=== PATIENT | female | born 1935 | race Caucasian/White ===

== ENCOUNTER 2017-02-21 16:35 | Inpatient (IN) ==
[2017-02-21] MEDS ORDERED: IOPAMIDOL 100 ML BOTTLE IV ONE (16:36)
--- NOTE | 2017-02-21 17:05 | Emergency Department Note ---
General Adult HPI - General Chief complaint: Shortness of Breath/Dyspnea Stated complaint: Lower edema, sob Time Seen by Provider: 02/21/17 16:56 Source: patient Mode of arrival: ambulatory - History of Present Illness HPI Narrative: This patient has had some shortness of breath weight gain and swelling over the last few days. No chest pain she has had some abdominal bloating and has been having a workup for that. I did see her couple weeks ago with cellulitis the hand and she was treated with vancomycin IV and then clindamycin which she did not tolerate very well. She does have a history of COPD but not congestive heart failure. She seems to be a new onset atrial fibrillation today. Although at least one nurse was able to find no reference and old records to possible old atrial fibrillation - Related Data Home Medications Medication Instructions Recorded Confirmed calcium carbonate 600 mg (1,500 1 tab PO QDAY 07/19/15 02/12/17 mg)-vitamin D3 400 unit tablet vitamin B complex tablet 1 tab PO QDAY tab 07/19/15 02/12/17 multivitamin tablet 1 tab PO QDAY tab 05/14/16 02/12/17 omega-3 fatty acids 1,000 mg 1,000 mg PO QDAY 05/14/16 02/12/17 capsule Mesalamine [Apriso] 4 cap PO QAM 02/10/17 02/12/17 Previous Rx's Medication Instructions Recorded tiotropium bromide 18 mcg capsule 18 mcg INHALATION QDAY 90 Days 02/28/16 with inhalation device metoprolol succinate ER 25 mg 25 mg PO QAM 90 Days 05/14/16 tablet,extended release 24 hr Clindamycin HCl [Cleocin] 300 mg PO TID #30 capsule 02/10/17 Allergies Allergy/AdvReac Type Severity Reaction Status Date / Time No Known Drug Allergies Allergy Verified 02/21/17 16:41 Review of Systems Constitutional: Denies: fever Eyes: Denies: eye pain ENT ED: Denies: ear pain Cardiovascular: Reports: dyspnea on exertion. Denies: chest pain, palpitations Respiratory: Reports: dyspnea. Denies: cough Gastrointestinal: Denies: abdominal pain, nausea, vomiting Genitourinary: Denies: urgency Musculoskeletal: Denies: back pain Integumentary: Denies: rash Neurological: Denies: headache Past Medical History - Past Medical History [facility] Narrative: Medical History (Last Updated 02/12/17 @ 13:35 by Lillie Leyva PA-C) Dermatitis (Acute) Cellulitis of right hand (Acute) Encounter for wound re-check (Acute) Cellulitis (Acute) Cellulitis (Acute) UTI (urinary tract infection) (Acute) Sundowning (Acute) Hypotension (Chronic) Acute colitis (Acute) Ulcerative colitis (Acute) Diarrhea (Acute) Pneumonia (Acute) History of tobacco use (Chronic) Thyroid nodule (Chronic) Osteoporosis (Chronic) Mitral valve prolapse (Chronic) Mitral valve disease (Chronic) Hypertension (Chronic) Hyperparathyroidism (Chronic) Hormone replacement therapy (Chronic) Colon polyps (Chronic) Ulcerative colitis (Chronic) COPD (chronic obstructive pulmonary disease) (Chronic) Left lower lobe pneumonia (Acute) COPD exacerbation (Acute) Past Surgical History (Last Updated 01/21/17 @ 14:29 by [employer] [place]) History of surgical removal of skin lesion (Chronic) H/O: hysterectomy (Chronic) H/O colonoscopy (Chronic) H/O left breast biopsy (Chronic) Family History Mother Family history of malignant neoplasm of uterus Medical history: Reports: COPD, dementia, hypertension, osteoporosis, other (UC , MVP, hyperparathyroidism) Surgical history ED: Reports: hysterectomy Psychiatric history: Reports: no psych history [employer] [employer] history: Reports: non-contributory - Social History Alcohol use: Reports: Unknown Physical Exam - General Limitations: no limitations General appearance: alert, in no apparent distress - Head Head exam: atraumatic - Eye Eye exam: Present: normal appearance - ENT ENT exam: normal exam - Neck Neck exam: Present: normal inspection - Chest Chest inspection: Present: normal inspection - Respiratory Respiratory exam: Present: other (Rales in the bases) - Cardiovascular Cardiovascular exam: Present: irregular rhythm, normal heart sounds - Abdominal Exam Abdominal exam: Present: soft, distention. Absent: tenderness - Extremities Exam Extremities exam: Present: pedal edema - Neurological Exam Neurological exam: Present: alert, oriented X3 - Psychiatric Psychiatric exam: Present: normal affect, normal mood - Skin Skin exam: Present: warm, dry, intact Course Vital Signs Temperature 98.3 F 02/21/17 16:37 Pulse Rate 98 H 02/21/17 16:37 Respiratory Rate 16 02/21/17 16:37 Blood Pressure 133/93 02/21/17 16:37 Pulse Oximetry (%) 96 02/21/17 16:37 Temperature 98.3 F 02/21/17 16:37 Pulse Rate 55 L 02/21/17 21:01 Respiratory Rate 23 H 02/21/17 21:01 Blood Pressure 124/95 02/21/17 21:01 Pulse Oximetry (%) 94 02/21/17 21:01 Medical Decision Making - MDM Narrative Medical decision making narrative: Patient's lab work showed a BNP of 3000 negative troponin CTA of chest was negative for PE but did show pleural effusions and suggestions of cardiomegaly with decreased EF. Did give her 20 mg of IV Lasix and began to get some diuresis with about 800 cc out. However this patient has new onset atrial fib congestive heart failure and edema and will be admitted to telemetry per Dr. Ellis. - Lab Data Lab results reviewed: Yes I reviewed the patient's lab results. Result diagrams: 02/21/17 17:14 02/21/17 17:14 Lab Results 02/21/17 02/21/17 02/21/17 Range/Units 17:14 17:14 17:14 WBC 10.0 (4.5-11.0) K/mcL RBC 4.71 (4.00-5.20) M/mcL Hgb 14.2 (12.0-15.0) g/dL Hct 43.1 (36.0-48.0) % MCV 91.6 (80.0-100.0) fL MCH 30.2 (26.0-34.0) pg MCHC 33.0 (31.0-36.0) g/dL RDW 15.1 H (11.5-14.5) % Plt Count 195 (140-440) K/mcL MPV 10.7 H (7.4-10.4) fL Gran % 73.7 (38.0-78.0) % Lymph % (Auto) 22.9 (15.5-49.0) % [place] % (Auto) 2.0 (1.0-12.0) % Eos % (Auto) 1.0 (0.0-7.0) % Baso % (Auto) 0.4 (0.0-2.0) % Gran # 7.4 (1.8-8.0) K/mcL Lymph # 2.3 (1.5-4.8) K/mcL [place] # 0.2 (0.1-0.9) K/mcL Eos # 0.1 (0.0-0.7) K/mcL Baso # 0 (0.0-0.3) K/mcL D-Dimer 0.93 H (0.00-0.40) ug/ml Sodium 138 (133-145) mmol/L Potassium 3.9 (3.3-5.1) mmol/L Chloride 99 (96-108) mmol/L Carbon Dioxide 24 (22-30) mmol/L Anion Gap 15.0 (8-16) BUN 14 (8-23) mg/dl Creatinine 0.7 (0.6-1.1) mg/dl GFR Calculation 81 Glucose 103 (70-105) mg/dL Calcium 8.3 L (8.6-10.4) mg/dl Total Bilirubin 0.6 (0.0-1.0) mg/dL AST 48 H (0-37) U/l ALT 56 H (0-40) U/l Alkaline Phosphatase 74 (39-117) U/L Troponin T (0-0.03) ng/ml NT-Pro-B Natriuret Pep 3053.0 H (0-450) pg/ml Total Protein 5.3 L (5.9-8.4) gm/dL Albumin 3.3 (3.2-5.2) gm/dL Globulin 2.0 L (2.2-3.7) gm/dL Albumin/Globulin Ratio 1.7 (1.0-2.3) Urine Color Urine Appearance Urine pH (5.0-9.0) Ur Specific [place] (1.000-1.035) Urine Protein (NEG) mg/dL Urine Glucose (UA) (NEG) mg/dL Urine Ketones (NEG) mg/dL Urine Occult Blood (<0.03) mg/dL Urine Nitrate (NEG) Urine Bilirubin (NEG) mg/dL Urine Urobilinogen (NEG) mg/dL Ur Leukocyte Esterase (NEG) /uL Urine RBC (0-1) /hpf Urine WBC (0-4) /hpf Ur Squamous Epith Cells (0-4) /hpf Ur Transition Epith Cell (0-2) /hpf Urine Bacteria (0) /hpf Urine Mucus (0) /hpf Ur Culture Indicated? 02/21/17 02/21/17 Range/Units 17:14 17:44 WBC (4.5-11.0) K/mcL RBC (4.00-5.20) M/mcL Hgb (12.0-15.0) g/dL Hct (36.0-48.0) % MCV (80.0-100.0) fL MCH (26.0-34.0) pg MCHC (31.0-36.0) g/dL RDW (11.5-14.5) % Plt Count (140-440) K/mcL MPV (7.4-10.4) fL Gran % (38.0-78.0) % Lymph % (Auto) (15.5-49.0) % [place] % (Auto) (1.0-12.0) % Eos % (Auto) (0.0-7.0) % Baso % (Auto) (0.0-2.0) % Gran # (1.8-8.0) K/mcL Lymph # (1.5-4.8) K/mcL [place] # (0.1-0.9) K/mcL Eos # (0.0-0.7) K/mcL Baso # (0.0-0.3) K/mcL D-Dimer (0.00-0.40) ug/ml Sodium (133-145) mmol/L Potassium (3.3-5.1) mmol/L Chloride (96-108) mmol/L Carbon Dioxide (22-30) mmol/L Anion Gap (8-16) BUN (8-23) mg/dl Creatinine (0.6-1.1) mg/dl GFR Calculation Glucose (70-105) mg/dL Calcium (8.6-10.4) mg/dl Total Bilirubin (0.0-1.0) mg/dL AST (0-37) U/l ALT (0-40) U/l Alkaline Phosphatase (39-117) U/L Troponin T < 0.01 (0-0.03) ng/ml NT-Pro-B Natriuret Pep (0-450) pg/ml Total Protein (5.9-8.4) gm/dL Albumin (3.2-5.2) gm/dL Globulin (2.2-3.7) gm/dL Albumin/Globulin Ratio (1.0-2.3) Urine Color Yellow Urine Appearance Clear Urine pH 5.0 (5.0-9.0) Ur Specific [place] 1.010 (1.000-1.035) Urine Protein Neg (NEG) mg/dL Urine Glucose (UA) Negative (NEG) mg/dL Urine Ketones Neg (NEG) mg/dL Urine Occult Blood Neg (<0.03) mg/dL Urine Nitrate Neg (NEG) Urine Bilirubin Neg (NEG) mg/dL Urine Urobilinogen Neg (NEG) mg/dL Ur Leukocyte Esterase 75 A (NEG) /uL Urine RBC < 1 (0-1) /hpf Urine WBC 8 H (0-4) /hpf Ur Squamous Epith Cells 1 (0-4) /hpf Ur Transition Epith Cell < 1 (0-2) /hpf Urine Bacteria 0 (0) /hpf Urine Mucus Few (0) /hpf Ur Culture Indicated? Yes - Radiology Data Radiology results reviewed: Yes I reviewed the patient's radiology results. Disposition Clinical Impression: Congestive heart failure Disposition: Xfer As Inpt ([facility]) Condition: Undetermined Referrals: Sha Grullon MD [Primary Care Provider] - Time of Disposition: 21:07
[2017-02-21 17:52] LABS: Basophils # (Auto) 0 K/mcL (0.0-0.3); Basophils % (Auto) 0.4 % (0.0-2.0); Eosinophils # (Auto) 0.1 K/mcL (0.0-0.7); Granulocytes % (Auto) 73.7 % (38.0-78.0); Lymphocytes # (Auto) 2.3 K/mcL (1.5-4.8); Lymphocytes % (Auto) 22.9 % (15.5-49.0); Mean Cell Volume 91.6 fL (80.0-100.0); Mean Corpuscular Hemoglobin 30.2 pg (26.0-34.0); Monocytes # (Auto) 0.2 K/mcL (0.1-0.9); Platelet Count 195 K/mcL (140-440); RBC 4.71 M/mcL (4.00-5.20); Red Cell Distribution Width 15.1 % (11.5-14.5)
[2017-02-21 18:17] LABS: ALT/SGPT 56 U/l (0-40); Albumin 3.3 gm/dL (3.2-5.2); Albumin/Globulin Ratio 1.7 (1.0-2.3); Alkaline Phosphatase 74 U/L (39-117); Blood Urea Nitrogen 14 mg/dl (8-23)
[2017-02-21 18:28] LABS: Appearance,Urine CLEAR; Bacteria,Urine 0 /hpf (0); Bilirubin,Urine NEG (NEG); Color,Urine YELLOW; Glucose,Urine (UA) NEGATIVE (NEG); Leukocyte Esterase,Urine 75 /uL (NEG); Mucus,Urine FEW /hpf (0); Nitrate,Urine NEG (NEG); Protein,Urine NEG (NEG); Urine Blood NEG mg/dL (<0.03); Urine RBC < 1 /hpf (0-1); Urine Squamous Epithelial Cell 1 /hpf (0-4); Urine Transitional Epi Cells < 1 /hpf (0-2); Urine WBC 8 /hpf (0-4); Urobilinogen,Urine NEG (NEG)
[2017-02-21] MEDS ORDERED: FUROSEMIDE 20 MG/2 ML VIAL IV ONE ×3 (19:05→23:19)
--- NOTE | 2017-02-21 20:20 | Cat Scan Report ---
CLINICAL INFORMATION: Reason for Exam:sob COMPARISON: None TECHNIQUE: Axial images obtained through the chest. intravenous contrast administration was administered, and scanning was performed during pulmonary arterial phase. Sagittally and coronally reformatted images were obtained. MIP reformatted images. FINDINGS: Mild to moderate emphysema is present, predominantly involving the upper lobes. Mild pleural parenchymal scarring is present both lung apices. There is a moderate size band of scar or discoid atelectasis in the right middle lobe. There is mild consolidation in the posterior basal segments of both lower lobes. Thin band of discoid atelectasis is present in the inferior segment of lingula. There is no evidence of a pulmonary mass. Moderate right and mild to moderate layering left side pleural effusions are present. There is no pericardial effusion. The heart is moderately enlarged with significant left ventricular dilatation. Right atrium is dilated. There is also reflux of contrast into the inferior vena cava and hepatic veins. This indicates elevated heart pressures. The pulmonary arteries appear normal without evidence of emboli. However, there is suboptimal opacification of the peripheral vessels in both lung bases due to a combination of atelectasis and pleural effusion and delayed transit of blood through the heart due to diminished cardiac function There is a moderate size cyst located laterally in the upper pole of the left kidney. This is unchanged from the prior abdominal CT.. IMPRESSION: No evidence of pulmonary emboli. However, the peripheral third order branches in the basilar segments are incompletely visualized. Bilateral layering pleural effusions, right greater than left. Emphysema Moderate cardiomegaly with indirect findings suggesting elevated right heart pressure Dr. Andrews was called with results Interpreted and Authenticated by: Leonard Alexander 02/21/17
--- NOTE | 2017-02-21 20:37 | XRay Report ---
HISTORY: Reason for Exam:sob FINDINGS: Patient has a small to moderate right-sided pleural effusion and small left-sided effusion. There is a thick band of discoid atelectasis in the right middle lobe. There is consolidation of lung parenchyma in the basilar segments bilaterally, right worse than left. This is probably atelectasis. Underlying pneumonia cannot be excluded. The heart is moderately enlarged. Pulmonary vessels are upper limits of normal in caliber. Spine has a moderate kyphotic curvature and there are several mild compression fractures in the midthoracic spine. IMPRESSION: Cardiomegaly with pleural effusions. This may be due to congestive heart failure. Bibasilar atelectasis or pneumonia . Interpreted and Authenticated by: Leonard Alexander 02/21/17
[2017-02-21] MEDS ORDERED: ACETAMINOPHEN 1,000 MG/100 ML BOTTLE IV PRN (22:31)
[2017-02-21] MEDS ORDERED: traZODone HCL 50 MG TABLET PO PRN (22:31)
[2017-02-21] MEDS ORDERED: ACETAMINOPHEN 325 MG TABLET PO PRN (22:31)
[2017-02-21] MEDS ORDERED: IPRATROPIUM/ALBUTEROL 3 ML AMPUL.NEB NEB PRN (22:31)
[2017-02-21] MEDS ORDERED: POTASSIUM CHLORIDE 20 MEQ PACKET PO PRN (22:31)
[2017-02-21] MEDS ORDERED: ONDANSETRON 4 MG/2 ML VIAL IV PRN (22:31)
[2017-02-21] MEDS ORDERED: MAGNESIUM SULFATE 2 GM/50 ML BAG IV PRN (22:31)
[2017-02-21] MEDS ORDERED: METOPROLOL TARTRATE 5 MG/5 ML VIAL IV ONE ×2 (22:52→23:44)
[2017-02-21] MEDS ORDERED: cefTRIAXone 1 GM VIAL ONE (22:54)
[2017-02-21] MEDS: METOPROLOL TARTRATE 5 MG/5 ML VIAL IV SCH ×2 (23:09→23:44)
[2017-02-21] MEDS: cefTRIAXone 2 GM in DEXTROSE 5% IN WATER 50 ML IV SCH (23:10)
[2017-02-21] MEDS: 0.9 % SODIUM CHLORIDE 10 ML SYRINGE IV SCH (23:11)
[2017-02-22] MEDS: METOPROLOL TARTRATE 5 MG/5 ML VIAL IV SCH (00:53)
--- NOTE | 2017-02-22 01:06 | History and Physical Report ---
DATE OF ADMISSION: 02/21/2017 PRIMARY CARE PHYSICIAN: Sha Grullon MD HAMPER MAKER MACHINE: [facility], Yoni Kaur MD REASON FOR ADMISSION: Worsening shortness of breath and lower extremity swelling. HISTORY OF CHIEF COMPLAINT: The patient is an 81-year-old who lives in the [place] her daughter. She carries a history of ulcerative colitis and COPD and has been in her baseline state of health until roughly 1 week prior to presentation. The patient while gardening developed a blister, left upper extremity. She subsequently had cellulitis which was treated initially on Rocephin and subsequently on clindamycin and vancomycin with clinical improvement but during the course of 5 days, the patient has gained over 14 pounds and has become increasingly edematous along with short of breath, limiting her ability to function. Over the last 48 hours, the patient has barely been able to get around in her own home due to increasing dyspnea which has progressed to rest. She subsequently came to [facility] Emergency Room. Initial workup was significant for pulmonary edema with congestive heart failure. The patient received first dose of Lasix in the ER with adequate response. Hospitalist Service was consulted. At the time of examination, the patient is accompanied with 3 daughters. She was able to provide answers to most of the questions. She appears nondistressed and able to talk in near full sentences. She denies recent NSAID intake. She also denies recent changes in medications or [id number] herbal supplements. She further denies missing her regular medications. She denies diarrhea, dysuria, endorses weight gain but no joint swelling, rash, glandular swelling, chest pain, productive sputum, fever, shaking chills, headache or photophobia. REVIEW OF SYSTEMS: Ten-point review of system was performed and negative except for what is discussed above. PAST MEDICAL HISTORY: 1. History of ulcerative colitis, managed by Dr. Whitaker. 2. COPD. 3. Hypertension. 4. Mitral valve prolapse. CURRENT MEDICATIONS: Mesalamine, dose unclear. Multivitamin daily. Vitamin complex daily. Tiotropium inhaled daily. Metoprolol 25 daily. Clindamycin 300 three times a day. ALLERGIES: None significant. SOCIAL HISTORY: The patient lives [place] the [place] with her daughter. She carries over a [id number] history of smoking. He denies any alcohol. Likes gardening. CODE STATUS: DNR. FAMILY HISTORY: Significant for ulcerative colitis (son), CVA (father), breast cancer (mother). PHYSICAL EXAMINATION: GENERAL EXAM: The patient is alert and oriented. She denies any active distress. BMI 26.6. Height 5 feet. VITAL SIGNS: Blood pressure 124/95, respiration rate 23, pulse 103, sats 94% room air, and temperature 97.5. HEENT: Pupils symmetric. Oral cavity is dry. No ear or nose discharge. Head is normocephalic and atraumatic. NECK: No lymphadenopathy. CHEST: S1, S2, irregular rhythm. ESM grade I, with minimal radiation to carotid. Diminished breath sounds at bases. Late inspiratory crackles, posterior basilar chest. ABDOMEN: Distended, tympanic, minimal hepatomegaly. LOWER EXTREMITY EXAMINATION: Significant for 2+ pitting edema from mid foot all the way up to the mid thigh. SKIN: Otherwise, no suspicious lesions. PSYCHIATRIC: Alert and cooperative. No anxiety. NEURO: Nonfocal. LABS AND IMAGING: White count 10, hemoglobin 14, platelets 105. D-dimer 0.93. Sodium 130, potassium 3.9, creatinine 0.7, BUN 14. LFTs elevated with ALT 56, AST 28. BNP 3053. UA [address] angiogram chest: Layering pleural effusion. X-ray chest: Congestive heart failure, pleural effusion. Recent abdominal ultrasound reveals 1 x 1.3 cm mass adjacent to the pancreas and recommend abdominal CT along with findings of cholelithiasis with thickened gallbladder indicative of chronic cholecystitis. ASSESSMENT AND PLAN: An 81-year-old admitted with acute decompensated heart failure. 1. Acute decompensated heart failure. Start aggressive diuresis. Echocardiogram. Continue beta abril. Consider RAVI inhibitor. 2. New onset atrial fibrillation. Continue beta abril. Telemonitoring. 3. Uncomplicated urinary tract infection. Continue antibiotic coverage. Await cultures. 4. History of ulcerative colitis. Continue prior home medications. 5. History of chronic obstructive pulmonary disease. Continue bronchodilators. 6. Hypertension. Continue metoprolol. PLAN FOR TODAY: 1. Admit as inpatient, anticipate a minimum 2 midnight stay. 2. Telemonitoring. 3. Aggressive diuresis. 4. Echocardiogram. 5. Preexisting medical condition management as above. AA:trell Job ID: [id number] Doc ID: [id number] Matt Grullon MD [facility]
[2017-02-22 04:44] LABS: Mean Cell Volume 92.7 fL (80.0-100.0); Mean Corpuscular HGB Conc 32.7 g/dL (31.0-36.0); Mean Corpuscular Hemoglobin 30.3 pg (26.0-34.0); Platelet Count 199 K/mcL (140-440); RBC 4.84 M/mcL (4.00-5.20); Red Cell Distribution Width 15.2 % (11.5-14.5)
[2017-02-22 05:17] LABS: ALT/SGPT 52 U/l (0-40); Albumin 3.3 gm/dL (3.2-5.2); Albumin/Globulin Ratio 1.7 (1.0-2.3); Alkaline Phosphatase 64 U/L (39-117); Bilirubin,Direct < 0.2 mg/dL (0.0-0.3); Blood Urea Nitrogen 13 mg/dl (8-23); Gamma Glutamyl Transpeptidase 31 U/L (5-36); Magnesium 1.7 mg/dL (1.6-2.5)
[2017-02-22 05:27] LABS: Band Neutrophils % 2 % (0-10); Basophils % (Manual) 1 % (0-2); Eosinophils % (Manual) 3 % (0-7); Lymphocytes % 15 % (15-49); Monocytes % (Manual) 5 % (1-12); Platelet Estimate NORMAL (NORMAL); RBC Morphology NORMAL (NORMAL); Segmented Neutrophils % 64 % (38-78)
[2017-02-22] MEDS: 0.9 % SODIUM CHLORIDE 10 ML SYRINGE IV SCH ×3 (05:39→21:49)
[2017-02-22] MEDS: DOCUSATE SODIUM 100 MG CAPSULE PO SCH ×2 (08:10→20:43)
[2017-02-22] MEDS: FUROSEMIDE 40 MG/4 ML VIAL IV SCH ×2 (08:10→16:29)
[2017-02-22] MEDS: HEPARIN 5,000 UNIT/ML VIAL SQ SCH ×2 (08:11→20:42)
[2017-02-22] MEDS ORDERED: ALBUTEROL SULFATE 1 PUFF INHALER IH PRN (08:59)
[2017-02-22] MEDS ORDERED: MULTIVIT,THER IRON,CA,FA & MIN 1 TABLET PO SCH (09:00)
--- NOTE | 2017-02-22 09:03 | Internal Med Progress Note ---
Medical - PN: Subj Patient information: Note initiated : 02/22/17 at 9:01 am Service Date, if different from initiated Date: [] Patient: Anne Jackson 81 y/o F admitted on 02/21/17 for Lower edema, sob. Chief Complaint: [] Interval history: 02/21- patient admitted with acute decompensated heart failure/shortness of breath. Mild and complicated UTI. On aggressive diuresis/antibiotics. Admitted to telemetry. New onset A. fib rate controlled. Ultrasound abdomen revealed cholelithiasis with cholecystitis and possible pancreatic mass. CT abdomen in a.m. 02/22- atient doing well. No overnight events. No concerns per staff. Diuresis over [address] abdomen and pelvis pending. Echocardiogram pending. Patient feels better with improved generalized swelling including lower extremity lymphedema. Continue physical therapy/cardiac diet. Possible discharge in 24 hours if clinically improved with outpatient follow-up with PCP.optimize CHF management based on echo findings. - Constitutional Vitals: Vital Signs Temp Pulse Resp BP Pulse Ox 98.4 F 101 H 16 125/86 94 02/22/17 07:57 02/22/17 07:57 02/22/17 07:57 02/22/17 07:57 02/22/17 07:57 Period Temp Pulse Resp BP Sys/Arellano Pulse Ox Last 24 Hr 98.4 F 98-101 16-16 117-128/76-86 94-95 Intake and Output 02/21/17 02/22/17 02/22/17 21:59 05:59 13:59 Output Total 1850 / 1850 Balance -1850 / -1850 Intake & Output: Intake & Output 02/21/17 02/22/17 02/22/17 21:59 05:59 13:59 Output Total 1850 / 1850 Balance -1850 / -1850 Output: Void Amount 1850 / 1850 General appearance: cooperative, no acute distress Exam: alert oriented nonlabored breathing Nondistended abdomen Improving lymphedema Medical - PN: Obj Da - Labs CBC & Chem 7: 02/22/17 03:40 02/22/17 03:45 Labs: Abnormal Lab Results 02/22/17 02/22/17 03:45 03:40 RDW 15.2 H MPV 10.6 H Reactive Lymphocytes 10 H Calcium 8.2 L AST 45 H ALT 52 H Total Protein 5.3 L Globulin 2.0 L Meds: Medications Acetaminophen (Tylenol) 650 mg PO Q4-6HP PRN PRN Reason: PAIN/FEVER > 101 Albuterol Sulfate (Ventolin) puff IH Q4HP PRN PRN Reason: Shortness Of Breath Albuterol/Ipratropium (Duoneb) 3 ml NEB Q4HP PRN PRN Reason: Shortness Of Breath Docusate Sodium (Colace) 100 mg PO BID [facility] Last Admin: 02/22/17 08:10 Dose: Not Given Furosemide (Lasix) 20 mg IV BIDD [facility] Last Admin: 02/22/17 08:10 Dose: 20 mg Heparin Sodium (Porcine) (Heparin) 5,000 unit SQ Q12 [facility] Last Admin: 02/22/17 08:11 Dose: 5,000 unit Ceftriaxone Sodium 2 gm/ (Dextrose) 50 mls @ 100 mls/hr IV Q24H [facility] Last Admin: 02/21/17 23:10 Dose: Not Given Magnesium Sulfate (Magnesium Sulfate) 2 gm in 50 mls @ 50 mls/hr IV UD PRN PRN Reason: MG = or < 1.7 Acetaminophen (Ofirmev) 1,000 mg in 100 mls @ 200 mls/hr IV Q6HP PRN PRN Reason: PAIN/FEVER > 101 Iron Carb/Multivit/[place]/Folic Acid (Multivitamin W/Minerals) 1 tab PO DAILY [facility] Last Admin: 02/22/17 08:10 Dose: 1 tab Metoprolol Succinate (Toprol Xl) 25 mg PO QAM [facility] Non-Formulary Medication (Calcium Carbonate/Vitamin D3 [Calcium 600-Vit D3 400 Tablet]) 1 tab PO QDAY [facility] Non-Formulary Medication (Mesalamine [Apriso]) 4 cap PO QAM [facility] Non-Formulary Medication (Multivitamin [Multi-Day Vitamins]) 1 tab PO QDAY [facility] Non-Formulary Medication ([place]-3 Fatty Acids [Fish Oil Concentrate]) 1,000 mg PO QDAY [facility] Non-Formulary Medication (Vitamin B Complex [B-100 Complex]) 1 tab PO QDAY [facility] Ondansetron HCl (Zofran) 4 mg IV Q4-6HP PRN PRN Reason: Nausea And Vomiting Potassium Chloride (Klor-Con) 40 meq PO DAILYP PRN PRN Reason: K+ < 3.5 Last Admin: 02/22/17 08:12 Dose: 40 meq Senna/Docusate Sodium (Senna Plus Tablet) 1 tab PO HS [place] Sodium Chloride (Saline Flush) 10 ml IV Q8 [place] Last Admin: 02/22/17 05:39 Dose: 10 ml Tiotropium [place] (Spiriva) 18 mcg INH QDAY [place] Trazodone HCl (Desyrel) 50 mg PO HSP PRN PRN Reason: Insomnia Medical - PN: A/P - Time Spent With Patient Total time spent is greater than 50% in coordination of care (as documented) at patient's floor/unit and/or counseling patient: 25 - 35 minutes (1) Heart failure with acute decompensation, type unknown Status: Acute Assessment and plan: * acute decompensated heart failure-echo pending. Continue diuresis.optimize management based on echo finding * Mild UTI-continue Rocephin * New onset A. fib-rate controlled. Continue beta abril * pancreatic lesion on ultrasound-CT abdomen to exclude Pancreatic mass * cholelithiasis or cholecystitis-outpatient surgery consult * History of ulcerative colitis * Hypertension * COPD * dNR Plan * Optimize CHF management based on echo finding, continue diuresis * Continue antibiotics * CT abdomen and pelvis * Surgery consult on discharge * Pre-existing medical condition management as above Current Visit: Yes Medical - PN: Qual - VTE Deep Vein Thrombosis/Pulmonary Embolism Present on Admission: No
[2017-02-22] MEDS: cefTRIAXone 2 GM in DEXTROSE 5% IN WATER 50 ML IV SCH (09:07)
[2017-02-22] MEDS: MULTIVIT,THER IRON,CA,FA & MIN 1 TABLET PO SCH (10:24)
[2017-02-22] MEDS: TIOTROPIUM BROMIDE 18 MCG INHALANT INH SCH (10:30)
[2017-02-22] MEDS: MESALAMINE 0.375 GM PO SCH (10:30)
[2017-02-22] MEDS: CALCIUM W/VIT D3 500 MG TABLET PO SCH (11:12)
[2017-02-22] MEDS: VITAMIN B COMPLEX 1 CAPSULE PO SCH (11:13)
[2017-02-22] MEDS: METOPROLOL SUCCINATE 25 MG TAB.XL.24H PO SCH (11:13)
[2017-02-22] MEDS: FISH OIL 1,000 MG CAPSULE PO SCH (11:13)
[2017-02-22] MEDS ORDERED: BENZOCAINE/MENTHOL 1 LOZENGE PO PRN (13:11)
[2017-02-22] MEDS ORDERED: SENNOSIDES/DOCUSATE SODIUM 1 TAB TABLET PO SCH (21:00)
[2017-02-23] MEDS: 0.9 % SODIUM CHLORIDE 10 ML SYRINGE IV SCH (05:09)
[2017-02-23 05:27] LABS: Mean Cell Volume 90.2 fL (80.0-100.0); Mean Corpuscular HGB Conc 33.2 g/dL (31.0-36.0); Platelet Count 178 K/mcL (140-440); RBC 4.81 M/mcL (4.00-5.20); Red Cell Distribution Width 15.1 % (11.5-14.5)
[2017-02-23 06:23] LABS: ALT/SGPT 46 U/l (0-40); Albumin 3.2 gm/dL (3.2-5.2); Albumin/Globulin Ratio 1.7 (1.0-2.3); Alkaline Phosphatase 60 U/L (39-117); Bilirubin,Direct 0.3 mg/dL (0.0-0.3); Blood Urea Nitrogen 16 mg/dl (8-23); Gamma Glutamyl Transpeptidase 29 U/L (5-36); Uric Acid 5.5 mg/dL (2.5-8.0)
--- NOTE | 2017-02-23 06:35 | Echocardiogram Report ---
ECHOCARDIOGRAM: 2-D and M-mode echocardiography with cardiac Doppler and color flow imaging were performed with a [employer]. Indication is mitral prolapse and acute decompensated heart failure. Both atria appeared moderately enlarged. RV and LV cavity size appeared normal. LV wall thickness appeared borderline increased. Systolic performance appeared normal. Estimated ejection fraction is 60%. Aortic root diameter appeared normal. The aortic valve appeared trileaflet and normal. There was no evidence for aortic stenosis by Doppler interrogation. Aortic regurgitation, probably mild (1+), was demonstrated. The mitral leaflets appeared moderately thickened, probably representing myxomatous proliferation. Mild anterior leaflet systolic prolapse and prominent posterior leaflet prolapse were appreciated. Doppler interrogation of LV inflow disclosed a monophasic spectral dispersion pattern related to absent AV synchrony. Mitral regurgitation, probably moderately severe to severe (3-4+), was noted. Color flow imaging disclosed the regurgitant jet to cling to the atrial aspect of the anterior leaflet. Pulmonary venous interrogation disclosed ''d'' wave dominance suggesting elevated pulmonary wedge pressure. The pulmonic valve showed absent ''a'' wave in the absence of AV synchrony. Pulmonary artery acceleration time appeared shortened. There was no evidence for pulmonic stenosis or pulmonic regurgitation. Tricuspid valve appeared normal. Tricuspid regurgitation, probably mild (1+), was noted. No intracardiac shunting was appreciated. There was no evidence for pericardial effusion. The IVC was dilated and did not vary with the respiratory cycle indicating raised CVP. Calculated estimate of PA systolic pressure is mildly elevated at 40 mmHg. Hepatic venous interrogation disclosed ''d'' wave dominance corroborating elevated RA pressure. Atrial fibrillation with a moderate response was present. CONCLUSION:Aortic regurgitation, probably mild (1+) Borderline concentric LVH with normal systolic performance. 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 Note: This patient may have indication for mitral valve surgery. (See accompanying M-mode and Doppler reports for quantitation.) ECHOCARDIOGRAPHY M-MODE CALCULATIONS: HT: 5'0 WT: 133 BSA: 1.57 m2 NORMALS AORTA: AORTIC ROOT 3.0 2.0-3.7 cm LEFT ATRIUM 4.3 1.9-4.0 cm MITRAL VALVE: EXCURSION 2.2 1.9-2.7 cm EPSS 0.3 <0.5 cm LT VENTRICLE: LVID (ED) 5.0 3.5-5.7 cm LVID (ES) 4.0 SEPTAL THICKNESS 1.2 0.6-1.1 cm SEPTAL EXCURSION 0.2 0.3-0.8 cm LVPW THICKNESS 1.2 0.6-1.1 cm LVPW EXCURSION 1.0 0.9-1.4 cm MINOR AXIS FS 2.0 25%-40% RT VENTRICLE: RVID (ED) 2.8 0.9-2.6 cm(up to 3cm if LLD) QUALITATIVE DOPPLER FLOW STUDIES MITRAL VALVE MR, probably moderately severe to severe (3-4+) AORTIC VALVE AR, probably mild (1+) TRICUSPID VALVE TR, probably mild (1+) PULMONIC VALVE -- QUANTITATIVE DOPPLER FLOW STUDIES SAMPLE SITES VELOCITIES PEAK PRESSURE VALVE AREA and/or VALVE WINDOW (PEAK,M/SEC) DROP (GRADIENT) PRESSURE HALF-TIME MV (Diastole) 1.4 -- -- MV (Systole) 5.0 -- -- AO (Diastole) 4.5 -- -- AO (Systole) 1.3 -- -- TV (Systole) 2.2 -- -- PV (Systole) 0.8 -- -- PV (Diastole) -- DOMINGO:emerald Job ID: [id number] Doc ID: [id number] Estiven Vázquez MD
[2017-02-23 06:48] LABS: Anisocytosis 1+ (NONE SEEN); Band Neutrophils % 1 % (0-10); Basophils % (Manual) 1 % (0-2); Eosinophils % (Manual) 1 % (0-7); Lymphocytes % 28 % (15-49); Monocytes % (Manual) 6 % (1-12); Platelet Estimate NORMAL (NORMAL); RBC Morphology ABNORM (NORMAL); Segmented Neutrophils % 63 % (38-78)
--- NOTE | 2017-02-23 07:13 | XRay Report ---
CLINICAL INFORMATION: CHF COMPARISON: 02/21/2017 FINDINGS: Moderate cardiomegaly is unchanged. Mediastinum is unremarkable. Pulmonary vessels are mildly to moderately distended but slightly improved from previous study. Interstitial edema shows slight improvement. Moderate right and small left pleural effusion is noted with subsegmental atelectasis both lower lobes IMPRESSION: Mild CHF - improved from exam two days ago Interpreted and Authenticated by: Ramsey Dao 02/23/17
--- NOTE | 2017-02-23 07:50 | Discharge Summary ---
Medical - DS: Prov Patient information: Note initiated : 02/23/17 at 7:48 am Service Date, if different from initiated Date: [] Patient: Anne Jackson 81 y/o F admitted on 02/21/17 for Lower Edema, SOB/ Decompensated Heart Failure. Chief Complaint: [] Date of admission: 02/21/17 22:15 Discharge date: 02/23/17 Primary care physician: Sha Grullon Medical - DS: Meds - Discharge Medications Prescriptions: Ciprofloxacin HCl [Cipro] 500 mg PO BID #8 tablet Furosemide [Lasix] 20 mg PO Q48 #30 tablet Warfarin [Coumadin] 2.5 mg PO DAILY@1400 #30 tablet Active and Home Medications: Home Medications calcium carbonate 600 mg (1,500 mg)-vitamin D3 400 unit tablet 1 tab PO QDAY [History Confirmed 02/22/17 Last Taken 02/21/17] vitamin B complex tablet 1 tab PO QDAY tab 07/19/15 [History Confirmed Last Taken 02/21/17] tiotropium bromide 18 mcg capsule with inhalation device 18 mcg INHALATION QDAY 90 Days 02/28/16 [Rx Confirmed 02/22/17 Last Taken 02/21/17] metoprolol succinate ER 25 mg tablet,extended release 24 hr 25 mg PO QAM 90 Days 05/14/16 [Rx Confirmed 02/22/17 Last Taken 02/21/17] multivitamin tablet 1 tab PO QDAY tab 05/14/16 [History Confirmed 02/22/17 Last Taken 02/21/17] omega-3 fatty acids 1,000 mg capsule 1,000 mg PO QDAY 05/14/16 [History Confirmed 02/22/17 Last Taken 02/21/17] Mesalamine [Apriso] 4 cap PO QAM 02/10/17 [History Confirmed 02/22/17 Last Taken 02/21/17] Albuterol Sulfate [Proair Hfa] 8.5 gm IH Q4HP PRN 02/21/17 [History Confirmed Last Taken Unknown] Furosemide [Lasix] 20 mg PO Q48 #30 tablet 02/23/17 [Rx Last Taken Unknown] Warfarin [Coumadin] 2.5 mg PO DAILY@1400 #30 tablet 02/23/17 [Rx Last Taken Unknown] Medical - DS: Hosp Hospital course: DISCHARGE DIAGNOSIS * Acute decompensated heart failure- secondary to severe MR. Respond well to diuretics. follow-up with cardiology in 5-7 days. Continue diuretics as outpatient * Mild UTI-continue ciprofloxacin patient 3 days * New onset A. fib-rate controlled. Continue beta abril. Chads score 2 mandating anticoagulation. Started on Coumadin.INR checks as outpatient * Pancreatic lesion on ultrasound-CT abdomen in 1 week to exclude Pancreatic mass. * cholelithiasis with gallbladder wall thickening- scheduled outpatient surgery consult * History of ulcerative colitis-continue mesalamine * Hypertension-on metoprolol * COPD-on bronchodilators Brief hospital course 02/21- patient admitted with acute decompensated heart failure/shortness of breath. Mild and complicated UTI. On aggressive diuresis/antibiotics. Admitted to telemetry. New onset A. fib rate controlled. Ultrasound abdomen revealed cholelithiasis with cholecystitis and possible pancreatic mass. CT abdomen in a.m. 02/22- atient doing well. No overnight events. No concerns per staff. Diuresis over [address] abdomen and pelvis pending. Echocardiogram pending. Patient feels better with improved generalized swelling including lower extremity lymphedema. Continue physical therapy/cardiac diet. Possible discharge in 24 hours if clinically improved with outpatient follow-up with PCP.optimize CHF management based on echo findings. 02/23- patient responded to diuretics with adequate diuresis and resolution of lymphedema/pedal edema. echocardiogram severe MR with concentric LVH/AR. interval resolution of pulmonary edema on chest x-ray. ischarging home with advice to follow up with primary care physician/surgery in 5-7 days for evaluation of cholelithiasis. also patient will require outpatient cardiology follow-up in 7-10 days along with cardiothoracic surgery follow-up for evaluation of severe MR and valve repair. Continue Coumadin based on chads score over 2 to prevent embolic CVA. Patient feels back in baseline and requesting discharge. Detailed discharge instructions provided as below Discharge diagnosis: . - Time Spent with Patient Total time spent providing and/or coordinating discharge services: Greater than 30 minutes Medical - DS: Exam - Constitutional Vitals: Vital Signs Temp Pulse Resp BP BP Pulse Ox 02/23/17 07:08 98 F 106 H 18 119/79 95 02/23/17 03:54 97.2 F 111 H 16 125/88 95 02/23/17 00:00 97.2 F 109 H 16 112/70 95 02/22/17 20:00 98.5 F 105 H 18 123/78 95 02/22/17 16:00 97.9 F 107 H 16 121/82 95 02/22/17 12:00 97.6 F 101 H 16 102/70 95 02/22/17 07:57 98.4 F 101 H 16 125/86 94 Intake and Output 02/22/17 02/23/17 02/23/17 21:59 05:59 13:59 Intake Total 480 / 480 600 / 600 Output Total 900 / 900 950 / 950 Balance -420 / -420 -350 / -350 Intake: Oral 480 / 480 600 / 600 Output: Void Amount 900 / 900 950 / 950 Other: Meal Dinner Percent of Meal Consumed 100% Feeding Ability Independent Weight 134 lb 6.4 oz Medical - DS: Data Labs on day of discharge: Labs from last 24 hours 02/23/17 02/23/17 03:38 03:38 WBC 8.7 RBC 4.81 Hgb 14.4 Hct 43.4 MCV 90.2 MCH 30.0 MCHC 33.2 RDW 15.1 H Plt Count 178 MPV 11.5 H Total Counted 200 Seg Neutrophils % 63 Band Neutrophils % 1 Lymphocytes % 28 Monocytes % (Manual) 6 Eosinophils % (Manual) 1 Basophils % (Manual) 1 Platelet Estimate Normal RBC Morphology Abnorm A Anisocytosis 1+ A Sodium 142 Potassium 3.4 Chloride 101 Carbon Dioxide 27 Anion Gap 14.0 BUN 16 Creatinine 0.7 GFR Calculation 81 Glucose 96 Uric Acid 5.5 Calcium 8.0 L Phosphorus 3.0 Magnesium 2.0 Total Bilirubin 0.8 Direct Bilirubin 0.3 GGT 29 AST 41 H ALT 46 H Alkaline Phosphatase 60 Lactate Dehydrogenase 179 Total Protein 5.1 L Albumin 3.2 Globulin 1.9 L Albumin/Globulin Ratio 1.7 Triglycerides 67 Medical - DS: A/P - Patient/Caregiver Discharge Instructions Activity: as per physical therapy Diet: Cardiac Additional Instructions: Follow-up PCP in 5 days follow-up with cardiology in 5-7 days-Patient will need evaluation for mitral valve repair in light of severe MR and decompensated heart failure with pulmonary edema follow-up abdominal CT scan in 1 week as outpatient to rule out pancreatic mass follow-up with surgery For evaluation of cholelithiasis/cholecystitis one week I recommend primary care physician to check INR, CBC BMP UA as a posthospital follow-up and check abdominal CT with contrast 1 week. Continue aggressive bowel regimen to prevent constipation Continue fall precautions daily weights measurements and take additional 40 mg Lasix for 3 days if weight gain over 4 pounds over baseline or worsening shortness of breath and call primary care physician if inadequate response to Lasix All meals on chair sitting upright at 90 degrees to prevent aspiration Return to ER if worsening fever chills shortness of breath, diarrhea, bleeding Review risk and side effect profile of medications including Coumadin. Side effect may include mild to severe reaction including medication interaction, life threatening bleeding including intracranial hemorrhage and even which can be prevented by close follow-up with PCP and monitoring for side effects Refrain from smoking and alcohol Continue diet and activity as advised Discussed importance of medication adherence Please review medication list with patient prior to discharge Please schedule follow-up with PCP/Providers prior to discharge and provide printouts Portions of this chart may have been created with [employer] voice recognition software. Occasional wrong-word or ?sound-like? substitutions may have occurred due to the inherent limitations of voice recognition software. Please read the chart carefully and recognize, using context, where the substitutions have occurred. CC- PCP Prescriptions: Ciprofloxacin HCl [Cipro] 500 mg PO BID #8 tablet Furosemide [Lasix] 20 mg PO Q48 #30 tablet Warfarin [Coumadin] 2.5 mg PO DAILY@1400 #30 tablet - Follow up Plan Follow up with: Sha Grullon MD [Primary Care Provider] - Eber Edwards MD [Physician] - Perico Welch [Physician] - Disposition: Home, Self-Care Prognosis: Fair Rehab Potential: Fair I certify that the patient requires SNF services: No Overall status at discharge: patient is back to baseline Medical - DS: Qual - VTE Deep Vein Thrombosis/Pulmonary Embolism Present on Admission: No
[2017-02-23] MEDS: FUROSEMIDE 40 MG/4 ML VIAL IV SCH (07:55)
[2017-02-23] MEDS: MESALAMINE 0.375 GM PO SCH (08:58)
[2017-02-23] MEDS: VITAMIN B COMPLEX 1 CAPSULE PO SCH (08:58)
[2017-02-23] MEDS: FISH OIL 1,000 MG CAPSULE PO SCH (08:58)
[2017-02-23] MEDS: CALCIUM W/VIT D3 500 MG TABLET PO SCH (08:58)
[2017-02-23] MEDS: MULTIVIT,THER IRON,CA,FA & MIN 1 TABLET PO SCH (08:58)
[2017-02-23] MEDS: METOPROLOL SUCCINATE 25 MG TAB.XL.24H PO SCH (08:58)
[2017-02-23] MEDS: DOCUSATE SODIUM 100 MG CAPSULE PO SCH (08:59)
[2017-02-23] MEDS: TIOTROPIUM BROMIDE 18 MCG INHALANT INH SCH (08:59)
[2017-02-23] MEDS: HEPARIN 5,000 UNIT/ML VIAL SQ SCH (08:59)
[2017-02-23] MEDS: cefTRIAXone 2 GM in DEXTROSE 5% IN WATER 50 ML IV SCH (08:59)
[2017-02-23] MEDS ORDERED: WARFARIN 2.5 MG TABLET PO SCH (14:00)
== END 2017-02-23 10:40 | disposition home or self-care (01) | DRG 292 ==
LOC: ED 16:35 → ICU 22:15
PROVIDERS: ADMIT Internal Medicine; ATTEND Internal Medicine

== ENCOUNTER 2017-08-04 11:24 | Observation (INO) ==
--- NOTE | 2017-08-04 12:10 | Emergency Department Note ---
SOB HPI - General Chief Complaint: Shortness of Breath/Dyspnea Stated Complaint: Shortness of breath Time Seen by Provider: 08/04/17 11:43 Source: patient Mode of arrival: ambulatory Limitations: no limitations - History of Present Illness Patient brought over with daughters at the bedside, initially seen for urgent care. Increasing shortness of breath over the last few days, culminating into unable to lie flat for sleep. Notable pitting edema of the lower extremities. Patient seems to be slightly confused according to family, using albuterol inhaler 5 or 6 times over the last few hours. winded after 5 steps, has been present but slightly progressive over last few months. No acute change No fevers or chills, no cough. Using her home nebulizer. Meds are up-to-date. Currently without a physician since Dr. Grullon's assisted. Abdominal distention at baseline, unchanged - Related Data Home Medications Medication Instructions Recorded Confirmed calcium carbonate 600 mg (1,500 1 tab PO QDAY 07/19/15 08/04/17 mg)-vitamin D3 400 unit tablet vitamin B complex tablet 1 tab PO QDAY tab 07/19/15 08/04/17 multivitamin tablet 1 tab PO QDAY tab 05/14/16 08/04/17 omega-3 fatty acids 1,000 mg 1,000 mg PO QDAY 05/14/16 08/04/17 capsule Mesalamine [Apriso] 4 cap PO QAM 02/10/17 08/04/17 Albuterol Sulfate [Proair Hfa] 8.5 gm IH Q4HP PRN 02/21/17 08/04/17 lactobacillus combination no.4 3 3,000 mmu cells PO BID cap 02/26/17 08/04/17 billion cell capsule Previous Rx's Medication Instructions Recorded metoprolol succinate ER 25 mg 75 mg PO QAM 90 Days #270 tab 03/05/17 tablet,extended release 24 hr tiotropium bromide 18 mcg capsule 18 mcg INHALATION QDAY 90 Days #90 04/29/17 with inhalation device puff trazodone 50 mg tablet 50 mg PO QHS #90 tab 05/26/17 warfarin 2.5 mg tablet See Label Instructions .ROUTE 05/26/17 .COMPLEX #90 tab furosemide 20 mg tablet 40 mg PO QDAY #180 tab 07/15/17 potassium chloride ER 10 mEq 10 meq PO QDAY #90 cap 07/15/17 capsule,extended release albuterol sulfate 2.5 mg/3 mL 2.5 mg INHALATION Q4H #180 ml 07/26/17 (0.083 %) solution for nebulization Allergies Allergy/AdvReac Type Severity Reaction Status Date / Time clindamycin AdvReac Mild Heartburn Verified 08/04/17 11:28 Review of Systems All systems ED: reviewed and negative except as stated. Constitutional: Denies: fever, chills Eyes: Denies: eye pain ENT ED: Denies: ear pain Past Medical History - Past Medical History Attestation: Yes: The following information was validated with the patient. Medical history: Reports: atrial fibrillation, CHF, COPD, dementia, hypertension , osteoporosis, valvular heart disease, other (UC, MVP, hyperparathyroidism) Psychiatric history: Reports: no psych history PLANNING RN history: Reports: non-contributory Surgical history ED: Reports: hysterectomy Family history: Reports: non-contributory - Social History smoking status: Former smoker Alcohol use: Reports: None, Unknown Drug use: Reports: none Physical Exam Limitations: no limitations General appearance: alert, other (disoriented to timing and history) Head: atraumatic Eye: Present: normal appearance ENT: normal exam, mucous membranes moist Neck: Present: normal inspection. Absent: tenderness Chest: Present: normal inspection, other (kyphotic) Respiratory: Present: normal lung sounds bilaterally. Absent: respiratory distress, wheezes, accessory muscle use Cardiovascular: Present: regular rate, irregular rhythm Abdominal: Present: distention, other (tympanitic, non tender) Extremities: Present: other (2+ pitting edema; warm, good capillary refill, no cyanosis) Back: Present: normal inspection Neurological: Present: alert, oriented X3 Psychiatric: Absent: anxious Skin: Present: warm, dry Course - Reevaluation(s) Reevaluation #1: chest xray with moderated B pleural effusions: therapeutic thoracentesis requested; discussed with patient and daughters, risks benefits and indications; voiced understanding on consent Time: 12:59 Reevaluation #2: unable to complete thoracentesis due to therapeutic inr Vitk sq given admit to hospitalist, obs for thoracentesis tomorrow Time: 16:40 Vital Signs Temperature 97.0 F 08/04/17 11:25 Pulse Rate 109 H 08/04/17 11:25 Respiratory Rate 22 11/29/17 11:25 Blood Pressure 101/76 08/04/17 11:25 Pulse Oximetry (%) 95 08/04/17 11:25 Temperature 97 F 08/04/17 12:37 Pulse Rate 108 H 08/04/17 16:31 Respiratory Rate 21 08/04/17 16:31 Blood Pressure 105/82 08/04/17 16:31 Pulse Oximetry (%) 93 08/04/17 16:31 Shortness of Breath/Dyspnea - Lab Data Lab results reviewed: Yes I reviewed the patient's lab results. Result diagrams: 08/04/17 12:02 08/04/17 12:02 Lab Results 08/04/17 08/04/17 08/04/17 Range/Units 12:02 12:02 12:02 WBC 9.0 (4.5-11.0) K/mcL RBC 5.02 (4.00-5.20) M/mcL Hgb 15.1 H (12.0-15.0) g/dL Hct 46.6 (36.0-48.0) % MCV 92.8 (80.0-100.0) fL MCH 30.1 (26.0-34.0) pg MCHC 32.4 (31.0-36.0) g/dL RDW 15.3 H (11.5-14.5) % Plt Count 236 (140-440) K/mcL MPV 9.9 (7.4-10.4) fL Gran % 79.8 H (38.0-78.0) % Lymph % (Auto) 15.3 L (15.5-49.0) % Borden % (Auto) 1.4 (1.0-12.0) % Eos % (Auto) 3.0 (0.0-7.0) % Baso % (Auto) 0.5 (0.0-2.0) % Gran # 7.2 (1.8-8.0) K/mcL Lymph # (Auto) 1.4 L (1.5-4.8) K/mcL Borden # (Auto) 0.1 (0.1-0.9) K/mcL Eos # (Auto) 0.3 (0.0-0.7) K/mcL Baso # (Auto) 0 (0.0-0.3) K/mcL PT 32.2 H (11.9-14.5) sec INR 3.0 H (0.9-1.1) Sodium 138 (133-145) mmol/L Potassium 4.3 (3.3-5.1) mmol/L Chloride 96 (96-108) mmol/L Carbon Dioxide 25 (22-30) mmol/L Anion Gap 17.0 H (8-16) BUN 15 (8-23) mg/dl Creatinine 0.7 (0.6-1.1) mg/dl GFR Calculation 81 Glucose 95 (70-105) mg/dL Calcium 8.8 (8.6-10.4) mg/dl Total Bilirubin 1.0 (0.0-1.0) mg/dL AST 26 (0-37) U/l ALT 15 (0-40) U/l Alkaline Phosphatase 84 (39-117) U/L NT-Pro-B Natriuret Pep 4427.0 H (0-450) pg/ml Total Protein 6.5 (5.9-8.4) gm/dL Albumin 3.3 (3.2-5.2) gm/dL Globulin 3.2 (2.2-3.7) gm/dL Albumin/Globulin Ratio 1.0 (1.0-2.3) - Radiology Data Radiology results reviewed: Yes I reviewed the patient's radiology results. moderate B pleural effusions, much increased in size - EKG Data EKG attestation: Yes I reviewed and interpreted this EKG. EKG results narrative: afib Disposition Pt seen by GYM SUPERVISOR/PA only: No Clinical Impression: VALADEZ (dyspnea on exertion), Pleural effusion due to CHF (congestive heart failure), Hypoxia CHF (congestive heart failure), NYHA class IV Qualifiers: Congestive heart failure type: unspecified congestive heart failure type Qualified Code(s): I50.9 - Heart failure, unspecified Disposition: Xfer As Outpt/Obs ([facility]) Condition: Fair Referrals: Sha Grullon MD [Primary Care Provider] -
--- NOTE | 2017-08-04 12:36 | XRay Report ---
CLINICAL INFORMATION: Dyspnea COMPARISON: 06/07/2017 FINDINGS: Moderate cardiomegaly is unchanged. Mediastinum is unremarkable. Moderate bilateral pleural effusions result in moderate compressive atelectasis in the inferior lower lobes, right middle lobe and lingula. Pulmonary vessels show mild redistribution related to bibasilar airspace disease. Mild underlying CHF cannot be excluded IMPRESSION: Moderate bilateral pleural effusions with compressive atelectasis in the overlying inferior lower, right middle lobes and lingula. This has worsened considerably since the comparison examination approximately one month ago Mild underlying CHF cannot be excluded Interpreted and Authenticated by: Ramsey Dao 08/04/17
[2017-08-04 12:44] LABS: Basophils # (Auto) 0 K/mcL (0.0-0.3); Basophils % (Auto) 0.5 % (0.0-2.0); Eosinophils # (Auto) 0.3 K/mcL (0.0-0.7); Granulocytes % (Auto) 79.8 % (38.0-78.0); Lymphocytes # (Auto) 1.4 K/mcL (1.5-4.8); Lymphocytes % (Auto) 15.3 % (15.5-49.0); Mean Cell Volume 92.8 fL (80.0-100.0); Mean Corpuscular HGB Conc 32.4 g/dL (31.0-36.0); Mean Corpuscular Hemoglobin 30.1 pg (26.0-34.0); Monocytes # (Auto) 0.1 K/mcL (0.1-0.9); Monocytes % (Auto) 1.4 % (1.0-12.0); Platelet Count 236 K/mcL (140-440); RBC 5.02 M/mcL (4.00-5.20); Red Cell Distribution Width 15.3 % (11.5-14.5)
[2017-08-04 13:12] LABS: ALT/SGPT 15 U/l (0-40); Albumin 3.3 gm/dL (3.2-5.2); Alkaline Phosphatase 84 U/L (39-117); Blood Urea Nitrogen 15 mg/dl (8-23)
[2017-08-04] MEDS ORDERED: PHYTONADIONE 5 MG TABLET PO ONE (15:54)
[2017-08-04] MEDS ORDERED: PHYTONADIONE 10 MG/ML AMPUL SQ ONE (16:29)
[2017-08-04] MEDS ORDERED: FUROSEMIDE 20 MG/2 ML VIAL IV ONE (16:31)
--- NOTE | 2017-08-04 17:11 | Internal Med History&Physical ---
Medical - H&P: HPI Patient information: Note initiated : 08/04/17 at 5:06 pm Service Date, if different from initiated Date: [] Patient: Anne Jackson 81 y/o F admitted on for Shortness of breath. Chief Complaint: [] History of present illness: Ms. Jackson is a 81 year old female with a history of COPD, CHF, severe mitral valve prolapse, ulcerative colitis, who has been having increased shortness of breath for several days. Her daughters report they took her into clinic about a week ago when she was diagnosed with a urinary tract infection, treated with Macrobid. Over the last several days she has had worsening shortness of breath , but did not want to come into the doctors until today. Her daughter does note that she coughs quite frequently, although the patient denies this and says it is rarely. In the ER today she could only sit bolt upright as any other physician because severe shortness of breath. She maintains O2 saturations at rest, but they dropped dramatically with movement. BNP was elevated at 4000. Chest x-ray showed large bilateral pleural effusions with compressive atelectasis. Thoracentesis could not be performed because her INR is greater than 3.0 due to the Coumadin she takes for her atrial fibrillation. Blood pressures were a little borderline, so she was only given 20 mg of IV Lasix. She is now admitted for further attempts at diuresis, and to reverse her Coumadin, to allow for thoracentesis. She otherwise denies recent fever or chills, headaches or dizziness, new eye or ear symptoms, sore throat. She denies swollen glands, chest pain or palpitations, abdominal pain, nausea or vomiting, diarrhea or constipation, dysuria. At home she uses albuterol nebs 3 times daily plus a Spiriva inhaler daily. She also takes Lasix and metoprolol daily. And Coumadin. Medical History Acute exacerbation of chronic obstructive airways disease (Acute) Right foot sprain (Acute) Gallstones (Chronic) ultrasound 02/19/2017 Abnormal abdominal ultrasound (Acute) 02/19/2017 A-fib (Acute) 1st noted 02/21/2017 skilled nursing current use of anticoagulant therapy (Chronic) Dermatitis (Acute) Cellulitis of right hand (Acute) Encounter for wound re-check (Acute) Cellulitis (Acute) Cellulitis (Acute) UTI (urinary tract infection) (Acute) Cellulitis (Acute) Encounter for wound re-check (Acute) Congestive heart failure (Acute) w/ pleural effusion and edema Heart failure with acute decompensation, type unknown (Acute) Cellulitis (Acute) Routine Well Exam (Chronic) UTI (urinary tract infection) (Acute) Sundowning (Acute) Multifocal atrial tachycardia (Chronic) Confusion (Acute) Edema (Chronic) w/ stasis dermatitis Urinary tract infection (Acute) Hypotension (Chronic) Acute colitis (Acute) Ulcerative colitis (Acute) History of tobacco use (Chronic) Smoked heavily and quit 1998. Component of obstructive lung disease. Chest x- ray stable 11/2011 and on [id number] sequencing. Thyroid nodule (Chronic) past hx; negative workup. None noted on exam 12/14/2012. Osteoporosis (Chronic) By bone denisty noted in 2010 with hip T-score having gone from -2.1 to -3.0 and spine T-score having gone from -2.8 to -2.9. Vitamin D level 12/22/11 was 25.3. Currently on Premarin. 12/15/12 Density Bone density repeated with Spine T- score -3.8; Hip T-score -2.9 Mitral valve prolapse (Chronic) (02/06/2015-[facility]) Hypertension (Chronic) Negative cardiac hx; stable resting ECG 2011 Hyperparathyroidism (Chronic) Parathyroidectomy 03/2013 Hormone replacement therapy (Chronic) S/P complete hysterctomy; breast exam stable. Estrogen replacement therapy. Colon polyps (Chronic) 08/23/14-HP 2002 showed ulcerative colitis, a few small polyps, and minor diverticulosis left colon. 08/05/2007 - Unusual patchy colitis. 07/17/2009- Small polyp in proximal ascending colon removed; chronic mucosal changes consistent w/burnt out ulcerative colitis in remission. Rescreen in 5 years. Ulcerative colitis (Chronic) GI followup through Dr. Barber due 04/2013; next colonoscopy due 2013. COPD (chronic obstructive pulmonary disease) (Chronic) Component of obstructive lung disease. Chest x-ray stable 11/2011 on every-other -year sequence. Screening chest CT previously reviewed. Surgical History History of surgical removal of skin lesion (Chronic) Hx of several skin lesion removals in the past by Dr. Turcios H/O: hysterectomy (Chronic) Complete H/O colonoscopy (Chronic) 08/23/14-HP 2002 showed ulcerative colitis, a few small polyps, and minor diverticulosis left colon. 08/05/2007 - Unusual patchy colitis. 07/17/2009- Small polyp in proximal ascending colon removed; chronic mucosal changes consistent w/burnt out ulcerative colitis in remission. Rescreen in 5 years. H/O left breast biopsy (Chronic) 09/24/2004- Left stereotactic breast biopsy Medication List albuterol sulfate 2.5 mg (3 mL) Inhalation Q4H albuterol sulfate HFA 90 mcg/actuation 8.5 GM IH Q4HP PRN calcium carbonate-vitamin D3 600 mg(1,500mg) -400 unit 1 tab PO QDAY furosemide 40 mg (2 x 20 mg) PO QDAY lactobacillus combination no.4 (Probiotic) 3,000 mmu cells PO BID mesalamine ER 4 caps PO QAM metoprolol succinate ER 75 mg (3 x 25 mg) PO QAM 90 days multivitamin tablet 1 tab PO QDAY omega-3 fatty acids (Fish Oil Concentrate) 1,000 mg PO QDAY potassium chloride ER 10 mEq PO QDAY tiotropium bromide (Spiriva with HandiHaler) 18 mcg Inhalation QDAY 90 days trazodone 50 mg PO QHS vitamin B complex tablet 1 tab PO QDAY warfarin 2.5mg x 6 days , skip on Mondays Allergies/Adverse Reactions clindamycin Adverse Reaction (Mild, Verified 08/04/17 11:28) Heartburn Family History Mother Family history of malignant neoplasm of uterus Her daughters report that the patient's father of a stroke around the age of 80. A sister at age 42 with multiple sclerosis. Social History The patient lives alone in the upper level of her house, but her daughter and family live in the lower level, and check on her daily. She smokes cigarettes from age of 21 until about age 59, when she quit. She does not use alcohol or drugs. marital status: Medical - H&P: Meds Home Medications Medication Instructions Recorded Confirmed Type calcium carbonate 600 mg (1,500 1 tab PO QDAY 07/19/15 08/04/17 History mg)-vitamin D3 400 unit tablet vitamin B complex tablet 1 tab PO QDAY tab 07/19/15 08/04/17 History multivitamin tablet 1 tab PO QDAY tab 05/14/16 08/04/17 History omega-3 fatty acids 1,000 mg 1,000 mg PO QDAY 05/14/16 08/04/17 History capsule Mesalamine [Apriso] 4 cap PO QAM 02/10/17 08/04/17 History Albuterol Sulfate [Proair Hfa] 8.5 gm IH Q4HP PRN 02/21/17 08/04/17 History lactobacillus combination no.4 3 3,000 mmu cells PO BID cap 02/26/17 08/04/17 History billion cell capsule metoprolol succinate ER 25 mg 75 mg PO QAM 90 Days #270 tab 03/05/17 08/04/17 Rx tablet,extended release 24 hr tiotropium bromide 18 mcg capsule 18 mcg INHALATION QDAY 90 Days #90 04/29/17 Rx with inhalation device puff trazodone 50 mg tablet 50 mg PO QHS #90 tab 05/26/17 08/04/17 Rx warfarin 2.5 mg tablet See Label Instructions .ROUTE 05/26/17 08/04/17 Rx .COMPLEX #90 tab albuterol sulfate 2.5 mg/3 mL 2.5 mg INHALATION Q4H #180 ml 07/26/17 08/04/17 Rx (0.083 %) solution for nebulization Furosemide [Lasix] 40 mg PO BID 08/04/17 08/04/17 History Latanoprost Ophth Drops [Xalatan 1 gtt OU HS 08/04/17 08/04/17 History Ophth Drops] Potassium Chloride 10 meq PO BID 08/04/17 08/04/17 History Ranitidine HCl [Acid Nanoscience Technician] 150 mg PO DAILY 08/04/17 08/04/17 History Allergies Allergy/AdvReac Type Severity Reaction Status Date / Time clindamycin AdvReac Mild Heartburn Verified 08/04/17 11:28 Medical - H&P: Exam - Constitutional Vitals: Temp Pulse Resp BP Pulse Ox 97 F 116 H 31 H 105/82 95 08/04/17 12:37 08/04/17 17:05 08/04/17 17:05 08/04/17 16:31 08/04/17 17:05 On exam, she is a somewhat forgetful, slender elderly female in no acute distress. She does have a wet, congested sounding cough. Head: Normocephalic, atraumatic. Eyes: PERRLA, EOMI, anicteric. Ears: There is a mild amount of cerumen, TMs are clear. Pharynx: She is edentulous, with full upper and lower plates. There is no obvious posterior pharynx exudate and mucosa appears normal. Neck: Patient is sitting fairly upright, with a JVP of about 7 cm, positive for hepatojugular reflux. She has no definite carotid bruits, lymphadenopathy, thyromegaly. Cardiac exam shows irregularly irregular, rapid rhythm. She does have a 2/6 systolic ejection murmur noted as well towards the left lower sternal border. Lungs are fairly clear above, and the lower half of both lung zuñiga is fairly muffled. No crackles, rhonchi, wheezes are noted. Abdomen: Is soft and nontender without obvious masses. Bowel sounds are active. Extremities: Show moderate pitting edema. Neurologic exam: The patient is awake and alert, but quite forgetful. Her daughters keep correcting her. Cranial nerves are grossly intact. Motor exam is grossly nonfocal. Medical - H&P: Reslt - Labs CBC & Chem 7: 08/04/17 12:02 08/04/17 12:02 Labs: Short CBC 08/04/17 Range/Units 12:02 WBC 9.0 (4.5-11.0) K/mcL Hgb 15.1 H (12.0-15.0) g/dL Hct 46.6 (36.0-48.0) % Plt Count 236 (140-440) K/mcL BMP 08/04/17 12:02 Sodium 138 Potassium 4.3 Chloride 96 Carbon Dioxide 25 BUN 15 Creatinine 0.7 Glucose 95 Calcium 8.8 Liver Function 08/04/17 Range/Units 12:02 Total Bilirubin 1.0 (0.0-1.0) mg/dL AST 26 (0-37) U/l ALT 15 (0-40) U/l Alkaline Phosphatase 84 (39-117) U/L Albumin 3.3 (3.2-5.2) gm/dL August 04: ABG on room air: Shows pH of 7.48, CO2 41, PO2 69, bicarb 30, O2 saturation 95% CBC differential shows 79% granulocytes, with absolute granulocyte count normal at 7000. Lymphocyte count is low at 1400. Pro time is elevated at 32, with INR of 3.0 Anion gap is elevated 17 next BNP is elevated at 4427 next Urinalysis: Shows 30 mg of protein, 25 leukocyte esterase, 9 red cells, 23 white blood cells, 9 squamous epis, moderate oxalate crystals. Next Chest x-ray: IMPRESSION: Moderate bilateral pleural effusions with compressive atelectasis in the overlying inferior lower, right middle lobes and lingula. This has worsened considerably since the comparison examination approximately one month ago. Mild underlying CHF cannot be excluded Medical - H&P: A/P (1) Pleural effusion due to CHF (congestive heart failure) Current visit: Yes Status: Acute (2) Compression atelectasis Current visit: Yes Status: Acute (3) Atrial fibrillation Current visit: Yes Status: Acute (4) VALADEZ (dyspnea on exertion) Current visit: Yes Status: Acute (5) CHF (congestive heart failure), NYHA class IV Current visit: Yes Status: Acute - Narrative A/P Narrative: #1. Pulmonary. Patient presents with significant dyspnea. She has borderline heart and lung function, and it appears she has developed large pleural effusions, which are likely compromising her further. -She needs thoracentesis, but pro-time is too elevated. Patient was given vitamin K in the emergency room. Radiology will try to do thoracentesis once INR is less than 2.0. -History of COPD. Duo nebs and as needed albuterol. Oxygen as needed. #2. Cardiac. History of CHF. Her pleural effusions are likely due to this. Tap fluid tomorrow and send for analysis. -Check serial troponin and chest x-rays. -IV Lasix as tolerated to diurese. -Patient did declines Lin catheter, so we will use a bedside commode and measure voids. -History of atrial fibrillation. Normally anticoagulated. We will hold this pending thoracentesis. Monitor on telemetry. -History of hypertension. Blood pressure is actually on the low side today. -Patient has a history of severe mitral valve prolapse. She is not a surgical candidate because of her severe lung disease. 3. Neurologic. History of mild sundowning. 4. GI. History of ulcerative colitis. 5. History of tobacco abuse -quit 20 years ago. 6. CODE STATUS: Patient previously signed a DNR form. She confirms this again today. She would like her daughter, Brittany Holden, to act as her POA 7. DVT prophylaxis: INR is in therapeutic range. Add SCDs while we hold Coumadin. Today's visit took approximately 55 minutes, to review the patient's old records , review her case with the ER MD, interview and examine her, review plan of care with the patient and her family, and write orders.
[2017-08-04] MEDS ORDERED: MAGNESIUM HYDROXIDE 30 ML ORAL.SUSP PO PRN (17:50)
[2017-08-04] MEDS ORDERED: ACETAMINOPHEN 325 MG TABLET PO PRN (17:50)
[2017-08-04] MEDS ORDERED: ALBUTEROL SULFATE 2.5 MG/3 ML NEBULIZER NEB PRN (17:50)
[2017-08-04] MEDS ORDERED: NALOXONE HCL 0.4 MG/ML VIAL IV PRN (17:50)
[2017-08-04] MEDS ORDERED: ONDANSETRON 4 MG/2 ML VIAL IV PRN (17:50)
[2017-08-04] MEDS: IPRATROPIUM/ALBUTEROL 3 ML AMPUL.NEB NEB SCH (19:28)
[2017-08-04] MEDS: LATANOPROST OPHTH DROPS 2.5ML BOTTLE OU SCH (21:24)
[2017-08-04] MEDS: traZODone HCL 50 MG TABLET PO SCH (21:24)
[2017-08-04] MEDS: LACTOBACILLUS 1 CAPSULE PO SCH (21:24)
[2017-08-04] MEDS: POTASSIUM CHLORIDE 10 MEQ TABLET PO SCH (21:24)
[2017-08-05 00:17] LABS: Appearance,Urine CLEAR; Bacteria,Urine MOD /hpf (0); Bilirubin,Urine NEG (NEG); Color,Urine YELLOW; Glucose,Urine (UA) NEGATIVE (NEG); Leukocyte Esterase,Urine 25 /uL (NEG); Mucus,Urine MANY /hpf (0); Nitrate,Urine NEG (NEG); Protein,Urine NEG (NEG); Urine Blood 0.03 mg/dL (<0.03); Urine Hyaline Cast 1 /lpf (0-2); Urine RBC < 1 /hpf (0-1); Urine Squamous Epithelial Cell 3 /hpf (0-4); Urine WBC 6 /hpf (0-4); Urobilinogen,Urine NEG (NEG)
[2017-08-05] MEDS: IPRATROPIUM/ALBUTEROL 3 ML AMPUL.NEB NEB SCH ×4 (01:01→19:45)
[2017-08-05 05:09] LABS: Basophils # (Auto) 0.1 K/mcL (0.0-0.3); Eosinophils # (Auto) 0.2 K/mcL (0.0-0.7); Eosinophils % (Auto) 2.1 % (0.0-7.0); Granulocytes % (Auto) 72.9 % (38.0-78.0); Lymphocytes # (Auto) 1.6 K/mcL (1.5-4.8); Lymphocytes % (Auto) 16.9 % (15.5-49.0); Mean Cell Volume 92.5 fL (80.0-100.0); Mean Corpuscular HGB Conc 32.6 g/dL (31.0-36.0); Mean Corpuscular Hemoglobin 30.1 pg (26.0-34.0); Monocytes # (Auto) 0.7 K/mcL (0.1-0.9); Monocytes % (Auto) 7.1 % (1.0-12.0); Platelet Count 226 K/mcL (140-440); RBC 4.99 M/mcL (4.00-5.20); Red Cell Distribution Width 14.9 % (11.5-14.5)
[2017-08-05 05:26] LABS: ALT/SGPT 14 U/l (0-40); Albumin 3.2 gm/dL (3.2-5.2); Albumin/Globulin Ratio 1.2 (1.0-2.3); Alkaline Phosphatase 76 U/L (39-117); Bilirubin,Direct 0.5 mg/dL (0.0-0.3); Blood Urea Nitrogen 16 mg/dl (8-23); Gamma Glutamyl Transpeptidase 38 U/L (5-36); Magnesium 1.7 mg/dL (1.6-2.5); Uric Acid 6.1 mg/dL (2.5-8.0)
[2017-08-05] MEDS ORDERED: 0.9 % SODIUM CHLORIDE 250 ML IV SCH (07:45)
[2017-08-05] MEDS ORDERED: MESALAMINE PO SCH (09:00)
[2017-08-05] MEDS: VITAMIN B COMPLEX 1 CAPSULE PO SCH (10:08)
[2017-08-05] MEDS: METOPROLOL SUCCINATE 25 MG TAB.XL.24H PO SCH (10:08)
[2017-08-05] MEDS: MULTIVIT,THER IRON,CA,FA & MIN 1 TABLET PO SCH (10:08)
[2017-08-05] MEDS: POTASSIUM CHLORIDE 10 MEQ TABLET PO SCH ×2 (10:09→17:54)
[2017-08-05] MEDS: FAMOTIDINE 20 MG TABLET PO SCH (10:09)
[2017-08-05] MEDS: LACTOBACILLUS 1 CAPSULE PO SCH ×2 (10:09→21:14)
[2017-08-05] MEDS: CALCIUM W/VIT D3 500 MG TABLET PO SCH (10:09)
[2017-08-05] MEDS: FUROSEMIDE 40 MG/4 ML VIAL IV SCH ×2 (12:08→19:43)
--- NOTE | 2017-08-05 21:12 | Internal Med Progress Note ---
Medical - PN: Subj Patient information: Note initiated : 08/05/17 at 9:10 pm Service Date, if different from initiated Date: [] Patient: Anne Jackson 81 y/o F admitted on 08/04/17 for SOB/Dyspnea, Pleural Effusion due to CHF. Chief Complaint: [] Interval history: August 04, 2017: History of present illness: Ms. Jackson is a 81 year old female with a history of COPD, CHF, severe mitral valve prolapse, ulcerative colitis, who has been having increased shortness of breath for several days. Her daughters report they took her into clinic about a week ago when she was diagnosed with a urinary tract infection, treated with Macrobid. Over the last several days she has had worsening shortness of breath , but did not want to come into the doctors until today. Her daughter does note that she coughs quite frequently, although the patient denies this and says it is rarely. In the ER today she could only sit bolt upright as any other physician because severe shortness of breath. She maintains O2 saturations at rest, but they dropped dramatically with movement. BNP was elevated at 4000. Chest x-ray showed large bilateral pleural effusions with compressive atelectasis. Thoracentesis could not be performed because her INR is greater than 3.0 due to the Coumadin she takes for her atrial fibrillation. Blood pressures were a little borderline, so she was only given 20 mg of IV Lasix. She is now admitted for further attempts at diuresis, and to reverse her Coumadin, to allow for thoracentesis. She otherwise denies recent fever or chills, headaches or dizziness, new eye or ear symptoms, sore throat. She denies swollen glands, chest pain or palpitations, abdominal pain, nausea or vomiting, diarrhea or constipation, dysuria. At home she uses albuterol nebs 3 times daily plus a Spiriva inhaler daily. She also takes Lasix and metoprolol daily. And Coumadin. August 05: The patient's INR was still too high this morning to allow for thoracentesis. Patient continues to have quite severe dyspnea with minimal activity. FFP was ordered, to reverse her Coumadin. Unfortunately, she could not really tolerate a high rate of infusion, without really aggravating her dyspnea. Her rate had to be slowed down significantly, such that we could not complete the infusion prior to 5:00. We will try again tomorrow to get her thoracentesis set up, once her INR is less than 2.0. Otherwise, the patient says as long as she is sitting still, she does not feel too poorly. She denies fever or chills, chest pain or palpitations, abdominal pain, nausea or vomiting, diarrhea or constipation or dysuria. - Constitutional Vitals: Vital Signs Temp Pulse Resp BP Pulse Ox 97.9 F 118 H 24 H 110/98 92 08/05/17 20:00 08/05/17 20:00 08/05/17 20:00 08/05/17 20:00 08/05/17 20:00 Period Temp Pulse Resp BP Sys/Arellano Pulse Ox Last 24 Hr 97.4 F-99 F 66-125 18-30 103-143/72-105 92-97 Intake and Output 08/05/17 08/05/17 08/05/17 05:59 13:59 21:59 Intake Total 240 / 240 719 / 719 343 / 343 Output Total 275 / 275 100 / 100 875 / 875 Balance -35 / -35 619 / 619 -532 / -532 Weight 128 lb 8 oz Patient Weight 08/06/17 05:59 Weight 128 lb 8 oz Intake & Output: Intake & Output 08/05/17 08/05/17 08/05/17 05:59 13:59 21:59 Intake Total 240 / 240 719 / 719 343 / 343 Output Total 275 / 275 100 / 100 875 / 875 Balance -35 / -35 619 / 619 -532 / -532 Weight 128 lb 8 oz Intake: Oral 240 / 240 100 / 100 Blood Product 319 / 319 343 / 343 GI Tube Flush 300 / 300 Output: Void Amount 275 / 275 100 / 100 875 / 875 Other: Meal Breakfast Dinner Percent of Meal Consumed 75% 50% Feeding Ability Independent Independent # Voids 1 1 # Bowel Movements 1 On exam, she is awake and alert. Several family members are visiting. Neck does not show obvious JVD. Cardiac exam shows an irregularly irregular rhythm and systolic murmur. Lungs: Breath sounds are essentially absent at the right base, and are somewhat coarse above. Abdomen is soft without obvious tenderness. Extremities: Continue to show moderate edema. Neurologic exam: Is grossly nonfocal Medical - PN: Obj Da - Labs CBC & Chem 7: 08/05/17 03:41 08/05/17 03:41 Labs: Abnormal Lab Results 08/05/17 08/05/17 08/05/17 03:41 03:41 03:41 Hgb RDW 14.9 H MPV 10.6 H Gran % Lymph % (Auto) Lymph # (Auto) PT 28.8 H INR 2.6 H Anion Gap Total Bilirubin 1.3 H Direct Bilirubin 0.5 H GGT 38 H NT-Pro-B Natriuret Pep Urine Occult Blood Ur Leukocyte Esterase Urine WBC Urine Bacteria Urine Mucus 08/04/17 08/04/17 08/04/17 23:05 12:02 12:02 Hgb RDW MPV Gran % Lymph % (Auto) Lymph # (Auto) PT 32.2 H INR 3.0 H Anion Gap 17.0 H Total Bilirubin Direct Bilirubin GGT NT-Pro-B Natriuret Pep 4427.0 H Urine Occult Blood 0.03 A Ur Leukocyte Esterase 25 A Urine WBC 6 H Urine Bacteria Mod A Urine Mucus Many A 08/04/17 12:02 Hgb 15.1 H RDW 15.3 H MPV Gran % 79.8 H Lymph % (Auto) 15.3 L Lymph # (Auto) 1.4 L PT INR Anion Gap Total Bilirubin Direct Bilirubin GGT NT-Pro-B Natriuret Pep Urine Occult Blood Ur Leukocyte Esterase Urine WBC Urine Bacteria Urine Mucus August 04: ABG on room air: Shows pH of 7.48, CO2 41, PO2 69, bicarb 30, O2 saturation 95% CBC differential shows 79% granulocytes, with absolute granulocyte count normal at 7000. Lymphocyte count is low at 1400. Pro time is elevated at 32, with INR of 3.0 Anion gap is elevated 17 next BNP is elevated at 4427 next Urinalysis: Shows 30 mg of protein, 25 leukocyte esterase, 9 red cells, 23 white blood cells, 9 squamous epis, moderate oxalate crystals. Chest x-ray: IMPRESSION: Moderate bilateral pleural effusions with compressive atelectasis in the overlying inferior lower, right middle lobes and lingula. This has worsened considerably since the comparison examination approximately one month ago. Mild underlying CHF cannot be excluded Meds: Medications Acetaminophen (Tylenol) 650 mg PO Q6HP PRN PRN Reason: PAIN/FEVER > 101 Albuterol Sulfate (Ventolin) 2.5 mg NEB Q4HRT PRN PRN Reason: Shortness Of Breath Or Wheezing Last Admin: 08/05/17 15:57 Dose: 2.5 mg Albuterol/Ipratropium (Duoneb) 3 ml NEB Q6HRT [facility] Last Admin: 08/05/17 19:45 Dose: 3 ml Calcium/Vitamin D (Calcium W/Vit D3) 500 mg PO DAILY [facility] Last Admin: 08/05/17 10:09 Dose: 500 mg Famotidine (Pepcid) 20 mg PO DAILY [facility] Last Admin: 08/05/17 10:09 Dose: 20 mg Furosemide (Lasix) 40 mg IV BIDD [facility] Last Admin: 08/05/17 19:43 Dose: 40 mg Iron Carb/Multivit/[place]/Folic Acid (Multivitamin W/Minerals) 1 tab PO DAILY [facility] Last Admin: 08/05/17 10:08 Dose: 1 tab Lactobacillus Rhamnosus (Culturelle) 1 cap PO BID [facility] Last Admin: 08/05/17 10:09 Dose: 1 cap Latanoprost (Xalatan Ophth Drops) 1 gtt OU HS [facility] Last Admin: 08/04/17 21:24 Dose: Not Given Magnesium Hydroxide (Milk Of Magnesia) 30 ml PO DAILYP PRN PRN Reason: Constipation Metoprolol Succinate (Toprol Xl) 75 mg PO QAM [facility] Last Admin: 08/05/17 10:08 Dose: 75 mg Morphine Sulfate (Morphine) 2 mg IV Q5MIN PRN PRN Reason: Chest Pain Naloxone HCl (Narcan) 0.1 mg IV Q2MIN PRN PRN Reason: Opiate Reversal Ondansetron HCl (Zofran) 4 mg IV Q4HP PRN PRN Reason: Nausea And Vomiting Mesalamine [Apriso] (0.375 Gm Capsule) 1 dose PO DAILY [facility] Potassium Chloride (Kdur) 10 meq PO BIDCC [facility] Last Admin: 08/05/17 17:54 Dose: 10 meq Trazodone HCl (Desyrel) 50 mg PO QHS [facility] Last Admin: 08/04/17 21:24 Dose: 50 mg Vitamin B Complex (Vitamin B Complex) 1 cap PO DAILY [facility] Last Admin: 08/05/17 10:08 Dose: 1 cap Medical - PN: A/P - Time Spent With Patient Total time spent is greater than 50% in coordination of care (as documented) at patient's floor/unit and/or counseling patient: 25 - 35 minutes (1) Pleural effusion due to CHF (congestive heart failure) Status: Acute Current Visit: Yes (2) Compression atelectasis Status: Acute Current Visit: Yes (3) Atrial fibrillation Status: Acute Current Visit: Yes (4) VALADEZ (dyspnea on exertion) Status: Acute Current Visit: Yes (5) CHF (congestive heart failure), NYHA class IV Status: Acute Current Visit: Yes - Narrative A/P Narrative: #1. Pulmonary. Patient presents with significant dyspnea. She has borderline heart and lung function, and it appears she has developed large pleural effusions, which are likely compromising her further. -She needs thoracentesis, but pro-time continues too elevated. Patient was given vitamin K in the emergency room. She is receiving FFP this evening. Radiology will try to do thoracentesis once INR is less than 2.0. -History of COPD. Duo nebs and as needed albuterol. Oxygen as needed. #2. Cardiac. History of CHF. Her pleural effusions are likely due to this. Tap fluid tomorrow and send for analysis. -Troponin was normal. -IV Lasix as tolerated to diurese. -Patient did declines Lin catheter, so we will use a bedside commode and measure voids. -History of atrial fibrillation. Normally anticoagulated. We will hold this pending thoracentesis. Monitor on telemetry. -History of hypertension. Blood pressure is actually borderline. -Patient has a history of severe mitral valve prolapse. She is not a surgical candidate because of her severe lung disease. 3. Neurologic. History of mild sundowning. 4. GI. History of ulcerative colitis. 5. History of tobacco abuse -quit 20 years ago. 6. CODE STATUS: Patient previously signed a DNR form. She confirms this again today. She would like her daughter, Brittany Holden, to act as her POA 7. DVT prophylaxis: INR is in therapeutic range. Add SCDs while we hold Coumadin. Approximately 30 minutes was spent today, visiting with the patient and her family, reviewing plan of care, and touching base with nursing staff several times, and writing orders.
[2017-08-05] MEDS: LATANOPROST OPHTH DROPS 2.5ML BOTTLE OU SCH (21:14)
[2017-08-05] MEDS: traZODone HCL 50 MG TABLET PO SCH (21:14)
[2017-08-06] MEDS: IPRATROPIUM/ALBUTEROL 3 ML AMPUL.NEB NEB SCH ×3 (00:21→13:02)
[2017-08-06 05:23] LABS: Basophils # (Auto) 0 K/mcL (0.0-0.3); Basophils % (Auto) 0.3 % (0.0-2.0); Eosinophils # (Auto) 0 K/mcL (0.0-0.7); Eosinophils % (Auto) 0.4 % (0.0-7.0); Granulocytes % (Auto) 78.3 % (38.0-78.0); Lymphocytes # (Auto) 1.5 K/mcL (1.5-4.8); Lymphocytes % (Auto) 14.2 % (15.5-49.0); Mean Cell Volume 92.9 fL (80.0-100.0); Mean Corpuscular HGB Conc 32.4 g/dL (31.0-36.0); Mean Corpuscular Hemoglobin 30.1 pg (26.0-34.0); Monocytes # (Auto) 0.7 K/mcL (0.1-0.9); Monocytes % (Auto) 6.8 % (1.0-12.0); Platelet Count 209 K/mcL (140-440); RBC 5.15 M/mcL (4.00-5.20); Red Cell Distribution Width 14.8 % (11.5-14.5)
[2017-08-06 05:44] LABS: ALT/SGPT 16 U/l (0-40); Albumin 3.4 gm/dL (3.2-5.2); Albumin/Globulin Ratio 1.2 (1.0-2.3); Alkaline Phosphatase 78 U/L (39-117); Bilirubin,Direct 0.6 mg/dL (0.0-0.3); Blood Urea Nitrogen 18 mg/dl (8-23); Gamma Glutamyl Transpeptidase 41 U/L (5-36); Magnesium 1.8 mg/dL (1.6-2.5)
[2017-08-06] MEDS ORDERED: MESALAMINE 0.375 GM PO SCH (09:00)
[2017-08-06] MEDS: MULTIVIT,THER IRON,CA,FA & MIN 1 TABLET PO SCH (10:04)
[2017-08-06] MEDS: VITAMIN B COMPLEX 1 CAPSULE PO SCH (10:04)
[2017-08-06] MEDS: POTASSIUM CHLORIDE 10 MEQ TABLET PO SCH (10:04)
[2017-08-06] MEDS: METOPROLOL SUCCINATE 25 MG TAB.XL.24H PO SCH (10:04)
[2017-08-06] MEDS: FAMOTIDINE 20 MG TABLET PO SCH (10:04)
[2017-08-06] MEDS: FUROSEMIDE 40 MG/4 ML VIAL IV SCH (10:04)
[2017-08-06] MEDS: LACTOBACILLUS 1 CAPSULE PO SCH (10:04)
[2017-08-06] MEDS: CALCIUM W/VIT D3 500 MG TABLET PO SCH (10:04)
--- NOTE | 2017-08-06 11:04 | XRay Report ---
CLINICAL INFORMATION: Post right thoracentesis COMPARISON: 08/04/2017 FINDINGS: Moderate cardiomegaly is unchanged. Tortuous thoracic aorta is again noted. Pulmonary vessels are normal. Following right thoracentesis, there is no residual right pleural effusion. No pneumothorax or other complication from the procedure. The right middle and lower lobes, previously atelectatic, have reexpanded. Moderate left pleural effusion with compressive atelectasis of the left base is unchanged IMPRESSION: Following right thoracentesis, no residual right pleural effusion. No pneumothorax or other complication. The right middle and lower lobes have completely reexpanded Moderate left pleural effusion with minor left basilar atelectasis stable Interpreted and Authenticated by: Ramsey Dao 08/06/17
--- NOTE | 2017-08-06 11:15 | Ultrasound Report ---
Ultrasound-guided thoracentesis CLINICAL INFORMATION: Moderate to large right pleural effusion TECHNIQUE: Procedure and risks including possibility of bleeding, infection, and pneumothorax were explained to the patient. They understood and wished to proceed. With the patient in upright position, the fluid was first sonographically localized over the posterior right 10th intercostal space at posterior axillary line. The skin overlying this region was marked, prepped and locally anesthetized with 1% lidocaine using a 25-gauge needle to the level the parietal pleura. An 18-gauge Yueh needle was then advanced under sonographic guidance into the pleural fluid and approximately 1200 cc of simple appearing transudative fluid was aspirated. Post procedure scanning shows only minimal residual fluid. Patient tolerated procedure well without apparent complication. Follow-up chest x-ray to be obtained IMPRESSION: Successful thoracentesis yielding 1200 cc of transudative appearing simple pleural fluid. No apparent complication Interpreted and Authenticated by: Ramsey Dao 08/06/17
[2017-08-06 14:02] LABS: Eosinophils,Pleural Fluid 3 %; Lymphocytes,Pleural Fluid 47 %; Neutrophils,Pleural Fluid 13 %
[2017-08-06 14:06] LABS: Appearance,Pleural Fluid CLEAR; Color,Pleural Fluid P. YELLOW; Nucleated Cells,Pleural Fld 120 /cumm; RBC,Pleural Fluid < 50000 /cumm
--- NOTE | 2017-08-06 15:58 | Discharge Summary ---
Medical - DS: Prov Patient information: Note initiated : 08/06/17 at 3:54 pm Service Date, if different from initiated Date: [] Patient: Anne Jackson 81 y/o F admitted on 08/04/17 for SOB/Dyspnea, Pleural Effusion due to CHF. Chief Complaint: [] Date of admission: 08/04/17 17:45 Discharge date: 08/06/17 Primary care physician: Sha Grullon, retired Patient is to establish care with Zhou Morley. Admitting clinician: Madison Davila Consults: 08/04/17 16:37 Consult to Physician [CONS] Stat Comment: Consulting Provider: Madison Davila Reason For Exam: Physician to Consult Attending physician on discharge: Madison Davila Medical - DS: Meds - Discharge Medications Prescriptions: Albuterol Sulfate [Proair Hfa] 8.5 gm IH Q4HP PRN #1 [email or web address] PRN Reason: Shortness Of Breath Active and Home Medications: Discharge medications: Oxygen, portable, 2 L with exertion. None at rest. Albuterol nebs every 4 hours as needed Albuterol inhaler every 4 hours as needed Calcium 600 mg plus D daily Lasix 40 mg p.o. twice daily Lactobacillus 3000 units twice daily Xalatan eyedrops 1 drop OU nightly Mesalamine 4 capsules daily Metoprolol ER 75 mg every morning Multivitamin 1 daily Fish oil 1000 mg daily Potassium chloride 10 mEq p.o. twice daily Ranitidine 150 mg daily Spiriva inhaler 1 puff daily Trazodone 50 mg nightly Vitamin B complex one daily Warfarin 2.5 mg, resume usual dosing. Have INR rechecked when you see your new doctor next week. Previous home Medications: calcium carbonate 600 mg (1,500 mg)-vitamin D3 400 unit tablet 1 tab PO QDAY [History Confirmed 08/04/17 Last Taken 08/03/17] vitamin B complex tablet 1 tab PO QDAY tab 07/19/15 [History Confirmed Last Taken 02/21/17] multivitamin tablet 1 tab PO QDAY tab 05/14/16 [History Confirmed 08/04/17 Last Taken 02/21/17] omega-3 fatty acids 1,000 mg capsule 1,000 mg PO QDAY 05/14/16 [History Confirmed 08/04/17 Last Taken 02/21/17] Mesalamine [Apriso] 4 cap PO QAM 02/10/17 [History Confirmed 08/04/17 Last Taken 08/04/17] Albuterol Sulfate [Proair Hfa] 8.5 gm IH Q4HP PRN 02/21/17 [History Confirmed Last Taken 08/03/17] lactobacillus combination no.4 3 billion cell capsule 3,000 mmu cells PO BID cap 02/26/17 [History Confirmed 08/04/17 Last Taken 08/03/17] metoprolol succinate ER 25 mg tablet,extended release 24 hr 75 mg PO QAM 90 Days #270 tab 03/05/17 [Rx Confirmed 08/04/17 Last Taken Unknown] tiotropium bromide 18 mcg capsule with inhalation device 18 mcg INHALATION QDAY 90 Days #90 puff 04/29/17 [Rx Confirmed 08/04/17 Last Taken Unknown] trazodone 50 mg tablet 50 mg PO QHS #90 tab 05/26/17 [Rx Confirmed 08/04/17 Last Taken Unknown] warfarin 2.5 mg tablet See Label Instructions .ROUTE .COMPLEX #90 tab 05/26/17 [ Rx Confirmed 08/04/17 Last Taken Unknown] albuterol sulfate 2.5 mg/3 mL (0.083 %) solution for nebulization 2.5 mg INHALATION Q4H #180 ml 07/26/17 [Rx Confirmed 08/04/17 Last Taken 08/03/17] Furosemide [Lasix] 40 mg PO BID 08/04/17 [History Confirmed 08/04/17 Last Taken 08/03/17] Latanoprost Ophth Drops [Xalatan Ophth Drops] 1 gtt OU HS 08/04/17 [History Confirmed 08/04/17 Last Taken 08/03/17] Potassium Chloride 10 meq PO BID 08/04/17 [History Confirmed 08/04/17 Last Taken Unknown] Ranitidine HCl [Acid Trend Investigator] 150 mg PO DAILY 08/04/17 [History Confirmed Last Taken Unknown] Medical - DS: Hosp Hospital course: Mr. Jackson is a 81 year old F August 04, 2017: History of present illness: Ms. Jackson is a 81 year old female with a history of COPD, CHF, severe mitral valve prolapse, ulcerative colitis, who has been having increased shortness of breath for several days. Her daughters report they took her into clinic about a week ago when she was diagnosed with a urinary tract infection, treated with Macrobid. Over the last several days she has had worsening shortness of breath , but did not want to come into the doctors until today. Her daughter does note that she coughs quite frequently, although the patient denies this and says it is rarely. In the ER today she could only sit bolt upright as any other physician because severe shortness of breath. She maintains O2 saturations at rest, but they dropped dramatically with movement. BNP was elevated at 4000. Chest x-ray showed large bilateral pleural effusions with compressive atelectasis. Thoracentesis could not be performed because her INR is greater than 3.0 due to the Coumadin she takes for her atrial fibrillation. Blood pressures were a little borderline, so she was only given 20 mg of IV Lasix. She is now admitted for further attempts at diuresis, and to reverse her Coumadin, to allow for thoracentesis. She otherwise denies recent fever or chills, headaches or dizziness, new eye or ear symptoms, sore throat. She denies swollen glands, chest pain or palpitations, abdominal pain, nausea or vomiting, diarrhea or constipation, dysuria. At home she uses albuterol nebs 3 times daily plus a Spiriva inhaler daily. She also takes Lasix and metoprolol daily. And Coumadin. August 05: The patient's INR was still too high this morning to allow for thoracentesis. Patient continues to have quite severe dyspnea with minimal activity. FFP was ordered, to reverse her Coumadin. Unfortunately, she could not really tolerate a high rate of infusion, without really aggravating her dyspnea. Her rate had to be slowed down significantly, such that we could not complete the infusion prior to 5:00. We will try again tomorrow to get her thoracentesis set up, once her INR is less than 2.0. Otherwise, the patient says as long as she is sitting still, she does not feel too poorly. She denies fever or chills, chest pain or palpitations, abdominal pain, nausea or vomiting, diarrhea or constipation or dysuria. August 06: Hospital course: Patient presented with worsening dyspnea. She has very fragile respiratory status due to underlying COPD, CHF, severe mitral valve prolapse. She was diagnosed with large bilateral pleural effusions, worse on the right than the left. She was admitted to reverse her anticoagulation, and then underwent a 1200 mL thoracentesis on the right side. She tolerated this fairly well. She remains a bit tachycardic, but this is likely related to her underlying A. fib and frequent use of bronchodilators. She continues to have hypoxia with exertion, so respiratory therapy recommended portable home O2 to use with exertion. She has had numerous family members visiting while she is been here. They would like to start a conversation with hospice, as they expect that the patient will start refusing to come to the hospital for more therapy. She does have some memory loss issues, but lives in the upper level of her home and daughter and family live in a lower level, so they are able to keep an eye on her. Her primary care physician retired, so she needs to establish care with a new MD. She was given the name of a new provider by [facility]. Otherwise, today, she denies fever or chills, chest pain or palpitations. She reports only mild dyspnea, and is able to walk to and from the bathroom. She denies abdominal pain, nausea or vomiting, diarrhea or dysuria. On exam, she is awake and alert. Several family members are visiting. Neck does not show obvious JVD. Cardiac exam shows an irregularly irregular rhythm and systolic murmur. Lungs: Breath sounds are much improved at the right base now, with good air movement in both lungs. Abdomen is soft without obvious tenderness. Extremities: Continue to show moderate edema. Neurologic exam: Is grossly nonfocal Assessment and plan: #1. Pulmonary. Patient presents with significant dyspnea. She has borderline heart and lung function, and it appears she has developed large pleural effusions, which are likely compromising her further. -She is status post large-volume thoracentesis, to give her more room to breathe. This seems to have helped her symptoms somewhat. We did discuss that this may eventually recur. She will continue with oral diuretics at home. Because of ongoing hypoxia with exertion, she is prescribed home oxygen to use with activity. She will otherwise continue with duo nebs, albuterol, at home as needed. -Pleural fluid was sent for studies today, including cytology. Her new doctor will need to track down results of these. #2. Cardiac. History of CHF. Her pleural effusions are likely due to this. Tap fluid tomorrow and send for analysis. -Troponin was normal. -Continue oral diuretics. -History of atrial fibrillation. Normally anticoagulated. This was reversed for thoracentesis. She should resume her Coumadin at her usual dose tonight. Recheck INR next week with her new doctor. -History of hypertension. Blood pressure is actually borderline. -Patient has a history of severe mitral valve prolapse. She is not a surgical candidate because of her severe lung disease. 3. Neurologic. History of mild sundowning. She is quite forgetful, but her daughters know her history pretty well. 4. GI. History of ulcerative colitis. 5. History of tobacco abuse -quit 20 years ago. 6. CODE STATUS: Patient previously signed a DNR form. She confirms this again . She would like her daughter, Brittany Holden, to act as her POA 7. DVT prophylaxis: Added SCDs while we held Coumadin. Discharge diagnosis: Dyspnea aggravated by pleural effusion. COPD. CHF. - Time Spent with Patient Total time spent providing and/or coordinating discharge services: Greater than 30 minutes Medical - DS: Exam - Constitutional Vitals: Vital Signs Temp Pulse Pulse Resp BP Pulse Ox 08/06/17 13:02 100 H 18 08/06/17 12:00 97.7 F 113 H 18 107/81 95 08/06/17 07:30 97.9 F 108 H 26 H 124/83 97 08/06/17 07:17 100 H 20 96 08/06/17 04:00 97.5 F 108 H 20 97 08/06/17 00:00 112 H 22 104/87 97 08/05/17 20:00 97.9 F 118 H 24 H 110/98 95 08/05/17 19:45 118 H 21 08/05/17 18:15 98.4 F 102 H 24 H 103/82 92 08/05/17 16:40 98.8 F 110 H 20 123/99 95 08/05/17 16:00 98.8 F 114 H 24 H 118/98 94 08/05/17 15:58 125 H 19 Intake and Output 08/06/17 08/06/17 08/06/17 05:59 13:59 21:59 Intake Total 300 / 300 Output Total 400 / 400 300 / 300 Balance -400 / -400 0 / 0 Intake: Oral 300 / 300 Output: Void Amount 400 / 400 300 / 300 Other: Meal Breakfast Percent of Meal Consumed 75% Feeding Ability Assist with Tray Set Up Weight 128 lb 8 oz Patient Weight 08/07/17 05:59 Weight 128 lb 8 oz Medical - DS: Data Labs on day of discharge: Labs from last 24 hours 08/06/17 08/06/17 08/06/17 11:00 11:00 03:36 WBC RBC Hgb Hct MCV MCH MCHC RDW Plt Count MPV Gran % Lymph % (Auto) George % (Auto) Eos % (Auto) Baso % (Auto) Gran # Lymph # (Auto) George # (Auto) Eos # (Auto) Baso # (Auto) PT 18.3 H INR 1.5 H Sodium Potassium Chloride Carbon Dioxide Anion Gap BUN Creatinine GFR Calculation Glucose Uric Acid Calcium Phosphorus Magnesium Total Bilirubin Direct Bilirubin GGT AST ALT Alkaline Phosphatase Lactate Dehydrogenase Total Protein Albumin Globulin Albumin/Globulin Ratio Triglycerides Fluid Source Cancelled Fluid Color Cancelled Fluid Appearance Cancelled Fluid RBC Cancelled Fluid Diff Comment Cancelled Fluid Tot Cell Count Cancelled Fluid Nucleated Cells Cancelled Fluid Neutrophils Cancelled Fluid Lymphocytes Cancelled Fluid Monocytes Cancelled Fluid Eosinophils Cancelled Fluid Basophils Cancelled Fluid Plasma Cells Cancelled Fluid Macrophages Cancelled Fld Mesothelial Cells Cancelled Pleural Fluid Source Pleural Pleural Color P. yellow Pleural Appearance Clear Pleural RBC < [address] 100 Pleural Nuc Cells 120 Pleural Neutrophils 13 Pleural Lymphocytes 47 Pleural Eosinophils 3 Pleural Plasma Cells Not Reportable Pleural Macrophages 32 Pleural Mesothelial 5 Pleural Diff Comment Not Reportable 08/06/17 08/06/17 03:36 03:36 WBC 10.8 RBC 5.15 Hgb 15.5 H Hct 47.9 MCV 92.9 MCH 30.1 MCHC 32.4 RDW 14.8 H Plt Count 209 MPV 10.7 H Gran % 78.3 H Lymph % (Auto) 14.2 L George % (Auto) 6.8 Eos % (Auto) 0.4 Baso % (Auto) 0.3 Gran # 8.4 H Lymph # (Auto) 1.5 George # (Auto) 0.7 Eos # (Auto) 0 Baso # (Auto) 0 PT INR Sodium 138 Potassium 4.5 Chloride 96 Carbon Dioxide 24 Anion Gap 18.0 H BUN 18 Creatinine 0.8 GFR Calculation 69 Glucose 112 H Uric Acid 7.0 Calcium 9.1 Phosphorus 3.8 Magnesium 1.8 Total Bilirubin 1.5 H Direct Bilirubin 0.6 H GGT 41 H AST 27 ALT 16 Alkaline Phosphatase 78 Lactate Dehydrogenase 207 Total Protein 6.3 Albumin 3.4 Globulin 2.9 Albumin/Globulin Ratio 1.2 Triglycerides 77 Fluid Source Fluid Color Fluid Appearance Fluid RBC Fluid Diff Comment Fluid Tot Cell Count Fluid Nucleated Cells Fluid Neutrophils Fluid Lymphocytes Fluid Monocytes Fluid Eosinophils Fluid Basophils Fluid Plasma Cells Fluid Macrophages Fld Mesothelial Cells Pleural Fluid Source Pleural Color Pleural Appearance Pleural RBC Pleural Tot Cell Ct Pleural Nuc Cells Pleural Neutrophils Pleural Lymphocytes Pleural Eosinophils Pleural Plasma Cells Pleural Macrophages Pleural Mesothelial Pleural Diff Comment Preliminary micro results at discharge 08/05/17 23:05 Urine Culture - Preliminary Urine - Clean Void Mid-Stream August 06: Pleural fluid Gram stain: Shows a few polys and few mononuclear cells. No organisms seen. Chest x-ray after thoracentesis: Shows no pneumothorax. Right middle and lower lobes have reexpanded. There is still moderate left pleural effusion with minor left basilar atelectasis. August 04: ABG on room air: Shows pH of 7.48, CO2 41, PO2 69, bicarb 30, O2 saturation 95% CBC differential shows 79% granulocytes, with absolute granulocyte count normal at 7000. Lymphocyte count is low at 1400. Pro time is elevated at 32, with INR of 3.0 Anion gap is elevated 17 next BNP is elevated at 4427 next Urinalysis: Shows 30 mg of protein, 25 leukocyte esterase, 9 red cells, 23 white blood cells, 9 squamous epis, moderate oxalate crystals. Chest x-ray: IMPRESSION: Moderate bilateral pleural effusions with compressive atelectasis in the overlying inferior lower, right middle lobes and lingula. This has worsened considerably since the comparison examination approximately one month ago. Mild underlying CHF cannot be excluded Medical - DS: A/P - Patient/Caregiver Discharge Instructions Activity: increase activity as tolerated, other (Wear oxygen with any exertion, 2 L.) Diet: Low Sodium (2gm) Additional Instructions: 1. Pulmonary. The fluid was removed from around your right lung today. This should help improve your work of breathing. You continue to have low oxygen levels with exertion, so you were prescribed oxygen for home use. Please use 2 L whenever you are up walking around. You do not need oxygen while at rest. Use your oximeter to check your oxygen levels periodically at home. Your goal levels are between 88 and 92%. 2. Atrial fibrillation. Coumadin was held for your procedure. Please resume your normal Coumadin dose this evening. Please have your level rechecked when you meet your new primary care physician next week. Prescriptions: Albuterol Sulfate [Proair Hfa] 8.5 gm IH Q4HP PRN #1 [email or web address] PRN Reason: Shortness Of Breath - Problem Maintenance (1) Pleural effusion due to CHF (congestive heart failure) Status: Acute (2) Compression atelectasis Status: Acute (3) Atrial fibrillation Status: Acute (4) VALADEZ (dyspnea on exertion) Status: Acute (5) CHF (congestive heart failure), NYHA class IV Status: Acute Qualifiers: Congestive heart failure type: unspecified congestive heart failure type Qualified Code(s): I50.9 - Heart failure, unspecified - Follow up Plan Follow up with: Sha Grullon MD [Primary Care Provider] - Zhou Morley PA-C [Physician Tabulating Supervisor-Certified] - 08/13/17 2:30 pm (You will be seen in Dr. Grullon's old office. Please check in at 2:15 pm.) Disposition: Home, Self-Care Prognosis: Fair Rehab Potential: Fair Overall status at discharge: patient is progressing back to baseline
--- NOTE | 2017-08-10 17:37 | Non-GYN Cytology Report ---
NON PRODUCTION PLANNING MANAGER SPECIMEN MICROSCOPIC DIAGNOSIS PLEURAL FLUID, THORACENTESIS: -- ACUTE AND CHRONIC INFLAMMATION WITH REACTIVE AND DEGENERATED MESOTHELIAL CELLS. -- NO MALIGNANT CELLS IDENTIFIED. (ACP:ena) MICROSCOPIC DESCRIPTION Examination of the pleural fluid material reveals reactive mesothelial cells with lymphocytes, histiocytes, neutrophils and acellular debris present in the background. The cell block has numerous degenerated mesothelial components with acellular debris, fibrin and mixed inflammation. No malignant cells are seen. (ACP:ena) EXTERNAL COMMENT Electronically Signed by: Moe Alexander M.D.
== END 2017-08-06 16:58 | disposition home or self-care (01) ==
LOC: ICU 11:24 → ED 11:24 → ICU 17:53
PROVIDERS: ADMIT Internal Medicine; ATTEND Internal Medicine

== ENCOUNTER 2017-09-22 12:52 | Inpatient (IN) ==
[2017-09-22] MEDS ORDERED: LEVOFLOXACIN 750 MG/150 ML BAG IV ONE ×2 (13:09→14:29)
[2017-09-22] MEDS: 0.9 % SODIUM CHLORIDE 1,000 ML IV SCH ×2 (13:30→19:54)
[2017-09-22] MEDS ORDERED: methylPREDNISolone SOD SUCC 125 MG/2 ML VIAL IV ONE (13:44)
[2017-09-22] MEDS ORDERED: IPRATROPIUM/ALBUTEROL 3 ML AMPUL.NEB NEB ONE (13:44)
--- NOTE | 2017-09-22 13:44 | XRay Report ---
INDICATION: Weakness. Cough. TECHNIQUE: AP chest x-ray,upright portable COMPARISON: Chest x-rays dated 08/13/2017 and 08/04/2017 Findings: Pleural effusions have decreased. There is mild blunting of costophrenic angles bilaterally consistent with small residual effusions. There is cardiomegaly, unchanged. No evidence for congestive heart failure or significant pulmonary congestion. No focal pulmonary parenchymal infiltrate or mass. No new focal abnormality. No significant interval change IMPRESSION: 1. Interval improvement. Small residual effusions 2. Cardiomegaly, unchanged 3. No acute or focal infiltrate. No evidence for congestive heart failure. Interpreted and Authenticated by: Ramsey Covarrubias 09/22/17
[2017-09-22 14:27] LABS: ALT/SGPT 20 U/l (0-40); Albumin 3.9 gm/dL (3.2-5.2); Albumin/Globulin Ratio 0.9 (1.0-2.3); Alkaline Phosphatase 102 U/L (39-117); Blood Urea Nitrogen 45 mg/dl (8-23); Magnesium 1.9 mg/dL (1.6-2.5)
[2017-09-22 14:51] LABS: Basophils # (Auto) 0.1 K/mcL (0.0-0.3); Basophils % (Auto) 0.5 % (0.0-2.0); Eosinophils # (Auto) 0 K/mcL (0.0-0.7); Eosinophils % (Auto) 0.1 % (0.0-7.0); Granulocytes % (Auto) 80.6 % (38.0-78.0); Lymphocytes # (Auto) 1.4 K/mcL (1.5-4.8); Lymphocytes % (Auto) 8.5 % (15.5-49.0); Mean Cell Volume 91.6 fL (80.0-100.0); Mean Corpuscular Hemoglobin 30.2 pg (26.0-34.0); Monocytes # (Auto) 1.7 K/mcL (0.1-0.9); Monocytes % (Auto) 10.3 % (1.0-12.0); Platelet Count 190 K/mcL (140-440); RBC 5.55 M/mcL (4.00-5.20); Red Cell Distribution Width 15.3 % (11.5-14.5)
--- NOTE | 2017-09-22 15:16 | Emergency Department Note ---
Fever HPI - General Chief Complaint: Fever Stated Complaint: Fever, weakness, pain in feet Time Seen by Provider: 09/22/17 13:01 Source: patient, EMS Mode of arrival: EMS Limitations: no limitations - History of Present Illness HPI Narrative: Patient presents, 2 days of increasing malaise, shortness of breath with dry cough and weakness with anorexia. Low-grade fever to nearly 100 at home, diminished mentation, primarily bedbound. Family finally decided that she should be transported for further evaluation. No sick contacts, generally weak with advancing health issues. DNR with limited interventions. Currently following with local retail associate Dr. Vázquez. No shaking chills. Very weak but no pleurisy. Reports generally tender to the touch, particular shoulders and ankles. - Related Data Home Medications Medication Instructions Recorded Confirmed calcium carbonate 600 mg (1,500 1 tab PO QDAY 07/19/15 09/08/17 mg)-vitamin D3 400 unit tablet multivitamin tablet 1 tab PO QDAY tab 05/14/16 09/08/17 Mesalamine [Apriso] 4 cap PO QAM 02/10/17 09/08/17 lactobacillus combination no.4 3 3,000 mmu cells PO BID cap 02/26/17 09/08/17 billion cell capsule Latanoprost Ophth Drops [Xalatan 1 gtt OU HS 08/04/17 09/08/17 Ophth Drops] Ranitidine HCl [Acid Structural Steel Trades Worker] 150 mg PO DAILY 08/04/17 09/08/17 Previous Rx's Medication Instructions Recorded metoprolol succinate ER 25 mg 75 mg PO QAM 90 Days #270 tab 03/05/17 tablet,extended release 24 hr tiotropium bromide 18 mcg capsule 18 mcg INHALATION QDAY 90 Days #90 04/29/17 with inhalation device puff trazodone 50 mg tablet 50 mg PO QHS #90 tab 05/26/17 warfarin 2.5 mg tablet See Label Instructions .ROUTE 05/26/17 .COMPLEX #90 tab albuterol sulfate 2.5 mg/3 mL 2.5 mg INHALATION Q4H #180 ml 07/26/17 (0.083 %) solution for nebulization Acetaminophen [Tylenol] 650 mg PO Q6HP PRN tab 08/06/17 Albuterol Sulfate [Proair Hfa] 8.5 gm IH Q4HP PRN #1 [email or web address] 08/06/17 furosemide 20 mg tablet 40 mg PO BID #60 tab 08/13/17 potassium chloride ER 20 mEq 20 meq PO QDAY #30 tab 08/13/17 tablet,extended release silver sulfadiazine 1 % topical 1 applic TOPICAL BID #25 g 08/13/17 cream Allergies Allergy/AdvReac Type Severity Reaction Status Date / Time clindamycin AdvReac Mild Heartburn Verified 09/22/17 13:02 Review of Systems All systems ED: reviewed and negative except as stated. (Obtained from family) Constitutional: Reports: fever, weakness. Denies: chills, weight change, sweats Cardiovascular: Denies: chest pain, palpitations Respiratory: Reports: shortness of breath, cough. Denies: phlegm Genitourinary: Reports: other (Diminished urine output) Fever PMH - Past Medical History Attestation: Yes: The following information was validated with the patient. Medical history: Reports: atrial fibrillation, CHF, COPD, dementia, hypertension , osteoporosis, valvular heart disease, other (UC, MVP, hyperparathyroidism) Surgical history ED: Reports: non-contributory Psychiatric history: Reports: no psych history PHOTOVOLTAIC TECHNICIAN history: Reports: non-contributory Family history: Reports: no significant family history - Social History smoking status: Former smoker Alcohol use: Reports: None, Unknown Drug use: Reports: none Physical Exam Limitations: no limitations General appearance: anxious, lethargic, other (Central and peripheral cyanosis) Head: normocephalic Eye: Present: normal appearance ENT: mucous membranes dry Chest: Present: normal inspection Respiratory: Present: other (Diminished bilateral bases). Absent: respiratory distress, wheezes, accessory muscle use Cardiovascular: Present: tachycardia, irregular rhythm Abdominal: Present: soft. Absent: tenderness Extremities: Present: other (1+ pitting edema feet and ankles with mild erythema , tender to the touch; slow cap refill) Neurological: Present: other (Disoriented, initially lethargic) Skin: Present: cyanosis. Absent: diaphoresis, erythema Course Vital Signs Temperature 97.8 F 09/22/17 12:53 Pulse Rate 117 H 09/22/17 12:53 Respiratory Rate 36 H 09/22/17 12:53 Blood Pressure 108/76 09/22/17 12:53 Temperature 97.8 F 09/22/17 12:53 Pulse Rate 122 H 09/22/17 13:12 Respiratory Rate 36 H 09/22/17 12:53 Blood Pressure 97/72 09/22/17 14:36 Fever - Lab Data Lab results reviewed: Yes I reviewed the patient's lab results. Result diagrams: 09/22/17 14:17 09/22/17 13:35 Lab Results 09/22/17 09/22/17 09/22/17 Range/Units 13:35 13:35 14:17 WBC 16.6 H (4.5-11.0) K/mcL RBC 5.55 H (4.00-5.20) M/mcL Hgb 16.8 H (12.0-15.0) g/dL Hct 50.9 H (36.0-48.0) % MCV 91.6 (80.0-100.0) fL MCH 30.2 (26.0-34.0) pg MCHC 33.0 (31.0-36.0) g/dL RDW 15.3 H (11.5-14.5) % Plt Count 190 (140-440) K/mcL MPV 10.6 H (7.4-10.4) fL Gran % 80.6 H (38.0-78.0) % Lymph % (Auto) 8.5 L (15.5-49.0) % [place] % (Auto) 10.3 (1.0-12.0) % Eos % (Auto) 0.1 (0.0-7.0) % Baso % (Auto) 0.5 (0.0-2.0) % Gran # 13.4 H (1.8-8.0) K/mcL Lymph # (Auto) 1.4 L (1.5-4.8) K/mcL [place] # (Auto) 1.7 H (0.1-0.9) K/mcL Eos # (Auto) 0 (0.0-0.7) K/mcL Baso # (Auto) 0.1 (0.0-0.3) K/mcL VBG Lactic Acid 3.0 H (0.5-2.2) mmol/L Sodium 131 L (133-145) mmol/L Potassium 3.1 L (3.3-5.1) mmol/L Chloride 81 L (96-108) mmol/L Carbon Dioxide 33 H (22-30) mmol/L Anion Gap 17.0 H (8-16) BUN 45 H (8-23) mg/dl Creatinine 1.0 (0.6-1.1) mg/dl GFR Calculation 52 Glucose 137 H (70-105) mg/dL Calcium 10.0 (8.6-10.4) mg/dl Magnesium 1.9 (1.6-2.5) mg/dL Total Bilirubin 2.7 H (0.0-1.0) mg/dL AST 36 (0-37) U/l ALT 20 (0-40) U/l Alkaline Phosphatase 102 (39-117) U/L Total Protein 8.2 (5.9-8.4) gm/dL Albumin 3.9 (3.2-5.2) gm/dL Globulin 4.3 H (2.2-3.7) gm/dL Albumin/Globulin Ratio 0.9 L (1.0-2.3) - Radiology Data Radiology results reviewed: Yes I reviewed the patient's radiology results. No acute infiltrate Critical Care Time Critical Care Time: Yes Total Critical Care Time: 30 Attestation: Hypotensive and hypoxic with altered mental status, early shock Disposition Pt seen by COLOR PASTE MIXING SUPERVISOR/PA only: No Clinical Impression: UTI (urinary tract infection), Lactic acidosis, Sepsis, COPD (chronic obstructive pulmonary disease) Disposition: Xfer As Inpt ([facility]) Condition: Serious Referrals: Sha Grullon MD [Primary Care Provider] -
[2017-09-22] MEDS ORDERED: ONDANSETRON 4 MG/2 ML VIAL IV PRN (16:32)
[2017-09-22] MEDS ORDERED: POTASSIUM CHLORIDE 20 MEQ PACKET PO PRN (16:32)
[2017-09-22] MEDS ORDERED: traZODone HCL 50 MG TABLET PO PRN (16:32)
[2017-09-22] MEDS ORDERED: LEVOFLOXACIN 750 MG/150 ML BAG IV SCH (16:32)
[2017-09-22] MEDS ORDERED: guaiFENesin/CODEINE 10 ML UDC PO PRN (16:32)
[2017-09-22] MEDS ORDERED: ACETAMINOPHEN 325 MG TABLET PO PRN (16:32)
[2017-09-22] MEDS ORDERED: ACETAMINOPHEN 1,000 MG/100 ML BOTTLE IV PRN (16:32)
[2017-09-22] MEDS ORDERED: 0.9 % SODIUM CHLORIDE 1,000 ML IV SCH (16:32)
[2017-09-22] MEDS ORDERED: MAGNESIUM SULFATE 2 GM/50 ML BAG IV PRN (16:32)
[2017-09-22] MEDS ORDERED: cefTRIAXone 2 GM in DEXTROSE 5% IN WATER 50 ML IV SCH (16:32)
[2017-09-22] MEDS: LACTATED RINGERS 1,000 ML IV SCH (16:39)
[2017-09-22] MEDS: cefTRIAXone 2 GM VIAL IV SCH (17:28)
--- NOTE | 2017-09-22 17:31 | History and Physical Report ---
DATE OF ADMISSION: 09/22/2017 PRIMARY CARE PHYSICIAN: Sha Grullon MD DATE OF ADMISSION: 09/22/2017 REASON FOR ADMISSION: Fever, weakness, chills. HISTORY OF CHIEF COMPLAINT: The patient is an 81-year-old with known history of COPD, congestive heart failure, severe MVP, ulcerative colitis who lives with her daughter and was in her baseline state of health until last three days. The patient has had a gradual decline in functional status, wherein she has lost her appetite. She has had intermittent fever along with weakness. She has not been able to keep anything by mouth. Per family she has lost a few pounds. She has been on diuretics due to recurrent pleural effusion for which she received a thoracentesis back in August. She follows up for severe mitral valve prolapse with Dr. Vázquez, cardiology. This morning the patient was increasingly confused, lethargic, and with a fever of 102. She was brought into [facility] Emergency Room. Initial workup was significant for a white count of 15,600 along with blood pressures in low 80s. The patient was promptly started on antibiotics after urine revealed significant pyuria and elevated lactic acid at 3, post crystalloids and antibiotics. Hospitalist Service was consulted for admission in light of septic shock likely from urogenital source. At the time of evaluation, the patient is accompanied with her daughters and a son-in-law. She was able to answer some of the questions. She is more alert and responsive after initial crystalloid boluses and antibiotics. She denies recent sick contacts. She does not endorse true shortness of breath, or cough, or productive sputum. She does endorse mild dysuria along with bilateral lateral ankle swelling and pain and unable to bear weight. She further endorses to significant weakness along with fatigue and dehydration secondary to diuretic use. Other than that, she also endorses to loss of appetite, but denies skin rash, joint pain, headache, photophobia, diarrhea, or bloody stools. REVIEW OF SYSTEMS: Ten-point review of system was performed and is negative except for the ones discussed above. PAST MEDICAL HISTORY: 1. COPD. 2. History of congestive heart failure. 3. Severe mitral valve prolapse. 4. Atrial fibrillation. 5. Anticoagulation for CVA prophylaxis. CURRENT MEDICATIONS: 1. Albuterol inhaled every 4 hours. 2. Furosemide 40 mg twice daily 3. Latanoprost both eyes at bedtime. 4. Metoprolol 75 every morning. 5. Mesalamine 4 every morning. 6. Ranitidine 150 mg daily. 7. Potassium 20 daily. 8. Tiotropium inhaled daily. 9. Trazodone 50 at bedtime. 10. Warfarin 2.5 mg. FAMILY HISTORY: Significant for father with CVA, sister with multiple sclerosis at age 42. SOCIAL HISTORY: The patient lives along with the daughter at the upper level. She is a long time smoker but quit at age 59. No history of alcoholism. PHYSICAL EXAMINATION: GENERAL: The patient is lethargic, fatigued. BMI 20.8. Height 5 feet 1 inch. VITAL SIGNS: Blood pressure mid-80s, improving to 97/72, respiration rate 36, temperature down from 100.8 to 98.5, pulse between 170 to 132 irregular, sats 98 percent on room air. HEENT: Pupils symmetric. Oral cavity is dry. No ear or nose discharge. Head is normocephalic and atraumatic. NECK: No lymphadenopathy. CHEST: S1, S2 irregular. ESM grade I, pansystolic murmur grade II at the left anterior axillary line with radiation to axilla. Diminished breath sounds at bases. ABDOMEN: Soft and nontender. No rebound. LOWER EXTREMITIES: No cyanosis or clubbing. Stasis changes bilateral lateral malleoli redness along with minimal ankle swelling and erythema but no lymphedema or clubbing. Normal range of motion of the joints with no joint swelling or erythema. SKIN: No suspicious lesions. PSYCHIATRIC: Fatigued, lethargic but able to respond to questions. NEURO: Moving all four extremities. Higher function could not be checked. LABS AND IMAGING: White count 16.6, hemoglobin 16.8, platelets 190, neutrophils 81 percent. Lactic acid 3. Sodium 131, potassium 3.1, creatinine 1, BUN 45. Procalcitonin 0.16. LFTs unremarkable. UA significant for leukocyte esterase and pyuria. X-ray chest: Small residual effusions. Arterial blood gas 7.61/41/62. EKG: Atrial fibrillation. ASSESSMENT AND PLAN: An 81-year-old admitted with septic shock secondary to complicated urinary tract infection. 1. Septic shock: Start management per protocol. Continue crystalloids and vasopressors to keep MAP at goal. Monitor for organ dysfunction. 2. Complicated urinary tract infection: Continue antibiotic coverage including Rocephin and levofloxacin and deescalate based on culture sensitivities. Await urine culture. Renal ultrasound to rule out obstructive uropathy/nephrolithiasis. 3. Contraction alkalosis secondary to over diuresis: Continue crystalloids with 1 liter bolus followed by 100 mL an hour for additional 3 liters. 4. Other prior medical issues, including history of ulcerative colitis: Continue mesalamine. 5. Hypertension: Hold metoprolol until septic shock resolves. 6. History of glaucoma: Continue latanoprost. 7. Chronic obstructive pulmonary disease: Continue bronchodilators including Tiotropium. 8. Anticoagulation for cerebrovascular accident prophylaxis: Continue warfarin. PLAN FOR TODAY: 1. Admit as inpatient telemetry. 2. Vasopressors and crystalloids. 3. Preexisting medical condition management as above. Overall, a very high complexity admit with HOONAH score of 17 in light of septic shock requiring pressors and close hemodynamic monitoring. The patient will be admitted to ICU. We anticipate a minimum of 2 midnights stay for management of septic shock and complicated UTI. TIME SPENT: On history and physical in excess of 60 minutes, in addition 35 minutes critical time spent on evaluation of labs, imaging, blood gases, management of septic shock and transferring patient to ICU. AA:yahaira Job ID: [id number] Doc ID: [id number] Matt Linares MD
[2017-09-22] MEDS ORDERED: NOREPINEPHRINE BITARTRATE 16 MG in 0.9 % SODIUM CHLORIDE 234 ML IV SCH (18:00)
--- NOTE | 2017-09-22 18:14 | Ultrasound Report ---
CLINICAL INFORMATION: Renal failure TECHNIQUE: Grayscale and color flow Doppler spectral imaging COMPARISON: Previous CT scan dated 03/04/2017 FINDINGS: Right kidney measures 9.9 x 5.3 x 7.0 cm. There is an inferior pole nonobstructing calculus measuring 15 x 16 mm. No solid or cystic mass. No hydronephrosis. Left kidney measures 9.6 x 6.4 x 5.8 cm. There is a mid pole cyst which measures 4.9 x 3.9 x 5.0 cm. No solid mass. No hydronephrosis. There is a Lin catheter in place. Urinary bladder is not evaluated IMPRESSION: 1. No hydronephrosis 2. Right lower pole nonobstructing renal calculus. Benign left renal cyst. Interpreted and Authenticated by: Ramsey Covarrubias 09/22/17
[2017-09-22] MEDS ORDERED: SENNOSIDES/DOCUSATE SODIUM 1 TAB TABLET PO SCH (21:00)
[2017-09-22] MEDS: HEPARIN 5,000 UNIT/ML VIAL SQ SCH (21:19)
[2017-09-22] MEDS: DOCUSATE SODIUM 100 MG CAPSULE PO SCH (21:19)
[2017-09-22] MEDS: 0.9 % SODIUM CHLORIDE 10 ML SYRINGE IV SCH (23:26)
[2017-09-23 00:54] LABS: Appearance,Urine CLEAR; Bacteria,Urine 0 /hpf (0); Bilirubin,Urine NEG (NEG); Color,Urine YELLOW; Glucose,Urine (UA) NEGATIVE (NEG); Leukocyte Esterase,Urine NEG /uL (NEG); Mucus,Urine FEW /hpf (0); Nitrate,Urine NEG (NEG); Protein,Urine NEG (NEG); Specific Gravity,Urine 1.015 (1.000-1.035); Urine Blood 0.03 mg/dL (<0.03); Urine Hyaline Cast 4 /lpf (0-2); Urine RBC 6 /hpf (0-1); Urine Squamous Epithelial Cell < 1 /hpf (0-4); Urine Transitional Epi Cells < 1 /hpf (0-2); Urine WBC 3 /hpf (0-4); Urobilinogen,Urine NEG (NEG)
[2017-09-23] MEDS: LACTATED RINGERS 1,000 ML IV SCH ×3 (04:50→20:37)
[2017-09-23 06:32] LABS: Mean Cell Volume 90.8 fL (80.0-100.0); Mean Corpuscular Hemoglobin 29.9 pg (26.0-34.0); Platelet Count 158 K/mcL (140-440); RBC 5.35 M/mcL (4.00-5.20); Red Cell Distribution Width 15.6 % (11.5-14.5)
[2017-09-23] MEDS: 0.9 % SODIUM CHLORIDE 10 ML SYRINGE IV SCH ×3 (06:44→21:56)
[2017-09-23 07:00] LABS: ALT/SGPT 14 U/l (0-40); Albumin 3.5 gm/dL (3.2-5.2); Albumin/Globulin Ratio 1.1 (1.0-2.3); Alkaline Phosphatase 77 U/L (39-117); Bilirubin,Direct 0.7 mg/dL (0.0-0.3); Blood Urea Nitrogen 38 mg/dl (8-23); Gamma Glutamyl Transpeptidase 41 U/L (5-36); Magnesium 1.8 mg/dL (1.6-2.5); Uric Acid 8.7 mg/dL (2.5-8.0)
[2017-09-23 07:46] LABS: Band Neutrophils % 4 % (0-10); Lymphocytes % 8 % (15-49); Metamyelocytes % 1 % (0-0); Monocytes % (Manual) 4 % (1-12); Myelocytes % 1 % (0-0); Platelet Estimate NORMAL (NORMAL); RBC Morphology NORMAL (NORMAL); Segmented Neutrophils % 82 % (38-78)
[2017-09-23] MEDS: DOCUSATE SODIUM 100 MG CAPSULE PO SCH ×2 (08:32→20:36)
[2017-09-23] MEDS: cefTRIAXone 2 GM VIAL IV SCH (08:32)
[2017-09-23] MEDS: HEPARIN 5,000 UNIT/ML VIAL SQ SCH ×2 (08:32→20:36)
[2017-09-23] MEDS ORDERED: LEVOFLOXACIN 750 MG/150 ML BAG IV SCH ×2 (09:00)
[2017-09-23] MEDS ORDERED: MULTIVIT,THER IRON,CA,FA & MIN 1 TABLET PO SCH (09:00)
[2017-09-23] MEDS ORDERED: NOREPINEPHRINE BITARTRATE 16 MG in 0.9 % SODIUM CHLORIDE 234 ML IV PRN (09:00)
[2017-09-23] MEDS ORDERED: ACETAMINOPHEN 1,000 MG/100 ML BOTTLE IV PRN (10:00)
[2017-09-23] MEDS ORDERED: MAGNESIUM SULFATE 2 GM/50 ML BAG IV PRN (10:00)
[2017-09-23] MEDS ORDERED: POTASSIUM CHLORIDE 20 MEQ PACKET PO PRN (10:00)
[2017-09-23] MEDS ORDERED: ACETAMINOPHEN 325 MG TABLET PO PRN (10:00)
[2017-09-23] MEDS ORDERED: ONDANSETRON 4 MG/2 ML VIAL IV PRN (10:00)
[2017-09-23] MEDS ORDERED: traZODone HCL 50 MG TABLET PO PRN (10:00)
[2017-09-23] MEDS ORDERED: guaiFENesin/CODEINE 10 ML UDC PO PRN (10:00)
--- NOTE | 2017-09-23 10:11 | Internal Med Progress Note ---
Medical - PN: Subj Patient information: Note initiated : 09/23/17 at 10:07 am Service Date, if different from initiated Date: [] Patient: Anne Jackson 81 y/o F admitted on 09/22/17 for Fever, weakness, pain in feet. Chief Complaint: [] Interval history: 09/22- patient admitted with septic shock from complicated UTI requiring pressors crystalloids and management in ICU. Critically ill on admit. On broad antibiotic coverage 09/23-patient doing remarkably better. Off pressors. Improving urine output. Downtrending white count from 16.6 to 10.9. Improving renal function and end organ dysfunction. patient more lucid and alert and responsive. Multiple family members at bedside. hemodynamics stabilized with systolics around 100. Transfer to medical floor today. Continue antibiotic coverage. - Constitutional Vitals: Vital Signs Temp Pulse Resp BP Pulse Ox 97.5 F 77 26 H 95/74 94 09/23/17 06:00 09/23/17 07:24 09/23/17 07:24 09/23/17 07:02 09/23/17 07:24 Period Temp Pulse Resp BP Sys/Arellano Pulse Ox Last 24 Hr 97.4 F-99.9 F 48-122 18-36 83-108/62-94 93-97 Intake and Output 09/22/17 09/23/17 09/23/17 21:59 05:59 13:59 Intake Total 2150 / 2150 1000 / 1000 Output Total 550 / 550 450 / 450 100 / 100 Balance 1600 / 1600 550 / 550 -100 / -100 Weight 107 lb 6.4 oz Intake & Output: Intake & Output 09/22/17 09/23/17 09/23/17 21:59 05:59 13:59 Intake Total 2150 / 2150 1000 / 1000 Output Total 550 / 550 450 / 450 100 / 100 Balance 1600 / 1600 550 / 550 -100 / -100 Weight 107 lb 6.4 oz Intake: IV 2150 / 2150 1000 / 1000 Sodium Chloride 0.9% 1,000 ml @ 1600 / 1600 Wide Open IV BOLUS [place] Rx#: [id number] Lactated Ringers 1,000 ml @ 100 1000 / 1000 mls/hr IV .Q10H [place] Rx#: [id number] Output: Urine Catheter Amount 550 / 550 450 / 450 100 / 100 General appearance: cooperative, no acute distress Exam: alert oriented nonlabored breathing Nondistended abdomen No anxiety Medical - PN: Obj Da - Labs CBC & Chem 7: 09/23/17 03:54 09/23/17 03:54 Labs: Abnormal Lab Results 09/23/17 09/23/17 09/22/17 03:54 03:54 22:39 WBC RBC 5.35 H Hgb 16.0 H Hct 48.6 H RDW 15.6 H MPV 11.3 H Gran % Lymph % (Auto) Gran # Lymph # (Auto) [place] # (Auto) Seg Neutrophils % 82 H Lymphocytes % 8 L Metamyelocytes % 1 H Myelocytes % 1 H VBG Lactic Acid Sodium Potassium 3.1 L Chloride 90 L Carbon Dioxide 32 H Anion Gap 18.0 H BUN 38 H Glucose 167 H Uric Acid 8.7 H Total Bilirubin 1.7 H Direct Bilirubin 0.7 H GGT 41 H Globulin Albumin/Globulin Ratio Urine Occult Blood 0.03 A Urine RBC 6 H Hyaline Casts 4 H 09/22/17 09/22/17 09/22/17 14:17 13:35 13:35 WBC 16.6 H RBC 5.55 H Hgb 16.8 H Hct 50.9 H RDW 15.3 H MPV 10.6 H Gran % 80.6 H Lymph % (Auto) 8.5 L Gran # 13.4 H Lymph # (Auto) 1.4 L [place] # (Auto) 1.7 H Seg Neutrophils % Lymphocytes % Metamyelocytes % Myelocytes % VBG Lactic Acid 3.0 H Sodium 131 L Potassium 3.1 L Chloride 81 L Carbon Dioxide 33 H Anion Gap 17.0 H BUN 45 H Glucose 137 H Uric Acid Total Bilirubin 2.7 H Direct Bilirubin GGT Globulin 4.3 H Albumin/Globulin Ratio 0.9 L Urine Occult Blood Urine RBC Hyaline Casts Meds: Medications Acetaminophen (Tylenol) 650 mg PO Q4-6HP PRN PRN Reason: PAIN/FEVER > 101 Albuterol Sulfate (Ventolin) 1 puff IH Q4HP PRN PRN Reason: Shortness Of Breath Ceftriaxone Sodium (Rocephin) 2 gm IV Q24H [place] Docusate Sodium (Colace) 100 mg PO BID [place] Famotidine (Pepcid) 20 mg PO DAILY [place] Guaifenesin/Codeine Phosphate (Robitussin Ac) 10 ml PO Q4HP PRN PRN Reason: Cough Heparin Sodium (Porcine) (Heparin) 5,000 unit SQ Q12 [place] Lactated Ringer's (Lactated Ringers) 1,000 mls @ 100 mls/hr IV .Q10H [facility] Stop: 09/23/17 22:31 Levofloxacin (Levaquin) 750 mg in 150 mls @ 100 mls/hr IV Q24H [facility] Magnesium Sulfate (Magnesium Sulfate) 2 gm in 50 mls @ 50 mls/hr IV UD PRN PRN Reason: MG = or < 1.7 Acetaminophen (Ofirmev) 1,000 mg in 100 mls @ 200 mls/hr IV Q6HP PRN PRN Reason: PAIN/FEVER > 101 Iron Carb/Multivit/Asic Engineer/Folic Acid (Multivitamin W/Minerals) 1 tab PO DAILY [place] Lactobacillus Rhamnosus (Culturelle) 1 cap PO BID [place] Latanoprost (Xalatan Ophth Drops) 1 gtt OU HS [facility] Non-Formulary Medication (Mesalamine [Apriso]) 4 cap PO QAM [facility] Non-Formulary Medication (Multivitamin [Multi-Day Vitamins]) 1 tab PO QDAY [facility] Ondansetron HCl (Zofran) 4 mg IV Q4-6HP PRN PRN Reason: Nausea And Vomiting Potassium Chloride (Klor-Con) 40 meq PO DAILYP PRN PRN Reason: K+ < 3.5 Potassium Chloride (Kdur) 20 meq PO QAMCC [facility] Senna/Docusate Sodium (Senna Plus Tablet) 1 tab PO HS [facility] Sodium Chloride (Saline Flush) 10 ml IV Q8 [facility] Tiotropium [place] (Spiriva) 18 mcg INH DAILY [facility] Trazodone HCl (Desyrel) 50 mg PO HSP PRN PRN Reason: Insomnia Trazodone HCl (Desyrel) 50 mg PO QHS [facility] Warfarin Sodium (Coumadin Per Pharmacy) 1 order PO DAILY@1400 [facility] Medical - PN: A/P - Time Spent With Patient Total time spent is greater than 50% in coordination of care (as documented) at patient's floor/unit and/or counseling patient: 25 - 35 minutes (1) Septic shock Status: Acute Assessment and plan: * Septic shock-clinically resolved with crystalloids vasopressors and antibiotics. Improving white count.improved end organ dysfunction * Complicated UTI-on antibiotic coverage * contraction alkalosis clinically improving with crystalloids. * OTILIO clinically improved * Hypertension-antihypertensives and hold * History of glaucoma on latanoprost * History of COPD on bronchodilators * anticoagulation on Coumadin * A. fib rate controlled * DNR Plan * Transfer to medical floor * continue antibiotics and de-escalate as indicated * Pre-existing medical condition management as above * Aggressive physical therapy * Discharge in 24-48 hours Current Visit: Yes Medical - PN: Qual - Stroke Symptom Onset Unknown: No - VTE Deep Vein Thrombosis/Pulmonary Embolism Present on Admission: No
[2017-09-23] MEDS: MESALAMINE 0.375 GM PO SCH (10:32)
[2017-09-23] MEDS ORDERED: WARFARIN 1 MG TABLET PO ONE (14:00)
[2017-09-23] MEDS: traZODone HCL 50 MG TABLET PO SCH (20:36)
[2017-09-23] MEDS: SENNOSIDES/DOCUSATE SODIUM 1 TAB TABLET PO SCH (20:36)
[2017-09-23] MEDS: LATANOPROST OPHTH DROPS 2.5ML BOTTLE OU SCH (20:36)
[2017-09-23] MEDS: LACTOBACILLUS 1 CAPSULE PO SCH (20:37)
[2017-09-24] MEDS: 0.9 % SODIUM CHLORIDE 10 ML SYRINGE IV SCH ×3 (04:00→21:41)
[2017-09-24 06:12] LABS: Mean Cell Volume 92.8 fL (80.0-100.0); Mean Corpuscular HGB Conc 32.4 g/dL (31.0-36.0); Mean Corpuscular Hemoglobin 30.1 pg (26.0-34.0); Platelet Count 163 K/mcL (140-440); RBC 4.98 M/mcL (4.00-5.20); Red Cell Distribution Width 15.6 % (11.5-14.5)
[2017-09-24 06:33] LABS: ALT/SGPT 39 U/l (0-40); Albumin 3.1 gm/dL (3.2-5.2); Albumin/Globulin Ratio 0.9 (1.0-2.3); Alkaline Phosphatase 86 U/L (39-117); Bilirubin,Direct 0.4 mg/dL (0.0-0.3); Blood Urea Nitrogen 39 mg/dl (8-23); Gamma Glutamyl Transpeptidase 49 U/L (5-36); Magnesium 1.8 mg/dL (1.6-2.5); Uric Acid 7.4 mg/dL (2.5-8.0)
[2017-09-24 07:27] LABS: Lymphocytes % 11 % (15-49); Monocytes % (Manual) 8 % (1-12); Platelet Estimate NORMAL (NORMAL); RBC Morphology NORMAL (NORMAL); Segmented Neutrophils % 81 % (38-78)
--- NOTE | 2017-09-24 07:38 | Internal Med Progress Note ---
Medical - PN: Subj Patient information: Note initiated : 09/24/17 at 7:32 am Service Date, if different from initiated Date: [] Patient: Anne Jackson 81 y/o F admitted on 09/22/17 for Fever, Weakness, Pain in Feet/Septic Shock, UTI. Chief Complaint: [] Interval history: 09/22- patient admitted with septic shock from complicated UTI requiring pressors crystalloids and management in ICU. Critically ill on admit. On broad antibiotic coverage 09/23-patient doing remarkably better. Off pressors. Improving urine output. Downtrending white count from 16.6 to 10.9. Improving renal function and end organ dysfunction. patient more lucid and alert and responsive. Multiple family members at bedside. hemodynamics stabilized with systolics around 100. Transfer to medical floor today. Continue antibiotic coverage. 09/24 white count jumped to 17.7 from 10.9 however patient clinically feels better. Afebrile overnight. Improved shortness of breath cough. Ambulating. Improved appetite. No family at bedside. bilirubin down from 2.7-1.2 however transaminases uptrending. Right upper quadrant ultrasound to rule out cholelithiasis. Benign abdominal exam. Discussed treatment plan and possible discharge in 24 hours to home if clinical improvement noted and downtrending white count. No concerns expressed by nursing staff. INR therapeutic at 3. bilirubin down from 2.7-1.2. - Constitutional Vitals: Vital Signs Temp Pulse Resp BP Pulse Ox 97.6 F 92 H 12 116/84 93 09/24/17 07:06 09/24/17 04:00 09/24/17 07:06 09/24/17 07:06 09/24/17 07:06 Period Temp Pulse Resp BP Sys/Arellano Pulse Ox Last 24 Hr 97.6 F-99.0 F 70-138 12-32 91-130/71-84 92-97 Intake and Output 09/23/17 09/24/17 09/24/17 21:59 05:59 13:59 Intake Total 1515 / 1515 600 / 600 Balance 1515 / 1515 600 / 600 Weight 114 lb Intake & Output: Intake & Output 09/23/17 09/24/17 09/24/17 21:59 05:59 13:59 Intake Total 1515 / 1515 600 / 600 Balance 1515 / 1515 600 / 600 Weight 114 lb Intake: IV 1000 / 1000 Oral 515 / 515 600 / 600 Other: # Voids 1 1 # Bowel Movements 1 1 General appearance: cooperative, no acute distress Exam: alert oriented Nonlabored breathing Nondistended abdomen, negative Hickey's No anxiety Medical - PN: Obj Da - Labs CBC & Chem 7: 09/24/17 04:32 09/24/17 04:32 Labs: Abnormal Lab Results 09/24/17 09/24/17 09/24/17 04:32 04:32 04:32 WBC 17.7 H RBC Hgb Hct RDW 15.6 H MPV 11.7 H Gran % Lymph % (Auto) Gran # Lymph # (Auto) [place] # (Auto) Seg Neutrophils % 81 H Lymphocytes % 11 L Metamyelocytes % Myelocytes % PT 32.3 H INR 3.0 H VBG Lactic Acid Sodium Potassium Chloride 90 L Carbon Dioxide 31 H Anion Gap BUN 39 H Glucose 131 H Uric Acid Phosphorus 2.1 L Total Bilirubin 1.2 H Direct Bilirubin 0.4 H GGT 49 H AST 62 H Albumin 3.1 L Globulin Albumin/Globulin Ratio 0.9 L Urine Occult Blood Urine RBC Hyaline Casts 09/23/17 09/23/17 09/23/17 10:37 03:54 03:54 WBC RBC 5.35 H Hgb 16.0 H Hct 48.6 H RDW 15.6 H MPV 11.3 H Gran % Lymph % (Auto) Gran # Lymph # (Auto) [place] # (Auto) Seg Neutrophils % 82 H Lymphocytes % 8 L Metamyelocytes % 1 H Myelocytes % 1 H PT 30.8 H INR 2.8 H VBG Lactic Acid Sodium Potassium 3.1 L Chloride 90 L Carbon Dioxide 32 H Anion Gap 18.0 H BUN 38 H Glucose 167 H Uric Acid 8.7 H Phosphorus Total Bilirubin 1.7 H Direct Bilirubin 0.7 H GGT 41 H AST Albumin Globulin Albumin/Globulin Ratio Urine Occult Blood Urine RBC Hyaline Casts 09/22/17 09/22/17 09/22/17 22:39 14:17 13:35 WBC 16.6 H RBC 5.55 H Hgb 16.8 H Hct 50.9 H RDW 15.3 H MPV 10.6 H Gran % 80.6 H Lymph % (Auto) 8.5 L Gran # 13.4 H Lymph # (Auto) 1.4 L [place] # (Auto) 1.7 H Seg Neutrophils % Lymphocytes % Metamyelocytes % Myelocytes % PT INR VBG Lactic Acid 3.0 H Sodium Potassium Chloride Carbon Dioxide Anion Gap BUN Glucose Uric Acid Phosphorus Total Bilirubin Direct Bilirubin GGT AST Albumin Globulin Albumin/Globulin Ratio Urine Occult Blood 0.03 A Urine RBC 6 H Hyaline Casts 4 H 09/22/17 13:35 WBC RBC Hgb Hct RDW MPV Gran % Lymph % (Auto) Gran # Lymph # (Auto) [place] # (Auto) Seg Neutrophils % Lymphocytes % Metamyelocytes % Myelocytes % PT INR VBG Lactic Acid Sodium 131 L Potassium 3.1 L Chloride 81 L Carbon Dioxide 33 H Anion Gap 17.0 H BUN 45 H Glucose 137 H Uric Acid Phosphorus Total Bilirubin 2.7 H Direct Bilirubin GGT AST Albumin Globulin 4.3 H Albumin/Globulin Ratio 0.9 L Urine Occult Blood Urine RBC Hyaline Casts Meds: Medications Acetaminophen (Tylenol) 650 mg PO Q4-6HP PRN PRN Reason: PAIN/FEVER > 101 Albuterol Sulfate (Ventolin) 1 puff IH Q4HP PRN PRN Reason: Shortness Of Breath Ceftriaxone Sodium (Rocephin) 2 gm IV Q24H [facility] Docusate Sodium (Colace) 100 mg PO BID [facility] Last Admin: 09/23/17 20:36 Dose: 100 mg Famotidine (Pepcid) 20 mg PO DAILY [facility] Guaifenesin/Codeine Phosphate (Robitussin Ac) 10 ml PO Q4HP PRN PRN Reason: Cough Heparin Sodium (Porcine) (Heparin) 5,000 unit SQ Q12 [facility] Last Admin: 09/23/17 20:36 Dose: 5,000 unit Levofloxacin (Levaquin) 750 mg in 150 mls @ 100 mls/hr IV Q24H [facility] Magnesium Sulfate (Magnesium Sulfate) 2 gm in 50 mls @ 50 mls/hr IV UD PRN PRN Reason: MG = or < 1.7 Acetaminophen (Ofirmev) 1,000 mg in 100 mls @ 200 mls/hr IV Q6HP PRN PRN Reason: PAIN/FEVER > 101 Iron Carb/Multivit/Forest Ecologist/Folic Acid (Multivitamin W/Minerals) 1 tab PO DAILY [facility] Lactobacillus Rhamnosus (Culturelle) 1 cap PO BID [facility] Last Admin: 09/23/17 20:37 Dose: 1 cap Latanoprost (Xalatan Ophth Drops) 1 gtt OU HS [facility] Last Admin: 09/23/17 20:36 Dose: 1 gtt Ondansetron HCl (Zofran) 4 mg IV Q4-6HP PRN PRN Reason: Nausea And Vomiting Mesalamine [Apriso] (0.375 Gm Cap) 4 dose PO QAM [facility] Last Admin: 09/23/17 10:32 Dose: 4 dose Potassium Chloride (Klor-Con) 40 meq PO DAILYP PRN PRN Reason: K+ < 3.5 Potassium Chlor[facility] ([facility]dur) [facility] Senna/Docusate Sodium (Senna Plus Tablet) 1 tab PO HS [facility] Last Admin: 09/23/17 20:36 Dose: 1 tab Sodium Chloride (Saline Flush) 10 ml IV Q8 [facility] Last Admin: 09/24/17 04:00 Dose: 10 ml Tiotropium [place] (Spiriva) 18 mcg INH DAILY [facility] Trazodone HCl (Desyrel) 50 mg PO QHS [facility] Last Admin: 09/23/17 20:36 Dose: 50 mg Warfarin Sodium (Coumadin Per Pharmacy) 1 order PO UD [facility] Medical - PN: A/P - Time Spent With Patient Total time spent is greater than 50% in coordination of care (as documented) at patient's floor/unit and/or counseling patient: 25 - 35 minutes (1) Septic shock Status: Acute Assessment and plan: * Septic shock-clinically resolved with crystalloids vasopressors and antibiotics. white count is 17.5. improved end organ dysfunction with downtrending bilirubin and creatinine * elevated bilirubin-right upper quadrant ultrasound to rule out choledocholithiasis. However benign abdomen without any signs of cholangitis acute cholecystitis * complicated UTI-extensive leukoesterase and pyuria in the ED on spot urine however repeat urine does not show evidence of pyuria. * contraction alkalosis clinically resolved with crystalloids. * OTILIO clinically improved * history of Hypertension-antihypertensives on hold * History of glaucoma on latanoprost * History of COPD on bronchodilators * anticoagulation on Coumadin * A. fib rate controlled * DNR Plan * right upper quadrant ultrasound * De-escalate antibiotics * Pre-existing medical condition management as above * possible in 24 hours Current Visit: Yes Medical - PN: Qual - Stroke Symptom Onset Unknown: No - VTE Deep Vein Thrombosis/Pulmonary Embolism Present on Admission: No
[2017-09-24] MEDS: ALBUTEROL SULFATE 1 PUFF INHALER IH PRN (08:12)
[2017-09-24] MEDS: TIOTROPIUM BROMIDE 18 MCG INHALANT INH SCH (08:14)
[2017-09-24] MEDS: ALBUTEROL SULFATE 2.5 MG/3 ML NEBULIZER NEB PRN ×2 (08:24→13:33)
[2017-09-24] MEDS: LEVOFLOXACIN 750 MG/150 ML BAG IV SCH (08:25)
[2017-09-24] MEDS ORDERED: ALBUTEROL SULFATE 2.5 MG/3 ML NEBULIZER ONE (08:30)
[2017-09-24] MEDS ORDERED: MULTIVITAMIN PO SCH (09:00)
[2017-09-24] MEDS ORDERED: NEUTRA PHOS 1 PACKET PO SCH (09:00)
[2017-09-24] MEDS ORDERED: cefTRIAXone 2 GM VIAL IV SCH (09:00)
[2017-09-24] MEDS: DOCUSATE SODIUM 100 MG CAPSULE PO SCH ×2 (09:41→20:12)
[2017-09-24] MEDS: LACTOBACILLUS 1 CAPSULE PO SCH ×2 (09:41→20:12)
[2017-09-24] MEDS: POTASSIUM CHLORIDE 20 MEQ TABLET PO SCH (09:41)
[2017-09-24] MEDS: FAMOTIDINE 20 MG TABLET PO SCH (09:41)
[2017-09-24] MEDS: MULTIVIT,THER IRON,CA,FA & MIN 1 TABLET PO SCH (09:41)
[2017-09-24] MEDS: NEUTRA PHOS 1 PACKET PO SCH ×2 (09:41→20:11)
[2017-09-24] MEDS: HEPARIN 5,000 UNIT/ML VIAL SQ SCH ×2 (09:41→20:11)
[2017-09-24] MEDS: MESALAMINE 0.375 GM PO SCH (09:42)
--- NOTE | 2017-09-24 10:02 | Ultrasound Report ---
CLINICAL INFORMATION: Elevated liver function tests. TECHNIQUE: Grayscale and color flow Doppler spectral imaging COMPARISON: Renal ultrasound dated 09/22/2017. Previous abdominal ultrasound dated 02/19/2017 FINDINGS: Multiple gallstones are present. These are mobile. Gallbladder wall is thickened. Gallbladder wall measures approximately 4.5 mm. No pericholecystic fluid. No positive Hickey sign. No dilated bile ducts. Common bile duct measures 3 mm. There is a complex cyst in the right lobe of the liver. This measures 15 x 12 x 14 mm. There is a thick septation. This was present on previous abdominal ultrasound dated 02/19/2017 and is unchanged. IMPRESSION: 1. Cholelithiasis and gallbladder wall thickening. No pericholecystic fluid. 2. Complex cyst in the right lobe of the liver. This is unchanged. Interpreted and Authenticated by: Ramsey Covarrubias 09/24/17
[2017-09-24] MEDS ORDERED: NALOXONE HCL 0.4 MG/ML VIAL IV ONE (12:44)
[2017-09-24] MEDS: metroNIDAZOLE 500 MG/100 ML BAG IV SCH ×2 (13:21→21:41)
[2017-09-24] MEDS: PANTOPRAZOLE 40 MG VIAL IV SCH ×2 (13:21→20:11)
--- NOTE | 2017-09-24 13:41 | General Surgery Consult Note ---
History of Present Illness Patient information: Note initiated : 09/24/17 at 1:39 pm Service Date, if different from initiated Date: [] Patient: Anne Jackson 81 y/o F admitted on 09/22/17 for Fever, Weakness, Pain in Feet/Septic Shock, UTI. Chief Complaint: [] Reason for consult: other (Leukocytosis and gallstone disease) History of present illness: 81-year-old female who was admitted with urinary tract infection and gram- negative sepsis. She was successfully treated for this and her white count returned to normal. She had elevated white count of 17,700 today however she does not have any elevated temperature and she does not have any abdominal discomfort. She denies CVA tenderness and she denies dysuria frequency or urgency. She has not had any change in bowel habits. She has a known history of gallstones and prior to this admission she had an ultrasound which showed multiple gallstones with thickened gallbladder wall. She had another ultrasound this morning which showed similar findings. She does not have any symptoms of biliary colic and she does not have any abdominal clinical findings that would suggest inflammation of the gallbladder. The wall edema noted on ultrasound is probably related to passive congestion associated with her congestive heart failure rather than acute inflammation. Review of Systems - Constitutional fatigue, malaise, weakness, weight loss - EENT Nose, mouth and throat: no epistaxis, no headache(s), no sinus pressure, no throat swelling - Cardiovascular dyspnea on exertion, leg edema, palpatations, paroxysmal nocturnal dyspnea, pedal edema - Respiratory cough, dyspnea on exertion, other (Shortness of breath) - Gastrointestinal bloating, heartburn, nausea, no vomiting - Genitourinary Genitourinary: no urinary incontinence - Musculoskeletal arthralgias - Integumentary sores, no changing lesions, no pruritus, no rash - Neurological abnormal hearing, confusion, dizziness, memory loss, weakness, no syncope - Psychiatric anxiety, confusion - Endocrine fatigue, no heat intolerance, no palpitations, no polydipsia, no polyphagia - Hematologic/Lymphatic no easy bleeding, no easy bruising, no lymphadenopathy - Allergic/Immunologic no tongue swelling, no throat swelling, no uticaria, no wheezing, no lip swelling Past History Past medical history: Chronic obstructive lung disease Congestive heart failure Hypertension History of ulcerative colitis History of colon polyps Chronic atrial fibrillation Chronic anticoagulant therapy Dementia Past surgical history: left breast biopsy Hysterectomy Parathyroidectomy Past family history: Uterine cancer Multiple sclerosis Past social history: Former smoker Occasional alcohol use Denies drug use Medications and Allergies Home Medications Medication Instructions Recorded Confirmed Type calcium carbonate 600 mg (1,500 1 tab PO QDAY 07/19/15 09/23/17 History mg)-vitamin D3 400 unit tablet multivitamin tablet 1 tab PO QDAY tab 05/14/16 09/23/17 History Mesalamine [Apriso] 4 cap PO QAM 02/10/17 09/23/17 History lactobacillus combination no.4 3 3,000 mmu cells PO BID cap 02/26/17 09/23/17 History billion cell capsule metoprolol succinate ER 25 mg 75 mg PO QAM 90 Days #270 tab 03/05/17 09/23/17 Rx tablet,extended release 24 hr trazodone 50 mg tablet 50 mg PO QHS #90 tab 05/26/17 09/23/17 Rx warfarin 2.5 mg tablet See Label Instructions .ROUTE 05/26/17 09/23/17 Rx .COMPLEX #90 tab Latanoprost Ophth Drops [Xalatan 1 gtt OU HS 08/04/17 09/23/17 History Ophth Drops] Ranitidine HCl [Acid Microfilmer] 150 mg PO DAILY 08/04/17 09/23/17 History Albuterol Sulfate [Proair Hfa] 8.5 gm IH Q4HP PRN #1 hfa.aer.ad 08/06/17 Rx furosemide 20 mg tablet 40 mg PO BID #60 tab 08/13/17 09/23/17 Rx potassium chloride ER 20 mEq 20 meq PO QDAY #30 tab 08/13/17 09/23/17 Rx tablet,extended release Albuterol Sulfate [Ventolin] 2.5 mg INHALATION Q4HP PRN 09/23/17 09/23/17 History Tiotropium [place] [Spiriva] 18 mcg INH DAILY 09/23/17 09/23/17 History Allergies Allergy/AdvReac Type Severity Reaction Status Date / Time clindamycin AdvReac Mild Heartburn Verified 09/22/17 13:02 Exam Temp Pulse Resp BP Pulse Ox 97.8 F 92 H 16 120/86 97 09/24/17 12:00 09/24/17 04:00 09/24/17 12:00 09/24/17 12:00 09/24/17 12:00 - General physical appearance well developed, well nourished, no distress, no pain, cachectic, chronically ill - Eyes PERRL, normal ocular movement. negative: icteric - ENT normal pinna, normal nares, normal mucosa, no hearing loss, no congestion, decreased hearing - Head Head exam IM: Present: atraumatic, normal inspection, normocephalic - Neck no masses, no bruits, trachea midline, no lymphadectomy, no venous distension - Cardiovascular Cardiovascular exam IM: Present: irregular rhythm, tachycardia - Respiratory normal expansion, normal respiratory effort, clear to percussion, clear to auscultation - Abdomen Abdomen: Present: soft, non tender, bowel sounds, distended (Mildly distended lower abdomen with active bowel sounds; no associated tenderness or guarding) Hernia: Present: none - Genitourinary Present: normal external genitalia - Integumentary Present: no rash, no growths, other (Chronic stasis changes of both lower extremities) - Neurologic Present: normal coordination, normal sensation - Musculoskeletal Present: normal posture, other (Gait not tested) - Psychiatric Present: oriented to time, oriented to person, oriented to place, speech is normal Results - Labs 09/24/17 04:32 09/24/17 04:32 Abnormal lab results 09/24/17 09/24/17 09/24/17 Range/Units 04:32 04:32 04:32 WBC 17.7 H (4.5-11.0) K/mcL RDW 15.6 H (11.5-14.5) % MPV 11.7 H (7.4-10.4) fL Seg Neutrophils % 81 H (38-78) % Lymphocytes % 11 L (15-49) % PT 32.3 H (11.9-14.5) sec INR 3.0 H (0.9-1.1) Chloride 90 L (96-108) mmol/L Carbon Dioxide 31 H (22-30) mmol/L BUN 39 H (8-23) mg/dl Glucose 131 H (70-105) mg/dL Phosphorus 2.1 L (2.7-4.5) mg/dL Total Bilirubin 1.2 H (0.0-1.0) mg/dL Direct Bilirubin 0.4 H (0.0-0.3) mg/dL GGT 49 H (5-36) U/L AST 62 H (0-37) U/l Albumin 3.1 L (3.2-5.2) gm/dL Albumin/Globulin Ratio 0.9 L (1.0-2.3) Diabetes panel 09/24/17 Range/Units 04:32 Sodium 134 (133-145) mmol/L Potassium 3.3 (3.3-5.1) mmol/L Chloride 90 L (96-108) mmol/L Carbon Dioxide 31 H (22-30) mmol/L BUN 39 H (8-23) mg/dl Creatinine 0.7 (0.6-1.1) mg/dl Glucose 131 H (70-105) mg/dL Calcium 9.7 (8.6-10.4) mg/dl AST 62 H (0-37) U/l ALT 39 (0-40) U/l Alkaline Phosphatase 86 (39-117) U/L Total Protein 6.7 (5.9-8.4) gm/dL Albumin 3.1 L (3.2-5.2) gm/dL Triglycerides 63 (<150) mg/dl Calcium panel 09/24/17 Range/Units 04:32 Calcium 9.7 (8.6-10.4) mg/dl Phosphorus 2.1 L (2.7-4.5) mg/dL Albumin 3.1 L (3.2-5.2) gm/dL Pituitary panel 09/24/17 Range/Units 04:32 Sodium 134 (133-145) mmol/L Potassium 3.3 (3.3-5.1) mmol/L Chloride 90 L (96-108) mmol/L Carbon Dioxide 31 H (22-30) mmol/L BUN 39 H (8-23) mg/dl Creatinine 0.7 (0.6-1.1) mg/dl Glucose 131 H (70-105) mg/dL Calcium 9.7 (8.6-10.4) mg/dl Adrenal panel 09/24/17 Range/Units 04:32 Sodium 134 (133-145) mmol/L Potassium 3.3 (3.3-5.1) mmol/L Chloride 90 L (96-108) mmol/L Carbon Dioxide 31 H (22-30) mmol/L BUN 39 H (8-23) mg/dl Creatinine 0.7 (0.6-1.1) mg/dl Glucose 131 H (70-105) mg/dL Calcium 9.7 (8.6-10.4) mg/dl Total Bilirubin 1.2 H (0.0-1.0) mg/dL AST 62 H (0-37) U/l ALT 39 (0-40) U/l Alkaline Phosphatase 86 (39-117) U/L Total Protein 6.7 (5.9-8.4) gm/dL Albumin 3.1 L (3.2-5.2) gm/dL All other labs normal. Assessment and Plan (1) Cholelithiasis with chronic cholecystitis without biliary obstruction The patient has had known cholelithiasis for greater than 2 years. Her ultrasound results from today are unchanged from the one in February of last year. Her symptom complex does not suggest biliary colic and her abdominal exam is totally benign without any associated tenderness or mass in the upper abdomen. I do not think that the leukocytosis that was noted this morning is related to her gallbladder. Status: Acute (2) Sepsis Status: Resolved (3) UTI (urinary tract infection) Status: Resolved (4) COPD (chronic obstructive pulmonary disease) Status: Chronic Comment: Component of obstructive lung disease. Chest x-ray stable 11/2011 on [id number] sequence. Screening chest CT previously reviewed. (5) A-fib Status: Acute Comment: 1st noted 02/21/2017 Qualifiers: Atrial fibrillation type: persistent Qualified Code(s): I48.1 - Persistent atrial fibrillation (6) CHF (congestive heart failure), NYHA class IV Status: Acute Qualifiers: Congestive heart failure type: unspecified congestive heart failure type Qualified Code(s): I50.9 - Heart failure, unspecified
[2017-09-24] MEDS: SENNOSIDES/DOCUSATE SODIUM 1 TAB TABLET PO SCH (20:12)
[2017-09-24] MEDS: traZODone HCL 50 MG TABLET PO SCH (20:12)
[2017-09-24] MEDS: LATANOPROST OPHTH DROPS 2.5ML BOTTLE OU SCH (21:10)
[2017-09-25 05:59] LABS: ALT/SGPT 30 U/l (0-40); Alkaline Phosphatase 74 U/L (39-117); Bilirubin,Direct 0.4 mg/dL (0.0-0.3); Blood Urea Nitrogen 25 mg/dl (8-23); Gamma Glutamyl Transpeptidase 43 U/L (5-36); Magnesium 1.8 mg/dL (1.6-2.5); Uric Acid 6.5 mg/dL (2.5-8.0)
[2017-09-25] MEDS: metroNIDAZOLE 500 MG/100 ML BAG IV SCH (06:03)
[2017-09-25] MEDS: 0.9 % SODIUM CHLORIDE 10 ML SYRINGE IV SCH (06:09)
[2017-09-25 06:43] LABS: Anisocytosis 1+ (NONE SEEN); Band Neutrophils % 2 % (0-10); Basophils % (Manual) 1 % (0-2); Lymphocytes % 21 % (15-49); Monocytes % (Manual) 8 % (1-12); Platelet Estimate NORMAL (NORMAL); RBC Morphology ABNORM (NORMAL); Segmented Neutrophils % 68 % (38-78)
[2017-09-25 06:55] LABS: Mean Cell Volume 91.4 fL (80.0-100.0); Mean Corpuscular HGB Conc 32.9 g/dL (31.0-36.0); Mean Corpuscular Hemoglobin 30.1 pg (26.0-34.0); Platelet Count 148 K/mcL (140-440); RBC 4.65 M/mcL (4.00-5.20); Red Cell Distribution Width 15.4 % (11.5-14.5)
[2017-09-25] MEDS: PANTOPRAZOLE 40 MG VIAL IV SCH (08:18)
[2017-09-25] MEDS: MULTIVIT,THER IRON,CA,FA & MIN 1 TABLET PO SCH (09:34)
[2017-09-25] MEDS: POTASSIUM CHLORIDE 20 MEQ TABLET PO SCH (09:34)
[2017-09-25] MEDS: FAMOTIDINE 20 MG TABLET PO SCH (09:34)
[2017-09-25] MEDS: DOCUSATE SODIUM 100 MG CAPSULE PO SCH (09:34)
[2017-09-25] MEDS: LACTOBACILLUS 1 CAPSULE PO SCH (09:34)
[2017-09-25] MEDS: HEPARIN 5,000 UNIT/ML VIAL SQ SCH (09:35)
[2017-09-25] MEDS: ALBUTEROL SULFATE 1 PUFF INHALER IH PRN (09:35)
[2017-09-25] MEDS: TIOTROPIUM BROMIDE 18 MCG INHALANT INH SCH (09:35)
[2017-09-25] MEDS: MESALAMINE 0.375 GM PO SCH (09:35)
[2017-09-25] MEDS: NEUTRA PHOS 1 PACKET PO SCH (09:36)
[2017-09-25] MEDS: LEVOFLOXACIN 750 MG/150 ML BAG IV SCH (09:36)
[2017-09-25] MEDS ORDERED: CALCIUM CARBONATE 500 MG TAB.CHEW CHEWED PRN (11:00)
--- NOTE | 2017-09-25 12:17 | Discharge Summary ---
Medical - DS: Prov Patient information: Note initiated : 09/25/17 at 12:13 pm Service Date, if different from initiated Date: [] Patient: Anne Jackson 81 y/o F admitted on 09/22/17 for Fever, Weakness, Pain in Feet/Septic Shock, UTI. Chief Complaint: [] Date of admission: 09/22/17 16:15 Discharge date: 09/25/17 Primary care physician: Sha Grullon Admitting clinician: Matt Linares Consults: 09/22/17 15:30 Consult to Physician [CONS] Stat Comment: Consulting Provider: Matt Linares Reason For Exam: Physician to Consult 09/24/17 13:05 Consult to Physician [CONS] Routine Comment: Consulting Provider: Eber Edwards Reason For Exam: Physician to Consult 09/24/17 13:12 Consult to Physician [CONS] Routine Comment: Consulting Provider: Eber Edwards Reason For Exam: Physician to Consult Discharging clinician: Adelso Byrd Medical - DS: Meds - Discharge Medications Prescriptions: Levofloxacin 500 mg PO DAILY #5 tab Active and Home Medications: Home Medications calcium carbonate 600 mg (1,500 mg)-vitamin D3 400 unit tablet 1 tab PO QDAY [History Confirmed 09/23/17 Last Taken 08/03/17] multivitamin tablet 1 tab PO QDAY tab 05/14/16 [History Confirmed 09/23/17 Last Taken 02/21/17] Mesalamine [Apriso] 4 cap PO QAM 02/10/17 [History Confirmed 09/23/17 Last Taken 08/04/17] lactobacillus combination no.4 3 billion cell capsule 3,000 mmu cells PO BID cap 02/26/17 [History Confirmed 09/23/17 Last Taken 08/03/17] metoprolol succinate ER 25 mg tablet,extended release 24 hr 75 mg PO QAM 90 Days #270 tab 03/05/17 [Rx Confirmed 09/23/17 Last Taken Unknown] trazodone 50 mg tablet 50 mg PO QHS #90 tab 05/26/17 [Rx Confirmed 09/23/17 Last Taken Unknown] warfarin 2.5 mg tablet See Label Instructions .ROUTE .COMPLEX #90 tab 05/26/17 [ Rx Confirmed 09/23/17 Last Taken Unknown] Latanoprost Ophth Drops [Xalatan Ophth Drops] 1 gtt OU HS 08/04/17 [History Confirmed 09/23/17 Last Taken 08/03/17] Ranitidine HCl [Acid Viscosity Tester] 150 mg PO DAILY 08/04/17 [History Confirmed Last Taken Unknown] Albuterol Sulfate [Proair Hfa] 8.5 gm IH Q4HP PRN #1 hfa.aer.ad 08/06/17 [Rx Confirmed 09/23/17 Last Taken Unknown] furosemide 20 mg tablet 40 mg PO BID #60 tab 08/13/17 [Rx Confirmed 09/23/17 Last Taken Unknown] potassium chloride ER 20 mEq tablet,extended release 20 meq PO QDAY #30 tab 04/22 [Rx Confirmed 09/23/17 Last Taken Unknown] Albuterol Sulfate [Ventolin] 2.5 mg INHALATION Q4HP PRN 09/23/17 [History Confirmed 09/23/17 Last Taken Unknown] Tiotropium [place] [Spiriva] 18 mcg INH DAILY 09/23/17 [History Confirmed Last Taken Unknown] Medical - DS: Hosp Hospital course: Mr. Manuel marshall a is an 81-year-old with known,history of COPD, congestive heart failure, severe MVP, ulcerative, colitis who lives with her daughter and was in her baseline state of health until last three days. The patient has had a gradual decline in functional status, wherein she has lost her appetite. She has had intermittent fever along with weakness. She has not been able to keep anything by mouth. Per family she has lost a few pounds. On the day of admission the patient was increasingly confused, lethargic, and with a fever of 102. She was brought into [facility] Emergency Room. Initial workup was significant for a white count of 15,600 along with blood pressures in low 80s. The patient was promptly started on antibiotics after urine revealed significant pyuria and elevated lactic acid at 3, post crystalloids and antibiotics. The patietn was admitted to the hospital for management of UTI and septic shock. UTI /sepsis: The patient was treated initially with broad spectrum antibiotics with good response, IV fluids and pressor support was needed initially. Renal sonogram neg for hydronephrosis, patient urine cx was negative, the patient responded to treatment and antibiotics were descalated to levofloxacin. Gallstones/ gall bladder wall thickening: The patient had persistent leucocytosis after clincal improvement and GB ultrasound was done which showed thickened wall and gall stones. Surgery was consulted and it was noted that these are [facility] findings. Patient wbc count improved the next day. Patient is able to tolerate po diet well at the time of discharge. Afib/ Chr Anticoagulation Patient is on coumadin with therapeutic INR, patients INR is 2.6 at the time of discharge and patient will have INR checked on wednesday. Follows with Dr Vázquez for same The rest of the stay in the hospital was unremarkable, patient tolerated po diet well , she was ambulatory with support, and noted that she has adequate support at home The patient does not have a PCP, and as her pcp Dr Grullon retired, she needs to establish her self with a new PCP this has been explained to her. Discharge diagnosis: UTI,. Sepsis - Time Spent with Patient Total time spent providing and/or coordinating discharge services: Greater than 30 minutes Medical - DS: Exam - Constitutional Vitals: Vital Signs Temp Pulse Resp BP BP Pulse Ox 09/25/17 11:30 98 F 18 102/66 90 09/25/17 08:00 94 09/25/17 06:26 97.5 F 18 98/75 90 09/25/17 04:00 98.4 F 83 20 112/79 92 09/25/17 00:00 98.3 F 73 18 115/66 90 09/24/17 20:00 98.0 F 88 20 112/73 92 09/24/17 15:13 98.1 F 16 115/81 99 Intake and Output 09/24/17 09/25/17 09/25/17 21:59 05:59 13:59 Intake Total 640 / 640 750 / 750 340 / 340 Output Total 550 / 550 550 / 550 375 / 375 Balance 90 / 90 200 / 200 -35 / -35 Intake: IV 100 / 100 100 / 100 100 / 100 Oral 540 / 540 650 / 650 240 / 240 Output: Void Amount 550 / 550 550 / 550 375 / 375 Other: Meal Lunch Percent of Meal Consumed 50% Feeding Ability Assist with Tray Set Up # Voids 1 # Bowel Movements 1 Weight 114 lb Additional comments: Constitutional; Afebrile, cooperative, alert, not in distress. Eyes- No icterus, , No periorbital swelling Ears- Ext ear normal, hearing normal to conversation. Neck- Midline trachea, supple Respiratory system: Air Entry equal on both sides, No crackles or wheezing, no rhonchi. CVS- Rate rhythm regular, S1,S2 heard, no gallop, no rub. Abdomen- Soft nontender abdomen, no organomegaly, no tenderness, no guarding or rigidity, DISEASE CONTROL INSPECTOR- AOOx3, moving all extremities, no gross focal deficit noted. Medical - DS: Data Labs on day of discharge: Labs from last 24 hours 09/25/17 09/25/17 09/25/17 04:36 04:36 04:36 WBC 9.5 RBC 4.65 Hgb 14.0 Hct 42.5 MCV 91.4 MCH 30.1 MCHC 32.9 RDW 15.4 H Plt Count 148 MPV 11.1 H Total Counted 200 Seg Neutrophils % 68 Band Neutrophils % 2 Lymphocytes % 21 Monocytes % (Manual) 8 Basophils % (Manual) 1 Platelet Estimate Normal RBC Morphology Abnorm A Anisocytosis 1+ A PT 28.8 H INR 2.6 H Sodium 136 Potassium 3.7 Chloride 94 L Carbon Dioxide 30 Anion Gap 12.0 BUN 25 H Creatinine 0.7 GFR Calculation 81 Glucose 112 H Uric Acid 6.5 Calcium 8.8 Phosphorus 2.8 Magnesium 1.8 Total Bilirubin 1.2 H Direct Bilirubin 0.4 H GGT 43 H AST 44 H ALT 30 Alkaline Phosphatase 74 Lactate Dehydrogenase 207 Total Protein 6.0 Albumin 3.0 L Globulin 3.0 Albumin/Globulin Ratio 1.0 Triglycerides 73 Preliminary micro results at discharge 09/22/17 13:58 Blood Culture - Preliminary Blood Medical - DS: A/P - Patient/Caregiver Discharge Instructions Activity: increase activity as tolerated Diet: Cardiac Additional Instructions: You were admitted to the hospital with UTI, and improved with antibiotic treatment. You need to take Levofloxacin (antibiotic) once daily for 5 more days Take your home medications as prescribed, no changes has been made to any of these medications. Check your INR on Wednesday09/27/17, You need to touch base with the new patient coordinator here at [facility], or other facilities of your choosing to establish care with a new doctor. Please go to the ER for fever, shortness of breath or any other concerning symptom. - Follow up Plan Follow up with: Sha Grullon MD [Primary Care Provider] - Disposition: Home Health Service Prognosis: Fair Rehab Potential: Fair I certify that the patient requires SNF services: No Overall status at discharge: patient is progressing back to baseline Medical - DS: Qual - VTE Deep Vein Thrombosis/Pulmonary Embolism Present on Admission: No
[2017-09-25] MEDS ORDERED: WARFARIN 2.5 MG TABLET PO ONE (14:00)
== END 2017-09-25 13:20 | disposition home health service (06) | DRG 871 ==
LOC: ED 12:52 → ICU 16:15 → ED 16:17 → ICU 19:10 → MEDSUR 09-23 17:30
PROVIDERS: ADMIT Internal Medicine; ATTEND Internal Medicine

== ENCOUNTER 2018-09-01 11:43 | Inpatient (IN) ==
[2018-09-01] MEDS ORDERED: 0.9 % SODIUM CHLORIDE 1,000 ML IV ONE (12:02)
[2018-09-01] MEDS ORDERED: IPRATROPIUM/ALBUTEROL 3 ML AMPUL.NEB NEB ONE (12:06)
[2018-09-01] MEDS ORDERED: FUROSEMIDE 20 MG/2 ML VIAL IV ONE (12:48)
[2018-09-01] MEDS ORDERED: ALBUTEROL SULFATE 2.5 MG/3 ML NEBULIZER NEB ONE (12:48)
[2018-09-01 12:53] LABS: Mean Cell Volume 91.8 fL (80.0-100.0); Platelet Count 180 K/mcL (140-440); RBC 4.93 M/mcL (4.00-5.20); Red Cell Distribution Width 14.1 % (11.5-14.5)
[2018-09-01] MEDS ORDERED: ACETAMINOPHEN 325 MG TABLET PO ONE (13:03)
--- NOTE | 2018-09-01 13:05 | XRay Report ---
CLINICAL INFORMATION: sob COMPARISON: 08/08/2018 FINDINGS: Moderate cardiomegaly is unchanged. Mediastinum is unremarkable.Pulmonary vessels are mildly distended and there is mild interstitial edema. Moderate left and smaller right basilar infiltrates have progressed. Small bilateral pleural effusions noted IMPRESSION: Mild CHF - new Moderate left and small right basilar infiltrate and small effusions worsening. Consider aspiration Interpreted and Authenticated by: Ramsey Dao 09/01/18
[2018-09-01] MEDS ORDERED: LEVOFLOXACIN 500 MG/100 ML BAG IV ONE (13:08)
[2018-09-01 13:16] LABS: Eosinophils % (Manual) 1 % (0-7); Lymphocytes % 12 % (15-49); Monocytes % (Manual) 11 % (1-12); Platelet Estimate NORMAL (NORMAL); RBC Morphology NORMAL (NORMAL); Segmented Neutrophils % 76 % (38-78)
[2018-09-01 13:22] LABS: ALT/SGPT 13 U/l (0-40); Albumin/Globulin Ratio 1.1 (1.0-2.3); Alkaline Phosphatase 82 U/L (39-117); Blood Urea Nitrogen 19 mg/dl (8-23)
--- NOTE | 2018-09-01 13:30 | Emergency Department Note ---
SOB HPI - General Chief Complaint: Shortness of Breath/Dyspnea Stated Complaint: sob Time Seen by Provider: 09/01/18 12:02 Source: patient Mode of arrival: wheelchair Limitations: no limitations - History of Present Illness 3 day hx of sob, worsening cough (although she does have a chronic cough). Family states when they arrived there this morning she also seemed confused and did not know what to do with her nebulizer treatment at home which is unlike her. She does have a history of CHF, COPD and chronic shortness of breath but this is much worse than normal. She has felt hot like she has had a fever for the last couple of days and positive chills. No nausea, vomiting, or diarrhea. Does feel like she is working pretty hard to breathe. Associated symptoms: Reports: fever, cough, wheezing, orthopnea. Denies: chest pain, pain with inspiration, sputum production, parasthesias, nausea/vomiting, syncope, abdominal pain, rash Treatment prior to arrival: none - Related Data Home Medications Medication Instructions Recorded Confirmed calcium carbonate 600 mg (1,500 1 tab PO QDAY 07/19/15 08/08/18 mg)-vitamin D3 400 unit tablet multivitamin tablet 1 tab PO QDAY tab 05/14/16 08/08/18 Mesalamine [Apriso] 4 cap PO QAM 02/10/17 08/08/18 lactobacillus combination no.4 3 3,000 mmu cells PO BID cap 02/26/17 08/08/18 billion cell capsule Latanoprost Ophth Drops [Xalatan 1 gtt OU HS 08/04/17 08/08/18 Ophth Drops] Ranitidine HCl [Acid Property Management Accountant] 150 mg PO DAILY 08/04/17 08/08/18 Previous Rx's Medication Instructions Recorded metoprolol succinate ER 25 mg 75 mg PO QAM 90 Days #270 tab 03/05/17 tablet,extended release 24 hr warfarin 2.5 mg tablet See Label Instructions .ROUTE 11/17/17 .COMPLEX #90 tab potassium chloride ER 20 mEq 20 meq PO QDAY #90 tab 02/02/18 tablet,extended release furosemide 40 mg tablet 40 mg PO BID #180 tab 03/28/18 ciprofloxacin 250 mg tablet 250 mg PO BID #6 tab 04/13/18 tiotropium bromide 18 mcg capsule 18 mcg INHALATION DAILY #90 puff 05/03/18 with inhalation device trazodone 50 mg tablet 50 mg PO QHS #90 tab 06/10/18 alendronate 70 mg tablet 70 mg PO QWEEK #4 tab 07/05/18 benzonatate 100 mg capsule 100 mg PO TID PRN #30 cap 07/14/18 albuterol sulfate HFA 90 1 inh INHALATION Q4HP PRN #1 g 08/23/18 mcg/actuation aerosol inhaler albuterol sulfate 2.5 mg/3 mL 2.5 mg INHALATION Q4HP PRN #1080 ml 08/24/18 (0.083 %) solution for nebulization Allergies Allergy/AdvReac Type Severity Reaction Status Date / Time clindamycin AdvReac Mild Heartburn Verified 08/08/18 10:51 Review of Systems All systems ED: reviewed and negative except as stated. 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 Mildly labored breathing on arrival. Oxygen saturations in the high 80s on arrival) Head: atraumatic, normocephalic, normal inspection Eye: Present: normal appearance. Absent: conjunctival injection ENT: normal exam, normal oropharynx, mucous membranes moist, TM's normal bilaterally, normal external ear exam Neck: Present: normal inspection, trachea midline. Absent: tenderness, lymphadenopathy Chest: Present: symmetric chest wall rise Respiratory: Present: respiratory distress (Mild respiratory distress with labored respirations and tachypnea.), wheezes (Expiratory wheezes and crackles to the bases bilaterally), accessory muscle use Cardiovascular: Present: regular rate, tachycardia, normal heart sounds Abdominal: Present: soft, normal bowel sounds. Absent: distention, tenderness, guarding, mass Extremities: Present: normal inspection, normal capillary refill. Absent: pedal edema Neurological: Present: alert, oriented X3 (She is alert to person, place, time, and situation but seems to be forgetful at times) Psychiatric: Present: normal affect, normal mood Skin: Present: warm, dry, intact, normal color. Absent: rash Course Vital Signs Temperature 97.4 F 09/01/18 11:44 Pulse Rate 114 H 09/01/18 11:44 Respiratory Rate 32 H 09/01/18 11:44 Blood Pressure 116/92 09/01/18 11:44 Pulse Oximetry (%) 92 09/01/18 11:44 Temperature 102.7 F H 09/01/18 13:06 Pulse Rate 111 H 09/01/18 13:01 Respiratory Rate 31 H 09/01/18 13:01 Blood Pressure 103/85 09/01/18 13:01 Pulse Oximetry (%) 100 09/01/18 13:01 Shortness of Breath/Dyspnea - Lab Data Lab results reviewed: Yes I reviewed the patient's lab results. Result diagrams: 09/01/18 12:15 09/01/18 12:15 Lab Results 09/01/18 09/01/18 09/01/18 Range/Units 12:15 12:15 12:15 WBC 12.7 H (4.5-11.0) K/mcL RBC 4.93 (4.00-5.20) M/mcL Hgb 14.9 (12.0-15.0) g/dL Hct 45.3 (36.0-48.0) % MCV 91.8 (80.0-100.0) fL MCH 30.3 (26.0-34.0) pg MCHC 33.0 (31.0-36.0) g/dL RDW 14.1 (11.5-14.5) % Plt Count 180 (140-440) K/mcL MPV 11.8 H (7.4-10.4) fL Total Counted 100 Seg Neutrophils % 76 (38-78) % Band Neutrophils % Not Reportable Lymphocytes % 12 L (15-49) % Monocytes % (Manual) 11 (1-12) % Eosinophils % (Manual) 1 (0-7) % Platelet Estimate Normal (NORMAL) RBC Morphology Normal (NORMAL) D-Dimer (0.00-0.40) ug/ml VBG Lactic Acid 2.9 H (0.5-2.0) mmol/L Sodium 137 (133-145) mmol/L Potassium 4.3 (3.3-5.1) mmol/L Chloride 93 L (96-108) mmol/L Carbon Dioxide 28 (22-30) mmol/L Anion Gap 16.0 (8-16) BUN 19 (8-23) mg/dl Creatinine 0.9 (0.6-1.1) mg/dl GFR Calculation 59 BUN/Creatinine Ratio 21.0 H (12-20) Glucose 153 H (70-105) mg/dL Calcium 9.1 (8.6-10.4) mg/dl Total Bilirubin 2.4 H (0.0-1.0) mg/dL AST 26 (0-37) U/l ALT 13 (0-40) U/l Alkaline Phosphatase 82 (39-117) U/L NT-Pro-B Natriuret Pep 3663.0 H (0-450) pg/ml Total Protein 7.5 (5.9-8.4) gm/dL Albumin 4.0 (3.2-5.2) gm/dL Globulin 3.5 (2.2-3.7) gm/dL Albumin/Globulin Ratio 1.1 (1.0-2.3) 09/01/18 Range/Units 12:15 WBC (4.5-11.0) K/mcL RBC (4.00-5.20) M/mcL Hgb (12.0-15.0) g/dL Hct (36.0-48.0) % MCV (80.0-100.0) fL MCH (26.0-34.0) pg MCHC (31.0-36.0) g/dL RDW (11.5-14.5) % Plt Count (140-440) K/mcL MPV (7.4-10.4) fL Total Counted Seg Neutrophils % (38-78) % Band Neutrophils % Lymphocytes % (15-49) % Monocytes % (Manual) (1-12) % Eosinophils % (Manual) (0-7) % Platelet Estimate (NORMAL) RBC Morphology (NORMAL) D-Dimer 0.41 H (0.00-0.40) ug/ml VBG Lactic Acid (0.5-2.0) mmol/L Sodium (133-145) mmol/L Potassium (3.3-5.1) mmol/L Chloride (96-108) mmol/L Carbon Dioxide (22-30) mmol/L Anion Gap (8-16) BUN (8-23) mg/dl Creatinine (0.6-1.1) mg/dl GFR Calculation BUN/Creatinine Ratio (12-20) Glucose (70-105) mg/dL Calcium (8.6-10.4) mg/dl Total Bilirubin (0.0-1.0) mg/dL AST (0-37) U/l ALT (0-40) U/l Alkaline Phosphatase (39-117) U/L NT-Pro-B Natriuret Pep (0-450) pg/ml Total Protein (5.9-8.4) gm/dL Albumin (3.2-5.2) gm/dL Globulin (2.2-3.7) gm/dL Albumin/Globulin Ratio (1.0-2.3) - Radiology Data Radiology results reviewed: Yes I reviewed the patient's radiology results. Disposition Pt seen by [employer]/PA only: No Clinical Impression: Pneumonia, Pleural effusion, SOB (shortness of breath), Hypoxia Disposition: Xfer As Inpt ([facility]) Condition: Fair Referrals: Yonatan Bolden MD [Primary Care Provider] - Time of Disposition: 13:30
--- NOTE | 2018-09-01 15:13 | Internal Med History&Physical ---
Medical - H&P: HPI Patient information: Note initiated : 09/01/18 at 3:09 pm Service Date, if different from initiated Date: [] Patient: Anne Jackson a 82 y/o F admitted on for sob. Chief Complaint: [] History of present illness: Ms. Jackson is a 82 year old F with h/o chf copd, afib, presents to the ER with h/o not feeling well for 3-4 days. The patient is accompained by her 3 daughters, the patient notes she was brought by the girls. As per the daughter who lives with the patient the patient has been having shortness of breath that has been going on for the last 3-5 days, she has a history of COPD and she is chronically short of breath however this time the shortness of breath has been much worse than before. The shortness of breath progressed over the last 3-4 days. This is associated with cough with sputum production however the patient is unable to characterize sputum to me. Shortness of breath got so worse that it was difficult for her to ambulate inside the house. At baseline the patient is fairly independent lives with her daughter able to carry out activities of daily living by herself. The patient does have short-term memory issues and therefore is unable to provide a complete history. The patient denies any headache changes in vision, she admits to having coughing spells when she eats, she denies any chest pain but does admit to having some back pain shortness of breath is chronic but now worse than before. She denies any nausea vomiting diarrhea any problems passing urine she denies any new joint pain skin rashes or any bleeding issues. In the emergency room the patient was febrile with a temperature of 102.7 heart rate 116 blood pressure 103 x 85 respirations 31 oxygen saturation more than around 90 on room air. Labs show leukocytosis with a WBC count of 12.7 hemoglobin 14.9 platelets 180 sodium 137 potassium 4.3 bicarbonate 28 creatinine 0.9 [place] 3663 lactic acid elevated at 2.9 d-dimer 0.41 total bilirubin elevated at 2.4 rest of LFTs are normal. Chest x-ray shows mild CHF bilateral pneumonia moderate on the left and small on the right and small effusions. ABG done shows pH of 7.48 PCO2 40 PO2 56. Echo done this year in September shows a low normal left ventricular function, and severe mitral regurgitation Patient is being admitted to the hospital for further management All systems: reviewed and no additional remarkable complaints except as stated ( As per HPI is negative) Medical - H&P: [facility] Medical history: Medical History (Last Reviewed 08/08/18 @ 10:57 by Nita Biggs PA-C ) Mild cognitive impairment with memory loss (Acute) Dermatitis (Acute) Cellulitis of right hand (Acute) Encounter for wound re-check (Acute) Cellulitis (Acute) Cellulitis (Acute) UTI (urinary tract infection) (Acute) Sundowning (Acute) Hypotension (Chronic) Acute colitis (Acute) Ulcerative colitis (Acute) Diarrhea (Acute) Pneumonia (Acute) History of tobacco use (Chronic) Thyroid nodule (Chronic) Osteoporosis (Chronic) Mitral valve prolapse (Chronic) Mitral valve disease (Chronic) Hypertension (Chronic) Hyperparathyroidism (Chronic) Hormone replacement therapy (Chronic) Colon polyps (Chronic) Ulcerative colitis (Chronic) COPD (chronic obstructive pulmonary disease) (Chronic) Left lower lobe pneumonia (Acute) COPD exacerbation (Acute) Surgical history: Past Surgical History (Last Reviewed 08/08/18 @ 10:57 by Nita Biggs PA-C) History of surgical removal of skin lesion (Chronic) H/O: hysterectomy (Chronic) H/O colonoscopy (Chronic) H/O left breast biopsy (Chronic) Pertinent family history: Family History (Last Reviewed 08/08/18 @ 10:57 by Nita Biggs PA-C) Mother Family history of malignant neoplasm of uterus Medical - H&P: Meds Home Medications Medication Instructions Recorded Confirmed Type calcium carbonate 600 mg (1,500 1 tab PO QDAY 07/19/15 08/08/18 History mg)-vitamin D3 400 unit tablet multivitamin tablet 1 tab PO QDAY tab 05/14/16 08/08/18 History Mesalamine [Apriso] 4 cap PO QAM 02/10/17 08/08/18 History lactobacillus combination no.4 3 3,000 mmu cells PO BID cap 02/26/17 08/08/18 History billion cell capsule metoprolol succinate ER 25 mg 75 mg PO QAM 90 Days #270 tab 03/05/17 08/08/18 Rx tablet,extended release 24 hr Latanoprost Ophth Drops [Xalatan 1 gtt OU HS 08/04/17 08/08/18 History Ophth Drops] Ranitidine HCl [Acid Design Intern] 150 mg PO DAILY 08/04/17 08/08/18 History warfarin 2.5 mg tablet See Label Instructions .ROUTE 11/17/17 08/08/18 Rx .COMPLEX #90 tab potassium chloride ER 20 mEq 20 meq PO QDAY #90 tab 02/02/18 08/08/18 Rx tablet,extended release furosemide 40 mg tablet 40 mg PO BID #180 tab 03/28/18 08/08/18 Rx ciprofloxacin 250 mg tablet 250 mg PO BID #6 tab 04/13/18 08/08/18 Rx tiotropium bromide 18 mcg capsule 18 mcg INHALATION DAILY #90 puff 05/03/1811/21 Rx with inhalation device trazodone 50 mg tablet 50 mg PO QHS #90 tab 06/10/18 08/08/18 Rx alendronate 70 mg tablet 70 mg PO QWEEK #4 tab 07/05/18 08/08/18 Rx benzonatate 100 mg capsule 100 mg PO TID PRN #30 cap 07/14/18 08/08/18 Rx albuterol sulfate HFA 90 1 inh INHALATION Q4HP PRN #1 g 08/23/18 Rx mcg/actuation aerosol inhaler albuterol sulfate 2.5 mg/3 mL 2.5 mg INHALATION Q4HP PRN #1080 ml 08/24/18 Rx (0.083 %) solution for nebulization Allergies Allergy/AdvReac Type Severity Reaction Status Date / Time clindamycin AdvReac Mild Heartburn Verified 08/08/18 10:51 Medical - H&P: Exam - Constitutional Vitals: Temp Pulse Resp BP Pulse Ox 100.1 F H 53 L 35 H 99/74 90 09/01/18 14:58 09/01/18 14:58 09/01/18 14:58 09/01/18 14:58 09/01/18 14:58 Exam: GENERAL: The patient is a well-developed, well-nourished in no apparent distress. Is alert and oriented x3. VITAL SIGNS: Reviewed and as noted elsewhere. HEENT: Head is normocephalic and atraumatic. Extraocular muscles are intact. Pupils are equal, round, and reactive to light. Nares appeared normal. Mouth appears any without lesions. Mucous membranes are moist. NECK: Normal to inspection, Supple, No lymphadenopathy or thyromegaly. LUNGS: Air entry equal on both sides, no wheezing, crackles or rhonchi noted. No accessory muscles of respiration HEART: Tachycardic rate irregular rhythm , S1 and S2 heard, no Gallop, S3 or Rub Noted, systolic murmur mitral region ABDOMEN: Soft, nontender, and nondistended. Positive bowel sounds. No hepatosplenomegaly was noted. Ventral hernia noted, no flank tenderness noted EXTREMITIES: No cyanosis, clubbing, rash, lesion, patient has +1 pitting edema NEUROLOGIC: Cranial nerves II through XII are grossly intact. Motor and Sensory System Grossly Intact PSYCHIATRIC: Normal affect, Normal Mood. Appropriate Behavior. SKIN: No ulceration or wounds noted, No jaundice [unable to appreciate jaundice] , No rash noted. Medical - H&P: Reslt - Labs CBC & Chem 7: 09/01/18 12:15 09/01/18 12:15 Labs: Short CBC 09/01/18 Range/Units 12:15 WBC 12.7 H (4.5-11.0) K/mcL Hgb 14.9 (12.0-15.0) g/dL Hct 45.3 (36.0-48.0) % Plt Count 180 (140-440) K/mcL BMP 09/01/18 12:15 Sodium 137 Potassium 4.3 Chloride 93 L Carbon Dioxide 28 BUN 19 Creatinine 0.9 Glucose 153 H Calcium 9.1 Liver Function 09/01/18 Range/Units 12:15 Total Bilirubin 2.4 H (0.0-1.0) mg/dL AST 26 (0-37) U/l ALT 13 (0-40) U/l Alkaline Phosphatase 82 (39-117) U/L Albumin 4.0 (3.2-5.2) gm/dL Medical - H&P: A/P - Narrative A/P Narrative: A/P Pneumonia, Aspiration vs Community Acquired Congestive Heart failure, Acute Systolic Severe Mitral Regurgitation Shortness of breath Sepsis lactic Acidosis Abnormal Liver functino COPD Atrial fibrillation Memory Loss Ulcerative colitis. Plan Admit to PCU status IV fluids for now for sepsis. Monitor fluid status closely, consider BIPAP if chf worsens, pt is ok with intubation IV zosyn and azithromycin for pneumonia, follow cultures. Get delgado in place Trend lactic acid. trend liver functions Ambreen and elfegoonide for COPD for now, no significant wheezing noted to warrant steroids yet, if condition changes will add steroids. Check INR, coumadin management per pharmacy Resume home meds as appropriate hold bp meds DVT pt on coumadin, INR to be checked DNR code status, pt ok with intubation, bipap Cardiac diet. Will get ST eval /OT/PT eval Social History - Social History household members: alone housing: house lives independently: Yes marital status: occupational status: retired - Tobacco smoking status: Former smoker - Alcohol alcohol intake frequency: does not drink - Substance use substance use type: does not use
[2018-09-01] MEDS ORDERED: LACTATED RINGERS 1,000 ML IV SCH (15:51)
[2018-09-01] MEDS ORDERED: NALOXONE HCL 0.4 MG/ML VIAL IV PRN (15:51)
[2018-09-01] MEDS ORDERED: ACETAMINOPHEN 325 MG TABLET PO PRN (15:51)
[2018-09-01] MEDS ORDERED: ERTAPENEM 1 GM in 0.9 % SODIUM CHLORIDE 50 ML IV SCH (15:51)
[2018-09-01] MEDS ORDERED: ONDANSETRON 4 MG/2 ML VIAL IV PRN (15:51)
[2018-09-01] MEDS ORDERED: HYDROmorphone 2 MG/ML VIAL IV PRN (15:51)
[2018-09-01] MEDS: PIPERACILLIN SODIUM/TAZOBACTAM 3.375 GM in DEXTROSE 5% IN WATER 50 ML IV SCH ×2 (16:43→20:31)
[2018-09-01] MEDS ORDERED: WARFARIN 2.5 MG TABLET PO ONE (17:30)
[2018-09-01] MEDS: AZITHROMYCIN 500 MG in DEXTROSE 5% IN WATER 250 ML IV SCH (17:39)
[2018-09-01] MEDS ORDERED: VANCOMYCIN PER PHARMACY IV SCH (18:12)
[2018-09-01] MEDS ORDERED: VANCOMYCIN 1,000 MG in 0.9 % SODIUM CHLORIDE 250 ML IV ONE (18:12)
[2018-09-01] MEDS: BUDESONIDE 0.5 MG/2 ML AMPUL.NEB NEB SCH (18:40)
[2018-09-01] MEDS: IPRATROPIUM/ALBUTEROL 3 ML AMPUL.NEB NEB SCH ×2 (18:40→23:10)
[2018-09-01] MEDS ORDERED: DIGOXIN 500 MCG/2 ML AMPUL IV ONE ×2 (18:42→19:07)
[2018-09-01] MEDS ORDERED: DIGOXIN 125 MCG TABLET ONE (19:05)
--- NOTE | 2018-09-01 19:36 | Emergency Department Note ---
ED Note Addendum Note Addendum: I saw this patient with Mikaela BRIDGES. I agree with her evaluation management documentation. Patient is working relatively hard to breathe. Arterial blood gases note that. I saw her chest x-ray as well which shows pleural effusions. Agree with admission plan
[2018-09-01 21:07] LABS: Appearance,Urine HAZY; Bacteria,Urine 0 /hpf (0); Bilirubin,Urine NEG (NEG); Color,Urine YELLOW; Glucose,Urine (UA) NEGATIVE (NEG); Leukocyte Esterase,Urine 500 /uL (NEG); Mucus,Urine FEW /hpf (0); Protein,Urine NEG (NEG); Specific Gravity,Urine 1.018 (1.000-1.035); Urine Blood 0.2 mg/dL (<0.03); Urine Hyaline Cast 2 /lpf (0-2); Urine RBC 7 /hpf (0-1); Urine Squamous Epithelial Cell 7 /hpf (0-4); Urine Transitional Epi Cells 1 /hpf (0-2); Urine WBC 70 /hpf (0-4); Urobilinogen,Urine NEG (NEG)
[2018-09-01] MEDS: 0.9 % SODIUM CHLORIDE 10 ML SYRINGE IV SCH (22:00)
[2018-09-02] MEDS: PIPERACILLIN SODIUM/TAZOBACTAM 3.375 GM in DEXTROSE 5% IN WATER 50 ML IV SCH ×4 (00:01→17:34)
[2018-09-02] MEDS: IPRATROPIUM/ALBUTEROL 3 ML AMPUL.NEB NEB SCH ×6 (03:44→23:05)
[2018-09-02] MEDS: 0.9 % SODIUM CHLORIDE 10 ML SYRINGE IV SCH ×8 (05:27→21:00)
[2018-09-02 05:44] LABS: Basophils # (Auto) 0 K/mcL (0.0-0.3); Basophils % (Auto) 0.2 % (0.0-2.0); Eosinophils # (Auto) 0 K/mcL (0.0-0.7); Eosinophils % (Auto) 0.2 % (0.0-7.0); Granulocytes % (Auto) 75.9 % (38.0-78.0); Lymphocytes # (Auto) 1.5 K/mcL (1.5-4.8); Lymphocytes % (Auto) 14.2 % (15.5-49.0); Mean Cell Volume 92.2 fL (80.0-100.0); Mean Corpuscular HGB Conc 32.9 g/dL (31.0-36.0); Monocytes % (Auto) 9.5 % (1.0-12.0); Platelet Count 138 K/mcL (140-440); RBC 3.82 M/mcL (4.00-5.20); Red Cell Distribution Width 13.7 % (11.5-14.5)
[2018-09-02 06:07] LABS: ALT/SGPT 13 U/l (0-40); Albumin/Globulin Ratio 1.1 (1.0-2.3); Alkaline Phosphatase 67 U/L (39-117); Bilirubin,Direct 0.6 mg/dL (0.0-0.3); Blood Urea Nitrogen 16 mg/dl (8-23); Gamma Glutamyl Transpeptidase 35 U/L (5-36); Uric Acid 4.2 mg/dL (2.5-8.0)
[2018-09-02] MEDS ORDERED: PANTOPRAZOLE 40 MG TABLET PO SCH (07:30)
[2018-09-02] MEDS ORDERED: FUROSEMIDE 20 MG/2 ML VIAL IV ONE (07:39)
[2018-09-02] MEDS ORDERED: MAGNESIUM SULFATE 2 GM/50 ML BAG IV ONE (07:39)
[2018-09-02] MEDS ORDERED: POTASSIUM CHLORIDE 20 MEQ PACKET PO ONE (07:39)
[2018-09-02] MEDS: BUDESONIDE 0.5 MG/2 ML AMPUL.NEB NEB SCH ×2 (07:40→19:20)
[2018-09-02] MEDS ORDERED: METOPROLOL SUCCINATE 50 MG TAB.XL.24H PO SCH (09:00)
[2018-09-02] MEDS ORDERED: VANCOMYCIN 1,000 MG in 0.9 % SODIUM CHLORIDE 250 ML IV SCH (10:00)
[2018-09-02] MEDS: AZITHROMYCIN 500 MG in DEXTROSE 5% IN WATER 250 ML IV SCH (10:56)
--- NOTE | 2018-09-02 12:57 | Internal Med Progress Note ---
Medical - PN: Subj Patient information: Note initiated : 09/02/18 at 12:54 pm Service Date, if different from initiated Date: [] Patient: Anne Jackson a 82 y/o F admitted on 09/01/18 for sob. Chief Complaint: [] Interval history: Ms. Jackson is a 82 year old F with h/o chf copd, afib, presents to the ER with h/o not feeling well for 3-4 days. The patient is accompained by her 3 daughters, the patient notes she was brought by the girls. As per the daughter who lives with the patient the patient has been having shortness of breath that has been going on for the last 3-5 days, she has a history of COPD and she is chronically short of breath however this time the shortness of breath has been much worse than before. The shortness of breath progressed over the last 3-4 days. This is associated with cough with sputum production however the patient is unable to characterize sputum to me. Shortness of breath got so worse that it was difficult for her to ambulate inside the house. At baseline the patient is fairly independent lives with her daughter able to carry out activities of daily living by herself. The patient does have short-term memory issues and therefore is unable to provide a complete history. The patient denies any headache changes in vision, she admits to having coughing spells when she eats, she denies any chest pain but does admit to having some back pain shortness of breath is chronic but now worse than before. She denies any nausea vomiting diarrhea any problems passing urine she denies any new joint pain skin rashes or any bleeding issues. In the emergency room the patient was febrile with a temperature of 102.7 heart rate 116 blood pressure 103 x 85 respirations 31 oxygen saturation more than around 90 on room air. Labs show leukocytosis with a WBC count of 12.7 hemoglobin 14.9 platelets 180 sodium 137 potassium 4.3 bicarbonate 28 creatinine 0.9 [place] 3663 lactic acid elevated at 2.9 d-dimer 0.41 total bilirubin elevated at 2.4 rest of LFTs are normal. Chest x-ray shows mild CHF bilateral pneumonia moderate on the left and small on the right and small effusions. ABG done shows pH of 7.48 PCO2 40 PO2 56. Echo done this year in September shows a low normal left ventricular function, and severe mitral regurgitation 09/02 Patient seen and examined, needed BiPAP overnight she has been off BiPAP since 5 :00 this morning. Today during rounds she was sitting comfortably in bed has no complaints. Shortness of breath is there but not any worse feels better since admission. Still has a fever, hemodynamically stable. Does not need any oxygen. Blood pressure is stable we will resume her home dose of oral metoprolol as well as resume diuresis. Transferred to telemetry status Pertinent ROS: Denies headache, dizziness Denies chest pain, palpitations improving sob and cough Denies abdominal pain, nausea or vomiting. - Constitutional Vitals: Vital Signs Temp Pulse Resp BP Pulse Ox 100.6 F H 99 H 20 107/72 92 09/02/18 11:19 09/02/18 10:01 09/02/18 11:01 09/02/18 11:01 09/02/18 11:01 Period Temp Pulse Resp BP Sys/Arellano Pulse Ox Last 24 Hr 98.2 F-102.7 F 37-126 19-39 60-117/30-85 90-100 Intake and Output 09/01/18 09/02/18 09/02/18 21:59 05:59 13:59 Intake Total 970 / 970 710 / 710 450 / 450 Output Total 520 / 520 900 / 900 1425 / 1425 Balance 450 / 450 -190 / -190 -975 / -975 Weight 124 lb 1.6 oz 124 lb 1.6 oz Patient Weight 09/03/18 05:59 Weight 124 lb 1.6 oz Intake & Output: Intake & Output 09/01/18 09/02/18 09/02/18 21:59 05:59 13:59 Intake Total 970 / 970 710 / 710 450 / 450 Output Total 520 / 520 900 / 900 1425 / 1425 Balance 450 / 450 -190 / -190 -975 / -975 Weight 124 lb 1.6 oz 124 lb 1.6 oz Intake: IV 700 / 700 100 / 100 50 / 50 Zithromax 500 mg In Dextrose 5% 250 / 250 in Water 250 ml @ 250 mls/hr IV Q24H [facility] Rx#:[id number] Zosyn 3.375 gm In Dextrose 5% 100 / 100 100 / 100 in Water 50 ml @ 100 mls/hr IV Q6H [facility] Rx#:[id number] Oral 270 / 270 610 / 610 400 / 400 Output: Void Amount 520 / 520 900 / 900 1425 / 1425 Other: Meal Dinner Breakfast Percent of Meal Consumed 25% 75% Feeding Ability Assist with Tray Set Up Assist with Tray Set Up Urine Appearance Cloudy Cloudy Urine Color Dark Yellow Light Juliann Dark Yellow Urine Odor Strong Strong Strong # Voids 1 Exam: Constitutional; Afebrile, cooperative, alert, not in distress. Respiratory system: Air Entry equal on both sides, No crackles or wheezing, no rhonchi. CVS- Rate rhythm regular, S1,S2 heard, no gallop, no rub. Abdomen- Soft nontender abdomen, no organomegaly, no tenderness, no guarding or rigidity, [employer]- AOOx3, moving all extremities, no gross focal deficit noted. Medical - PN: Obj Da - Labs CBC & Chem 7: 09/02/18 03:55 09/02/18 03:55 Labs: Abnormal Lab Results 09/02/18 09/02/18 09/02/18 03:55 03:55 03:55 WBC RBC 3.82 L Hgb 11.6 L Hct 35.2 L Plt Count 138 L MPV 11.1 H Lymph % (Auto) 14.2 L [place] # (Auto) 1.0 H Lymphocytes % PT 26.0 H INR 2.4 H D-Dimer VBG Lactic Acid Chloride BUN/Creatinine Ratio Glucose Calcium 7.9 L Phosphorus 2.3 L Total Bilirubin 1.8 H Direct Bilirubin 0.6 H NT-Pro-B Natriuret Pep Total Protein 5.8 L Albumin 3.0 L Urine Occult Blood Ur Leukocyte Esterase Urine RBC Urine WBC Ur Squamous Epith Cells 09/01/18 09/01/18 09/01/18 19:59 15:09 12:15 WBC RBC Hgb Hct Plt Count MPV Lymph % (Auto) [place] # (Auto) Lymphocytes % PT 20.6 H INR 1.8 H D-Dimer 0.41 H VBG Lactic Acid Chloride BUN/Creatinine Ratio Glucose Calcium Phosphorus Total Bilirubin Direct Bilirubin NT-Pro-B Natriuret Pep Total Protein Albumin Urine Occult Blood 0.2 A Ur Leukocyte Esterase 500 A Urine RBC 7 H Urine WBC 70 H Ur Squamous Epith Cells 7 H 09/01/18 09/01/18 09/01/18 12:15 12:15 12:15 WBC 12.7 H RBC Hgb Hct Plt Count MPV 11.8 H Lymph % (Auto) [place] # (Auto) Lymphocytes % 12 L PT INR D-Dimer VBG Lactic Acid 2.9 H Chloride 93 L BUN/Creatinine Ratio 21.0 H Glucose 153 H Calcium Phosphorus Total Bilirubin 2.4 H Direct Bilirubin NT-Pro-B Natriuret Pep 3663.0 H Total Protein Albumin Urine Occult Blood Ur Leukocyte Esterase Urine RBC Urine WBC Ur Squamous Epith Cells Meds: Medications Acetaminophen (Tylenol) 650 mg PO Q4-6HP PRN PRN Reason: PAIN/FEVER > 101 Last Admin: 09/02/18 11:19 Dose: 650 mg Albuterol/Ipratropium (Duoneb) 3 ml NEB Q4HRT [facility] Last Admin: 09/02/18 12:50 Dose: Not Given Budesonide (Pulmicort) 0.5 mg NEB Q12 [facility] Last Admin: 09/02/18 07:40 Dose: 0.5 mg Furosemide (Lasix) 40 mg IV BIDD [facility] Hydromorphone HCl (Dilaudid) 0.5 mg IV Q2HP PRN PRN Reason: PAIN LEVEL > 6 Azithromycin 500 mg/ Dextrose 250 mls @ 250 mls/hr IV Q24H [facility] Stop: 09/03/18 17:59 Last Admin: 09/02/18 10:56 Dose: 250 mls/hr Piperacillin Sod/Tazobactam (Sod 3.375 gm/ Dextrose) 50 mls @ 100 mls/hr IV Q6H [facility] Last Admin: 09/02/18 12:43 Dose: 100 mls/hr Vancomycin HCl 1,000 mg/ (Sodium Chloride) 250 mls @ 250 mls/hr IV Q24H [facility] Last Admin: 09/02/18 11:04 Dose: 250 mls/hr Metoprolol Succinate (Toprol Xl) 75 mg PO DAILY [facility] Last Admin: 09/02/18 11:04 Dose: 75 mg Naloxone HCl (Narcan) 0.1 mg IV Q2MIN PRN PRN Reason: Opiate Reversal Ondansetron HCl (Zofran) 4 mg IV Q4-6HP PRN PRN Reason: Nausea And Vomiting Pantoprazole Sodium (Protonix) 40 mg PO QAMAC [facility] Last Admin: 09/02/18 07:14 Dose: 40 mg Sodium Chloride (Saline Flush) 10 ml IV Q8 [facility] Last Admin: 09/02/18 12:43 Dose: 10 ml Vancomycin HCl (Vancomycin Per Pharmacy) 1 order IV UD [facility] Warfarin Sodium (Coumadin Per Pharmacy) 1 order PO UD [facility] Medical - PN: A/P - Time Spent With Patient Total time spent is greater than 50% in coordination of care (as documented) at patient's floor/unit and/or counseling patient: - Narrative A/P Narrative: A/P Pneumonia, Aspiration vs Community Acquired Congestive Heart failure, Acute Systolic Severe Mitral Regurgitation Shortness of breath Sepsis lactic Acidosis (resolved) Abnormal Liver functino COPD Atrial fibrillation Memory Loss Ulcerative colitis. Plan xfer to tele status sepsis syndrome improving, lactic acidosis resolved. prin bipap for now IV lasix to help remove excess fluid IV zosyn and azithromycin and vanco for pna, MRSA swab positive . Get delgado in place trend liver functions, lft trending down DUonebs and budesonide for COPD for now, no significant wheezing noted to warrant steroids yet, if condition changes will add steroids. Check INR, coumadin management per pharmacy Resume home meds as appropriate hold bp meds, but resume metoprolol for afib rate control. DVT pt on coumadin, INR therapeutic DNR code status, pt ok with intubation, bipap Cardiac diet. Medical - PN: Qual - VTE Deep Vein Thrombosis/Pulmonary Embolism Present on Admission: No
[2018-09-02] MEDS ORDERED: ONDANSETRON 4 MG/2 ML VIAL IV PRN (13:32)
[2018-09-02] MEDS ORDERED: HYDROmorphone 2 MG/ML VIAL IV PRN (13:32)
[2018-09-02] MEDS ORDERED: VANCOMYCIN PER PHARMACY IV SCH (13:32)
[2018-09-02] MEDS ORDERED: ACETAMINOPHEN 325 MG TABLET PO PRN (13:32)
[2018-09-02] MEDS ORDERED: NALOXONE HCL 0.4 MG/ML VIAL IV PRN (13:32)
[2018-09-02] MEDS ORDERED: WARFARIN 1 MG TABLET PO ONE (14:00)
[2018-09-02] MEDS: FUROSEMIDE 20 MG/2 ML VIAL IV SCH (15:51)
[2018-09-02] MEDS ORDERED: FUROSEMIDE 20 MG/2 ML VIAL IV SCH ×2 (16:00)
[2018-09-02] MEDS ORDERED: BENZONATATE 100 MG CAPSULE PO PRN (19:14)
[2018-09-02] MEDS: LACTOBACILLUS 1 CAPSULE PO SCH (20:42)
[2018-09-02] MEDS ORDERED: LATANOPROST OPHTH DROPS 2.5ML BOTTLE OU SCH (21:00)
[2018-09-02] MEDS ORDERED: traZODone HCL 50 MG TABLET PO SCH (21:00)
[2018-09-03] MEDS: PIPERACILLIN SODIUM/TAZOBACTAM 3.375 GM in DEXTROSE 5% IN WATER 50 ML IV SCH ×5 (00:22→23:20)
[2018-09-03] MEDS: IPRATROPIUM/ALBUTEROL 3 ML AMPUL.NEB NEB SCH ×6 (03:57→22:35)
[2018-09-03 05:15] LABS: Basophils # (Auto) 0 K/mcL (0.0-0.3); Basophils % (Auto) 0.4 % (0.0-2.0); Eosinophils # (Auto) 0.1 K/mcL (0.0-0.7); Eosinophils % (Auto) 1.2 % (0.0-7.0); Granulocytes % (Auto) 68.8 % (38.0-78.0); Lymphocytes # (Auto) 1.4 K/mcL (1.5-4.8); Lymphocytes % (Auto) 18.9 % (15.5-49.0); Mean Cell Volume 91.5 fL (80.0-100.0); Mean Corpuscular HGB Conc 33.8 g/dL (31.0-36.0); Monocytes # (Auto) 0.8 K/mcL (0.1-0.9); Monocytes % (Auto) 10.7 % (1.0-12.0); Platelet Count 149 K/mcL (140-440); Red Cell Distribution Width 13.7 % (11.5-14.5)
[2018-09-03 05:32] LABS: ALT/SGPT 15 U/l (0-40); Albumin 3.1 gm/dL (3.2-5.2); Albumin/Globulin Ratio 1.1 (1.0-2.3); Alkaline Phosphatase 71 U/L (39-117); Bilirubin,Direct 0.4 mg/dL (0.0-0.3); Blood Urea Nitrogen 13 mg/dl (8-23); Gamma Glutamyl Transpeptidase 37 U/L (5-36); Uric Acid 3.6 mg/dL (2.5-8.0)
[2018-09-03] MEDS: 0.9 % SODIUM CHLORIDE 10 ML SYRINGE IV SCH ×5 (05:42→22:29)
[2018-09-03] MEDS ORDERED: PANTOPRAZOLE 40 MG TABLET PO SCH (07:30)
[2018-09-03] MEDS ORDERED: POTASSIUM CHLORIDE 20 MEQ TABLET PO SCH (08:00)
[2018-09-03] MEDS: BUDESONIDE 0.5 MG/2 ML AMPUL.NEB NEB SCH ×3 (08:41→22:56)
[2018-09-03] MEDS: LACTOBACILLUS 1 CAPSULE PO SCH ×2 (08:42→20:12)
--- NOTE | 2018-09-03 08:54 | XRay Report ---
CLINICAL INFORMATION: chf follow up COMPARISON: 09/01/2018 FINDINGS: Moderate cardiomegaly is unchanged given differences in technique. Mediastinum is unremarkable. Pulmonary vessels decreased in caliber and now only mildly distended. Interstitial edema has almost cleared. Moderate right and smaller patchy left basilar infiltrates have worsened. Small bilateral pleural effusions show slight progression IMPRESSION: There complete resolution CHF Moderate right and smaller patchy basilar infiltrates and effusions - worsening. Consider aspiration Interpreted and Authenticated by: Ramsey Dao 09/03/18
[2018-09-03] MEDS ORDERED: MESALAMINE 0.375 GM PO SCH (09:00)
[2018-09-03] MEDS ORDERED: TIOTROPIUM BROMIDE 18 MCG INHALANT INH SCH (09:00)
[2018-09-03] MEDS ORDERED: METOPROLOL SUCCINATE 50 MG TAB.XL.24H PO SCH (09:00)
[2018-09-03] MEDS ORDERED: MULTIVIT,THER IRON,CA,FA & MIN 1 TABLET PO SCH (09:00)
[2018-09-03] MEDS ORDERED: CALCIUM W/VIT D3 500 MG TABLET PO SCH (09:00)
[2018-09-03] MEDS ORDERED: FAMOTIDINE 20 MG TABLET PO SCH (09:00)
[2018-09-03] MEDS ORDERED: AZITHROMYCIN 500 MG in DEXTROSE 5% IN WATER 250 ML IV SCH (09:00)
[2018-09-03] MEDS ORDERED: POTASSIUM CHLORIDE 40 MEQ in DEXTROSE 5% IN WATER 500 ML IV ONE (09:00)
[2018-09-03] MEDS: FUROSEMIDE 20 MG/2 ML VIAL IV SCH ×2 (09:53→16:46)
[2018-09-03] MEDS ORDERED: VANCOMYCIN 1,000 MG in 0.9 % SODIUM CHLORIDE 250 ML IV SCH (10:00)
[2018-09-03] MEDS ORDERED: ONDANSETRON 4 MG/2 ML VIAL IV PRN (10:19)
[2018-09-03] MEDS ORDERED: BENZONATATE 100 MG CAPSULE PO PRN (10:19)
[2018-09-03] MEDS ORDERED: VANCOMYCIN PER PHARMACY IV SCH (10:19)
[2018-09-03] MEDS ORDERED: NALOXONE HCL 0.4 MG/ML VIAL IV PRN (10:19)
[2018-09-03] MEDS ORDERED: HYDROmorphone 2 MG/ML VIAL IV PRN (10:19)
[2018-09-03] MEDS ORDERED: ACETAMINOPHEN 325 MG TABLET PO PRN (10:19)
--- NOTE | 2018-09-03 10:56 | Internal Med Progress Note ---
Medical - PN: Subj Patient information: Note initiated : 09/03/18 at 10:54 am Service Date, if different from initiated Date: [] Patient: Anne Jackson a 82 y/o F admitted on 09/01/18 for sob. Chief Complaint: [] Interval history: Ms. Jackson is a 82 year old F with h/o chf copd, afib, presents to the ER with h/o not feeling well for 3-4 days. The patient is accompained by her 3 daughters, the patient notes she was brought by the girls. As per the daughter who lives with the patient the patient has been having shortness of breath that has been going on for the last 3-5 days, she has a history of COPD and she is chronically short of breath however this time the shortness of breath has been much worse than before. The shortness of breath progressed over the last 3-4 days. This is associated with cough with sputum production however the patient is unable to characterize sputum to me. Shortness of breath got so worse that it was difficult for her to ambulate inside the house. At baseline the patient is fairly independent lives with her daughter able to carry out activities of daily living by herself. The patient does have short-term memory issues and therefore is unable to provide a complete history. The patient denies any headache changes in vision, she admits to having coughing spells when she eats, she denies any chest pain but does admit to having some back pain shortness of breath is chronic but now worse than before. She denies any nausea vomiting diarrhea any problems passing urine she denies any new joint pain skin rashes or any bleeding issues. In the emergency room the patient was febrile with a temperature of 102.7 heart rate 116 blood pressure 103 x 85 respirations 31 oxygen saturation more than around 90 on room air. Labs show leukocytosis with a WBC count of 12.7 hemoglobin 14.9 platelets 180 sodium 137 potassium 4.3 bicarbonate 28 creatinine 0.9 [place] 3663 lactic acid elevated at 2.9 d-dimer 0.41 total bilirubin elevated at 2.4 rest of LFTs are normal. Chest x-ray shows mild CHF bilateral pneumonia moderate on the left and small on the right and small effusions. ABG done shows pH of 7.48 PCO2 40 PO2 56. Echo done this year in September shows a low normal left ventricular function, and severe mitral regurgitation 09/02 Patient seen and examined, needed BiPAP overnight she has been off BiPAP since 5 :00 this morning. Today during rounds she was sitting comfortably in bed has no complaints. Shortness of breath is there but not any worse feels better since admission. Still has a fever, hemodynamically stable. Does not need any oxygen. Blood pressure is stable we will resume her home dose of oral metoprolol as well as resume diuresis. Transferred to telemetry status 09/03 Patient seen and examined no acute overnight events, patient did not need BiPAP last night. Repeat chest x-ray done today shows resolution of CHF but slight worsening of pneumonia. Hemodynamically patient is stable she does not need any oxygen support at this time. Continue diuresis Transferred to medical status Anticipate discharge tomorrow if clinically continues to improve Pertinent ROS: Denies headache, dizziness Denies chest pain, palpitations Denies cough or shortness of breath (the patient has chronic shortness of breath which is unchanged] Denies abdominal pain, nausea or vomiting. - Constitutional Vitals: Vital Signs Temp Pulse Resp BP Pulse Ox 98.4 F 103 H 18 112/87 94 09/03/18 06:55 09/03/18 08:42 09/03/18 08:42 09/03/18 06:55 09/03/18 08:43 Period Temp Pulse Resp BP Sys/Arellano Pulse Ox Last 24 Hr 97.6 F-100.6 F 94-107 18-26 85-121/63-88 91-100 Intake and Output 09/02/18 09/03/18 09/03/18 21:59 05:59 13:59 Intake Total 1010 / 1010 50 / 50 780 / 780 Output Total 1875 / 1875 575 / 575 Balance -865 / -865 -525 / -525 780 / 780 Weight 127 lb 3.2 oz Intake & Output: Intake & Output 09/02/18 09/03/18 09/03/18 21:59 05:59 13:59 Intake Total 1010 / 1010 50 / 50 780 / 780 Output Total 1875 / 1875 575 / 575 Balance -865 / -865 -525 / -525 780 / 780 Weight 127 lb 3.2 oz Intake: IV 50 / 50 50 / 50 300 / 300 Zithromax 500 mg In Dextrose 5% 250 / 250 in Water 250 ml @ 250 mls/hr IV Q24H [facility] Rx#:[id number] Zosyn 3.375 gm In Dextrose 5% 50 / 50 50 / 50 50 / 50 in Water 50 ml @ 100 mls/hr IV Q6H [facility] Rx#:[id number] Oral 960 / 960 480 / 480 Output: Void Amount 1875 / 1875 575 / 575 Other: Meal Lunch Breakfast Percent of Meal Consumed 50% 75% Feeding Ability Assist with Tray Set Up Assist with Tray Set Up Urine Appearance Cloudy Urine Color Light Juliann Light Juliann Urine Odor Strong Strong # Voids 1 Exam: Constitutional; Afebrile, cooperative, alert, not in distress. Respiratory system: Air Entry equal on both sides, No crackles or wheezing, no rhonchi. CVS- Rate rhythm irregular, S1,S2 heard, no gallop, no rub. Abdomen- Soft nontender abdomen, no organomegaly, no tenderness, no guarding or rigidity, [employer]- AOOx3, moving all extremities, no gross focal deficit noted. (Does have short-term memory loss) Medical - PN: Obj Da - Labs CBC & Chem 7: 09/03/18 03:50 09/03/18 03:50 Labs: Abnormal Lab Results 09/03/18 09/03/18 09/03/18 03:50 03:50 03:50 WBC RBC 3.80 L Hgb 11.8 L Hct 34.8 L Plt Count MPV 11.0 H Lymph % (Auto) Lymph # (Auto) 1.4 L [place] # (Auto) Lymphocytes % PT 25.4 H INR 2.3 H D-Dimer VBG Lactic Acid Potassium 3.2 L Chloride BUN/Creatinine Ratio Glucose Calcium 7.7 L Phosphorus 1.9 L Total Bilirubin Direct Bilirubin 0.4 H GGT 37 H NT-Pro-B Natriuret Pep Total Protein Albumin 3.1 L Urine Occult Blood Ur Leukocyte Esterase Urine RBC Urine WBC Ur Squamous Epith Cells 09/02/18 09/02/18 09/02/18 03:55 03:55 03:55 WBC RBC 3.82 L Hgb 11.6 L Hct 35.2 L Plt Count 138 L MPV 11.1 H Lymph % (Auto) 14.2 L Lymph # (Auto) [place] # (Auto) 1.0 H Lymphocytes % PT 26.0 H INR 2.4 H D-Dimer VBG Lactic Acid Potassium Chloride BUN/Creatinine Ratio Glucose Calcium 7.9 L Phosphorus 2.3 L Total Bilirubin 1.8 H Direct Bilirubin 0.6 H GGT NT-Pro-B Natriuret Pep Total Protein 5.8 L Albumin 3.0 L Urine Occult Blood Ur Leukocyte Esterase Urine RBC Urine WBC Ur Squamous Epith Cells 09/01/18 09/01/18 09/01/18 19:59 15:09 12:15 WBC RBC Hgb Hct Plt Count MPV Lymph % (Auto) Lymph # (Auto) [place] # (Auto) Lymphocytes % PT 20.6 H INR 1.8 H D-Dimer 0.41 H VBG Lactic Acid Potassium Chloride BUN/Creatinine Ratio Glucose Calcium Phosphorus Total Bilirubin Direct Bilirubin GGT NT-Pro-B Natriuret Pep Total Protein Albumin Urine Occult Blood 0.2 A Ur Leukocyte Esterase 500 A Urine RBC 7 H Urine WBC 70 H Ur Squamous Epith Cells 7 H 09/01/18 09/01/18 09/01/18 12:15 12:15 12:15 WBC 12.7 H RBC Hgb Hct Plt Count MPV 11.8 H Lymph % (Auto) Lymph # (Auto) [place] # (Auto) Lymphocytes % 12 L PT INR D-Dimer VBG Lactic Acid 2.9 H Potassium Chloride 93 L BUN/Creatinine Ratio 21.0 H Glucose 153 H Calcium Phosphorus Total Bilirubin 2.4 H Direct Bilirubin GGT NT-Pro-B Natriuret Pep 3663.0 H Total Protein Albumin Urine Occult Blood Ur Leukocyte Esterase Urine RBC Urine WBC Ur Squamous Epith Cells Meds: Medications Acetaminophen (Tylenol) 650 mg PO Q4-6HP PRN PRN Reason: PAIN/FEVER > 101 Albuterol/Ipratropium (Duoneb) 3 ml NEB Q4HRT [facility] Benzonatate (Tessalon) 100 mg PO TIDP PRN PRN Reason: cough Budesonide (Pulmicort) 0.5 mg NEB Q12 [facility] Calcium/Vitamin D (Calcium W/Vit D3) 500 mg PO DAILY [facility] Famotidine (Pepcid) 20 mg PO DAILY [facility] Furosemide (Lasix) 40 mg IV BIDD [facility] Hydromorphone HCl (Dilaudid) 0.5 mg IV Q2HP PRN PRN Reason: PAIN LEVEL > 6 Potassium Chloride 40 meq/ (Dextrose) 520 mls @ 130 mls/hr IV ONCE ONE Stop: 12/29/18 12:59 Last Admin: 09/03/18 09:55 Dose: 130 mls/hr Piperacillin Sod/Tazobactam (Sod 3.375 gm/ Dextrose) 50 mls @ 100 mls/hr IV Q6H [facility] Vancomycin HCl 1,000 mg/ (Sodium Chloride) 250 mls @ 250 mls/hr IV Q24H [facility] Iron Carb/Multivit/[place]/Folic Acid (Multivitamin W/Minerals) 1 tab PO DAILY [facility] Lactobacillus Rhamnosus (Culturelle) 1 cap PO BID [facility] Latanoprost (Xalatan Ophth Drops) 1 gtt OU HS [facility] Metoprolol Succinate (Toprol Xl) 75 mg PO DAILY [facility] Naloxone HCl (Narcan) 0.1 mg IV Q2MIN PRN PRN Reason: Opiate Reversal Ondansetron HCl (Zofran) 4 mg IV Q4-6HP PRN PRN Reason: Nausea And Vomiting Mesalamine 0.375 Gm (Capsule Er) 1 dose PO DAILY [facility] Potassium Chloride (Kdur) 20 meq PO QAMCC [facility] Sodium Chloride (Saline Flush) 10 ml IV Q8 [facility] Tiotropium Tilly (Spiriva) 18 mcg INH DAILY [facility] Trazodone HCl (Desyrel) 50 mg PO QHS [facility] Vancomycin HCl (Vancomycin Per Pharmacy) 1 order IV UD [facility] Warfarin Sodium (Coumadin Per Pharmacy) 1 order PO UD [facility] Medical - PN: A/P - Time Spent With Patient Total time spent is greater than 50% in coordination of care (as documented) at patient's floor/unit and/or counseling patient: - Narrative A/P Narrative: A/P Pneumonia, Aspiration vs Community Acquired Congestive Heart failure, Acute Systolic Severe Mitral Regurgitation Shortness of breath Sepsis lactic Acidosis (resolved) Abnormal Liver functino COPD Atrial fibrillation Memory Loss Ulcerative colitis. hypokalemia Plan xfer to med surg sepsis syndrome improving, lactic acidosis resolved. IV lasix to help remove excess fluid, can switch to oral regime tomorrow. IV zosyn and azithromycin and vanco for pna, MRSA swab positive. FOllow up cultures. trend liver functions, lft trending down, asher normal now Replace potassium DUonebs and budesonide for COPD for now, no significant wheezing noted to warrant steroids yet, if condition changes will add steroids. Check INR, coumadin management per pharmacy Resume home meds as appropriate hold bp meds, but resume metoprolol for afib rate control. DVT pt on coumadin, INR therapeutic DNR code status, pt ok with intubation, bipap Cardiac diet. Medical - PN: Qual - VTE Deep Vein Thrombosis/Pulmonary Embolism Present on Admission: No
--- NOTE | 2018-09-03 13:21 | Internal Med Progress Note ---
Medical - PN: Subj Patient information: Note initiated : 09/03/18 at 1:16 pm Service Date, if different from initiated Date: [] Patient: Anne Jackson a 82 y/o F admitted on 09/01/18 for sob. Chief Complaint: [] Interval history: Ms. Jackson is a 82 year old F with h/o chf copd, afib, presents to the ER with h/o not feeling well for 3-4 days. The patient is accompained by her 3 daughters, the patient notes she was brought by the girls. As per the daughter who lives with the patient the patient has been having shortness of breath that has been going on for the last 3-5 days, she has a history of COPD and she is chronically short of breath however this time the shortness of breath has been much worse than before. The shortness of breath progressed over the last 3-4 days. This is associated with cough with sputum production however the patient is unable to characterize sputum to me. Shortness of breath got so worse that it was difficult for her to ambulate inside the house. At baseline the patient is fairly independent lives with her daughter able to carry out activities of daily living by herself. The patient does have short-term memory issues and therefore is unable to provide a complete history. The patient denies any headache changes in vision, she admits to having coughing spells when she eats, she denies any chest pain but does admit to having some back pain shortness of breath is chronic but now worse than before. She denies any nausea vomiting diarrhea any problems passing urine she denies any new joint pain skin rashes or any bleeding issues. In the emergency room the patient was febrile with a temperature of 102.7 heart rate 116 blood pressure 103 x 85 respirations 31 oxygen saturation more than around 90 on room air. Labs show leukocytosis with a WBC count of 12.7 hemoglobin 14.9 platelets 180 sodium 137 potassium 4.3 bicarbonate 28 creatinine 0.9 [place] 3663 lactic acid elevated at 2.9 d-dimer 0.41 total bilirubin elevated at 2.4 rest of LFTs are normal. Chest x-ray shows mild CHF bilateral pneumonia moderate on the left and small on the right and small effusions. ABG done shows pH of 7.48 PCO2 40 PO2 56. Echo done this year in September shows a low normal left ventricular function, and severe mitral regurgitation 09/02 Patient seen and examined, needed BiPAP overnight she has been off BiPAP since 5 :00 this morning. Today during rounds she was sitting comfortably in bed has no complaints. Shortness of breath is there but not any worse feels better since admission. Still has a fever, hemodynamically stable. Does not need any oxygen. Blood pressure is stable we will resume her home dose of oral metoprolol as well as resume diuresis. Transferred to telemetry status 09/03 Patient seen and examined no acute overnight events, patient did not need BiPAP last night. Repeat chest x-ray done today shows resolution of CHF but slight worsening of pneumonia. Hemodynamically patient is stable she does not need any oxygen support at this time. Continue diuresis Transferred to medical status Anticipate discharge tomorrow if clinically continues to improve 09/04 - Constitutional Vitals: Vital Signs Temp Pulse Resp BP Pulse Ox 99.3 F H 103 H 20 96/64 94 09/03/18 12:15 09/03/18 08:42 09/03/18 12:15 09/03/18 12:15 09/03/18 12:15 Period Temp Pulse Resp BP Sys/Arellano Pulse Ox Last 24 Hr 97.6 F-100.6 F 94-107 18- 94-121/63-88 91-100 Intake and Output 09/02/18 09/03/18 09/03/18 21:59 05:59 13:59 Intake Total 1010 / 1010 50 / 50 1030 / 1030 Output Total 1875 / 1875 575 / 575 1050 / 1050 Balance -865 / -865 -525 / -525 -20 / -20 Weight 57.697 kg Intake & Output: Intake & Output 09/02/18 09/03/18 09/03/18 21:59 05:59 13:59 Intake Total 1010 / 1010 50 / 50 1030 / 1030 Output Total 1875 / 1875 575 / 575 1050 / 1050 Balance -865 / -865 -525 / -525 -20 / -20 Weight 57.697 kg Intake: IV 50 / 50 50 / 50 550 / 550 Zithromax 500 mg In Dextrose 5% 250 / 250 in Water 250 ml @ 250 mls/hr IV Q24H [facility] Rx#:[id number] Zosyn 3.375 gm In Dextrose 5% 50 / 50 50 / 50 50 / 50 in Water 50 ml @ 100 mls/hr IV Q6H [facility] Rx#:[id number] Oral 960 / 960 480 / 480 Output: Void Amount 1875 / 1875 575 / 575 1050 / 1050 Other: Meal Lunch Breakfast Percent of Meal Consumed 50% 75% Feeding Ability Assist with Tray Set Up Assist with Tray Set Up Urine Appearance Cloudy Urine Color Light Juliann Light Juliann Urine Odor Strong Strong # Voids 1 1 Exam: General: Alert, Awake, No acute Distress Eyes/N/T: EOMI, Head/Neck: neck supple, CV: irreg irreg, No murmurs, normal s1/s2 Pulm: Clear b/l, no wheezing/rhonchi/rales Abd: soft, nontender, +BS x4 Ext: no clubbing/cyanosis/edema Neuro: Alert, no focal deficits, moves all extremities, short-term memory loss Skin: warm/dry Medical - PN: Obj Da - Labs CBC & Chem 7: 09/03/18 03:50 09/03/18 03:50 Labs: Abnormal Lab Results 09/03/18 09/03/18 09/03/18 03:50 03:50 03:50 WBC RBC 3.80 L Hgb 11.8 L Hct 34.8 L Plt Count MPV 11.0 H Lymph % (Auto) Lymph # (Auto) 1.4 L [place] # (Auto) Lymphocytes % PT 25.4 H INR 2.3 H D-Dimer VBG Lactic Acid Potassium 3.2 L Chloride BUN/Creatinine Ratio Glucose Calcium 7.7 L Phosphorus 1.9 L Total Bilirubin Direct Bilirubin 0.4 H GGT 37 H NT-Pro-B Natriuret Pep Total Protein Albumin 3.1 L Urine Occult Blood Ur Leukocyte Esterase Urine RBC Urine WBC Ur Squamous Epith Cells 09/02/18 09/02/18 09/02/18 03:55 03:55 03:55 WBC RBC 3.82 L Hgb 11.6 L Hct 35.2 L Plt Count 138 L MPV 11.1 H Lymph % (Auto) 14.2 L Lymph # (Auto) [place] # (Auto) 1.0 H Lymphocytes % PT 26.0 H INR 2.4 H D-Dimer VBG Lactic Acid Potassium Chloride BUN/Creatinine Ratio Glucose Calcium 7.9 L Phosphorus 2.3 L Total Bilirubin 1.8 H Direct Bilirubin 0.6 H GGT NT-Pro-B Natriuret Pep Total Protein 5.8 L Albumin 3.0 L Urine Occult Blood Ur Leukocyte Esterase Urine RBC Urine WBC Ur Squamous Epith Cells 09/01/18 09/01/18 09/01/18 19:59 15:09 12:15 WBC RBC Hgb Hct Plt Count MPV Lymph % (Auto) Lymph # (Auto) [place] # (Auto) Lymphocytes % PT 20.6 H INR 1.8 H D-Dimer 0.41 H VBG Lactic Acid Potassium Chloride BUN/Creatinine Ratio Glucose Calcium Phosphorus Total Bilirubin Direct Bilirubin GGT NT-Pro-B Natriuret Pep Total Protein Albumin Urine Occult Blood 0.2 A Ur Leukocyte Esterase 500 A Urine RBC 7 H Urine WBC 70 H Ur Squamous Epith Cells 7 H 09/01/18 09/01/18 09/01/18 12:15 12:15 12:15 WBC 12.7 H RBC Hgb Hct Plt Count MPV 11.8 H Lymph % (Auto) Lymph # (Auto) [place] # (Auto) Lymphocytes % 12 L PT INR D-Dimer VBG Lactic Acid 2.9 H Potassium Chloride 93 L BUN/Creatinine Ratio 21.0 H Glucose 153 H Calcium Phosphorus Total Bilirubin 2.4 H Direct Bilirubin GGT NT-Pro-B Natriuret Pep 3663.0 H Total Protein Albumin Urine Occult Blood Ur Leukocyte Esterase Urine RBC Urine WBC Ur Squamous Epith Cells Meds: Medications Acetaminophen (Tylenol) 650 mg PO Q4-6HP PRN PRN Reason: PAIN/FEVER > 101 Albuterol/Ipratropium (Duoneb) 3 ml NEB Q4HRT [facility] Last Admin: 09/03/18 11:45 Dose: Not Given Benzonatate (Tessalon) 100 mg PO TIDP PRN PRN Reason: cough Budesonide (Pulmicort) 0.5 mg NEB Q12 [facility] Calcium/Vitamin D (Calcium W/Vit D3) 500 mg PO DAILY [facility] Famotidine (Pepcid) 20 mg PO DAILY [facility] Furosemide (Lasix) 40 mg IV BIDD [facility] Hydromorphone HCl (Dilaudid) 0.5 mg IV Q2HP PRN PRN Reason: PAIN LEVEL > 6 Piperacillin Sod/Tazobactam (Sod 3.375 gm/ Dextrose) 50 mls @ 100 mls/hr IV Q6H [facility] Last Admin: 09/03/18 12:15 Dose: 100 mls/hr Vancomycin HCl 1,000 mg/ (Sodium Chloride) 250 mls @ 250 mls/hr IV Q24H [facility] Iron Carb/Multivit/[place]/Folic Acid (Multivitamin W/Minerals) 1 tab PO DAILY [facility] Lactobacillus Rhamnosus (Culturelle) 1 cap PO BID [facility] Latanoprost (Xalatan Ophth Drops) 1 gtt OU HS [facility] Metoprolol Succinate (Toprol Xl) 75 mg PO DAILY [facility] Naloxone HCl (Narcan) 0.1 mg IV Q2MIN PRN PRN Reason: Opiate Reversal Ondansetron HCl (Zofran) 4 mg IV Q4-6HP PRN PRN Reason: Nausea And Vomiting Mesalamine 0.375 Gm (Capsule Er) 1 dose PO DAILY [facility] Potassium Chloride (Kdur) 20 meq PO QAMCC [facility] Sodium Chloride (Saline Flush) 10 ml IV Q8 [facility] Tiotropium [place] (Spiriva) 18 mcg INH DAILY [facility] Trazodone HCl (Desyrel) 50 mg PO QHS [facility] Vancomycin HCl (Vancomycin Per Pharmacy) 1 order IV UD [facility] Warfarin Sodium (Coumadin Per Pharmacy) 1 order PO UD [facility] Warfarin Sodium (Coumadin) 1 mg PO ONCE@1400 ONE Stop: 09/03/18 14:01 Medical - PN: A/P - Time Spent With Patient Total time spent is greater than 50% in coordination of care (as documented) at patient's floor/unit and/or counseling patient: - Narrative A/P Narrative: A: *Pneumonia (Aspiration vs Community Acquired): *Congestive Heart failure, Acute Systolic: improved -now no room air *Severe Mitral Regurgitation: *Sepsis: 2/2 above, improved *lactic Acidosis (resolved): *COPD : *Atrial fibrillation *Memory Loss *Ulcerative colitis: *hypokalemia: *Oropharyngeal dysphagia Plan: -IV lasix to help remove excess fluid, can switch to oral regime tomorrow. -IV zosyn and azithromycin and vanco for pna, MRSA swab positive. FOllow up cultures. -trend liver functions, lft trending down, asher normal now -Replace potassium -DUonebs and budesonide for COPD for now, no significant wheezing noted to warrant steroids yet, if condition changes will add steroids. -Resume home meds as appropriate -hold bp meds, but resume metoprolol for afib rate control. -ST eval, diet per -ppx: coumadin per pharm DNR code status, pt ok with intubation, bipap Medical - PN: Qual - VTE Deep Vein Thrombosis/Pulmonary Embolism Present on Admission: No
[2018-09-03] MEDS ORDERED: WARFARIN 1 MG TABLET PO ONE (14:00)
[2018-09-03] MEDS: LATANOPROST OPHTH DROPS 2.5ML BOTTLE OU SCH (20:12)
[2018-09-03] MEDS: traZODone HCL 50 MG TABLET PO SCH (20:12)
[2018-09-04] MEDS: IPRATROPIUM/ALBUTEROL 3 ML AMPUL.NEB NEB SCH ×6 (02:08→23:46)
[2018-09-04] MEDS: PIPERACILLIN SODIUM/TAZOBACTAM 3.375 GM in DEXTROSE 5% IN WATER 50 ML IV SCH ×4 (04:58→23:15)
[2018-09-04 05:14] LABS: Basophils # (Auto) 0 K/mcL (0.0-0.3); Basophils % (Auto) 0.6 % (0.0-2.0); Eosinophils # (Auto) 0.2 K/mcL (0.0-0.7); Eosinophils % (Auto) 2.1 % (0.0-7.0); Granulocytes % (Auto) 66.4 % (38.0-78.0); Lymphocytes # (Auto) 1.7 K/mcL (1.5-4.8); Lymphocytes % (Auto) 23.2 % (15.5-49.0); Mean Cell Volume 91.3 fL (80.0-100.0); Mean Corpuscular HGB Conc 33.1 g/dL (31.0-36.0); Monocytes # (Auto) 0.6 K/mcL (0.1-0.9); Monocytes % (Auto) 7.7 % (1.0-12.0); Platelet Count 174 K/mcL (140-440); Red Cell Distribution Width 14.4 % (11.5-14.5)
[2018-09-04 05:31] LABS: ALT/SGPT 18 U/l (0-40); Albumin 3.2 gm/dL (3.2-5.2); Albumin/Globulin Ratio 1.1 (1.0-2.3); Alkaline Phosphatase 70 U/L (39-117); Bilirubin,Direct 0.3 mg/dL (0.0-0.3); Blood Urea Nitrogen 13 mg/dl (8-23); Gamma Glutamyl Transpeptidase 38 U/L (5-36); Uric Acid 3.7 mg/dL (2.5-8.0)
[2018-09-04] MEDS: 0.9 % SODIUM CHLORIDE 10 ML SYRINGE IV SCH ×3 (06:39→18:30)
--- NOTE | 2018-09-04 07:04 | Internal Med Progress Note ---
Medical - PN: Subj Patient information: Note initiated : 09/04/18 at 7:00 am Service Date, if different from initiated Date: [] Patient: Anne Jackson a 82 y/o F admitted on 09/01/18 for sob. Chief Complaint: [] Interval history: Ms. Jackson is a 82 year old F with h/o chf copd, afib, presents to the ER with h/o not feeling well for 3-4 days. The patient is accompained by her 3 daughters, the patient notes she was brought by the girls. As per the daughter who lives with the patient the patient has been having shortness of breath that has been going on for the last 3-5 days, she has a history of COPD and she is chronically short of breath however this time the shortness of breath has been much worse than before. The shortness of breath progressed over the last 3-4 days. This is associated with cough with sputum production however the patient is unable to characterize sputum to me. Shortness of breath got so worse that it was difficult for her to ambulate inside the house. At baseline the patient is fairly independent lives with her daughter able to carry out activities of daily living by herself. The patient does have short-term memory issues and therefore is unable to provide a complete history. The patient denies any headache changes in vision, she admits to having coughing spells when she eats, she denies any chest pain but does admit to having some back pain shortness of breath is chronic but now worse than before. She denies any nausea vomiting diarrhea any problems passing urine she denies any new joint pain skin rashes or any bleeding issues. In the emergency room the patient was febrile with a temperature of 102.7 heart rate 116 blood pressure 103 x 85 respirations 31 oxygen saturation more than around 90 on room air. Labs show leukocytosis with a WBC count of 12.7 hemoglobin 14.9 platelets 180 sodium 137 potassium 4.3 bicarbonate 28 creatinine 0.9 [place] 3663 lactic acid elevated at 2.9 d-dimer 0.41 total bilirubin elevated at 2.4 rest of LFTs are normal. Chest x-ray shows mild CHF bilateral pneumonia moderate on the left and small on the right and small effusions. ABG done shows pH of 7.48 PCO2 40 PO2 56. Echo done this year in September shows a low normal left ventricular function, and severe mitral regurgitation 09/02 Patient seen and examined, needed BiPAP overnight she has been off BiPAP since 5 :00 this morning. Today during rounds she was sitting comfortably in bed has no complaints. Shortness of breath is there but not any worse feels better since admission. Still has a fever, hemodynamically stable. Does not need any oxygen. Blood pressure is stable we will resume her home dose of oral metoprolol as well as resume diuresis. Transferred to telemetry status 09/03 Patient seen and examined no acute overnight events, patient did not need BiPAP last night. Repeat chest x-ray done today shows resolution of CHF but slight worsening of pneumonia. Hemodynamically patient is stable she does not need any oxygen support at this time. Continue diuresis Transferred to medical status Anticipate discharge tomorrow if clinically continues to improve 09/04 Slept well. Has a mild productive cough but she states that her normal cough. She has some shortness of breath and feels that is near baseline. Overall feeling better. Review of Systems: denies headache/fever/chills/nausea/vomiting/chest or abdominal pain/diarrhea. Otherwise see above. - Constitutional Vitals: Vital Signs Temp Pulse Resp BP Pulse Ox 97.3 F 101 H 18 111/78 92 09/04/18 06:44 09/04/18 06:44 09/04/18 06:44 09/04/18 06:44 09/04/18 06:44 Period Temp Pulse Resp BP Sys/Arellano Pulse Ox Last 24 Hr 97.0 F-99.3 F 86-103 16-24 96-112/64-78 92-94 Intake and Output 09/03/18 09/04/18 09/04/18 21:59 05:59 13:59 Intake Total 570 / 570 290 / 290 0 / 0 Output Total 500 / 500 350 / 350 Balance 70 / 70 -60 / -60 0 / 0 Weight 57.833 kg Intake & Output: Intake & Output 09/03/18 09/04/18 09/04/18 21:59 05:59 13:59 Intake Total 570 / 570 290 / 290 0 / 0 Output Total 500 / 500 350 / 350 Balance 70 / 70 -60 / -60 0 / 0 Weight 57.833 kg Intake: IV 570 / 570 50 / 50 Zosyn 3.375 gm In Dextrose 5% 50 / 50 50 / 50 in Water 50 ml @ 100 mls/hr IV Q6H [facility] Rx#:[id number] Potassium Chloride 40 Meq In 520 / 520 Dextrose 5% in Water 500 ml @ 130 mls/hr IV ONCE ONE Rx#: [id number] Oral 240 / 240 0 / 0 Output: Void Amount 500 / 500 350 / 350 # of times incontinent of urine 0 / 0 Other: Meal Dinner Percent of Meal Consumed 50% Urine Appearance Clear Urine Color Bright Yellow Bright Yellow # Voids 1 1 Exam: General: Alert, Awake, No acute Distress Eyes/N/T: EOMI, Head/Neck: neck supple, CV: irreg irreg, No murmurs, normal s1/s2 Pulm: Mild rales bilaterally L>R, no wheezing Abd: soft, nontender, +BS x4 Ext: no clubbing/cyanosis/edema Neuro: Alert, no focal deficits, moves all extremities, short-term memory loss Skin: warm/dry Medical - PN: Obj Da - Labs CBC & Chem 7: 09/04/18 04:00 09/04/18 04:00 Labs: Abnormal Lab Results 09/04/18 09/04/18 09/03/18 04:00 04:00 03:50 WBC RBC Hgb Hct Plt Count MPV Lymph % (Auto) Lymph # (Auto) [place] # (Auto) Lymphocytes % PT 24.7 H INR 2.3 H D-Dimer VBG Lactic Acid Potassium 3.2 L Chloride BUN/Creatinine Ratio Glucose 110 H Calcium 7.9 L 7.7 L Phosphorus 2.0 L 1.9 L Total Bilirubin Direct Bilirubin 0.4 H GGT 38 H 37 H NT-Pro-B Natriuret Pep Total Protein Albumin 3.1 L Urine Occult Blood Ur Leukocyte Esterase Urine RBC Urine WBC Ur Squamous Epith Cells 09/03/18 09/03/18 09/02/18 03:50 03:50 03:55 WBC RBC 3.80 L Hgb 11.8 L Hct 34.8 L Plt Count MPV 11.0 H Lymph % (Auto) Lymph # (Auto) 1.4 L [place] # (Auto) Lymphocytes % PT 25.4 H INR 2.3 H D-Dimer VBG Lactic Acid Potassium Chloride BUN/Creatinine Ratio Glucose Calcium 7.9 L Phosphorus 2.3 L Total Bilirubin 1.8 H Direct Bilirubin 0.6 H GGT NT-Pro-B Natriuret Pep Total Protein 5.8 L Albumin 3.0 L Urine Occult Blood Ur Leukocyte Esterase Urine RBC Urine WBC Ur Squamous Epith Cells 09/02/18 09/02/18 09/01/18 03:55 03:55 19:59 WBC RBC 3.82 L Hgb 11.6 L Hct 35.2 L Plt Count 138 L MPV 11.1 H Lymph % (Auto) 14.2 L Lymph # (Auto) [place] # (Auto) 1.0 H Lymphocytes % PT 26.0 H INR 2.4 H D-Dimer VBG Lactic Acid Potassium Chloride BUN/Creatinine Ratio Glucose Calcium Phosphorus Total Bilirubin Direct Bilirubin GGT NT-Pro-B Natriuret Pep Total Protein Albumin Urine Occult Blood 0.2 A Ur Leukocyte Esterase 500 A Urine RBC 7 H Urine WBC 70 H Ur Squamous Epith Cells 7 H 09/01/18 09/01/18 09/01/18 15:09 12:15 12:15 WBC RBC Hgb Hct Plt Count MPV Lymph % (Auto) Lymph # (Auto) [place] # (Auto) Lymphocytes % PT 20.6 H INR 1.8 H D-Dimer 0.41 H VBG Lactic Acid 2.9 H Potassium Chloride BUN/Creatinine Ratio Glucose Calcium Phosphorus Total Bilirubin Direct Bilirubin GGT NT-Pro-B Natriuret Pep Total Protein Albumin Urine Occult Blood Ur Leukocyte Esterase Urine RBC Urine WBC Ur Squamous Epith Cells 09/01/18 09/01/18 12:15 12:15 WBC 12.7 H RBC Hgb Hct Plt Count MPV 11.8 H Lymph % (Auto) Lymph # (Auto) [place] # (Auto) Lymphocytes % 12 L PT INR D-Dimer VBG Lactic Acid Potassium Chloride 93 L BUN/Creatinine Ratio 21.0 H Glucose 153 H Calcium Phosphorus Total Bilirubin 2.4 H Direct Bilirubin GGT NT-Pro-B Natriuret Pep 3663.0 H Total Protein Albumin Urine Occult Blood Ur Leukocyte Esterase Urine RBC Urine WBC Ur Squamous Epith Cells Meds: Medications Acetaminophen (Tylenol) 650 mg PO Q4-6HP PRN PRN Reason: PAIN/FEVER > 101 Albuterol/Ipratropium (Duoneb) 3 ml NEB Q4HRT [facility] Last Admin: 09/04/18 02:08 Dose: 3 ml Benzonatate (Tessalon) 100 mg PO TIDP PRN PRN Reason: cough Last Admin: 09/03/18 20:19 Dose: 100 mg Budesonide (Pulmicort) 0.5 mg NEB Q12 [facility] Last Admin: 09/03/18 22:56 Dose: Not Given Calcium/Vitamin D (Calcium W/Vit D3) 500 mg PO DAILY [facility] Famotidine (Pepcid) 20 mg PO DAILY [facility] Furosemide (Lasix) 40 mg IV BIDD [facility] Last Admin: 09/03/18 16:46 Dose: 40 mg Hydromorphone HCl (Dilaudid) 0.5 mg IV Q2HP PRN PRN Reason: PAIN LEVEL > 6 Piperacillin Sod/Tazobactam (Sod 3.375 gm/ Dextrose) 50 mls @ 100 mls/hr IV Q6H [facility] Last Admin: 09/04/18 04:58 Dose: 100 mls/hr Vancomycin HCl 1,000 mg/ (Sodium Chloride) 250 mls @ 250 mls/hr IV Q24H [facility] Iron Carb/Multivit/[place]/Folic Acid (Multivitamin W/Minerals) 1 tab PO DAILY [facility] Lactobacillus Rhamnosus (Culturelle) 1 cap PO BID [facility] Last Admin: 09/03/18 20:12 Dose: 1 cap Latanoprost (Xalatan Ophth Drops) 1 gtt OU HS [facility] Last Admin: 09/03/18 20:12 Dose: 2 drop Metoprolol Succinate (Toprol Xl) 75 mg PO DAILY [facility] Naloxone HCl (Narcan) 0.1 mg IV Q2MIN PRN PRN Reason: Opiate Reversal Ondansetron HCl (Zofran) 4 mg IV Q4-6HP PRN PRN Reason: Nausea And Vomiting Mesalamine 0.375 Gm (Capsule Er) 1 dose PO DAILY [facility] Potassium [facility] ([facility] Sodium Chloride (Saline Flush) 10 ml IV Q8 [facility] Last Admin: 09/04/18 06:39 Dose: 10 ml Tiotropium [place] (Spiriva) 18 mcg INH DAILY [facility] Trazodone HCl (Desyrel) 50 mg PO QHS [facility] Last Admin: 09/03/18 20:12 Dose: 50 mg Vancomycin HCl (Vancomycin Per Pharmacy) 1 order IV UD [facility] Warfarin Sodium (Coumadin Per Pharmacy) 1 order PO UD [facility] Medical - PN: A/P - Time Spent With Patient Total time spent is greater than 50% in coordination of care (as documented) at patient's floor/unit and/or counseling patient: - Narrative A/P Narrative: A: *Pneumonia (Aspiration vs Community Acquired): improving *CHF, Acute Systolic (50%) on likely chronic: improved -now no room air *Severe Mitral Regurgitation: *Sepsis: 2/2 above, improved *lactic Acidosis (resolved): *COPD : *Atrial fibrillation *Memory Loss: *Ulcerative colitis: *hypokalemia: resolved *Oropharyngeal dysphagia Plan: -IV lasix 40 bid to help remove excess fluid, switch to oral regimen -IV zosyn and azithromycin and vanco for pna, MRSA swab positive. FOllow up cultures. -prn electrolyte replacement -DUonebs and budesonide for COPD for now, no significant wheezing noted to warrant steroids yet, if condition changes will add steroids. -Resume home meds as appropriate -hold bp meds, but resume metoprolol for afib rate control. -ST eval, diet per -pt/ot -ppx: coumadin per pharm DNR code status, pt ok with intubation, bipap Medical - PN: Qual - VTE Deep Vein Thrombosis/Pulmonary Embolism Present on Admission: No
[2018-09-04] MEDS: BUDESONIDE 0.5 MG/2 ML AMPUL.NEB NEB SCH ×3 (07:54→21:40)
[2018-09-04] MEDS: MESALAMINE 0.375 GM PO SCH (08:12)
[2018-09-04] MEDS: CALCIUM W/VIT D3 500 MG TABLET PO SCH (08:12)
[2018-09-04] MEDS: NEUTRA PHOS 1 PACKET PO SCH ×2 (08:12→20:56)
[2018-09-04] MEDS: FUROSEMIDE 20 MG/2 ML VIAL IV SCH (08:12)
[2018-09-04] MEDS: METOPROLOL SUCCINATE 50 MG TAB.XL.24H PO SCH (08:13)
[2018-09-04] MEDS: MULTIVIT,THER IRON,CA,FA & MIN 1 TABLET PO SCH (08:13)
[2018-09-04] MEDS: FAMOTIDINE 20 MG TABLET PO SCH (08:14)
[2018-09-04] MEDS: LACTOBACILLUS 1 CAPSULE PO SCH ×2 (08:14→20:56)
[2018-09-04] MEDS: POTASSIUM CHLORIDE 20 MEQ TABLET PO SCH (08:15)
[2018-09-04] MEDS: TIOTROPIUM BROMIDE 18 MCG INHALANT INH SCH (08:16)
[2018-09-04] MEDS ORDERED: POTASSIUM PHOSPHATE,MONOBASIC 500 MG TABLET PO SCH (09:00)
--- NOTE | 2018-09-04 11:08 | Discharge Summary ---
Medical - DS: Prov Patient information: Note initiated : 09/04/18 at 11:04 am Service Date, if different from initiated Date: [] Patient: Anne Jackson 82 y/o F admitted on 09/01/18 for sob. Chief Complaint: [] Date of admission: 09/01/18 15:44 Discharge date: 09/05/18 Primary care physician: Yonatan Bolden MD Consults: 09/01/18 Consult to Physician [CONS] Stat Comment: Consulting Provider: Adelso Byrd Reason For Exam: Physician to Consult Medical - DS: Meds - Discharge Medications Prescriptions: Amoxicillin/Potassium Clav [Augmentin] 875 mg PO Q12H #6 tab Lactobacillus [Culturelle] 1 cap PO BID #30 cap Active and Home Medications: Home Medications calcium carbonate 600 mg (1,500 mg)-vitamin D3 400 unit tablet 1 tab PO QDAY [History Confirmed 09/02/18 Last Taken 08/03/17] multivitamin tablet 1 tab PO QDAY tab 05/14/16 [History Confirmed 09/02/18 Last Taken 02/21/17] Mesalamine [Apriso] 4 cap PO QAM 02/10/17 [History Confirmed 09/02/18 Last Taken 08/04/17] lactobacillus combination no.4 3 billion cell capsule 1 cap PO BID cap [History Confirmed 09/02/18 Last Taken 08/03/17] metoprolol succinate ER 25 mg tablet,extended release 24 hr 75 mg PO QAM 90 Days #270 tab 03/05/17 [Rx Confirmed 09/02/18 Last Taken Unknown] Latanoprost Ophth Drops [Xalatan Ophth Drops] 1 gtt OU HS 08/04/17 [History Confirmed 09/02/18 Last Taken 08/03/17] Ranitidine HCl [Acid Allergist/Pediatric Pulmonologist] 150 mg PO DAILY 08/04/17 [History Confirmed Last Taken Unknown] furosemide 40 mg tablet 40 mg PO BID #180 tab 03/28/18 [Rx Confirmed 09/02/18 Last Taken Unknown] tiotropium bromide 18 mcg capsule with inhalation device 18 mcg INHALATION DAILY #90 puff 05/03/18 [Rx Confirmed 09/02/18 Last Taken Unknown] trazodone 50 mg tablet 50 mg PO QHS #90 tab 06/10/18 [Rx Confirmed 09/02/18 Last Taken Unknown] albuterol sulfate HFA 90 mcg/actuation aerosol inhaler 1 inh INHALATION Q4HP PRN #1 g 08/23/18 [Rx Confirmed 09/02/18 Last Taken Unknown] albuterol sulfate 2.5 mg/3 mL (0.083 %) solution for nebulization 2.5 mg INHALATION Q4HP PRN #1080 ml 08/24/18 [Rx Confirmed 09/02/18 Last Taken Unknown] Alendronate Sodium [Fosamax] 70 mg PO WEEKLY 09/02/18 [History Confirmed Last Taken Unknown] Benzonatate 100 mg PO TIDP PRN 09/02/18 [History Confirmed 09/02/18 Last Taken Unknown] Potassium Chloride [K-Tab ER] 20 meq PO QAMCC 09/02/18 [History Confirmed Last Taken Unknown] Warfarin [Coumadin] See Label Instructions PO .COMPLEX 09/02/18 [History Confirmed 09/02/18 Last Taken Unknown] Medical - DS: Hosp Hospital course: Ms. Jackson is a 82 year old F with h/o chf copd, afib, presents to the ER with h/o not feeling well for 3-4 days. The patient is accompained by her 3 daughters, the patient notes she was brought by the girls. As per the daughter who lives with the patient the patient has been having shortness of breath that has been going on for the last 3-5 days, she has a history of COPD and she is chronically short of breath however this time the shortness of breath has been much worse than before. The shortness of breath progressed over the last 3-4 days. This is associated with cough with sputum production however the patient is unable to characterize sputum to me. Shortness of breath got so worse that it was difficult for her to ambulate inside the house. At baseline the patient is fairly independent lives with her daughter able to carry out activities of daily living by herself. The patient does have short-term memory issues and therefore is unable to provide a complete history. The patient denies any headache changes in vision, she admits to having coughing spells when she eats, she denies any chest pain but does admit to having some back pain shortness of breath is chronic but now worse than before. She denies any nausea vomiting diarrhea any problems passing urine she denies any new joint pain skin rashes or any bleeding issues. In the emergency room the patient was febrile with a temperature of 102.7 heart rate 116 blood pressure 103 x 85 respirations 31 oxygen saturation more than around 90 on room air. Labs show leukocytosis with a WBC count of 12.7 hemoglobin 14.9 platelets 180 sodium 137 potassium 4.3 bicarbonate 28 creatinine 0.9 [place] 3663 lactic acid elevated at 2.9 d-dimer 0.41 total bilirubin elevated at 2.4 rest of LFTs are normal. Chest x-ray shows mild CHF bilateral pneumonia moderate on the left and small on the right and small effusions. ABG done shows pH of 7.48 PCO2 40 PO2 56. Echo done this year in September shows a low normal left ventricular function, and severe mitral regurgitation 09/02 Patient seen and examined, needed BiPAP overnight she has been off BiPAP since 5 :00 this morning. Today during rounds she was sitting comfortably in bed has no complaints. Shortness of breath is there but not any worse feels better since admission. Still has a fever, hemodynamically stable. Does not need any oxygen. Blood pressure is stable we will resume her home dose of oral metoprolol as well as resume diuresis. Transferred to telemetry status 09/03 Patient seen and examined no acute overnight events, patient did not need BiPAP last night. Repeat chest x-ray done today shows resolution of CHF but slight worsening of pneumonia. Hemodynamically patient is stable she does not need any oxygen support at this time. Continue diuresis Transferred to medical status Anticipate discharge tomorrow if clinically continues to improve 09/04 Slept well. Has a mild productive cough but she states that her normal cough. She has some shortness of breath and feels that is near baseline. Overall feeling better. 09/05 Continues to feel improved and wanting to go home. Stable for discharge Discharge diagnosis: Pneumonia, aspiration versus community-acquired, CHF acute systolic, sepsis Secondary discharge diagnosis: A. fib COPD memory loss ulcerative colitis dysphasia - Time Spent with Patient Total time spent providing and/or coordinating discharge services: Greater than 30 minutes Medical - DS: Exam - Constitutional Vitals: Vital Signs Temp Pulse Pulse Resp BP Pulse Ox 09/04/18 07:56 100 H 22 09/04/18 06:44 97.3 F 101 H 18 111/78 92 09/04/18 04:13 97.0 F 86 24 H 100/75 92 09/03/18 23:25 97.9 F 101 H 16 110/70 93 09/03/18 22:35 101 H 24 H 09/03/18 19:57 98.8 F 100 H 24 H 112/74 93 09/03/18 18:35 97 H 24 H 09/03/18 16:00 99 F 20 102/66 94 09/03/18 13:33 93 H 20 09/03/18 12:15 99.3 F H 20 96/64 94 Intake and Output 09/03/18 09/04/18 09/04/18 21:59 05:59 13:59 Intake Total 570 / 570 290 / 290 0 / 0 Output Total 500 / 500 350 / 350 1650 / 1650 Balance 70 / 70 -60 / -60 -1650 / -1650 Intake: IV 570 / 570 50 / 50 Zosyn 3.375 gm In Dextrose 5% 50 / 50 50 / 50 in Water 50 ml @ 100 mls/hr IV Q6H COUNTS INCLUDE 234 BEDS AT THE [facility] Rx#:[id number] Potassium Chloride 40 Meq In 520 / 520 Dextrose 5% in Water 500 ml @ 130 mls/hr IV ONCE ONE Rx#: [id number] Oral 240 / 240 0 / 0 Output: Void Amount 500 / 500 350 / 350 1650 / 1650 # of times incontinent of urine 0 / 0 Other: Meal Dinner Percent of Meal Consumed 50% Urine Appearance Clear Urine Color Bright Yellow Bright Yellow # Voids 1 1 1 Weight 57.833 kg Medical - DS: Data Labs on day of discharge: Labs from last 24 hours 09/04/18 09/04/18 09/04/18 09:03 04:00 04:00 WBC RBC Hgb Hct MCV MCH MCHC RDW Plt Count MPV Gran % Lymph % (Auto) [place] % (Auto) Eos % (Auto) Baso % (Auto) Gran # Lymph # (Auto) [place] # (Auto) Eos # (Auto) Baso # (Auto) PT 24.7 H INR 2.3 H Sodium 137 Potassium 3.7 Chloride 98 Carbon Dioxide 25 Anion Gap 14.0 BUN 13 Creatinine 0.9 GFR Calculation 59 Glucose 110 H Uric Acid 3.7 Calcium 7.9 L Phosphorus 2.0 L Magnesium 2.0 Total Bilirubin 0.8 Direct Bilirubin 0.3 GGT 38 H AST 30 ALT 18 Alkaline Phosphatase 70 Lactate Dehydrogenase 185 Total Protein 6.1 Albumin 3.2 Globulin 2.9 Albumin/Globulin Ratio 1.1 Triglycerides 66 Vancomycin Trough 10.5 09/04/18 04:00 WBC 7.4 RBC 4.00 Hgb 12.1 Hct 36.5 MCV 91.3 MCH 30.2 MCHC 33.1 RDW 14.4 Plt Count 174 MPV 10.4 Gran % 66.4 Lymph % (Auto) 23.2 [place] % (Auto) 7.7 Eos % (Auto) 2.1 Baso % (Auto) 0.6 Gran # 4.9 Lymph # (Auto) 1.7 [place] # (Auto) 0.6 Eos # (Auto) 0.2 Baso # (Auto) 0 PT INR Sodium Potassium Chloride Carbon Dioxide Anion Gap BUN Creatinine GFR Calculation Glucose Uric Acid Calcium Phosphorus Magnesium Total Bilirubin Direct Bilirubin GGT AST ALT Alkaline Phosphatase Lactate Dehydrogenase Total Protein Albumin Globulin Albumin/Globulin Ratio Triglycerides Vancomycin Trough Preliminary micro results at discharge 09/02/18 16:00 Sputum Culture - Preliminary Sputum - Induced Medical - DS: A/P - Patient/Caregiver Discharge Instructions Activity: as per physical therapy Diet: Dysphagia Advanced Prescriptions: Amoxicillin/Potassium Clav [Augmentin] 875 mg PO Q12H #6 tab Lactobacillus [Culturelle] 1 cap PO BID #30 cap - Follow up Plan Follow up with: Yonatan Bolden MD [Primary Care Provider] - Disposition: Home Health Service Prognosis: Fair Rehab Potential: Fair Medical - DS: Qual - VTE Deep Vein Thrombosis/Pulmonary Embolism Present on Admission: No
[2018-09-04] MEDS: VANCOMYCIN 1,000 MG in 0.9 % SODIUM CHLORIDE 250 ML IV SCH (12:50)
[2018-09-04] MEDS ORDERED: WARFARIN 1 MG TABLET PO ONE (14:00)
[2018-09-04] MEDS: FUROSEMIDE 40 MG TABLET PO SCH (17:52)
[2018-09-04] MEDS: traZODone HCL 50 MG TABLET PO SCH (20:55)
[2018-09-04] MEDS: LATANOPROST OPHTH DROPS 2.5ML BOTTLE OU SCH (20:56)
[2018-09-05] MEDS: IPRATROPIUM/ALBUTEROL 3 ML AMPUL.NEB NEB SCH ×3 (03:44→13:32)
[2018-09-05] MEDS: PIPERACILLIN SODIUM/TAZOBACTAM 3.375 GM in DEXTROSE 5% IN WATER 50 ML IV SCH ×2 (06:16→11:48)
[2018-09-05] MEDS: 0.9 % SODIUM CHLORIDE 10 ML SYRINGE IV SCH ×2 (06:17→06:58)
[2018-09-05 06:30] LABS: ALT/SGPT 18 U/l (0-40); Albumin 3.2 gm/dL (3.2-5.2); Albumin/Globulin Ratio 1.1 (1.0-2.3); Alkaline Phosphatase 68 U/L (39-117); Bilirubin,Direct 0.3 mg/dL (0.0-0.3); Blood Urea Nitrogen 15 mg/dl (8-23); Gamma Glutamyl Transpeptidase 40 U/L (5-36); Uric Acid 4.3 mg/dL (2.5-8.0)
[2018-09-05] MEDS: BUDESONIDE 0.5 MG/2 ML AMPUL.NEB NEB SCH (07:15)
[2018-09-05] MEDS: MESALAMINE 0.375 GM PO SCH (08:47)
[2018-09-05] MEDS: TIOTROPIUM BROMIDE 18 MCG INHALANT INH SCH (08:47)
[2018-09-05] MEDS: LACTOBACILLUS 1 CAPSULE PO SCH (08:48)
[2018-09-05] MEDS: FAMOTIDINE 20 MG TABLET PO SCH (08:48)
[2018-09-05] MEDS: FUROSEMIDE 40 MG TABLET PO SCH (08:48)
[2018-09-05] MEDS: POTASSIUM CHLORIDE 20 MEQ TABLET PO SCH (08:48)
[2018-09-05] MEDS: CALCIUM W/VIT D3 500 MG TABLET PO SCH (08:48)
[2018-09-05] MEDS: METOPROLOL SUCCINATE 50 MG TAB.XL.24H PO SCH (08:49)
[2018-09-05] MEDS: MULTIVIT,THER IRON,CA,FA & MIN 1 TABLET PO SCH (08:49)
[2018-09-05] MEDS: VANCOMYCIN 1,000 MG in 0.9 % SODIUM CHLORIDE 250 ML IV SCH (08:54)
[2018-09-05] MEDS ORDERED: WARFARIN 2.5 MG TABLET PO ONE (14:00)
== END 2018-09-05 13:45 | disposition home health service (06) | DRG 871 ==
LOC: ED 11:43 → ICU 15:40 → MEDSUR 09-03 11:54
PROVIDERS: ADMIT Internal Medicine; ATTEND Internal Medicine

== ENCOUNTER 2018-11-30 11:08 | Inpatient (IN) ==
--- NOTE | 2018-11-30 11:50 | XRay Report ---
INDICATION: Edema in both lower extremities TECHNIQUE: AP chest x-ray,portable semiupright COMPARISON: Previous examinations dated 09/03/2018 and 09/01/2018 FINDINGS:Marked cardiomegaly, unchanged. Pulmonary vascularity is unremarkable pulmonary congestion. There is no pulmonary edema. No focal pulmonary parenchymal infiltrate. Chest x-ray is improved since previous examination with resolution of probable pulmonary edema. IMPRESSION: 1. Marked cardiomegaly, unchanged 2. No focal infiltrate. No evidence for pulmonary edema Interpreted and Authenticated by: Ramsey Covarrubias 11/30/18
[2018-11-30 12:10] LABS: Basophils # (Auto) 0 K/mcL (0.0-0.3); Basophils % (Auto) 0.2 % (0.0-2.0); Eosinophils # (Auto) 0 K/mcL (0.0-0.7); Eosinophils % (Auto) 0.2 % (0.0-7.0); Granulocytes % (Auto) 84.5 % (38.0-78.0); Lymphocytes # (Auto) 1.1 K/mcL (1.5-4.8); Lymphocytes % (Auto) 8.3 % (15.5-49.0); Mean Cell Volume 89.3 fL (80.0-100.0); Mean Corpuscular HGB Conc 31.7 g/dL (31.0-36.0); Monocytes # (Auto) 0.9 K/mcL (0.1-0.9); Monocytes % (Auto) 6.8 % (1.0-12.0); Platelet Count 192 K/mcL (140-440); RBC 4.88 M/mcL (4.00-5.20); Red Cell Distribution Width 17.3 % (11.5-14.5)
[2018-11-30 12:13] LABS: Appearance,Urine CLEAR; Bacteria,Urine 0 /hpf (0); Bilirubin,Urine NEG (NEG); Color,Urine YELLOW; Glucose,Urine (UA) NEGATIVE (NEG); Leukocyte Esterase,Urine 25 /uL (NEG); Mucus,Urine FEW /hpf (0); Protein,Urine NEG (NEG); Specific Gravity,Urine 1.009 (1.000-1.035); Urine Blood NEG mg/dL (<0.03); Urine RBC 4 /hpf (0-1); Urine Squamous Epithelial Cell < 1 /hpf (0-4); Urine WBC 4 /hpf (0-4); Urobilinogen,Urine NEG (NEG)
[2018-11-30 12:31] LABS: ALT/SGPT 37 U/l (0-40); Albumin/Globulin Ratio 1.4 (1.0-2.3); Alkaline Phosphatase 99 U/L (39-117); Blood Urea Nitrogen 29 mg/dl (8-23)
[2018-11-30] MEDS ORDERED: DILTIAZEM 25 MG/5 ML VIAL IV ONE (12:34)
[2018-11-30] MEDS ORDERED: FUROSEMIDE 40 MG/4 ML VIAL IV ONE (12:34)
--- NOTE | 2018-11-30 12:34 | Emergency Department Note ---
SOB HPI - General Chief Complaint: Shortness of Breath/Dyspnea Stated Complaint: swollen bilateral lower legs, SOB Time Seen by Provider: 11/30/18 11:14 Source: patient, family Mode of arrival: wheelchair Limitations: no limitations - History of Present Illness 83-year-old female in ED with daughters present. Patient lives at home with her daughter. Patient states 3-4 days ago she began having increased fluid retention. Daughter states patient has bilateral lower extremity edema with increased tenderness to the left side. She has a throbbing sensation when sta nding on it. Patient also has increased facial swelling and abdominal distention. Patient states, "I am going to have some twins with as large as my stomach is." Daughter states patient has shortness of breath at rest this is not her normal. Patient is able to ambulate without assistance throughout the house without shortness of breath. Patient did have her metoprolol decreased from 3 pills down to 2 pills on November 22 by her primary. Patient does use a nebulizer at home every 4 hours and an inhaler as needed. She has not needed to increase the usage of these. Patient did have sepsis in August 2018 related to pneumonia. Patient states she was a smoker and quit 22 years ago, she was also drinker and quit 20 years ago. Patient does not use marijuana. Patient does have a history of congestive heart failure, atrial fibrillation, mitral valve prolapse, ulcerative colitis, she is not diabetic. Patient denies any pain no chest pain, no abdominal pain. She does have tenderness to the left foot when standing. Patient is not on oxygen at home, daughters state she is supposed to be the patient refuses, she normally holds a 95% SPO2 on room air. Complaint: shortness of breath Onset (ago): day(s) (4) Severity: moderate Consistency/Duration: constant Improves with: nothing Worsens with: exertion Known history of: congestive heart failure Associated symptoms: Reports: lower extremity pain. Denies: chest pain, pain with inspiration, fever, cough, wheezing, orthopnea, polyuria, polydipsia, nausea/vomiting, abdominal pain Treatment prior to arrival: none - Related Data Home oxygen amount: none Home Medications Medication Instructions Recorded Confirmed calcium carbonate 600 mg (1,500 1 tab PO QDAY 07/19/15 11/30/18 mg)-vitamin D3 400 unit tablet multivitamin tablet 1 tab PO QDAY tab 05/14/16 11/30/18 Mesalamine [Apriso] 4 cap PO QAM 02/10/17 11/30/18 Latanoprost Ophth Drops [Xalatan 1 gtt OU HS 08/04/17 11/30/18 Ophth Drops] Ranitidine HCl [Acid World Language Teacher] 150 mg PO DAILY 08/04/17 11/30/18 Alendronate Sodium [Fosamax] 70 mg PO WEEKLY 09/02/18 11/30/18 Potassium Chloride [K-Tab ER] 20 meq PO QAMCC 09/02/18 11/30/18 Warfarin [Coumadin] See Rx Instructions PO .COMPLEX 09/02/18 11/30/18 Lactobacillus acidophilus 460 mg 460 mg PO QDAY 09/12/18 11/30/18 (20 billion cell) capsule Warfarin [Coumadin] 1.25 mg PO DAILY 11/30/18 11/30/18 Previous Rx's Medication Instructions Recorded albuterol sulfate HFA 90 1 inh INHALATION Q4HP PRN #1 g 08/23/18 mcg/actuation aerosol inhaler albuterol sulfate 2.5 mg/3 mL 2.5 mg INHALATION Q4HP PRN #1080 ml 08/24/18 (0.083 %) solution for nebulization crisaborole 2 % topical ointment 1 applic TOPICAL BID #15 g 09/30/18 furosemide 40 mg tablet 40 mg PO BID #180 tab 09/30/18 tiotropium bromide 18 mcg capsule 18 mcg INHALATION DAILY #90 puff 11/04/18 with inhalation device metoprolol succinate ER 25 mg 50 mg PO QAM 90 Days #180 tab 11/22/18 tablet,extended release 24 hr Allergies Allergy/AdvReac Type Severity Reaction Status Date / Time clindamycin AdvReac Mild Heartburn Verified 11/30/18 11:11 Review of Systems All systems ED: reviewed and negative except as stated. Past Medical History - Past Medical History PMFSH Narrative: All Active Problems (Last Reviewed 11/22/18 @ 11:04 by Yonatan Bolden MD) Pleural effusion (Acute) SOB (shortness of breath) (Acute) Cough (Chronic) Mild cognitive impairment with memory loss (Acute) Stage II decubitus ulcer (Acute) Acute exacerbation of chronic obstructive airways disease (Acute) Right foot sprain (Acute) VALADEZ (dyspnea on exertion) (Acute) CHF (congestive heart failure), NYHA class IV (Acute) Pleural effusion due to CHF (congestive heart failure) (Acute) Hypoxia (Acute) Pleural effusion due to CHF (congestive heart failure) (Acute) Compression atelectasis (Acute) Atrial fibrillation (Acute) Lactic acidosis (Acute) Septic shock (Acute) Cholelithiasis with chronic cholecystitis without biliary obstruction (Acute) Gallstones (Chronic) Abnormal abdominal ultrasound (Acute) 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) Dermatitis (Acute) Cellulitis of right hand (Acute) Encounter for wound re-check (Acute) Cellulitis (Acute) Cellulitis (Acute) Cellulitis (Acute) Encounter for wound re-check (Acute) Congestive heart failure (Acute) Heart failure with acute decompensation, type unknown (Acute) Cellulitis (Acute) Routine Well Exam (Chronic) UTI (urinary tract infection) (Acute) Sundowning (Acute) Multifocal atrial tachycardia (Chronic) Confusion (Acute) Edema (Chronic) Urinary tract infection (Acute) Hypotension (Chronic) Acute colitis (Acute) Ulcerative colitis (Acute) Diarrhea (Acute) Pneumonia (Acute) History of surgical removal of skin lesion (Chronic) H/O: hysterectomy (Chronic) H/O colonoscopy (Chronic) H/O left breast biopsy (Chronic) History of tobacco use (Chronic) Thyroid nodule (Chronic) Osteoporosis (Chronic) Mitral valve prolapse (Chronic) Mitral valve disease (Chronic) Hypertension (Chronic) Hyperparathyroidism (Chronic) Hormone replacement therapy (Chronic) Colon polyps (Chronic) Ulcerative colitis (Chronic) COPD (chronic obstructive pulmonary disease) (Chronic) Left lower lobe pneumonia (Acute) COPD exacerbation (Acute) Past Surgical History (Last Reviewed 11/22/18 @ 10:36 by Yonatan Bolden MD) History of surgical removal of skin lesion (Chronic) H/O colonoscopy (Chronic) H/O left breast biopsy (Chronic) Family History (Last Reviewed 11/22/18 @ 10:36 by Yonatan Bolden MD) Mother Family history of malignant neoplasm of uterus Medical history: Reports: atrial fibrillation, CHF, COPD, dementia, hypertension, osteoporosis, valvular heart disease, other (UC, MVP, hyp erparathyroidism) Psychiatric history: Reports: no psych history KIER BOILER history: Reports: non-contributory Surgical history ED: Reports: non-contributory - Social History smoking status: Former smoker Alcohol use: Reports: None Drug use: Reports: none Physical Exam Limitations: no limitations General appearance: alert, in no apparent distress Head: atraumatic, normocephalic, normal inspection Eye: Present: normal appearance, PERRL, EOMI. Absent: conjunctival injection, periorbital swelling, periorbital tenderness ENT: mucous membranes moist, TM's normal bilaterally, normal external ear exam External ear: Present: normal external inspection Throat: Present: other (oropharynx and mouth bright red). Absent: tonsillomegaly, tonsillar exudate Neck: Present: normal inspection, trachea midline. Absent: tenderness, meningismus, lymphadenopathy Chest: Present: normal inspection, symmetric chest wall rise. Absent: tenderness Respiratory: Present: normal lung sounds bilaterally. Absent: respiratory distress, rales/crackles, wheezes, stridor Cardiovascular: Present: tachycardia, irregular rhythm Abdominal: Present: distention, hypoactive bowel sounds, ascites. Absent: tenderness, guarding, rebound, rigidity Extremities: Present: pedal edema (1+ bilateral), other (Left foot hot compared to right- no tenderness with palpation). Absent: tenderness, calf tenderness Back: Present: normal inspection. Absent: tenderness, CVA tenderness (R), CVA tenderness (L) Neurological: Present: alert, oriented X3, normal gait Psychiatric: Present: normal affect, normal mood. Absent: depressed, agitated, anxious, flat affect Skin: Present: warm, dry, intact, normal color. Absent: cool, diaphoretic Course Vital Signs Temperature 97.2 F 11/30/18 11:08 Pulse Rate 119 H 11/30/18 11:08 Respiratory Rate 22 11/30/18 11:08 Blood Pressure 123/85 11/30/18 11:08 Pulse Oximetry (%) 97 11/30/18 11:08 Temperature 98.8 F 11/30/18 18:46 Pulse Rate 99 H 11/30/18 18:00 Respiratory Rate 18 11/30/18 18:46 Blood Pressure 128/81 11/30/18 18:46 Pulse Oximetry (%) 95 11/30/18 19:47 Shortness of Breath/Dyspnea - MDM Narrative Medical decision making narrative: Patient's heart rate upon arrival was 119 A. fib while sitting in bed her heart rate would spike into the 136 range. Patient's blood pressure has been stable around 114/86 patient was provided 15 mg diltiazem which did bring her heart rate down to 91, and ranges between 90-110. She was also provided 40 mg Lasix IV. When patient's WBC and lactic returned she was provided 750 mg Levaquin IV. Blood cultures were drawn prior to antibiotic. Normal saline is being administered at 100ml/hour. WBC 12.9 this is elevated from 11/22/18 when it was 9.9, lactic acid 2.8, PTT 24.5, INR 2.2 patient is on Coumadin, BUN 29 this is decreased from 37, proBNP 3401.0 this is decreased from 09/01/2018 when it was [address] Laboy who accepted patient. - Lab Data Lab results reviewed: Yes I reviewed the patient's lab results. Result diagrams: 11/30/18 11:43 11/30/18 11:43 Lab Results 11/30/18 11/30/18 11/30/18 Range/Units 11:34 11:43 11:43 WBC 12.9 H (4.5-11.0) K/mcL RBC 4.88 (4.00-5.20) M/mcL Hgb 13.8 (12.0-15.0) g/dL Hct 43.6 (36.0-48.0) % MCV 89.3 (80.0-100.0) fL MCH 28.3 (26.0-34.0) pg MCHC 31.7 (31.0-36.0) g/dL RDW 17.3 H (11.5-14.5) % Plt Count 192 (140-440) K/mcL MPV 10.7 H (7.4-10.4) fL Gran % 84.5 H (38.0-78.0) % Lymph % (Auto) 8.3 L (15.5-49.0) % Pratt % (Auto) 6.8 (1.0-12.0) % Eos % (Auto) 0.2 (0.0-7.0) % Baso % (Auto) 0.2 (0.0-2.0) % Gran # 10.9 H (1.8-8.0) K/mcL Lymph # (Auto) 1.1 L (1.5-4.8) K/mcL Pratt # (Auto) 0.9 (0.1-0.9) K/mcL Eos # (Auto) 0 (0.0-0.7) K/mcL Baso # (Auto) 0 (0.0-0.3) K/mcL Total Counted Seg Neutrophils % (38-78) % Band Neutrophils % (0-10) % Lymphocytes % (15-49) % Monocytes % (Manual) (1-12) % Platelet Estimate (NORMAL) RBC Morphology (NORMAL) Anisocytosis (NONE SEEN) PT (11.9-14.5) sec INR (0.9-1.1) APTT (20-37) sec VBG Lactic Acid (0.5-2.0) mmol/L Sodium 138 (133-145) mmol/L Potassium 4.3 (3.3-5.1) mmol/L Chloride 99 (96-108) mmol/L Carbon Dioxide 27 (22-30) mmol/L Anion Gap 12.0 (8-16) BUN 29 H (8-23) mg/dl Creatinine 0.7 (0.6-1.1) mg/dl GFR Calculation 80 Glucose 146 H (70-105) mg/dL Calcium 8.2 L (8.6-10.4) mg/dl Total Bilirubin 0.8 (0.0-1.0) mg/dL AST 39 H (0-37) U/l ALT 37 (0-40) U/l Alkaline Phosphatase 99 (39-117) U/L C-Reactive Protein (0.0-0.8) mg/dl C-React Prot High Sens (1.0-3.0) mg/L NT-Pro-B Natriuret Pep 3401.0 H (0-450) pg/ml Total Protein 6.8 (5.9-8.4) gm/dL Albumin 4.0 (3.2-5.2) gm/dL Globulin 2.8 (2.2-3.7) gm/dL Albumin/Globulin Ratio 1.4 (1.0-2.3) Procalcitonin (<0.10) ng/mL Urine Color Yellow Urine Appearance Clear Urine pH 7.0 (5.0-9.0) Ur Specific Rector 1.009 (1.000-1.035) Urine Protein Neg (NEG) mg/dL Urine Glucose (UA) Negative (NEG) mg/dL Urine Ketones Neg (NEG) mg/dL Urine Occult Blood Neg (<0.03) mg/dL Urine Nitrate Neg (NEG) Urine Bilirubin Neg (NEG) mg/dL Urine Urobilinogen Neg (NEG) mg/dL Ur Leukocyte Esterase 25 A (NEG) /uL Urine RBC 4 H (0-1) /hpf Urine WBC 4 (0-4) /hpf Ur Squamous Epith Cells < 1 (0-4) /hpf Urine Bacteria 0 (0) /hpf Urine Mucus Few (0) /hpf Ur Culture Indicated? No 11/30/18 11/30/18 11/30/18 Range/Units 11:43 11:43 11:43 WBC (4.5-11.0) K/mcL RBC (4.00-5.20) M/mcL Hgb (12.0-15.0) g/dL Hct (36.0-48.0) % MCV (80.0-100.0) fL MCH (26.0-34.0) pg MCHC (31.0-36.0) g/dL RDW (11.5-14.5) % Plt Count (140-440) K/mcL MPV (7.4-10.4) fL Gran % (38.0-78.0) % Lymph % (Auto) (15.5-49.0) % Pratt % (Auto) (1.0-12.0) % Eos % (Auto) (0.0-7.0) % Baso % (Auto) (0.0-2.0) % Gran # (1.8-8.0) K/mcL Lymph # (Auto) (1.5-4.8) K/mcL Pratt # (Auto) (0.1-0.9) K/mcL Eos # (Auto) (0.0-0.7) K/mcL Baso # (Auto) (0.0-0.3) K/mcL Total Counted 100 Seg Neutrophils % 71 (38-78) % Band Neutrophils % 2 (0-10) % Lymphocytes % 17 (15-49) % Monocytes % (Manual) 10 (1-12) % Platelet Estimate Normal (NORMAL) RBC Morphology Abnormal (NORMAL) Anisocytosis 1+ A (NONE SEEN) PT (11.9-14.5) sec INR (0.9-1.1) APTT (20-37) sec VBG Lactic Acid (0.5-2.0) mmol/L Sodium (133-145) mmol/L Potassium (3.3-5.1) mmol/L Chloride (96-108) mmol/L Carbon Dioxide (22-30) mmol/L Anion Gap (8-16) BUN (8-23) mg/dl Creatinine (0.6-1.1) mg/dl GFR Calculation Glucose (70-105) mg/dL Calcium (8.6-10.4) mg/dl Total Bilirubin (0.0-1.0) mg/dL AST (0-37) U/l ALT (0-40) U/l Alkaline Phosphatase (39-117) U/L C-Reactive Protein 0.3 (0.0-0.8) mg/dl C-React Prot High Sens 3.7 H (1.0-3.0) mg/L NT-Pro-B Natriuret Pep (0-450) pg/ml Total Protein (5.9-8.4) gm/dL Albumin (3.2-5.2) gm/dL Globulin (2.2-3.7) gm/dL Albumin/Globulin Ratio (1.0-2.3) Procalcitonin (<0.10) ng/mL Urine Color Urine Appearance Urine pH (5.0-9.0) Ur Specific Rector (1.000-1.035) Urine Protein (NEG) mg/dL Urine Glucose (UA) (NEG) mg/dL Urine Ketones (NEG) mg/dL Urine Occult Blood (<0.03) mg/dL Urine Nitrate (NEG) Urine Bilirubin (NEG) mg/dL Urine Urobilinogen (NEG) mg/dL Ur Leukocyte Esterase (NEG) /uL Urine RBC (0-1) /hpf Urine WBC (0-4) /hpf Ur Squamous Epith Cells (0-4) /hpf Urine Bacteria (0) /hpf Urine Mucus (0) /hpf Ur Culture Indicated? 11/30/18 11/30/18 11/30/18 Range/Units 11:44 12:31 15:55 WBC (4.5-11.0) K/mcL RBC (4.00-5.20) M/mcL Hgb (12.0-15.0) g/dL Hct (36.0-48.0) % MCV (80.0-100.0) fL MCH (26.0-34.0) pg MCHC (31.0-36.0) g/dL RDW (11.5-14.5) % Plt Count (140-440) K/mcL MPV (7.4-10.4) fL Gran % (38.0-78.0) % Lymph % (Auto) (15.5-49.0) % Pratt % (Auto) (1.0-12.0) % Eos % (Auto) (0.0-7.0) % Baso % (Auto) (0.0-2.0) % Gran # (1.8-8.0) K/mcL Lymph # (Auto) (1.5-4.8) K/mcL Pratt # (Auto) (0.1-0.9) K/mcL Eos # (Auto) (0.0-0.7) K/mcL Baso # (Auto) (0.0-0.3) K/mcL Total Counted Seg Neutrophils % (38-78) % Band Neutrophils % (0-10) % Lymphocytes % (15-49) % Monocytes % (Manual) (1-12) % Platelet Estimate (NORMAL) RBC Morphology (NORMAL) Anisocytosis (NONE SEEN) PT 24.5 H (11.9-14.5) sec INR 2.2 H (0.9-1.1) APTT 34 (20-37) sec VBG Lactic Acid 2.8 H (0.5-2.0) mmol/L Sodium (133-145) mmol/L Potassium (3.3-5.1) mmol/L Chloride (96-108) mmol/L Carbon Dioxide (22-30) mmol/L Anion Gap (8-16) BUN (8-23) mg/dl Creatinine (0.6-1.1) mg/dl GFR Calculation Glucose (70-105) mg/dL Calcium (8.6-10.4) mg/dl Total Bilirubin (0.0-1.0) mg/dL AST (0-37) U/l ALT (0-40) U/l Alkaline Phosphatase (39-117) U/L C-Reactive Protein (0.0-0.8) mg/dl C-React Prot High Sens (1.0-3.0) mg/L NT-Pro-B Natriuret Pep (0-450) pg/ml Total Protein (5.9-8.4) gm/dL Albumin (3.2-5.2) gm/dL Globulin (2.2-3.7) gm/dL Albumin/Globulin Ratio (1.0-2.3) Procalcitonin < 0.05 (<0.10) ng/mL Urine Color Urine Appearance Urine pH (5.0-9.0) Ur Specific Rector (1.000-1.035) Urine Protein (NEG) mg/dL Urine Glucose (UA) (NEG) mg/dL Urine Ketones (NEG) mg/dL Urine Occult Blood (<0.03) mg/dL Urine Nitrate (NEG) Urine Bilirubin (NEG) mg/dL Urine Urobilinogen (NEG) mg/dL Ur Leukocyte Esterase (NEG) /uL Urine RBC (0-1) /hpf Urine WBC (0-4) /hpf Ur Squamous Epith Cells (0-4) /hpf Urine Bacteria (0) /hpf Urine Mucus (0) /hpf Ur Culture Indicated? - Radiology Data Radiology results reviewed: Yes I reviewed the patient's radiology results. Chest X-ray: IMPRESSION: 1. Marked cardiomegaly, unchanged 2. No focal infiltrate. No evidence for pulmonary edema Abdominal US: IMPRESSION: 1. Cholelithiasis 2. Findings suggestive of pancreatic head or peripancreatic mass. This is unchanged since 02/19/2017. No corresponding abnormality identified on CT scan dated 03/04/2017 3. Patient has a history of probable hemangioma in the right lobe of the liver. This is not identified on present examination. 4. No ascites Disposition Pt seen by SIDE PULLER/PA only: No ([facility]) Clinical Impression: Sepsis Disposition: Xfer As Inpt ([facility]) Condition: Good Time of Disposition: 21:21
[2018-11-30] MEDS ORDERED: LEVOFLOXACIN 750 MG/150 ML BAG IV ONE (12:50)
--- NOTE | 2018-11-30 14:10 | Ultrasound Report ---
CLINICAL INFORMATION: Dyspnea. Bilateral lower extremity edema. Distended abdomen and possible ascites TECHNIQUE: Grayscale and color flow Doppler spectral imaging COMPARISON: Previous ultrasound dated 02/19/2017. Previous CT scan dated 03/04/2017 FINDINGS: Gallbladder is abnormal. There are multiple gallstones. These are all less than 1 cm in size. These are mobile. No gallbladder wall thickening. No pericholecystic fluid. Common bile duct measures 5 mm. No intrahepatic bile duct dilatation. Liver appears somewhat enlarged and measures greater than 18 cm maximally. No focal abnormality. Previous CT scan demonstrated a benign hemangioma in the right lobe. This is not identified presently. Liver contour is smooth. There is no cirrhosis. There is no ascites. There is a possible pancreatic head or peripancreatic mass. This is hypoechoic but not sonolucent. This measures 10 x 10 x 15 mm. This was identified on previous ultrasound dated 02/19/2017. No focal masses identified on CT scan. Pancreatic duct measures 3.8 mm. Overall appearance is essentially unchanged since 2017. Spleen is not evaluated. Normal hepatopedal portal venous flow. IMPRESSION: 1. Cholelithiasis 2. Findings suggestive of pancreatic head or peripancreatic mass. This is unchanged since 02/19/2017. No corresponding abnormality identified on CT scan dated 03/04/2017 3. Patient has a history of probable hemangioma in the right lobe of the liver. This is not identified on present examination. 4. No ascites Interpreted and Authenticated by: Ramsey Covarrubias 11/30/18
--- NOTE | 2018-11-30 16:11 | XRay Report ---
CLINICAL INFORMATION: Left foot pain and swelling TECHNIQUE: AP, oblique, lateral left foot COMPARISON: None. FINDINGS: Findings consistent with osteopenia. There is mild metatarsus primus varus and hallux valgus deformity. Metatarsal phalangeal angle measures 23 degrees. There is a [id number] bunion. There is degenerative disease at the left first metatarsal phalangeal joint. Second through fifth metatarsophalangeal joints are unremarkable. There is mild degenerative disease at the tarsal metatarsal joints. No acute abnormality. No left foot fracture. There is no cortical destruction or periosteal new bone formation. No evidence for osteomyelitis. No soft tissue gas or radiopaque foreign body. IMPRESSION: 1. Mild hallux valgus and bunion deformity 2. Mild degenerative joint disease 3. No acute fracture. No evidence for osteomyelitis. No acute abnormality. Interpreted and Authenticated by: Ramsey Covarrubias 11/30/18
--- NOTE | 2018-11-30 17:00 | Internal Med History&Physical ---
Medical - H&P: HPI Patient information: Note initiated : 11/30/18 at 4:51 pm Service Date, if different from initiated Date: [] Patient: Anne Jackson a 83 y/o F admitted on for swollen bilateral lower legs, SOB. Chief Complaint: [] History of present illness: Ms. Jackson is a 83 year old F [place] with her daughters because her daughters feel she is more short of breath and swollen lately. Is reported that she over the past couple days she has had increased swelling in her legs feet as well as abdomen and puffy in her cheeks. Her daughters report that she has been short of breath at rest and with exertion. When I discussed this with the patient she denies shortness of breath at rest. Daughters feel she is also more tired. And at some point the patient complained of left foot pain at the daughter's which the patient denies to me at this current time. Because of the fatigue and the pain in the foot and it felt warm to the family they were concerned about developing sepsis as occurred in the past with her and thus brought her in the ED. Patient denies any pain to the foot and I had her walk on it in the room and she denied any pains while walking and did not seem to be adjusting her gait to any foot discomfort. Patient does have history of CHF and H fibrillation. Her Toprol was decreased from 75 mg to 50 mg daily recently because her blood pressures were on the lower end. In the ED she came with blood pressures in the 1 teens and a heart rate 119 that would spike to the 130s. She was given a dose of diltiazem which brought back down to around 100. She abdominal ultrasound in the ER which showed no ascites or any other acute pathology other than chronic changes. Urinalysis unremarkable chest x-ray was unremarkable for any acute process. Her lactate was mildly elevated 2.8 as well as a leukocytosis of 12.9 with no obvious source of an infection. She has not been on any oral steroids lately. She denies any cough other than her chronic cough. Denies any fevers or chills or dysuria. She failed a barium swallow study in September, she is not on any particular dysphagia diet and her daughters do notice that she coughs when she eats especially recently after eating potato chips. Review of Systems: Pertinent positives as above. Denies headache/fever/chills/nausea/vom iting/chest or abdominal pain/diarrhea. Remaining 10 point review of systems reviewed negative Medical - H&P: H Medical history: Medical History (Last Reviewed 11/22/18 @ 11:04 by Yonatan Bolden MD) Mild cognitive impairment with memory loss (Acute) Dermatitis (Acute) Cellulitis of right hand (Acute) Encounter for wound re-check (Acute) Cellulitis (Acute) Cellulitis (Acute) UTI (urinary tract infection) (Acute) Sundowning (Acute) Hypotension (Chronic) Acute colitis (Acute) Ulcerative colitis (Acute) Diarrhea (Acute) Pneumonia (Acute) H/O: hysterectomy (Chronic) History of tobacco use (Chronic) Thyroid nodule (Chronic) Osteoporosis (Chronic) Mitral valve prolapse (Chronic) Mitral valve disease (Chronic) Hypertension (Chronic) Hyperparathyroidism (Chronic) Hormone replacement therapy (Chronic) Colon polyps (Chronic) Ulcerative colitis (Chronic) COPD (chronic obstructive pulmonary disease) (Chronic) Left lower lobe pneumonia (Acute) COPD exacerbation (Acute) Past Surgical History (Last Reviewed 11/22/18 @ 10:36 by Yonatan Bolden MD) History of surgical removal of skin lesion (Chronic) H/O colonoscopy (Chronic) H/O left breast biopsy (Chronic) Family History (Last Reviewed 11/22/18 @ 10:36 by Yonatan Bolden MD) Mother Family history of malignant neoplasm of uterus Father had polio and a stroke Social History (Last Updated 11/22/18 @ 11:26 by Yonatan Bolden MD) Quit smoking 20 years ago Drinks alcohol rarely Does not use a cane or walker to ambulate Lives at home with her daughter Medical - H&P: Meds Home Medications Medication Instructions Recorded Confirmed Type calcium carbonate 600 mg (1,500 1 tab PO QDAY 07/19/15 11/30/18 History mg)-vitamin D3 400 unit tablet multivitamin tablet 1 tab PO QDAY tab 05/14/16 11/30/18 History Mesalamine [Apriso] 4 cap PO QAM 02/10/17 11/30/18 History Latanoprost Ophth Drops [Xalatan 1 gtt OU HS 08/04/17 11/30/18 History Ophth Drops] Ranitidine HCl [Acid Rn Transport] 150 mg PO DAILY 08/04/17 11/30/18 History albuterol sulfate HFA 90 1 inh INHALATION Q4HP PRN #1 g 08/23/18 11/30/18 Rx mcg/actuation aerosol inhaler albuterol sulfate 2.5 mg/3 mL 2.5 mg INHALATION Q4HP PRN #1080 ml 08/24/18 11/30/18 Rx (0.083 %) solution for nebulization Alendronate Sodium [Fosamax] 70 mg PO WEEKLY 09/02/18 11/30/18 History Potassium Chloride [K-Tab ER] 20 meq PO QAMCC 09/02/18 11/30/18 History Warfarin [Coumadin] See Rx Instructions PO .COMPLEX 09/02/18 11/30/18 History Lactobacillus acidophilus 460 mg 460 mg PO QDAY 09/12/18 11/30/18 History (20 billion cell) capsule crisaborole 2 % topical ointment 1 applic TOPICAL BID #15 g 09/30/18 11/30/18 Rx furosemide 40 mg tablet 40 mg PO BID #180 tab 09/30/18 11/30/18 Rx tiotropium bromide 18 mcg capsule 18 mcg INHALATION DAILY #90 puff 11/04/18 11/30/18 Rx with inhalation device metoprolol succinate ER 25 mg 50 mg PO QAM 90 Days #180 tab 11/22/18 11/30/18 Rx tablet,extended release 24 hr Allergies Allergy/AdvReac Type Severity Reaction Status Date / Time clindamycin AdvReac Mild Heartburn Verified 11/30/18 11:11 Medical - H&P: Exam - Constitutional Vitals: Temp Pulse Resp BP Pulse Ox 97.2 F 43 L 20 115/89 96 11/30/18 11:08 11/30/18 16:20 11/30/18 16:20 11/30/18 16:16 11/30/18 16:20 Exam: General: Alert, Awake, No acute Distress Eyes/N/T: EOMI, PEERL, DMM Head/Neck: neck supple, normocephalic atraumatic CV: irreg tachy, 2/6 SM Pulm: Clear b/l, no wheezing/rhonchi/rales Abd: soft, nontender, +BS x4, trace pitting edema abd wall Ext: no clubbing/cyanosis. b/l LE edema 1+ LLE and 1-2+ RLE. Cap refill less than 2 seconds, peripheral pulses 2+ Neuro: Alert, no focal deficits, moves all extremities, CN 2-12 grossly intact, symmetrical strength b/l upper/lower, sensations intact b/l upper/lower Skin: warm/dry Medical - H&P: Reslt - Labs CBC & Chem 7: 11/30/18 11:43 11/30/18 11:43 Labs: Short CBC 11/30/18 Range/Units 11:43 WBC 12.9 H (4.5-11.0) K/mcL Hgb 13.8 (12.0-15.0) g/dL Hct 43.6 (36.0-48.0) % Plt Count 192 (140-440) K/mcL BMP 11/30/18 11:43 Sodium 138 Potassium 4.3 Chloride 99 Carbon Dioxide 27 BUN 29 H Creatinine 0.7 Glucose 146 H Calcium 8.2 L Liver Function 11/30/18 Range/Units 11:43 Total Bilirubin 0.8 (0.0-1.0) mg/dL AST 39 H (0-37) U/l ALT 37 (0-40) U/l Alkaline Phosphatase 99 (39-117) U/L Albumin 4.0 (3.2-5.2) gm/dL Urine 11/30/18 Range/Units 11:34 Urine Color Yellow Urine Appearance Clear Urine pH 7.0 (5.0-9.0) Ur Specific [place] 1.009 (1.000-1.035) Urine Protein Neg (NEG) mg/dL Urine Glucose (UA) Negative (NEG) mg/dL - Impressions Abdominal ultrasound no ascites no other acute pathology, chronic changes as noted in report Chest x-ray no acute pathology, chronic per report She did have a barium swallow evaluation September which showed moderate aspiration Medical - H&P: A/P - Narrative A/P Narrative: A: *AFib w/RVR: -Is on warfarin and Toprol. Toprol recently decreased because of low blood pressures. Likely that her heart rate has recently been running higher than goal and in the setting of structural heart disease resulted in symptoms of dyspnea and edema. *Dyspnea: Secondary to above, maintaining adequate oxygenation *Edema: Secondary to uncontrolled A. fib and underlying cardiac dysfunction *Leukocytosis: ?Reactive versus infectious, no source of infection at this time, patient afebrile *Lactic acidosis: ?From hypoperfusion from primary assessment versus infectious *h/o systolic and likely diastolic CHF: Mild decompensation interplay with [place] we[place] RVR -Is her cardiac fxn declining *Severe MR: *Memory loss *History of ulcerative colitis *GERD: *COPD (not on home oxygen): *Oral pharyngeal dysphagia: Has not been hearing to any particular dysphagia diet * * P: -We will switch her Toprol to Lopressor in hopes of better rate control without dropping blood pressure too much -echo pending -infectious w/u -s/p IV lasix -ST evaluation -Dysphasia diet - -pt/ot -ppx: Warfarin per pharmacy
[2018-11-30 17:16] LABS: CRP,High Sensitivity 3.7 mg/L (1.0-3.0)
[2018-11-30 17:55] LABS: C-Reactive Protein 0.3 mg/dl (0.0-0.8)
[2018-11-30 18:18] LABS: Anisocytosis 1+ (NONE SEEN); Band Neutrophils % 2 % (0-10); Lymphocytes % 17 % (15-49); Monocytes % (Manual) 10 % (1-12); Platelet Estimate NORMAL (NORMAL); RBC Morphology ABNORMAL (NORMAL); Segmented Neutrophils % 71 % (38-78)
[2018-11-30] MEDS ORDERED: ACETAMINOPHEN 325 MG TABLET PO PRN (18:46)
[2018-11-30] MEDS ORDERED: WARFARIN 2.5 MG TABLET PO SCH (18:46)
[2018-11-30] MEDS ORDERED: POTASSIUM CHLORIDE 20 MEQ TABLET PO PRN ×2 (18:46)
[2018-11-30] MEDS ORDERED: LACTULOSE 20 GM/30 ML ORAL.SOL PO PRN (18:46)
[2018-11-30] MEDS ORDERED: ONDANSETRON 4 MG/2 ML VIAL IV PRN (18:46)
[2018-11-30] MEDS ORDERED: POLYETHYLENE GLYCOL 3350 17 GM PACKET PO PRN (18:46)
[2018-11-30] MEDS ORDERED: SENNOSIDES 1 TABLET PO PRN (18:46)
[2018-11-30] MEDS ORDERED: METOPROLOL TARTRATE 5 MG/5 ML VIAL IV PRN (18:46)
[2018-11-30] MEDS ORDERED: MAGNESIUM SULFATE 2 GM/50 ML BAG IV PRN (18:46)
[2018-11-30] MEDS ORDERED: POTASSIUM CHLORIDE 40 MEQ in DEXTROSE 5% IN WATER 500 ML IV PRN (18:46)
[2018-11-30] MEDS ORDERED: FUROSEMIDE 40 MG TABLET PO SCH (21:00)
[2018-11-30] MEDS: FAMOTIDINE 20 MG TABLET PO SCH (21:08)
[2018-11-30] MEDS: METOPROLOL TARTRATE 50 MG TABLET PO SCH (21:08)
[2018-11-30] MEDS: LATANOPROST OPHTH DROPS 2.5ML BOTTLE OU SCH (21:09)
[2018-11-30] MEDS: DOCUSATE SODIUM 100 MG CAPSULE PO SCH (21:09)
[2018-11-30] MEDS: 0.9 % SODIUM CHLORIDE 10 ML SYRINGE IV SCH (21:09)
[2018-12-01] MEDS: IPRATROPIUM/ALBUTEROL 3 ML AMPUL.NEB NEB PRN ×3 (01:28→19:30)
[2018-12-01] MEDS: 0.9 % SODIUM CHLORIDE 10 ML SYRINGE IV SCH ×4 (05:31→21:50)
[2018-12-01 06:54] LABS: Basophils # (Auto) 0 K/mcL (0.0-0.3); Basophils % (Auto) 0.2 % (0.0-2.0); Eosinophils # (Auto) 0 K/mcL (0.0-0.7); Eosinophils % (Auto) 0.3 % (0.0-7.0); Granulocytes % (Auto) 84.7 % (38.0-78.0); Mean Cell Volume 89.3 fL (80.0-100.0); Mean Corpuscular HGB Conc 31.9 g/dL (31.0-36.0); Monocytes # (Auto) 0.9 K/mcL (0.1-0.9); Monocytes % (Auto) 6.8 % (1.0-12.0); Platelet Count 170 K/mcL (140-440); RBC 4.68 M/mcL (4.00-5.20); Red Cell Distribution Width 17.3 % (11.5-14.5)
--- NOTE | 2018-12-01 07:11 | Emergency Department Note ---
ED Note Addendum Note Addendum: I discussed the case with the mid-level provider and agree with the assessment and plan.
[2018-12-01] MEDS ORDERED: AMIODARONE 150 MG in DEXTROSE 5% IN WATER 50 ML IV ONE (07:30)
--- NOTE | 2018-12-01 07:30 | Internal Med Progress Note ---
Medical - PN: Subj Patient information: Note initiated : 12/01/18 at 7:25 am Service Date, if different from initiated Date: [] Patient: Anne Jackson a 83 y/o F admitted on 11/30/18 for swollen bilateral lower legs, SOB. Chief Complaint: [] Interval history: Ms. Jackson is a 83 year old F [place] with her daughters because her daughters feel she is more short of breath and swollen lately. Is reported that she over the past couple days she has had increased swelling in her legs feet as well as abdomen and puffy in her cheeks. Her daughters report that she has been short of breath at rest and with exertion. When I discussed this with the patient she denies shortness of breath at rest. Daughters feel she is also more tired. And at some point the patient complained of left foot pain at the daughter's which the patient denies to me at this current time. Because of the fatigue and the pain in the foot and it felt warm to the family they were concerned about developing sepsis as occurred in the past with her and thus brought her in the ED. Patient denies any pain to the foot and I had her walk on it in the room and she denied any pains while walking and did not seem to be adjusting her gait to any foot discomfort. Patient does have history of CHF and H fibrillation. Her Toprol was decreased from 75 mg to 50 mg daily recently because her blood pressures were on the lower end. In the ED she came with blood pressures in the 1 teens and a heart rate 119 that would spike to the 130s. She was given a dose of diltiazem which brought back down to around 100. She abdominal ultrasound in the ER which showed no ascites or any other acute pathology other than chronic changes. Urinalysis unremarkable chest x-ray was unremarkable for any acute process. Her lactate was mildly elevated 2.8 as well as a leukocytosis of 12.9 with no obvious source of an infection. She has not been on any oral steroids lately. She denies any cough other than her chronic cough. Denies any fevers or chills or dysuria. She failed a barium swallow study in September, she is not on any particular dysphagia diet and her daughters do notice that she coughs when she eats especially recently after eating potato chips. 12/01 Poor sleep but overall feeling fine. She states she her cough and shortness of breath or chronic nothing new. No chest pains nausea vomiting abdominal pain. Daughter at bedside, Who she lives with. Review of Systems: denies headache/fever/chills/nausea/vomiting/chest or abdominal pain/diarrhea. Otherwise see above. - Constitutional Vitals: Vital Signs Temp Pulse Resp BP Pulse Ox 98.8 F 117 H 20 107/82 90 12/01/18 03:48 11/30/18 22:08 12/01/18 03:48 12/01/18 03:48 12/01/18 03:48 Period Temp Pulse Resp BP Sys/Arellano Pulse Ox Last 24 Hr 97.2 F-98.8 F 43-124 15-30 102-146/69-116 90-97 Intake and Output 11/30/18 12/01/18 12/01/18 21:59 05:59 13:59 Intake Total 450 700 Output Total 1950 200 25 Balance -1500 500 -25 Weight 63.82 kg Intake & Output: Intake & Output 11/30/18 12/01/18 12/01/18 21:59 05:59 13:59 Intake Total 450 700 Output Total 1950 200 25 Balance -1500 500 -25 Weight 63.82 kg Intake: Nourishment/Supplement quantity 300 (ml) IV 150 Oral 700 Output: Urine Catheter Amount 100 Void Amount 1950 100 25 Other: Meal Nourishment/Supplement Percent of Meal Consumed 100% Feeding Ability Assist with Tray Set Up Nourishment/Supplement name 1/2 tuna sandwich, mint milkshake Urine Appearance Clear Clear Clear Urine Color Bright Yellow Dark Yellow Dark Yellow Urine Odor Normal Normal Normal Stool Size Small Stool Color Brown Stool Consistency Soft Formed # Voids 1 # Bowel Movements 1 Exam: General: Alert, Awake, No acute Distress Eyes/N/T: EOMI, Head/Neck: neck supple, CV: irreg tachy, 2/6 SM Pulm: Clear b/l, no wheezing/rhonchi/rales Abd: soft, nontender, +BS x4, trace pitting edema abd wall Ext: no clubbing/cyanosis. b/l LE edema trace left and 1+ RLE and 1-2+ RLE. Neuro: Alert, no focal deficits, moves all extremities, Skin: warm/dry Medical - PN: Obj Da - Labs CBC & Chem 7: 12/01/18 03:33 12/01/18 03:33 Labs: Abnormal Lab Results 12/01/18 11/30/18 11/30/18 03:33 12:31 11:44 WBC 12.7 H RDW 17.3 H MPV 10.9 H Gran % 84.7 H Lymph % (Auto) 8.0 L Gran # 10.7 H Lymph # (Auto) 1.0 L Anisocytosis PT 24.5 H INR 2.2 H VBG Lactic Acid 2.8 H BUN Glucose Calcium AST C-React Prot High Sens NT-Pro-B Natriuret Pep Ur Leukocyte Esterase Urine RBC 11/30/18 11/30/18 11/30/18 11:43 11:43 11:43 WBC RDW MPV Gran % Lymph % (Auto) Gran # Lymph # (Auto) Anisocytosis 1+ A PT INR VBG Lactic Acid BUN 29 H Glucose 146 H Calcium 8.2 L AST 39 H C-React Prot High Sens 3.7 H NT-Pro-B Natriuret Pep 3401.0 H Ur Leukocyte Esterase Urine RBC 11/30/18 11/30/18 11:43 11:34 WBC 12.9 H RDW 17.3 H MPV 10.7 H Gran % 84.5 H Lymph % (Auto) 8.3 L Gran # 10.9 H Lymph # (Auto) 1.1 L Anisocytosis PT INR VBG Lactic Acid BUN Glucose Calcium AST C-React Prot High Sens NT-Pro-B Natriuret Pep Ur Leukocyte Esterase 25 A Urine RBC 4 H Meds: Medications Acetaminophen (Tylenol) 650 mg PO Q6HP PRN PRN Reason: PAIN/FEVER > 101 Albuterol/Ipratropium (Duoneb) 3 ml NEB Q4HP PRN PRN Reason: Shortness Of Breath Last Admin: 12/01/18 01:28 Dose: 3 ml Documented by: Bacitracin (Bacitracin Topical Oint) 1 dose TOPICAL BID [facility] Docusate Sodium (Colace) 100 mg PO BID [facility] Last Admin: 11/30/18 21:09 Dose: Not Given Documented by: Famotidine (Pepcid) 20 mg PO BID [facility] Last Admin: 11/30/18 21:08 Dose: 20 mg Documented by: Furosemide (Lasix) 40 mg PO BIDD [facility] Potassium Chloride 40 meq/ (Dextrose) 520 mls @ 130 mls/hr IV ONCE PRN PRN Reason: Potassium < 3 Magnesium Sulfate (Magnesium Sulfate) 2 gm in 50 mls @ 50 mls/hr IV UD PRN PRN Reason: Magnesium </= 1.6 Lactobacillus Rhamnosus (Culturelle) 1 cap PO QDAY [facility] Lactulose (Cephulac) 10 gm PO DAILYP PRN PRN Reason: Constipation Latanoprost (Xalatan Ophth Drops) 1 gtt OU HS [facility] Last Admin: 11/30/18 21:09 Dose: Not Given Documented by: Metoprolol Tartrate (Lopressor) 50 mg PO BID [facility] Last Admin: 11/30/18 21:08 Dose: 50 mg Documented by: Metoprolol Tartrate (Lopressor) 5 mg IV Q2HP PRN PRN Reason: HR>110 Last Admin: 12/01/18 00:32 Dose: 5 mg Documented by: Non-Formulary Medication (Mesalamine [Apriso]) 4 cap PO QAM [facility] Ondansetron HCl (Zofran) 4 mg IV Q4HP PRN PRN Reason: Nausea And Vomiting Polyethylene Glycol (Miralax) 17 gm PO DAILYP PRN PRN Reason: Constipation Potassium Chloride (Kdur) 20 meq PO QAMCC [facility] Potassium Chloride (Kdur) 40 meq PO ONCE PRN PRN Reason: Potssium is 3-3.5 Potassium Chloride (Kdur) 40 meq PO ONCE PRN PRN Reason: Potassium < 3 Senna (Senokot) 2 tab PO HSP PRN PRN Reason: Constipation Sodium Chloride (Saline Flush) 10 ml IV Q8 [facility] Last Admin: 12/01/18 05:31 Dose: 10 ml Documented by: Tiotropium [place] (Spiriva) 18 mcg INH DAILY [facility] Warfarin Sodium (Coumadin) 0 mg PO .COMPLEX [facility] Warfarin Sodium (Coumadin Per Pharmacy) 1 order PO DAILY@1400 [facility] Medical - PN: A/P - Time Spent With Patient Total time spent is greater than 50% in coordination of care (as documented) at patient's floor/unit and/or counseling patient: - Narrative A/P Narrative: A: *AFib w/RVR: -Is on warfarin and Toprol. Toprol recently decreased because of low blood pressures. Likely that her heart rate has recently been running higher than goal and in the setting of structural heart disease resulted in symptoms of dyspnea and edema. *Dyspnea: Secondary to above, maintaining adequate oxygenation *Edema: Secondary to uncontrolled A. fib and underlying cardiac dysfunction *Leukocytosis, no bandemia: ?Reactive versus doubt infectious, no source of infection at this time, CXR/UA unremarkable, patient afebrile -PCT/CRP low, *Lactic acidosis: ?From hypoperfusion from primary assessment versus infectious -resolved *h/o systolic and likely diastolic CHF: Mild decompensation interplay with A. fib RVR -Is her cardiac fxn declining *Severe MR: *Memory loss *History of ulcerative colitis *GERD: *COPD (not on home oxygen): *Oral pharyngeal dysphagia: Has not been hearing to any particular dysphagia diet * P: -We will switch her Toprol to Lopressor in hopes of better rate control without dropping blood pressure too much -echo pending -infectious w/u unremarkable -s/p IV lasix in ED -ST evaluation -Dysphagia diet - -pt/ot -ppx: Warfarin per pharmacy ?[facility] - PN: Qual - VTE Deep Vein Thrombosis/Pulmonary Embolism Present on Admission: No
[2018-12-01 07:54] LABS: ALT/SGPT 34 U/l (0-40); Albumin 3.6 gm/dL (3.2-5.2); Albumin/Globulin Ratio 1.3 (1.0-2.3); Alkaline Phosphatase 73 U/L (39-117); Bilirubin,Direct 0.3 mg/dL (0.0-0.3); Blood Urea Nitrogen 33 mg/dl (8-23); Gamma Glutamyl Transpeptidase 48 U/L (5-36); Uric Acid 6.7 mg/dL (2.5-8.0)
[2018-12-01] MEDS: DOCUSATE SODIUM 100 MG CAPSULE PO SCH ×2 (08:19→21:48)
[2018-12-01] MEDS: FUROSEMIDE 40 MG TABLET PO SCH ×2 (08:19→15:25)
[2018-12-01] MEDS: FAMOTIDINE 20 MG TABLET PO SCH ×2 (08:19→21:49)
[2018-12-01] MEDS: LACTOBACILLUS 1 CAPSULE PO SCH (08:19)
[2018-12-01] MEDS: MESALAMINE 0.375 GM PO SCH (08:20)
[2018-12-01] MEDS: TIOTROPIUM BROMIDE 18 MCG INHALANT INH SCH (08:21)
[2018-12-01] MEDS: POTASSIUM CHLORIDE 20 MEQ TABLET PO SCH (09:29)
[2018-12-01] MEDS: BACITRACIN TOPICAL OINT 15 GM TUBE TOPICAL SCH ×2 (10:21→21:49)
[2018-12-01] MEDS: METOPROLOL TARTRATE 50 MG TABLET PO SCH ×2 (10:21→21:48)
[2018-12-01] MEDS ORDERED: WARFARIN 2.5 MG TABLET PO ONE (14:00)
--- NOTE | 2018-12-01 14:09 | Discharge Summary ---
Medical - DS: Prov Patient information: Note initiated : 12/01/18 at 2:07 pm Service Date, if different from initiated Date: [] Patient: Anne Jackson 83 y/o F admitted on 11/30/18 for swollen bilateral lower legs, SOB. Chief Complaint: [] Date of admission: 11/30/18 17:50 Discharge date: 12/02/18 Primary care physician: Yonatan Bolden MD Consults: 11/30/18 Consult to Physician [CONS] Stat Comment: Consulting Provider: Abdulaziz Laboy Reason For Exam: Physician to Consult Medical - DS: Meds - Discharge Medications Active and Home Medications: Home Medications calcium carbonate 600 mg (1,500 mg)-vitamin D3 400 unit tablet 1 tab PO QDAY 07/19/15 [History Confirmed 11/30/18 Last Taken 11/30/18 08:00] multivitamin tablet 1 tab PO QDAY tab 05/14/16 [History Confirmed 11/30/18 Last Taken 09/28/18 08:00] Mesalamine [Apriso] 4 cap PO QAM 02/10/17 [History Confirmed 11/30/18 Last Taken 11/30/18 08:00] Latanoprost Ophth Drops [Xalatan Ophth Drops] 1 gtt OU HS 08/04/17 [History Confirmed 11/30/18 Last Taken 11/29/18 21:00] Ranitidine HCl [Acid Valving Machine Operator] 150 mg PO DAILY 08/04/17 [History Confirmed 11/30/18 Last Taken 11/30/18 08:00] albuterol sulfate HFA 90 mcg/actuation aerosol inhaler 1 inh INHALATION Q4HP PRN #1 g 08/23/18 [Rx Confirmed 11/30/18 Last Taken 11/30/18 08:00] albuterol sulfate 2.5 mg/3 mL (0.083 %) solution for nebulization 2.5 mg INHALATION Q4HP PRN #1080 ml 08/24/18 [Rx Confirmed 11/30/18 Last Taken 11/30/18 08:00] Alendronate Sodium [Fosamax] 70 mg PO WEEKLY 09/02/18 [History Confirmed 11/30/18 Last Taken 11/25/18 08:00] Potassium Chloride [K-Tab ER] 20 meq PO QAMCC 09/02/18 [History Confirmed 11/30/18 Last Taken 11/30/18 08:00] Warfarin [Coumadin] 2.5 mg PO MOWEFRSA 09/02/18 [History Confirmed 12/01/18 Last Taken 11/30/18 08:00] Lactobacillus acidophilus 460 mg (20 billion cell) capsule 460 mg PO QDAY 09/12/18 [History Confirmed 11/30/18 Last Taken 11/30/18 08:00] crisaborole 2 % topical ointment 1 applic TOPICAL BID #15 g 09/30/18 [Rx Confirmed 11/30/18 Last Taken 10/26/18 08:00] furosemide 40 mg tablet 40 mg PO BID #180 tab 09/30/18 [Rx Confirmed 11/30/18 Last Taken 11/30/18 08:00] tiotropium bromide 18 mcg capsule with inhalation device 18 mcg INHALATION DAILY #90 puff 11/04/18 [Rx Confirmed 11/30/18 Last Taken 11/30/18 08:00] metoprolol succinate ER 25 mg tablet,extended release 24 hr 50 mg PO QAM 90 Days #180 tab 11/22/18 [Rx Confirmed 11/30/18 Last Taken 11/30/18 08:00] Warfarin [Coumadin] 1.25 mg PO SUTUTH 11/30/18 [History Confirmed 12/01/18 Last Taken 11/29/18 08:00] Medical - DS: Hosp Hospital course: Ms. Jackson is a 83 year old F Zentz with her daughters because her daughters feel she is more short of breath and swollen lately. Is reported that she over the past couple days she has had increased swelling in her legs feet as well as abdomen and puffy in her cheeks. Her daughters report that she has been short of breath at rest and with exertion. When I discussed this with the patient she denies shortness of breath at rest. Daughters feel she is also more tired. And at some point the patient complained of left foot pain at the daughter's which the patient denies to me at this current time. Because of the fatigue and the pain in the foot and it felt warm to the family they were concerned about developing sepsis as occurred in the past with her and thus brought her in the ED. Patient denies any pain to the foot and I had her walk on it in the room and she denied any pains while walking and did not seem to be adjusting her gait to any foot discomfort. Patient does have history of CHF and H fibrillation. Her Toprol was decreased from 75 mg to 50 mg daily recently because her blood pressures were on the lower end. In the ED she came with blood pressures in the 1 teens and a heart rate 119 that would spike to the 130s. She was given a dose of diltiazem which brought back down to around 100. She abdominal ultrasound in the ER which showed no ascites or any other acute pathology other than chronic changes. Urinalysis unremarkable chest x-ray was unremarkable for any acute process. Her lactate was mildly elevated 2.8 as well as a leukocytosis of 12.9 with no obvious source of an infection. She has not been on any oral steroids lately. She denies any cough other than her chronic cough. Denies any fevers or chills or dysuria. She failed a barium swallow study in September, she is not on any particular dysphagia diet and her daughters do notice that she coughs when she eats especially recently after eati ng potato chips. 12/01 Poor sleep but overall feeling fine. She states she her cough and shortness of breath or chronic nothing new. No chest pains nausea vomiting abdominal pain. Daughter at bedside, Who she lives with. 12/02 No new complaints. Feeling well. Heart rate better controlled. No new complaints. Stable for discharge Discharge diagnosis: A. fib RVR history of systolic and diastolic heart failure Secondary discharge diagnosis: Memory loss mitral regurgitation ulcerative colitis GERD COPD oral pharyngeal dysphagia - Time Spent with Patient Total time spent providing and/or coordinating discharge services: Greater than 30 minutes Medical - DS: Exam - Constitutional Vitals: Vital Signs Temp Pulse Resp BP BP Pulse Ox 12/01/18 07:33 98.1 F 20 100/88 91 12/01/18 03:48 98.8 F 20 107/82 90 12/01/18 03:47 93 12/01/18 00:43 24 H 108/92 93 11/30/18 23:38 97.2 F 22 105/84 92 11/30/18 22:08 117 H 94 11/30/18 20:56 124 H 110/74 95 11/30/18 19:47 95 11/30/18 18:46 98.8 F 18 128/81 96 11/30/18 18:00 97.2 F 99 H 24 H 102/69 95 11/30/18 17:46 98.6 F 120 H 27 H 111/72 96 11/30/18 17:31 99 H 24 H 102/69 95 11/30/18 17:16 24 H 104/84 94 11/30/18 17:01 30 H 108/75 95 11/30/18 16:32 23 H 114/75 95 11/30/18 16:20 43 L 20 96 11/30/18 16:16 60 25 H 115/89 96 11/30/18 16:02 107 H 15 146/116 96 11/30/18 15:46 93 H 20 111/73 96 11/30/18 15:16 95 H 20 107/87 97 11/30/18 15:01 96 H 21 116/82 96 11/30/18 14:53 95 H 21 96 11/30/18 14:32 19 95 11/30/18 14:18 105 H 24 H 111/90 96 Intake and Output 12/01/18 12/01/18 12/01/18 05:59 13:59 21:59 Intake Total 700 293 Output Total 200 725 Balance 500 -432 Intake: IV 53 Cordarone 150 mg In Dextrose 5% 53 in Water 50 ml @ 300 mls/hr IV ONCE ONE Rx#:[id number] Oral 700 240 Output: Urine Catheter Amount 100 Void Amount 100 725 Other: Urine Appearance Clear Clear Urine Color Dark Yellow Bright Yellow Urine Odor Normal Normal # Voids 1 # Bowel Movements 1 Medical - DS: Data Labs on day of discharge: Labs from last 24 hours 12/01/18 12/01/18 12/01/18 07:37 03:33 03:33 WBC RBC Hgb Hct MCV MCH MCHC RDW Plt Count MPV Gran % Lymph % (Auto) [place] % (Auto) Eos % (Auto) Baso % (Auto) Gran # Lymph # (Auto) [place] # (Auto) Eos # (Auto) Baso # (Auto) Total Counted Seg Neutrophils % Band Neutrophils % Lymphocytes % Monocytes % (Manual) Platelet Estimate RBC Morphology Anisocytosis PT 22.5 H INR 2.0 H VBG Lactic Acid 1.1 Sodium 138 Potassium 4.5 Chloride 98 Carbon Dioxide 25 Anion Gap 15.0 BUN 33 H Creatinine 0.9 GFR Calculation 59 Glucose 97 Uric Acid 6.7 Calcium 8.1 L Phosphorus 3.1 Magnesium 2.3 Total Bilirubin 1.0 Direct Bilirubin 0.3 GGT 48 H AST 35 ALT 34 Alkaline Phosphatase 73 Lactate Dehydrogenase 364 H C-Reactive Protein C-React Prot High Sens Total Protein 6.3 Albumin 3.6 Globulin 2.7 Albumin/Globulin Ratio 1.3 Triglycerides 83 Procalcitonin 12/01/18 11/30/18 11/30/18 03:33 15:55 11:43 WBC 12.7 H RBC 4.68 Hgb 13.3 Hct 41.8 MCV 89.3 MCH 28.5 MCHC 31.9 RDW 17.3 H Plt Count 170 MPV 10.9 H Gran % 84.7 H Lymph % (Auto) 8.0 L [place] % (Auto) 6.8 Eos % (Auto) 0.3 Baso % (Auto) 0.2 Gran # 10.7 H Lymph # (Auto) 1.0 L [place] # (Auto) 0.9 Eos # (Auto) 0 Baso # (Auto) 0 Total Counted Seg Neutrophils % Band Neutrophils % Lymphocytes % Monocytes % (Manual) Platelet Estimate RBC Morphology Anisocytosis PT INR VBG Lactic Acid Sodium Potassium Chloride Carbon Dioxide Anion Gap BUN Creatinine GFR Calculation Glucose Uric Acid Calcium Phosphorus Magnesium Total Bilirubin Direct Bilirubin GGT AST ALT Alkaline Phosphatase Lactate Dehydrogenase C-Reactive Protein 0.3 C-React Prot High Sens Total Protein Albumin Globulin Albumin/Globulin Ratio Triglycerides Procalcitonin < 0.05 11/30/18 11/30/18 11:43 11:43 WBC RBC Hgb Hct MCV MCH MCHC RDW Plt Count MPV Gran % Lymph % (Auto) [place] % (Auto) Eos % (Auto) Baso % (Auto) Gran # Lymph # (Auto) [place] # (Auto) Eos # (Auto) Baso # (Auto) Total Counted 100 Seg Neutrophils % 71 Band Neutrophils % 2 Lymphocytes % 17 Monocytes % (Manual) 10 Platelet Estimate Normal RBC Morphology Abnormal Anisocytosis 1+ A PT INR VBG Lactic Acid Sodium Potassium Chloride Carbon Dioxide Anion Gap BUN Creatinine GFR Calculation Glucose Uric Acid Calcium Phosphorus Magnesium Total Bilirubin Direct Bilirubin GGT AST ALT Alkaline Phosphatase Lactate Dehydrogenase C-Reactive Protein C-React Prot High Sens 3.7 H Total Protein Albumin Globulin Albumin/Globulin Ratio Triglycerides Procalcitonin Medical - DS: A/P - Patient/Caregiver Discharge Instructions Activity: as per physical therapy Diet: Dysphagia Mech Alter Additional Instructions: Follow-up with speech therapy outpatient - Follow up Plan Follow up with: Yonatan Bolden MD [Primary Care Provider] - Estiven Vázquez MD [Physician] - Disposition: Home Health Service Prognosis: Good Rehab Potential: Fair Medical - DS: Qual - VTE Deep Vein Thrombosis/Pulmonary Embolism Present on Admission: No
[2018-12-01] MEDS: DIGOXIN 500 MCG/2 ML AMPUL IV SCH ×2 (15:25→21:53)
[2018-12-01] MEDS: LATANOPROST OPHTH DROPS 2.5ML BOTTLE OU SCH (21:49)
[2018-12-02 05:11] LABS: Mean Cell Volume 89.6 fL (80.0-100.0); Mean Corpuscular HGB Conc 31.9 g/dL (31.0-36.0); Platelet Count 167 K/mcL (140-440); RBC 4.71 M/mcL (4.00-5.20); Red Cell Distribution Width 16.8 % (11.5-14.5)
[2018-12-02 05:40] LABS: ALT/SGPT 33 U/l (0-40); Albumin 3.4 gm/dL (3.2-5.2); Albumin/Globulin Ratio 1.4 (1.0-2.3); Alkaline Phosphatase 64 U/L (39-117); Bilirubin,Direct 0.3 mg/dL (0.0-0.3); Blood Urea Nitrogen 27 mg/dl (8-23); Gamma Glutamyl Transpeptidase 45 U/L (5-36); Uric Acid 7.2 mg/dL (2.5-8.0)
[2018-12-02] MEDS: 0.9 % SODIUM CHLORIDE 10 ML SYRINGE IV SCH ×2 (05:49→14:27)
[2018-12-02 06:52] LABS: Anisocytosis 1+ (NONE SEEN); Band Neutrophils % 1 % (0-10); Lymphocytes % 13 % (15-49); Monocytes % (Manual) 7 % (1-12); Platelet Estimate NORMAL (NORMAL); RBC Morphology ABNORM (NORMAL); Segmented Neutrophils % 79 % (38-78)
--- NOTE | 2018-12-02 07:01 | Internal Med Progress Note ---
Medical - PN: Subj Patient information: Note initiated : 12/02/18 at 6:59 am Service Date, if different from initiated Date: [] Patient: Anne Jackson a 83 y/o F admitted on 11/30/18 for swollen bilateral lower legs, SOB. Chief Complaint: [] Interval history: Ms. Jackson is a 83 year old F Zentz with her daughters because her daughters feel she is more short of breath and swollen lately. Is reported that she over the past couple days she has had increased swelling in her legs feet as well as abdomen and puffy in her cheeks. Her daughters report that she has been short of breath at rest and with exertion. When I discussed this with the patient she denies shortness of breath at rest. Daughters feel she is also more tired. And at some point the patient complained of left foot pain at the daughter's which the patient denies to me at this current time. Because of the fatigue and the pain in the foot and it felt warm to the family they were concerned about developing sepsis as occurred in the past with her and thus brought her in the ED. Patient denies any pain to the foot and I had her walk on it in the room and she denied any pains while walking and did not seem to be adjusting her gait to any foot discomfort. Patient does have history of CHF and H fibrillation. Her Toprol was decreased from 75 mg to 50 mg daily recently because her blood pressures were on the lower end. In the ED she came with blood pressures in the 1 teens and a heart rate 119 that would spike to the 130s. She was given a dose of diltiazem which brought back down to around 100. She abdominal ultrasound in the ER which showed no ascites or any other acute pathology other than chronic changes. Urinalysis unremarkable chest x-ray was unremarkable for any acute process. Her lactate was mildly elevated 2.8 as well as a leukocytosis of 12.9 with no obvious source of an infection. She has not been on any oral steroids lately. She denies any cough other than her chronic cough. Denies any fevers or chills or dysuria. She failed a barium swallow study in September, she is not on any particular dysphagia diet and her daughters do notice that she coughs when she eats especially recently after eating potato chips. 12/01 Poor sleep but overall feeling fine. She states she her cough and shortness of breath or chronic nothing new. No chest pains nausea vomiting abdominal pain. Daughter at bedside, Who she lives with. 12/02 No new complaints. Feeling well. Heart rate better controlled. No new compl aints. Stable for discharge Review of Systems: denies headache/fever/chills/nausea/vomiting/chest or abdominal pain/diarrhea. Otherwise see above. - Constitutional Vitals: Vital Signs Temp Pulse Resp BP Pulse Ox 99.5 F H 117 H 22 112/97 92 12/02/18 04:22 11/30/18 22:08 12/02/18 04:22 12/02/18 04:22 12/02/18 04:22 Period Temp Pulse Resp BP Sys/Arellano Pulse Ox Last 24 Hr 98.1 F-99.5 F 16- 94-119/76-97 91-97 Intake and Output 12/01/18 12/02/18 12/02/18 21:59 05:59 13:59 Intake Total 180 Output Total 1100 400 Balance -1100 -220 Weight 63.911 kg Intake & Output: Intake & Output 12/01/18 12/02/18 12/02/18 21:59 05:59 13:59 Intake Total 180 Output Total 1100 400 Balance -1100 -220 Weight 63.911 kg Intake: Oral 180 Output: Void Amount 1100 400 Other: Meal Dinner Percent of Meal Consumed 25% Exam: General: Alert, Awake, No acute Distress Eyes/N/T: EOMI, Head/Neck: neck supple, CV: irreg tachy, 2/6 SM Pulm: Clear b/l, no wheezing/rhonchi/rales Abd: soft, nontender, +BS x4, Ext: no clubbing/cyanosis. b/l mild LE edema Neuro: Alert, no focal deficits, moves all extremities, Skin: warm/dry Medical - PN: Obj Da - Labs CBC & Chem 7: 12/02/18 03:27 12/02/18 03:28 Labs: Abnormal Lab Results 12/02/18 12/02/18 12/02/18 03:28 03:27 03:27 WBC RDW 16.8 H MPV 10.7 H Gran % Lymph % (Auto) Gran # Lymph # (Auto) Seg Neutrophils % 79 H Lymphocytes % 13 L RBC Morphology Abnorm A Anisocytosis 1+ A PT 20.8 H INR 1.8 H VBG Lactic Acid BUN 27 H Glucose 109 H Calcium 7.6 L Phosphorus 2.5 L Total Bilirubin 1.3 H GGT 45 H AST Lactate Dehydrogenase 307 H C-React Prot High Sens NT-Pro-B Natriuret Pep Ur Leukocyte Esterase Urine RBC 12/01/18 12/01/18 12/01/18 07:37 03:33 03:33 WBC 12.7 H RDW 17.3 H MPV 10.9 H Gran % 84.7 H Lymph % (Auto) 8.0 L Gran # 10.7 H Lymph # (Auto) 1.0 L Seg Neutrophils % Lymphocytes % RBC Morphology Anisocytosis PT 22.5 H INR 2.0 H VBG Lactic Acid BUN 33 H Glucose Calcium 8.1 L Phosphorus Total Bilirubin GGT 48 H AST Lactate Dehydrogenase 364 H C-React Prot High Sens NT-Pro-B Natriuret Pep Ur Leukocyte Esterase Urine RBC 11/30/18 11/30/18 11/30/18 12:31 11:44 11:43 WBC RDW MPV Gran % Lymph % (Auto) Gran # Lymph # (Auto) Seg Neutrophils % Lymphocytes % RBC Morphology Anisocytosis 1+ A PT 24.5 H INR 2.2 H VBG Lactic Acid 2.8 H BUN Glucose Calcium Phosphorus Total Bilirubin GGT AST Lactate Dehydrogenase C-React Prot High Sens NT-Pro-B Natriuret Pep Ur Leukocyte Esterase Urine RBC 11/30/18 11/30/18 11/30/18 11:43 11:43 11:43 WBC 12.9 H RDW 17.3 H MPV 10.7 H Gran % 84.5 H Lymph % (Auto) 8.3 L Gran # 10.9 H Lymph # (Auto) 1.1 L Seg Neutrophils % Lymphocytes % RBC Morphology Anisocytosis PT INR VBG Lactic Acid BUN 29 H Glucose 146 H Calcium 8.2 L Phosphorus Total Bilirubin GGT AST 39 H Lactate Dehydrogenase C-React Prot High Sens 3.7 H NT-Pro-B Natriuret Pep 3401.0 H Ur Leukocyte Esterase Urine RBC 11/30/18 11:34 WBC RDW MPV Gran % Lymph % (Auto) Gran # Lymph # (Auto) Seg Neutrophils % Lymphocytes % RBC Morphology Anisocytosis PT INR VBG Lactic Acid BUN Glucose Calcium Phosphorus Total Bilirubin GGT AST Lactate Dehydrogenase C-React Prot High Sens NT-Pro-B Natriuret Pep Ur Leukocyte Esterase 25 A Urine RBC 4 H Meds: Medications Acetaminophen (Tylenol) 650 mg PO Q6HP PRN PRN Reason: PAIN/FEVER > 101 Albuterol/Ipratropium (Duoneb) 3 ml NEB Q4HP PRN PRN Reason: Shortness Of Breath Last Admin: 12/01/18 19:30 Dose: 3 ml Documented by: Bacitracin (Bacitracin Topical Oint) 1 dose TOPICAL BID [facility] Last Admin: 12/01/18 21:49 Dose: 1 dose Documented by: Docusate Sodium (Colace) 100 mg PO BID [facility] Last Admin: 12/01/18 21:48 Dose: 100 mg Documented by: Famotidine (Pepcid) 20 mg PO BID [facility] Last Admin: 12/01/18 21:49 Dose: 20 mg Documented by: Furosemide (Lasix) 40 mg PO BIDD [facility] Last Admin: 12/01/18 15:25 Dose: 40 mg Documented by: Potassium Chloride 40 meq/ (Dextrose) 520 mls @ 130 mls/hr IV ONCE PRN PRN Reason: Potassium < 3 Magnesium Sulfate (Magnesium Sulfate) 2 gm in 50 mls @ 50 mls/hr IV UD PRN PRN Reason: Magnesium </= 1.6 Lactobacillus Rhamnosus (Culturelle) 1 cap PO QDAY [facility] Last Admin: 12/01/18 08:19 Dose: 1 cap Documented by: Lactulose (Cephulac) 10 gm PO DAILYP PRN PRN Reason: Constipation Latanoprost (Xalatan Ophth Drops) 1 gtt OU HS [facility] Last Admin: 12/01/18 21:49 Dose: 1 gtt Documented by: Metoprolol Tartrate (Lopressor) 50 mg PO BID [facility] Last Admin: 12/01/18 21:48 Dose: 50 mg Documented by: Metoprolol Tartrate (Lopressor) 5 mg IV Q2HP PRN PRN Reason: HR>110 Last Admin: 12/01/18 00:32 Dose: 5 mg Documented by: Ondansetron HCl (Zofran) 4 mg IV Q4HP PRN PRN Reason: Nausea And Vomiting Mesalamine [Apriso] (0.375 Gm Cap) 4 dose PO QAM [facility] Last Admin: 12/01/18 08:20 Dose: 4 dose Documented by: Polyethylene Glycol (Miralax) 17 gm PO DAILYP PRN PRN Reason: Constipation Potassium Chloride (Kdur) 20 meq PO QAMCC [facility] Last Admin: 12/01/18 09:29 Dose: Not Given Documented by: Potassium Chloride (Kdur) 40 meq PO ONCE PRN PRN Reason: Potssium is 3-3.5 Potassium Chloride (Kdur) 40 meq PO ONCE PRN PRN Reason: Potassium < 3 Senna (Senokot) 2 tab PO HSP PRN PRN Reason: Constipation Sodium Chloride (Saline Flush) 10 ml IV Q8 [facility] Last Admin: 12/02/18 05:49 Dose: 10 ml Documented by: Tiotropium [place] (Spiriva) 18 mcg INH DAILY [facility] Last Admin: 12/01/18 08:21 Dose: 1 dose Documented by: Warfarin Sodium (Coumadin Per Pharmacy) 1 order PO DAILY@1400 [facility] Last Admin: 12/01/18 15:19 Dose: Not Given Documented by: Medical - PN: A/P - Time Spent With Patient Total time spent is greater than 50% in coordination of care (as documented) at patient's floor/unit and/or counseling patient: - Narrative A/P Narrative: A: *AFib w/RVR: -Is on warfarin and Toprol. Toprol recently decreased because of low blood pressures. Likely that her heart rate has recently been running higher than goal and in the setting of structural heart disease resulted in symptoms of dyspnea and edema. -echo EF good but has diastolic dysfxn, sever biatrial enlargement, sev MR, PAH *Dyspnea: Secondary to above, maintaining adequate oxygenation *Edema: Secondary to uncontrolled A. fib and underlying cardiac dysfunction *Leukocytosis, no bandemia: Reactive versus doubt infectious, no source of infection at this time, CXR/UA unremarkable, patient afebrile -PCT/CRP low, *Lactic acidosis: ?From hypoperfusion from primary assessment versus infectious -resolved *h/o systolic and likely diastolic CHF: Mild decompensation interplay with A. fib RVR -Is her cardiac fxn declining *Severe MR: *Memory loss *History of ulcerative colitis *GERD: *COPD (not on home oxygen): *Oral pharyngeal dysphagia: Has not been hearing to any particular dysphagia diet * P: -switched her Toprol to Lopressor in hopes of better rate control without dropping blood pressure too much -infectious w/u unremarkable -ST evaluation -Dysphagia diet - -pt/ot -ppx: Warfarin per pharmacy ?[facility] - PN: Qual - VTE Deep Vein Thrombosis/Pulmonary Embolism Present on Admission: No
[2018-12-02] MEDS: DOCUSATE SODIUM 100 MG CAPSULE PO SCH (09:07)
[2018-12-02] MEDS: FAMOTIDINE 20 MG TABLET PO SCH (09:07)
[2018-12-02] MEDS: METOPROLOL TARTRATE 50 MG TABLET PO SCH (09:07)
[2018-12-02] MEDS: POTASSIUM CHLORIDE 20 MEQ TABLET PO SCH (09:07)
[2018-12-02] MEDS: FUROSEMIDE 40 MG TABLET PO SCH (09:07)
[2018-12-02] MEDS: BACITRACIN TOPICAL OINT 15 GM TUBE TOPICAL SCH (09:07)
[2018-12-02] MEDS: MESALAMINE 0.375 GM PO SCH (09:07)
[2018-12-02] MEDS: LACTOBACILLUS 1 CAPSULE PO SCH (09:07)
[2018-12-02] MEDS: TIOTROPIUM BROMIDE 18 MCG INHALANT INH SCH (09:08)
[2018-12-02] MEDS: IPRATROPIUM/ALBUTEROL 3 ML AMPUL.NEB NEB PRN (11:11)
[2018-12-02] MEDS ORDERED: WARFARIN 2.5 MG TABLET PO ONE (14:00)
== END 2018-12-02 14:37 | disposition home health service (06) | DRG 309 ==
LOC: ED 11:08 → ICU 17:50
PROVIDERS: ADMIT Internal Medicine; ATTEND Internal Medicine

== ENCOUNTER 2018-12-20 10:02 | Inpatient (IN) ==
[2018-12-20] MEDS ORDERED: IOPAMIDOL 100 ML BOTTLE IV ONE (10:03)
[2018-12-20] MEDS ORDERED: 0.9 % SODIUM CHLORIDE 500 ML IV ONE (10:31)
--- NOTE | 2018-12-20 10:34 | Emergency Department Note ---
Weakness HPI - General Chief complaint: Weakness Stated complaint: Weakness, SOB, Fatigue Time Seen by Provider: 12/20/18 10:09 Source: patient, family Mode of arrival: wheelchair Limitations: no limitations - History of Present Illness HPI Narrative: 83-year-old female comes over here from clinic for increased weakness over the last 3 days. I discussed this with her primary care provider Dr. Bolden, who informed me that she had recently started on metolazone within the last 10 days or so. He is concerned about the possibility of azotemia with dehydration. Blood pressures have been running in the low normal range but she has been so weak she has not even been able to get out of her wheelchair. Decreased appetite and somnolence noted. No fever. 2 of her daughters are here; they note they have not been giving her her afternoon dose of furosemide because her blood pressures have been running too low. She is not on oxygen at home and she is normally able to toilet herself and walk etc. without assistance - Related Data Home Medications Medication Instructions Recorded Confirmed calcium carbonate 600 mg (1,500 1 tab PO QDAY 07/19/15 12/13/18 mg)-vitamin D3 400 unit tablet multivitamin tablet 1 tab PO QDAY tab 05/14/16 12/13/18 Mesalamine [Apriso] 4 cap PO QAM 02/10/17 12/13/18 Latanoprost Ophth Drops [Xalatan 1 gtt OU HS 08/04/17 12/13/18 Ophth Drops] Ranitidine HCl [Acid Marketing Segment Manager] 150 mg PO DAILY 08/04/17 12/13/18 Alendronate Sodium [Fosamax] 70 mg PO WEEKLY 09/02/18 12/13/18 Potassium Chloride [K-Tab ER] 20 meq PO QAC 09/02/18 12/13/18 Warfarin [Coumadin] 2.5 mg PO MOWEFRSA 09/02/18 12/13/18 Lactobacillus acidophilus 460 mg 460 mg PO QDAY 09/12/18 12/13/18 (20 billion cell) capsule Warfarin [Coumadin] 1.25 mg PO SUTUTH 11/30/18 12/13/18 Previous Rx's Medication Instructions Recorded albuterol sulfate 2.5 mg/3 mL 2.5 mg INHALATION Q4HP PRN #1080 ml 08/24/18 (0.083 %) solution for nebulization crisaborole 2 % topical ointment 1 applic TOPICAL BID #15 g 09/30/18 furosemide 40 mg tablet 40 mg PO BID #180 tab 09/30/18 tiotropium bromide 18 mcg capsule 18 mcg INHALATION DAILY #90 puff 11/04/18 with inhalation device Metoprolol Tartrate [Lopressor] 50 mg PO BID #60 tab 12/02/18 albuterol sulfate HFA 90 1 inh INHALATION Q4HP PRN #1 g 12/13/18 mcg/actuation aerosol inhaler metolazone 2.5 mg tablet 5 mg PO ONCE #30 tab 12/13/18 Allergies Allergy/AdvReac Type Severity Reaction Status Date / Time clindamycin AdvReac Mild Heartburn Verified 12/13/18 10:18 Review of Systems All systems ED: reviewed and negative except as stated. Past Medical History - Past Medical History [facility] Narrative: Family History (Last Reviewed 11/22/18 @ 10:36 by Yonatan Bolden MD) Mother Family history of malignant neoplasm of uterus Medical History (Last Reviewed 11/22/18 @ 11:04 by Yonatan Bolden MD) Mild cognitive impairment with memory loss (Acute) Dermatitis (Acute) Cellulitis of right hand (Acute) Encounter for wound re-check (Acute) Cellulitis (Acute) Cellulitis (Acute) UTI (urinary tract infection) (Acute) Sundowning (Acute) Hypotension (Chronic) Acute colitis (Acute) Ulcerative colitis (Acute) Diarrhea (Acute) Pneumonia (Acute) H/O: hysterectomy (Chronic) History of tobacco use (Chronic) Thyroid nodule (Chronic) Osteoporosis (Chronic) Mitral valve prolapse (Chronic) Mitral valve disease (Chronic) Hypertension (Chronic) Hyperparathyroidism (Chronic) Hormone replacement therapy (Chronic) Colon polyps (Chronic) Ulcerative colitis (Chronic) COPD (chronic obstructive pulmonary disease) (Chronic) Left lower lobe pneumonia (Acute) COPD exacerbation (Acute) Past Surgical History (Last Reviewed 11/22/18 @ 10:36 by Yonatan Bolden MD) History of surgical removal of skin lesion (Chronic) H/O colonoscopy (Chronic) H/O left breast biopsy (Chronic) Source: old records reviewed Medical history: Reports: atrial fibrillation, CHF, COPD, dementia, hypertension, osteoporosis, valvular heart disease Psychiatric history: Reports: no psych history VAULT MANAGER history: Reports: non-contributory Surgical history ED: Reports: non-contributory - Social History smoking status: Former smoker Alcohol use: Reports: None Drug use: Reports: none Physical Exam Somnolent but will open her eyes to voice. Able to give reasonable history and review of systems. Normocephalic atraumatic. Conjunctive are clear sclerae white anicteric. Pupils are equal round reactive to light. No nasal discharge or congestion. Oropharynx is pink and moist. Heart is irregularly irregular rhythm but tachycardic so that I am unable to sort out her murmur-she has 1 but I am unable to characterize it because she is so tachycardic. Abdomen is protuberant but nontender. No peritoneal signs or guarding. No pedal edema. However she does have prominent varicosities bilateral ankles. +2 radial pulse. Limitations: no limitations Course Vital Signs Temperature 98.4 F 12/20/18 10:03 Pulse Rate 93 H 12/20/18 10:03 Respiratory Rate 28 H 12/20/18 10:03 Blood Pressure 119/77 12/20/18 10:03 Pulse Oximetry (%) 93 12/20/18 10:03 Temperature 98.4 F 12/20/18 10:03 Pulse Rate 65 12/20/18 12:01 Respiratory Rate 25 H 12/20/18 12:49 Blood Pressure 116/89 12/20/18 12:49 Pulse Oximetry (%) 94 12/20/18 12:01 Weakness - Lab Data Result diagrams: 12/20/18 10:34 12/20/18 10:34 Lab Results 12/20/18 12/20/18 12/20/18 Range/Units 10:34 10:34 10:58 WBC 15.0 H (4.5-11.0) K/mcL RBC 5.89 H (4.00-5.20) M/mcL Hgb 16.6 H (12.0-15.0) g/dL Hct 51.6 H (36.0-48.0) % MCV 87.6 (80.0-100.0) fL MCH 28.2 (26.0-34.0) pg MCHC 32.2 (31.0-36.0) g/dL RDW 16.1 H (11.5-14.5) % Plt Count 246 (140-440) K/mcL MPV 10.8 H (7.4-10.4) fL Gran % 76.6 (38.0-78.0) % Lymph % (Auto) 13.2 L (15.5-49.0) % Hartley % (Auto) 10.0 (1.0-12.0) % Eos % (Auto) 0 (0.0-7.0) % Baso % (Auto) 0.2 (0.0-2.0) % Gran # 11.5 H (1.8-8.0) K/mcL Lymph # (Auto) 2.0 (1.5-4.8) K/mcL Hart[place] # (Auto) 1.5 H (0.1-0.9) K/mcL Eos # (Auto) 0 (0.0-0.7) K/mcL Baso # (Auto) 0 (0.0-0.3) K/mcL VBG Lactic Acid 1.8 (0.5-2.0) mmol/L Sodium 133 (133-145) mmol/L Potassium 2.8 L* (3.3-5.1) mmol/L Chloride 78 L (96-108) mmol/L Carbon Dioxide 38 H (22-30) mmol/L Anion Gap 17.0 H (8-16) BUN 37 H (8-23) mg/dl Creatinine 1.1 (0.6-1.1) mg/dl GFR Calculation 46 Glucose 147 H (70-105) mg/dL Calcium 10.6 H (8.6-10.4) mg/dl Magnesium 2.0 (1.6-2.5) mg/dL Total Bilirubin 2.2 H (0.0-1.0) mg/dL AST 26 (0-37) U/l ALT 21 (0-40) U/l Alkaline Phosphatase 104 (39-117) U/L Total Protein 7.9 (5.9-8.4) gm/dL Albumin 4.2 (3.2-5.2) gm/dL Globulin 3.7 (2.2-3.7) gm/dL Albumin/Globulin Ratio 1.1 (1.0-2.3) Procalcitonin (<0.10) ng/mL 12/20/18 Range/Units 10:58 WBC (4.5-11.0) K/mcL RBC (4.00-5.20) M/mcL Hgb (12.0-15.0) g/dL Hct (36.0-48.0) % MCV (80.0-100.0) fL MCH (26.0-34.0) pg MCHC (31.0-36.0) g/dL RDW (11.5-14.5) % Plt Count (140-440) K/mcL MPV (7.4-10.4) fL Gran % (38.0-78.0) % Lymph % (Auto) (15.5-49.0) % Hartley % (Auto) (1.0-12.0) % Eos % (Auto) (0.0-7.0) % Baso % (Auto) (0.0-2.0) % Gran # (1.8-8.0) K/mcL Lymph # (Auto) (1.5-4.8) K/mcL Hartley # (Auto) (0.1-0.9) K/mcL Eos # (Auto) (0.0-0.7) K/mcL Baso # (Auto) (0.0-0.3) K/mcL VBG Lactic Acid (0.5-2.0) mmol/L Sodium (133-145) mmol/L Potassium (3.3-5.1) mmol/L Chloride (96-108) mmol/L Carbon Dioxide (22-30) mmol/L Anion Gap (8-16) BUN (8-23) mg/dl Creatinine (0.6-1.1) mg/dl GFR Calculation Glucose (70-105) mg/dL Calcium (8.6-10.4) mg/dl Magnesium (1.6-2.5) mg/dL Total Bilirubin (0.0-1.0) mg/dL AST (0-37) U/l ALT (0-40) U/l Alkaline Phosphatase (39-117) U/L Total Protein (5.9-8.4) gm/dL Albumin (3.2-5.2) gm/dL Globulin (2.2-3.7) gm/dL Albumin/Globulin Ratio (1.0-2.3) Procalcitonin 0.17 (<0.10) ng/mL - Radiology Data Radiology results reviewed: Yes I reviewed the patient's radiology results. Chest x-ray again shows moderate cardiomegaly and stigmata CHF. Possible left lower lobe pneumonia Because of the possibility of left lower lobe pneumonia that we could not see well, and her weakness such that she could not sit up for an upright x-ray, we did a CT scan of her lungs which showed no evidence of pulmonary embolism. She does however have some pulmonary hypertension and COPD. No evidence of florid CHF or effusions Ultrasound of the gallbladder was ordered because she had elevated bilirubin which is new-she has a history of cholelithiasis which is again confirmed. She has not had this taken out secondary to surgical risk. Common bile duct is not dilated. No evidence of acute cholecystitis - EKG Data EKG attestation: Yes I reviewed and interpreted this EKG. EKG results narrative: EKG shows rate of 146 A. fib with RVR left axis deviation. Likely meets criteria for LVH. I do not see significant ST elevation Disposition Pt seen by GAMING FLOOR SUPERVISOR/PA only: No Clinical Impression: Hypokalemia, Hyperbilirubinemia, Atrial fibrillation with RVR, Weakness CHF (congestive heart failure), NYHA class IV Qualifiers: Congestive heart failure type: unspecified Qualified Code(s): I50.9 - Heart failure, unspecified COPD (chronic obstructive pulmonary disease) Qualifiers: COPD type: chronic bronchitis Chronic bronchitis type: unspecified Qualified Code(s): J42 - Unspecified chronic bronchitis Summary: Concern for azotemia versus infection versus dehydration. Laboratory chest x- ray EKG ordered with results above. Start 500 mL normal saline bolus of 150 mL/h. Get blood cultures start Zosyn for possible pneumonia CT scan is ordered to get a better look at her left lower lobe. Gallbladder ultrasound ordered for elevated bilirubin. K rider started for hypokalemia. Start metoprolol for the A. fib with RVR. Nasal cannula oxygen for intermittent mild hypoxia Gallbladder ultrasound was negative except for cholelithiasis but common bile duct was okay. 1 dose of metoprolol 5 mg IV brought her heart rate under control and blood pressure remained stable. CT scan with contrast of the chest does not show evidence of pneumonia or CHF but chronic COPD noted with pulmonary hypertension. We will Place Lin secondary to weakness and inability to get up to urinate-get a cath specimen for evaluation. Continue gentle hydration. Urine was dark and sent for evaluation I discussed the case with Dr. Abdulaziz Laboy, hospitalist, who agreed to accept the patient for further evaluation and care in the hospital. Disposition: Xfer As Inpt ([facility]) Condition: Fair Referrals: Yonatan Bolden MD [Primary Care Provider] -
--- NOTE | 2018-12-20 10:38 | XRay Report ---
CLINICAL INFORMATION: weakness COMPARISON: 11/30/2018 FINDINGS: Moderate cardiomegaly is unchanged. Mediastinum is unremarkable. Upper lobe pulmonary vessels show mild redistribution. No edema. Moderate left basilar infiltrate and small right basilar atelectasis noted. Small left pleural effusion appreciated IMPRESSION: Mild CHF or volume overload Moderate left basilar infiltrate or atelectasis with small effusion. Suggest two-view upright chest x-ray for better evaluation. Minor right basilar atelectasis Interpreted and Authenticated by: Ramsey Dao 12/20/18
[2018-12-20] MEDS ORDERED: PIPERACILLIN SODIUM/TAZOBACTAM 3.375 GM in DEXTROSE 5% IN WATER 50 ML IV ONE (10:57)
[2018-12-20 11:03] LABS: Basophils # (Auto) 0 K/mcL (0.0-0.3); Basophils % (Auto) 0.2 % (0.0-2.0); Eosinophils # (Auto) 0 K/mcL (0.0-0.7); Eosinophils % (Auto) 0 % (0.0-7.0); Granulocytes % (Auto) 76.6 % (38.0-78.0); Lymphocytes % (Auto) 13.2 % (15.5-49.0); Mean Cell Volume 87.6 fL (80.0-100.0); Mean Corpuscular HGB Conc 32.2 g/dL (31.0-36.0); Monocytes # (Auto) 1.5 K/mcL (0.1-0.9); Platelet Count 246 K/mcL (140-440); RBC 5.89 M/mcL (4.00-5.20); Red Cell Distribution Width 16.1 % (11.5-14.5)
[2018-12-20 11:35] LABS: ALT/SGPT 21 U/l (0-40); Albumin 4.2 gm/dL (3.2-5.2); Albumin/Globulin Ratio 1.1 (1.0-2.3); Alkaline Phosphatase 104 U/L (39-117); Blood Urea Nitrogen 37 mg/dl (8-23)
[2018-12-20] MEDS ORDERED: POTASSIUM CHLORIDE 20 MEQ in DEXTROSE 5% IN WATER 250 ML IV ONE ×2 (11:36→15:27)
--- NOTE | 2018-12-20 12:41 | Ultrasound Report ---
CLINICAL INFORMATION: elevated bilirubin COMPARISON: None. FINDINGS: Liver is normal in size and echotexture without focal lesion. Multiple stones in the gallbladder. The gallbladder wall is normal thickness without focal tenderness. Common bile duct is normal at 6 mm. Pancreas is unremarkable. No free fluid IMPRESSION: Cholelithiasis. Gallbladder, bile ducts, liver and pancreas are unremarkable Interpreted and Authenticated by: Ramsey Dao 12/20/18
[2018-12-20] MEDS: METOPROLOL TARTRATE 5 MG/5 ML VIAL IV SCH ×3 (12:50→17:21)
--- NOTE | 2018-12-20 13:20 | Cat Scan Report ---
CLINICAL INFORMATION: Left lower lobe pneumonia COMPARISON: 02/21/2017 TECHNIQUE: 80 cc of Isovue-300 were injected intravenously, and 25 seconds later, 0.625 mm helical slices were obtained from the lung apices through the bases. Following reconstruction, 2.5 mm sagittal, coronal and axial reformations were processed and reviewed at lung, mediastinal and bone windows. 7 mm axial MIPS were also obtained to optimize pulmonary nodule detection. The exam was performed using radiation dose optimization techniques including, but not limited to, automated exposure control, adjustment of the mA and/or kV according to patient size and use of iterative reconstruction technique. FINDINGS: Pulmonary parenchymal windows show moderate centrilobular emphysema. Chronic bronchitis (dilatation/wall thickening of the bronchi and elevated lung volumes) and multiple bullae in the apical regions. There is scattered scarring and/or atelectasis in both lower and right middle lobes. There is mild compressive atelectasis of the anterior basilar segment of the left lower lobe due to cardiac enlargement. No definite infiltrates or effusions. Mediastinal windows show marked cardiac enlargement with scattered calcific atherosclerotic plaque present in the coronary arteries. There is calcification within the mitral valve. The central pulmonary arteries are moderately enlarged: main pulmonary diameter is 3.2 cm. This is suggestive of pulmonary hypertension related to COPD. There is no adenopathy in the mediastinal hilar or axillary regions. Thoracic aorta is tortuous, but normal in diameter. Esophagus unremarkable. Thyroid is unremarkable. Bone windows show mild chronic wedging of the midthoracic vertebral bodies which is stable. IMPRESSION: 1. No evidence of pulmonary embolus. Moderate enlargement of the central pulmonary arteries suggestive of pulmonary hypertension related to COPD 2. Moderate centrilobular emphysema changes with scattered scarring and subsegmental atelectasis in the both lower and right middle lobes. No vladislav infiltrates. No effusions. 3. Marked cardiomegaly - stable. Interpreted and Authenticated by: Ramsey Dao 12/20/18
[2018-12-20] MEDS ORDERED: methylPREDNISolone SOD SUCC 125 MG/2 ML VIAL IV ONE (13:29)
[2018-12-20 14:38] LABS: Appearance,Urine CLEAR; Bacteria,Urine FEW /hpf (0); Bilirubin,Urine NEG (NEG); Color,Urine YELLOW; Glucose,Urine (UA) NORM (NEG); Leukocyte Esterase,Urine TRACE /uL (NEG); Mucus,Urine FEW /hpf (0); Protein,Urine NEG (NEG); Urine Blood 1+ (SMALL) mg/dL (<0.03); Urine Hyaline Cast 4 /lpf (0-2); Urine RBC 12 /hpf (0-1); Urine Squamous Epithelial Cell 3 /hpf (0-4); Urine WBC 8 /hpf (0-4); Urobilinogen,Urine NORM (NEG)
--- NOTE | 2018-12-20 15:03 | Internal Med History&Physical ---
Medical - H&P: HPI Patient information: Note initiated : 12/20/18 at 2:56 pm Service Date, if different from initiated Date: [] Patient: Anne Jackson a 83 y/o F admitted on for Weakness, SOB, Fatigue. Chief Complaint: [] History of present illness: Ms. Jackson is a 83 year old F Who presents the ED with 3-4 days of increased weakness and lethargy, decreased appetite. Her daughters found her so weak this morning sitting in her chair that she could not get up and ambulate without assistance from them in a walker. She typically is able to ambulate by herself without assist device. She did start back on her metolazone about a week ago. Her urine has been really dark per the family. She denies any fevers or chills no new cough she has her chronic cough. Does not feel particularly short of breath but her daughters felt that she looked labored past 24 hours. Daughter say her heart rate typically runs in the 90s at home and her blood pressure typically runs low 100s this yesterday was 90/70. In the ED she was evaluated. To be dehydrated, no edema chest x-ray was okay. She had a leukocytosis but was afebrile her heart rate was 140s A. fib RVR when she came in she was given a dose of Lopressor which brought her back down to low 100 lactic acid and pro-calcitonin were okay. Been gentle IV fluids and potassium ED physician discussed the case with her primary care provider Dr. Bolden. I di scussed her case with her instrument repair supervisor, Dr. Vázquez. I spent time with her and her daughters discussing her medical conditions specifically her heart which includes at least moderate pulmonary artery h ypertension, severe mitral regurgitation which she is not a candidate for surgery because of her other comorbidities (evaluated in [place] in the past for this), and her severe diastolic dysfunction -overall which makes it extremely difficult for her heart to provide any adequate cardiac output and she is always in a tenuous state with her fluid balance. Review of Systems: Pertinent positives as above. Denies headache/fever/chills/nausea/vomiting/chest or abdominal pain//diarrhea. Remaining 10 point review of systems reviewed negative Medical - H&P: PMH Medical history: Medical History (Last Reviewed 11/22/18 @ 11:04 by Yonatan Bolden MD) Mild cognitive impairment with memory loss (Acute) Dermatitis (Acute) Cellulitis of right hand (Acute) Encounter for wound re-check (Acute) Cellulitis (Acute) Cellulitis (Acute) UTI (urinary tract infection) (Acute) Sundowning (Acute) Hypotension (Chronic) Acute colitis (Acute) Ulcerative colitis (Acute) Diarrhea (Acute) Pneumonia (Acute) H/O: hysterectomy (Chronic) History of tobacco use (Chronic) Thyroid nodule (Chronic) Osteoporosis (Chronic) Mitral valve prolapse (Chronic) Mitral valve disease (Chronic) Hypertension (Chronic) Hyperparathyroidism (Chronic) Hormone replacement therapy (Chronic) Colon polyps (Chronic) Ulcerative colitis (Chronic) COPD (chronic obstructive pulmonary disease) (Chronic) Left lower lobe pneumonia (Acute) COPD exacerbation (Acute) Past Surgical History (Last Reviewed 11/22/18 @ 10:36 by Yonatan Bolden MD) History of surgical removal of skin lesion (Chronic) H/O colonoscopy (Chronic) H/O left breast biopsy (Chronic) Family History (Last Reviewed 11/22/18 @ 10:36 by Yonatan Bolden MD) Mother Family history of malignant neoplasm of uterus Father with stroke Social History (Last Updated 12/13/18 @ 10:47 by Yonatan Bolden MD) Smoked 20 years ago with was a heavy smoker Drinks alcohol rarely Typically does not use a cane or walker to ambulate Lives at home with daughters Medical - H&P: Meds Home Medications Medication Instructions Recorded Confirmed Type calcium carbonate 600 mg (1,500 1 tab PO QDAY 07/19/15 12/13/18 History mg)-vitamin D3 400 unit tablet multivitamin tablet 1 tab PO QDAY tab 05/14/16 12/13/18 History Mesalamine [Apriso] 4 cap PO QAM 02/10/17 12/13/18 History Latanoprost Ophth Drops [Xalatan 1 gtt OU HS 08/04/17 12/13/18 History Ophth Drops] Ranitidine HCl [Acid Clerical Methods Analyst] 150 mg PO DAILY 08/04/17 12/13/18 History albuterol sulfate 2.5 mg/3 mL 2.5 mg INHALATION Q4HP PRN #1080 ml 08/24/18 12/13/18 Rx (0.083 %) solution for nebulization Alendronate Sodium [Fosamax] 70 mg PO WEEKLY 09/02/18 12/13/18 History Potassium Chloride [K-Tab ER] 20 meq PO QAMCC 09/02/18 12/13/18 History Warfarin [Coumadin] 2.5 mg PO MOWEFRSA 09/02/18 12/13/18 History Lactobacillus acidophilus 460 mg 460 mg PO QDAY 09/12/18 12/13/18 History (20 billion cell) capsule crisaborole 2 % topical ointment 1 applic TOPICAL BID #15 g 09/30/18 12/13/18 Rx furosemide 40 mg tablet 40 mg PO BID #180 tab 09/30/18 12/13/18 Rx tiotropium bromide 18 mcg capsule 18 mcg INHALATION DAILY #90 puff 11/04/18 12/13/18 Rx with inhalation device Warfarin [Coumadin] 1.25 mg PO SUTUTH 11/30/18 12/13/18 History Metoprolol Tartrate [Lopressor] 50 mg PO BID #60 tab 12/02/18 12/13/18 Rx albuterol sulfate HFA 90 1 inh INHALATION Q4HP PRN #1 g 12/13/18 12/13/18 Rx mcg/actuation aerosol inhaler metolazone 2.5 mg tablet 5 mg PO ONCE #30 tab 12/13/18 12/13/18 Rx Allergies Allergy/AdvReac Type Severity Reaction Status Date / Time clindamycin AdvReac Mild Heartburn Verified 12/13/18 10:18 Medical - H&P: Exam - Constitutional Vitals: Temp Pulse Resp BP Pulse Ox 98.4 F 114 H 30 H 116/69 95 12/20/18 10:03 12/20/18 14:16 12/20/18 14:16 12/20/18 14:16 12/20/18 14:16 Exam: General: Alert, Awake, No acute Distress Eyes/N/T: EOMI, PEERL, DMM Head/Neck: neck supple, normocephalic atraumatic CV: irreg, mild tachy, normal s1/s2 Pulm: diminished, no rales or wheezing Abd: soft, nontender, +BS x4 Ext: no clubbing/cyanosis, no LE edema Neuro: Alert, no focal deficits, moves all extremities, CN 2-12 grossly intact, symmetrical strength b/l upper/lower, sensations intact b/l upper/lower Skin: warm/dry Medical - H&P: Reslt - Labs CBC & Chem 7: 12/20/18 10:34 12/20/18 10:34 Labs: Short CBC 12/20/18 Range/Units 10:34 WBC 15.0 H (4.5-11.0) K/mcL Hgb 16.6 H (12.0-15.0) g/dL Hct 51.6 H (36.0-48.0) % Plt Count 246 (140-440) K/mcL BMP 12/20/18 10:34 Sodium 133 Potassium 2.8 L* Chloride 78 L Carbon Dioxide 38 H BUN 37 H Creatinine 1.1 Glucose 147 H Calcium 10.6 H Liver Function 12/20/18 Range/Units 10:34 Total Bilirubin 2.2 H (0.0-1.0) mg/dL AST 26 (0-37) U/l ALT 21 (0-40) U/l Alkaline Phosphatase 104 (39-117) U/L Albumin 4.2 (3.2-5.2) gm/dL Urine 12/20/18 Range/Units 13:28 Urine Color Yellow Urine Appearance Clear Urine pH 6.0 (5.0-9.0) Ur Specific [place] 1.020 (1.000-1.035) Urine Protein Neg (NEG) mg/dL Urine Glucose (UA) Norm (NEG) mg/dL - Impressions CT chest no acute disease did show emphysema and atelectasis Abdominal ultrasound showed cholelithiasis but no cholecystitis and common bile duct diameter within normal limits Medical - H&P: A/P - Narrative A/P Narrative: A: *AFib w/RVR: *Volume Depletion: 2/2 diuretics *Hypokalemia: Secondary to diuretics *Generalized weakness/deconditioning: *h/o Diastolic(III) CHF: EF 55% on recent echo *PAH, at least Moderate: *MR, Severe: Not a surgical candidate per her consult in [place], given her age and comorbidities *COPD (not on home O2): *Leukocytosis: Reactive versus infectious. No obvious source at this time pending urinalysis -afebrile, PCT low *Memory loss: *Oral pharyngeal dysphasia: *Ulcerative colitis *GERD *Goals of care: poor long-term prognosis given severity of cardiac impairment and other comorbidities P: -Gentle IV fluids -Continue Lopressor twice daily -Pending urinalysis -Replete electrolytes -Discussed case with Dr. Vázquez, no immediate recommendations other than AV jayden blockers and optimize fluid balance -poor prognosis - - -pt/ot -ppx: warfarin per pharm
[2018-12-20] MEDS ORDERED: 0.9 % SODIUM CHLORIDE 500 ML IV SCH (15:27)
[2018-12-20] MEDS ORDERED: MAGNESIUM SULFATE 2 GM/50 ML BAG IV PRN (15:27)
[2018-12-20] MEDS ORDERED: POTASSIUM CHLORIDE 20 MEQ TABLET PO PRN ×2 (15:27)
[2018-12-20] MEDS ORDERED: ONDANSETRON 4 MG/2 ML VIAL IV PRN (15:27)
[2018-12-20] MEDS ORDERED: PROMETHAZINE 25 MG TABLET PO PRN (15:27)
[2018-12-20] MEDS ORDERED: POLYETHYLENE GLYCOL 3350 17 GM PACKET PO PRN (15:27)
[2018-12-20] MEDS ORDERED: LACTULOSE 20 GM/30 ML ORAL.SOL PO PRN (15:27)
[2018-12-20] MEDS ORDERED: POTASSIUM CHLORIDE 20 MEQ PACKET PO ONE (15:27)
[2018-12-20] MEDS ORDERED: POTASSIUM CHLORIDE 40 MEQ in DEXTROSE 5% IN WATER 500 ML IV PRN (15:27)
[2018-12-20] MEDS ORDERED: WARFARIN 2 MG TABLET PO SCH (16:15)
[2018-12-20] MEDS: ACETAMINOPHEN 325 MG TABLET PO PRN (16:35)
[2018-12-20] MEDS: IPRATROPIUM/ALBUTEROL 3 ML AMPUL.NEB NEB PRN (16:50)
[2018-12-20] MEDS: METOPROLOL TARTRATE 5 MG/5 ML VIAL IV PRN (17:58)
[2018-12-20] MEDS ORDERED: WARFARIN 2.5 MG TABLET PO ONE (18:00)
[2018-12-20] MEDS: DOCUSATE SODIUM 100 MG CAPSULE PO SCH (20:47)
[2018-12-20] MEDS: METOPROLOL TARTRATE 50 MG TABLET PO SCH (20:47)
[2018-12-20] MEDS: LATANOPROST OPHTH DROPS 2.5ML BOTTLE OU SCH (20:47)
[2018-12-20] MEDS: FAMOTIDINE 20 MG TABLET PO SCH (20:47)
[2018-12-20] MEDS: CRISABOROLE TOPICAL SCH (20:48)
[2018-12-20] MEDS: 0.9 % SODIUM CHLORIDE 10 ML SYRINGE IV SCH (20:49)
[2018-12-20] MEDS ORDERED: SENNOSIDES 1 TABLET PO PRN (21:00)
[2018-12-21] MEDS: METOPROLOL TARTRATE 5 MG/5 ML VIAL IV PRN ×2 (00:38→02:38)
[2018-12-21 01:00] LABS: Anisocytosis 1+ (NONE SEEN); Band Neutrophils % 3 % (0-10); Lymphocytes % 18 % (15-49); Monocytes % (Manual) 5 % (1-12); Platelet Estimate NORMAL (NORMAL); RBC Morphology ABNORM (NORMAL); Segmented Neutrophils % 74 % (38-78)
[2018-12-21] MEDS: 0.9 % SODIUM CHLORIDE 10 ML SYRINGE IV SCH ×3 (05:43→21:53)
[2018-12-21 05:51] LABS: Basophils # (Auto) 0 K/mcL (0.0-0.3); Basophils % (Auto) 0.4 % (0.0-2.0); Eosinophils # (Auto) 0 K/mcL (0.0-0.7); Eosinophils % (Auto) 0 % (0.0-7.0); Granulocytes % (Auto) 91.1 % (38.0-78.0); Lymphocytes # (Auto) 0.7 K/mcL (1.5-4.8); Lymphocytes % (Auto) 5.5 % (15.5-49.0); Mean Cell Volume 89.3 fL (80.0-100.0); Mean Corpuscular HGB Conc 31.4 g/dL (31.0-36.0); Monocytes # (Auto) 0.4 K/mcL (0.1-0.9); Platelet Count 224 K/mcL (140-440); RBC 5.05 M/mcL (4.00-5.20); Red Cell Distribution Width 16.3 % (11.5-14.5)
[2018-12-21 06:04] LABS: ALT/SGPT 19 U/l (0-40); Albumin 3.4 gm/dL (3.2-5.2); Albumin/Globulin Ratio 1.1 (1.0-2.3); Alkaline Phosphatase 82 U/L (39-117); Bilirubin,Direct 0.3 mg/dL (0.0-0.3); Blood Urea Nitrogen 32 mg/dl (8-23); Gamma Glutamyl Transpeptidase 38 U/L (5-36); Uric Acid 9.6 mg/dL (2.5-8.0)
[2018-12-21] MEDS ORDERED: AMIODARONE 150 MG in DEXTROSE 5% IN WATER 50 ML IV ONE (08:19)
[2018-12-21] MEDS ORDERED: 0.9 % SODIUM CHLORIDE 500 ML IV ONE ×2 (08:19→17:47)
--- NOTE | 2018-12-21 08:21 | Internal Med Progress Note ---
Medical - PN: Subj Patient information: Note initiated : 12/21/18 at 8:15 am Service Date, if different from initiated Date: [] Patient: Anne Jackson a 83 y/o F admitted on 12/20/18 for Weakness, SOB, Fatigue. Chief Complaint: [] Interval history: Ms. Jackson is a 83 year old F Who presents the ED with 3-4 days of increased weakness and lethargy, decreased appetite. Her daughters found her so weak this morning sitting in her chair that she could not get up and ambulate without assistance from them in a walker. She typically is able to ambulate by herself without assist device. She did start back on her metolazone about a week ago. Her urine has been really dark per the family. She denies any fevers or chills no new cough she has her chronic cough. Does not feel particularly short of breath but her daughters felt that she looked labored past 24 hours. Daughter say her heart rate typically runs in the 90s at home and her blood pressure typically runs low 100s this yesterday was 90/70. In the ED she was evaluated. To be dehydrated, no edema chest x-ray was okay. She had a leukocytosis but was afebrile her heart rate was 140s A. fib RVR when she came in she was given a dose of Lopressor which brought her back down to low 100 lactic acid and pro-calcitonin were okay. Been gentle IV fluids and potassium ED physician discussed the case with her primary care provider Dr. Bolden. I dis cussed her case with her director business intelligence, Dr. Vázquez. I spent time with her and her daughters discussing her medical conditions specifically her heart which includes at least moderate pulmonary artery hy pertension, severe mitral regurgitation which she is not a candidate for surgery because of her other comorbidities (evaluated in [place] in the past for this), and her severe diastolic dysfunction -overall which makes it extremely difficult for her heart to provide any adequate cardiac output and she is always in a tenuous state with her fluid balance. 12/21 Poor sleep last night states she is tired but otherwise has no complaints. Denies cough, denies shortness of breath at rest. Heart rate 108 when I was in there. She is sitting up eating breakfast. Review of Systems: denies headache/fever/chills/nausea/vomiting/chest or abdominal pain/diarrhea. Otherwise see above. - Constitutional Vitals: Vital Signs Temp Pulse Resp BP Pulse Ox 96.8 F L 119 H 21 114/81 94 12/21/18 04:01 12/21/18 07:29 12/21/18 07:29 12/21/18 07:04 12/21/18 07:29 Period Temp Pulse Resp BP Sys/Arellano Pulse Ox Last 24 Hr 96.8 F-98.7 F 35-141 19-37 90-141/68-96 91-100 Intake and Output 12/20/18 12/21/18 12/21/18 21:59 05:59 13:59 Intake Total 2000 Output Total 625 650 Balance 1375 -650 Weight 60.419 kg Intake & Output: Intake & Output 12/20/18 12/21/18 12/21/18 21:59 05:59 13:59 Intake Total 2000 Output Total 625 650 Balance 1375 -650 Weight 60.419 kg Intake: IV 1520 Potassium Chloride 20 Meq In 260 Dextrose 5% in Water 250 ml @ 130 mls/hr IV ONCE ONE Rx#: [id number] Oral 480 Output: Urine Catheter Amount 625 Void Amount 650 Other: Meal Dinner Percent of Meal Consumed 50% Feeding Ability Assist with Tray Set Up Urine Appearance Cloudy Lin Clear Urine Color Dark Yellow Lin Dark Yellow [place] Urine Odor Normal Lin Normal Exam: General: Alert, Awake, No acute Distress Eyes/N/T: EOMI, Head/Neck: neck supple, CV: irreg, mild tachy, Pulm: diminished, no rales or wheezing Abd: soft, nontender, +BS x4 Ext: no clubbing/cyanosis, no LE edema Neuro: Alert, no focal deficits, moves all extremities, Skin: warm/dry Medical - PN: Obj Da - Labs CBC & Chem 7: 12/21/18 04:00 12/21/18 04:00 Labs: Abnormal Lab Results 12/21/18 12/21/18 12/21/18 04:00 04:00 04:00 WBC 12.9 H RBC Hgb Hct RDW 16.3 H MPV 11.2 H Gran % 91.1 H Lymph % (Auto) 5.5 L Gran # 11.7 H Lymph # (Auto) 0.7 L [place] # (Auto) RBC Morphology Polychromasia Anisocytosis PT 35.1 H INR 3.6 H Potassium Chloride 88 L Carbon Dioxide Anion Gap BUN 32 H Glucose 155 H Uric Acid 9.6 H Calcium Total Bilirubin 1.6 H GGT 38 H Lactate Dehydrogenase 267 H NT-Pro-B Natriuret Pep Urine RBC Urine WBC Urine Bacteria Hyaline Casts 12/20/18 12/20/18 12/20/18 22:20 13:28 10:58 WBC RBC Hgb Hct RDW MPV Gran % Lymph % (Auto) Gran # Lymph # (Auto) [place] # (Auto) RBC Morphology Abnorm A Polychromasia 1+ A Anisocytosis 1+ A PT 27.3 H INR 2.6 H Potassium Chloride Carbon Dioxide Anion Gap BUN Glucose Uric Acid Calcium Total Bilirubin GGT Lactate Dehydrogenase NT-Pro-B Natriuret Pep Urine RBC 12 H Urine WBC 8 H Urine Bacteria Few A Hyaline Casts 4 H 12/20/18 12/20/18 12/20/18 10:58 10:34 10:34 WBC 15.0 H RBC 5.89 H Hgb 16.6 H Hct 51.6 H RDW 16.1 H MPV 10.8 H Gran % Lymph % (Auto) 13.2 L Gran # 11.5 H Lymph # (Auto) [place] # (Auto) 1.5 H RBC Morphology Polychromasia Anisocytosis PT INR Potassium 2.8 L* Chloride 78 L Carbon Dioxide 38 H Anion Gap 17.0 H BUN 37 H Glucose 147 H Uric Acid Calcium 10.6 H Total Bilirubin 2.2 H GGT Lactate Dehydrogenase NT-Pro-B Natriuret Pep 1837.0 H Urine RBC Urine WBC Urine Bacteria Hyaline Casts Meds: Medications Acetaminophen (Tylenol) 650 mg PO Q6HP PRN PRN Reason: PAIN/FEVER > 101 Last Admin: 12/20/18 16:35 Dose: 650 mg Documented by: Albuterol/Ipratropium (Duoneb) 3 ml NEB Q4HP PRN PRN Reason: Shortness Of Breath Last Admin: 12/20/18 16:50 Dose: 3 ml Documented by: Docusate Sodium (Colace) 100 mg PO BID [facility] Last Admin: 12/20/18 20:47 Dose: 100 mg Documented by: Famotidine (Pepcid) 20 mg PO BID [facility] Last Admin: 12/20/18 20:47 Dose: 20 mg Documented by: Potassium Chloride 40 meq/ (Dextrose) 520 mls @ 130 mls/hr IV UD PRN PRN Reason: Potassium < 3 Magnesium Sulfate (Magnesium Sulfate) 2 gm in 50 mls @ 50 mls/hr IV UD PRN PRN Reason: Magnesium </= 1.6 Lactobacillus Rhamnosus (Culturelle) 1 cap PO DAILY [facility] Lactulose (Cephulac) 10 gm PO DAILYP PRN PRN Reason: Constipation Latanoprost (Xalatan Ophth Drops) 1 gtt OU HS [facility] Last Admin: 12/20/18 20:47 Dose: 1 gtt Documented by: Metoprolol Tartrate (Lopressor) 50 mg PO BID [facility] Last Admin: 12/20/18 20:47 Dose: 50 mg Documented by: Metoprolol Tartrate (Lopressor) 5 mg IV Q2HP PRN PRN Reason: Tachyarrhythmias Last Admin: 12/21/18 02:38 Dose: 5 mg Documented by: Mupirocin (Bactroban Oint 2%) 1 dose NARES BID [facility] Ondansetron HCl (Zofran) 4 mg IV Q4HP PRN PRN Reason: Nausea And Vomiting Crisaborole [Eucrisa ] 2% Topical Ointment 1 dose TOPICAL BID [facility] Last Admin: 12/20/18 20:48 Dose: Not Given Documented by: Mesalamine 0.375 Gm (Er Capsule) 1 dose PO DAILY [facility] Polyethylene Glycol (Miralax) 17 gm PO DAILYP PRN PRN Reason: Constipation Potassium Chloride (Kdur) 40 meq PO UD PRN PRN Reason: Potssium is 3-3.5 Potassium Chloride (Kdur) 40 meq PO UD PRN PRN Reason: Potassium < 3 Potassium Chloride (Kdur) 20 meq PO QAMCC [facility] Promethazine HCl (Phenergan) 0 mg PO Q6HP PRN PRN Reason: Nausea And Vomiting Senna (Senokot) 2 tab PO HSP PRN PRN Reason: Constipation Sodium Chloride (Saline Flush) 10 ml IV Q8 [facility] Last Admin: 12/21/18 05:43 Dose: 10 ml Documented by: Tiotropium [place] (Spiriva) 18 mcg INH DAILY [facility] Warfarin Sodium (Coumadin Per Pharmacy) 1 order PO UD [facility] Medical - PN: A/P - Time Spent With Patient Total time spent is greater than 50% in coordination of care (as documented) at patient's floor/unit and/or counseling patient: - Narrative A/P Narrative: A: *AFib w/RVR: rate~100 *Volume Depletion: 2/2 diuretics. Improving *Hypokalemia: Secondary to diuretics, improved *Generalized weakness/deconditioning: *h/o Diastolic(III) CHF: EF 55% on recent echo *PAH, at least Moderate: *MR, Severe: Not a surgical candidate per her consult in [place], given her age and comorbidities *COPD (not on home O2): *Leukocytosis: Reactive versus infectious. CXR/UA unrevealing -no bandemia, afebrile, PCT low *Memory loss: *Oral pharyngeal dysphasia: *Ulcerative colitis *GERD: *Goals of care: poor long-term prognosis given severity of cardiac impairment and other comorbidities P: -Gentle IV fluids -Continue Lopressor twice daily (likely increase) -Replete electrolytes -Discussed case with Dr. Vázquez, no immediate recommendations other than AV jayden blockers and optimize fluid balance -poor prognosis -diuretics held today -pt/ot/ST -Hospice eval -ppx: warfarin per pharm DNR Medical - PN: Qual - VTE Deep Vein Thrombosis/Pulmonary Embolism Present on Admission: No
[2018-12-21] MEDS ORDERED: MUPIROCIN OINT 2% 22GM NARES SCH (09:00)
[2018-12-21] MEDS: MUPIROCIN OINT 2% 22GM NARES SCH ×2 (09:32→20:06)
[2018-12-21] MEDS: ACETAMINOPHEN 325 MG TABLET PO PRN (09:32)
[2018-12-21] MEDS: TIOTROPIUM BROMIDE 18 MCG INHALANT INH SCH (09:32)
[2018-12-21] MEDS: MESALAMINE 0.375 GM PO SCH (09:32)
[2018-12-21] MEDS: DOCUSATE SODIUM 100 MG CAPSULE PO SCH ×2 (09:33→20:06)
[2018-12-21] MEDS: FAMOTIDINE 20 MG TABLET PO SCH ×2 (09:33→20:05)
[2018-12-21] MEDS: POTASSIUM CHLORIDE 20 MEQ TABLET PO SCH (09:33)
[2018-12-21] MEDS: METOPROLOL TARTRATE 50 MG TABLET PO SCH ×2 (09:33→20:06)
[2018-12-21] MEDS: LACTOBACILLUS 1 CAPSULE PO SCH (09:39)
[2018-12-21] MEDS: CRISABOROLE TOPICAL SCH ×2 (09:55→20:06)
--- NOTE | 2018-12-21 11:40 | Discharge Summary ---
Medical - DS: Prov Patient information: Note initiated : 12/21/18 at 11:37 am Service Date, if different from initiated Date: [] Patient: Anne Jackson 83 y/o F admitted on 12/20/18 for Weakness, SOB, Fatigue. Chief Complaint: [] Date of admission: 12/20/18 15:24 Discharge date: 12/22/18 Primary care physician: Yonatan Bolden MD Consults: 12/20/18 Consult to Physician [CONS] Stat Comment: Consulting Provider: Abdulaziz Laboy Reason For Exam: Physician to Consult Medical - DS: Meds - Discharge Medications Prescriptions: Furosemide [Lasix] 40 mg PO DAILY #10 tab Metoprolol Tartrate [Lopressor] 75 mg PO BID #20 tab Active and Home Medications: Home Medications Home Medications calcium carbonate 600 mg (1,500 mg)-vitamin D3 400 unit tablet 1 tab PO QDAY 07/19/15 [History Confirmed 12/20/18 Last Taken 11/30/18 08:00] Mesalamine [Apriso] 4 cap PO QAM 02/10/17 [History Confirmed 12/20/18 Last Taken 11/30/18 08:00] Latanoprost Ophth Drops [Xalatan Ophth Drops] 1 gtt OU HS 08/04/17 [History Confirmed 12/20/18 Last Taken 11/29/18 21:00] Ranitidine HCl [Acid [employer]ishing [employer] Preparer] 150 mg PO DAILY 08/04/17 [History Confirmed 12/20/18 Last Taken 11/30/18 08:00] albuterol sulfate 2.5 mg/3 mL (0.083 %) solution for nebulization 2.5 mg INHALATION Q4HP PRN #1080 ml 08/24/18 [Rx Confirmed 12/20/18 Last Taken 11/30/18 08:00] Alendronate Sodium [Fosamax] 70 mg PO WEEKLY 09/02/18 [History Confirmed 12/20/18 Last Taken 11/25/18 08:00] Potassium Chloride [K-Tab ER] 20 meq PO QAMCC 09/02/18 [History Confirmed 12/20/18 Last Taken 11/30/18 08:00] Warfarin [Coumadin] 2.5 mg PO MOWEFRSA 09/02/18 [History Confirmed 12/20/18 Last Taken 11/30/18 08:00] Lactobacillus acidophilus 460 mg (20 billion cell) capsule 460 mg PO QDAY 09/12/18 [History Confirmed 12/20/18 Last Taken 11/30/18 08:00] crisaborole 2 % topical ointment 1 applic TOPICAL BID #15 g 09/30/18 [Rx Confirmed 12/20/18 Last Taken 10/26/18 08:00] tiotropium bromide 18 mcg capsule with inhalation device 18 mcg INHALATION DAILY #90 puff 11/04/18 [Rx Confirmed 12/20/18 Last Taken 12/20/18 07:00] Warfarin [Coumadin] 1.25 mg PO SUTUTH 11/30/18 [History Confirmed 12/20/18 Last Taken 11/29/18 08:00] albuterol sulfate HFA 90 mcg/actuation aerosol inhaler 1 inh INHALATION Q4HP PRN #1 g 12/13/18 [Rx Confirmed 12/20/18 Last Taken Unknown] Furosemide [Lasix] 40 mg PO DAILY #10 tab 12/21/18 [Rx Last Taken Unknown] Metoprolol Tartrate [Lopressor] 75 mg PO BID #20 tab 12/23/18 [Rx Last Taken Unknown] Medical - DS: Hosp Hospital course: Ms. Jackson is a 83 year old F Who presents the ED with 3-4 days of increased weakness and lethargy, decreased appetite. Her daughters found her so weak this morning sitting in her chair that she could not get up and ambulate without assistance from them in a walker. She typically is able to ambulate by herself without assist device. She did start back on her metolazone about a week ago. Her urine has been really dark per the family. She denies any fevers or chills no new cough she has her chronic cough. Does not feel particularly short of breath but her daughters felt that she looked labored past 24 hours. Daughter say her heart rate typically runs in the 90s at home and her blood pressure typically runs low 100s this yesterday was 90/70. In the ED she was evaluated. To be dehydrated, no edema chest x-ray was okay. She had a leukocytosis but was afebrile her heart rate was 140s A. fib RVR when she came in she was given a dose of Lopressor which brought her back down to low 100 lactic acid and pro-calcitonin were okay. Been gentle IV fluids and potassium ED physician discussed the case with her primary care provider Dr. Bolden. I discussed her case with her forms builder, Dr. Vázquez. I spent time with her and her daughters discussing her medical conditions specifically her heart which includes at least moderate pulmonary artery hypertension, severe mitral regurgitation which she is not a candidate for surgery because of her other comorbidities (evaluated in [place] in the past for this), and her severe diastolic dysfunction -overall which makes it extremely difficult for her heart to provide any adequate cardiac output and she is always in a tenuous state with her fluid balance. 12/21 Poor sleep last night states she is tired but otherwise has no complaints. D enies cough, denies shortness of breath at rest. Heart rate 108 when I was in there. She is sitting up eating breakfast. Family visited with hospice worker. Patient will likely discharge with home health and to start further hospice discussions. 12/22 Feeling better today. Slept well. No new complaints sitting up eating breakfast. Heart rate still fluctuating around 100 increases with activity. Occasionally in the 90s. 12/23 Heart rate 90s to low 100s on increased dose of Lopressor. Blood pressure in the systolic 90s while sleeping low 100s while awake which is what she typically runs at home. Appears comfortable and doing well no acute concerns or issues overnight. Discharge diagnosis: A. fib RVR volume depletion hypokalemia generalized weakness deconditioning Secondary discharge diagnosis: Diastolic CHF grade 3, pulmonary artery hypertension at least moderate, severe mitral regurgitation not a surgical candidate. COPD memory loss dysphasia ulcerative colitis GERD - Time Spent with Patient Total time spent providing and/or coordinating discharge services: Greater than 30 minutes Medical - DS: Exam - Constitutional Vitals: Vital Signs Temp Pulse Pulse Resp BP BP Pulse Ox 12/21/18 11:01 19 90/74 95 12/21/18 10:01 98.2 F 21 92/71 94 12/21/18 09:02 30 H 122/79 93 12/21/18 08:02 98.6 F 24 H 110/78 91 12/21/18 07:29 119 H 21 94 12/21/18 07:04 21 114/81 94 12/21/18 06:40 29 H 109/81 96 12/21/18 05:02 21 114/86 95 12/21/18 04:01 96.8 F L 71 26 H 112/96 99 12/21/18 03:01 35 L 31 H 90/74 98 12/21/18 02:46 77 25 H 104/75 96 12/21/18 02:01 102 H 26 H 106/72 95 12/21/18 01:53 96 12/21/18 01:10 93 H 19 108/89 95 12/21/18 00:01 97.7 F 110 H 24 H 95/68 92 12/20/18 23:12 91 H 26 H 107/82 94 12/20/18 22:27 103 H 27 H 111/89 91 12/20/18 21:01 141 H 28 H 100/76 95 12/20/18 20:01 98.7 F 101 H 19 112/86 96 12/20/18 20:00 30 H 96 12/20/18 19:11 130 H 32 H 113/78 96 12/20/18 18:31 28 H 108/82 98 12/20/18 18:01 26 H 111/69 93 12/20/18 17:31 28 H 113/81 97 12/20/18 17:29 98.4 F 12/20/18 17:01 20 104/88 100 12/20/18 16:50 115 H 24 H 12/20/18 16:31 98.4 F 21 119/86 97 12/20/18 16:06 27 H 95 12/20/18 16:03 98.1 F 50 L 24 H 115/82 95 12/20/18 15:47 36 L 33 H 94/78 100 12/20/18 15:45 23 H 115/74 12/20/18 15:37 98.4 F 96 H 25 H 105/82 95 12/20/18 15:27 98.1 F 32 H 94/78 97 12/20/18 15:24 98.4 F 20 113/81 95 12/20/18 15:16 98 H 28 H 100/79 94 12/20/18 15:01 96 H 25 H 105/82 95 12/20/18 14:46 77 27 H 107/89 96 12/20/18 14:31 100 H 35 H 100/79 94 12/20/18 14:16 114 H 30 H 116/69 95 12/20/18 14:09 66 25 H 113/78 95 12/20/18 12:49 25 H 116/89 12/20/18 12:01 65 37 H 129/86 94 12/20/18 11:46 62 35 H 140/91 94 Intake and Output 12/20/18 12/21/18 12/21/18 21:59 05:59 13:59 Intake Total 1999 53 Output Total 625 650 Balance 1375 -650 53 Intake: IV 1520 53 Cordar[place] 150 mg In Dextrose 5% 53 in Water 50 ml @ 300 mls/hr IV ONCE ONE Rx#:[id number] Potassium Chloride 20 Meq In 260 Dextrose 5% in Water 250 ml @ 130 mls/hr IV ONCE ONE Rx#: [id number] Oral 480 Output: Urine Catheter Amount 625 Void Amount 650 Other: Meal Dinner Percent of Meal Consumed 50% Feeding Ability Assist with Tray Set Up Urine Appearance Cloudy Lin Clear Urine Color Dark Yellow Lin Dark Yellow [place] Urine Odor Normal Lin Normal # Voids 1 # Bowel Movements 1 Weight 60.419 kg Medical - DS: Data Labs on day of discharge: Labs from last 24 hours 12/21/18 12/21/18 12/21/18 04:00 04:00 04:00 WBC 12.9 H RBC 5.05 Hgb 14.1 Hct 45.1 MCV 89.3 MCH 28.0 MCHC 31.4 RDW 16.3 H Plt Count 224 MPV 11.2 H Gran % 91.1 H Lymph % (Auto) 5.5 L [place] % (Auto) 3.0 Eos % (Auto) 0 Baso % (Auto) 0.4 Gran # 11.7 H Lymph # (Auto) 0.7 L [place] # (Auto) 0.4 Eos # (Auto) 0 Baso # (Auto) 0 Total Counted Seg Neutrophils % Band Neutrophils % Lymphocytes % Monocytes % (Manual) Platelet Estimate RBC Morphology Polychromasia Anisocytosis PT 35.1 H INR 3.6 H VBG Lactic Acid Sodium 134 Potassium 3.7 Chloride 88 L Carbon Dioxide 30 Anion Gap 16.0 BUN 32 H Creatinine 0.9 GFR Calculation 59 Glucose 155 H Uric Acid 9.6 H Calcium 9.1 Phosphorus 2.7 Magnesium 2.0 Total Bilirubin 1.6 H Direct Bilirubin 0.3 GGT 38 H AST 26 ALT 19 Alkaline Phosphatase 82 Lactate Dehydrogenase 267 H NT-Pro-B Natriuret Pep Total Protein 6.6 Albumin 3.4 Globulin 3.2 Albumin/Globulin Ratio 1.1 Triglycerides 66 Procalcitonin Urine Color Urine Appearance Urine pH Ur Specific [place] Urine Protein Urine Glucose (UA) Urine Ketones Urine Occult Blood Urine Nitrate Urine Bilirubin Urine Urobilinogen Ur Leukocyte Esterase Urine RBC Urine WBC Ur Squamous Epith Cells Urine Bacteria Hyaline Casts Urine Mucus Ur Culture Indicated? 12/20/18 12/20/18 12/20/18 22:20 13:28 10:58 WBC RBC Hgb Hct MCV MCH MCHC RDW Plt Count MPV Gran % Lymph % (Auto) [place] % (Auto) Eos % (Auto) Baso % (Auto) Gran # Lymph # (Auto) [place] # (Auto) Eos # (Auto) Baso # (Auto) Total Counted 100 Seg Neutrophils % 74 Band Neutrophils % 3 Lymphocytes % 18 Monocytes % (Manual) 5 Platelet Estimate Normal RBC Morphology Abnorm A Polychromasia 1+ A Anisocytosis 1+ A PT 27.3 H INR 2.6 H VBG Lactic Acid Sodium Potassium Chloride Carbon Dioxide Anion Gap BUN Creatinine GFR Calculation Glucose Uric Acid Calcium Phosphorus Magnesium Total Bilirubin Direct Bilirubin GGT AST ALT Alkaline Phosphatase Lactate Dehydrogenase NT-Pro-B Natriuret Pep Total Protein Albumin Globulin Albumin/Globulin Ratio Triglycerides Procalcitonin Urine Color Yellow Urine Appearance Clear Urine pH 6.0 Ur Specific [place] 1.020 Urine Protein Neg Urine Glucose (UA) Norm Urine Ketones Neg Urine Occult Blood 1+ (small) Urine Nitrate Neg Urine Bilirubin Neg Urine Urobilinogen Norm Ur Leukocyte Esterase Trace Urine RBC 12 H Urine WBC 8 H Ur Squamous Epith Cells 3 Urine Bacteria Few A Hyaline Casts 4 H Urine Mucus Few Ur Culture Indicated? Yes 12/20/18 12/20/18 12/20/18 10:58 10:58 10:58 WBC RBC Hgb Hct MCV MCH MCHC RDW Plt Count MPV Gran % Lymph % (Auto) [place] % (Auto) Eos % (Auto) Baso % (Auto) Gran # Lymph # (Auto) [place] # (Auto) Eos # (Auto) Baso # (Auto) Total Counted Seg Neutrophils % Band Neutrophils % Lymphocytes % Monocytes % (Manual) Platelet Estimate RBC Morphology Polychromasia Anisocytosis PT INR VBG Lactic Acid 1.8 Sodium Potassium Chloride Carbon Dioxide Anion Gap BUN Creatinine GFR Calculation Glucose Uric Acid Calcium Phosphorus Magnesium Total Bilirubin Direct Bilirubin GGT AST ALT Alkaline Phosphatase Lactate Dehydrogenase NT-Pro-B Natriuret Pep 1837.0 H Total Protein Albumin Globulin Albumin/Globulin Ratio Triglycerides Procalcitonin 0.17 Urine Color Urine Appearance Urine pH Ur Specific [place] Urine Protein Urine Glucose (UA) Urine Ketones Urine Occult Blood Urine Nitrate Urine Bilirubin Urine Urobilinogen Ur Leukocyte Esterase Urine RBC Urine WBC Ur Squamous Epith Cells Urine Bacteria Hyaline Casts Urine Mucus Ur Culture Indicated? Preliminary micro results at discharge 12/20/18 13:28 Urine Culture - Preliminary Urine - Clean Void [facility] Medical - DS: A/P - Patient/Caregiver Discharge Instructions Activity: increase activity as tolerated Diet: Cardiac Additional Instructions: Follow-up with hospice outpatient Prescriptions: Furosemide [Lasix] 40 mg PO DAILY #10 tab - Follow up Plan Follow up with: Estiven Vázquez MD [Physician] - (Call to schedule an appointment if needed.) Yonatan Bolden MD [Primary Care Provider] - (Call to schedule an appointment as needed.) Disposition: Home Health Service Prognosis: Serious Rehab Potential: Fair Overall status at discharge: patient is progressing back to baseline Medical - DS: Qual - VTE Deep Vein Thrombosis/Pulmonary Embolism Present on Admission: No
[2018-12-21] MEDS ORDERED: WARFARIN 2.5 MG TABLET PO SCH (16:04)
[2018-12-21] MEDS: diphenhydrAMINE 25 MG CAPSULE PO SCH (20:05)
[2018-12-21] MEDS: LATANOPROST OPHTH DROPS 2.5ML BOTTLE OU SCH (20:06)
[2018-12-22] MEDS: IPRATROPIUM/ALBUTEROL 3 ML AMPUL.NEB NEB PRN ×3 (02:24→20:51)
[2018-12-22] MEDS: 0.9 % SODIUM CHLORIDE 10 ML SYRINGE IV SCH ×5 (05:09→21:37)
[2018-12-22 05:51] LABS: Basophils # (Auto) 0 K/mcL (0.0-0.3); Basophils % (Auto) 0.2 % (0.0-2.0); Eosinophils # (Auto) 0 K/mcL (0.0-0.7); Eosinophils % (Auto) 0 % (0.0-7.0); Granulocytes % (Auto) 84.6 % (38.0-78.0); Lymphocytes # (Auto) 1.1 K/mcL (1.5-4.8); Lymphocytes % (Auto) 8.2 % (15.5-49.0); Mean Cell Volume 89.4 fL (80.0-100.0); Mean Corpuscular HGB Conc 31.5 g/dL (31.0-36.0); Monocytes # (Auto) 0.9 K/mcL (0.1-0.9); Platelet Count 217 K/mcL (140-440); RBC 4.75 M/mcL (4.00-5.20); Red Cell Distribution Width 15.9 % (11.5-14.5)
[2018-12-22 06:06] LABS: ALT/SGPT 26 U/l (0-40); Albumin 3.2 gm/dL (3.2-5.2); Albumin/Globulin Ratio 1.1 (1.0-2.3); Alkaline Phosphatase 74 U/L (39-117); Bilirubin,Direct 0.3 mg/dL (0.0-0.3); Blood Urea Nitrogen 42 mg/dl (8-23); Gamma Glutamyl Transpeptidase 42 U/L (5-36); Uric Acid 9.8 mg/dL (2.5-8.0)
[2018-12-22] MEDS: METOPROLOL TARTRATE 5 MG/5 ML VIAL IV PRN ×3 (07:00→21:59)
--- NOTE | 2018-12-22 07:35 | Internal Med Progress Note ---
Medical - PN: Subj Patient information: Note initiated : 12/22/18 at 7:33 am Service Date, if different from initiated Date: [] Patient: Anne Jackson a 83 y/o F admitted on 12/20/18 for Weakness, SOB, Fatigue. Chief Complaint: [] Interval history: Ms. Jackson is a 83 year old F Who presents the ED with 3-4 days of increased weakness and lethargy, decreased appetite. Her daughters found her so weak this morning sitting in her chair that she could not get up and ambulate without assistance from them in a walker. She typically is able to ambulate by herself without assist device. She did start back on her metolazone about a week ago. Her urine has been really dark per the family. She denies any fevers or chills no new cough she has her chronic cough. Does not feel particularly short of breath but her daughters felt that she looked labored past 24 hours. Daughter say her heart rate typically runs in the 90s at home and her blood pressure typically runs low 100s this yesterday was 90/70. In the ED she was evaluated. To be dehydrated, no edema chest x-ray was okay. She had a leukocytosis but was afebrile her heart rate was 140s A. fib RVR when she came in she was given a dose of Lopressor which brought her back down to low 100 lactic acid and pro-calcitonin were okay. Been gentle IV fluids and potassium ED physician discussed the case with her primary care provider Dr. Bolden. I dis cussed her case with her medical surgical tech, Dr. Vázquez, no new recommendations, patient has a poor prognosis with multiple cardiac abnormalities. I spent time with her and her daughters discussing her medical conditions specifically her heart which includes at least moderate pulmonary artery hypertension, severe mitral regurgitation which she is not a candidate for surgery because of her other comorbidities (evaluated in [place] in the past for this), and her severe diastolic dysfunction -overall which makes it extremely difficult for her heart to provide any adequate cardiac output and she is always in a tenuous state with her fluid balance. 12/21 Poor sleep last night states she is tired but otherwise has no complaints. Denies cough, denies shortness of breath at rest. Heart rate 108 when I was in there. She is sitting up eating breakfast. Hospice evaluation. Family plan on taking patient home with home health with palliative type plan. 12/22 Feeling better today. Slept well. No new complaints sitting up eating breakfast. Heart rate still fluctuating around 100 increases with activity. Occasionally in the 90s. Review of Systems: denies headache/fever/chills/nausea/vomiting/chest or abdominal pain/diarrhea. Otherwise see above. - Constitutional Vitals: Vital Signs Temp Pulse Resp BP Pulse Ox 98.5 F 103 H 20 131/95 96 12/22/18 07:00 12/21/18 14:00 12/22/18 07:00 12/22/18 07:00 12/22/18 07:00 Period Temp Pulse Resp BP Sys/Arellano Pulse Ox Last 24 Hr 97.7 F-99.6 F 103 17-32 80-131/55-112 83-99 Intake and Output 12/21/18 12/22/18 12/22/18 21:59 05:59 13:59 Intake Total 740 500 Output Total 150 450 125 Balance 590 50 -125 Weight 62.278 kg Intake & Output: Intake & Output 12/21/18 12/22/18 12/22/18 21:59 05:59 13:59 Intake Total 740 500 Output Total 150 450 125 Balance 590 50 -125 Weight 62.278 kg Intake: IV 500 500 Oral 240 Output: Urine Catheter Amount 125 Void Amount 150 450 Other: Meal Dinner Percent of Meal Consumed 75% Feeding Ability Assist with Tray Set Up Urine Appearance Clear Clear Clear Urine Color Light Juliann Dark Yellow Bright Yellow Urine Odor Normal Stool Size Moderate Moderate Stool Color Brown Brown Stool Consistency Soft Formed Formed # Voids 1 Exam: General: Alert, Awake, No acute Distress Eyes/N/T: EOMI, Head/Neck: neck supple, CV: irreg, mild tachy, Pulm: Mild rales left base, no rales or wheezing Abd: soft, nontender, +BS x4 Ext: no clubbing/cyanosis, no LE edema Neuro: Alert, no focal deficits, moves all extremities, Skin: warm/dry Medical - PN: Obj Da - Labs CBC & Chem 7: 12/22/18 03:50 12/22/18 03:50 Labs: Abnormal Lab Results 12/22/18 12/22/18 12/22/18 03:50 03:50 03:50 WBC 13.2 H RBC Hgb Hct RDW 15.9 H MPV 11.3 H Gran % 84.6 H Lymph % (Auto) 8.2 L Gran # 11.2 H Lymph # (Auto) 1.1 L [place] # (Auto) RBC Morphology Polychromasia Anisocytosis PT 42.2 H INR 4.5 H Potassium Chloride 92 L Carbon Dioxide Anion Gap BUN 42 H Glucose 110 H Uric Acid 9.8 H Calcium 8.5 L Total Bilirubin GGT 42 H Lactate Dehydrogenase 286 H NT-Pro-B Natriuret Pep Urine RBC Urine WBC Urine Bacteria Hyaline Casts 12/21/18 12/21/18 12/21/18 04:00 04:00 04:00 WBC 12.9 H RBC Hgb Hct RDW 16.3 H MPV 11.2 H Gran % 91.1 H Lymph % (Auto) 5.5 L Gran # 11.7 H Lymph # (Auto) 0.7 L [place] # (Auto) RBC Morphology Polychromasia Anisocytosis PT 35.1 H INR 3.6 H Potassium Chloride 88 L Carbon Dioxide Anion Gap BUN 32 H Glucose 155 H Uric Acid 9.6 H Calcium Total Bilirubin 1.6 H GGT 38 H Lactate Dehydrogenase 267 H NT-Pro-B Natriuret Pep Urine RBC Urine WBC Urine Bacteria Hyaline Casts 12/20/18 12/20/18 12/20/18 22:20 13:28 10:58 WBC RBC Hgb Hct RDW MPV Gran % Lymph % (Auto) Gran # Lymph # (Auto) [place] # (Auto) RBC Morphology Abnorm A Polychromasia 1+ A Anisocytosis 1+ A PT 27.3 H INR 2.6 H Potassium Chloride Carbon Dioxide Anion Gap BUN Glucose Uric Acid Calcium Total Bilirubin GGT Lactate Dehydrogenase NT-Pro-B Natriuret Pep Urine RBC 12 H Urine WBC 8 H Urine Bacteria Few A Hyaline Casts 4 H 12/20/18 12/20/18 12/20/18 10:58 10:34 10:34 WBC 15.0 H RBC 5.89 H Hgb 16.6 H Hct 51.6 H RDW 16.1 H MPV 10.8 H Gran % Lymph % (Auto) 13.2 L Gran # 11.5 H Lymph # (Auto) [place] # (Auto) 1.5 H RBC Morphology Polychromasia Anisocytosis PT INR Potassium 2.8 L* Chloride 78 L Carbon Dioxide 38 H Anion Gap 17.0 H BUN 37 H Glucose 147 H Uric Acid Calcium 10.6 H Total Bilirubin 2.2 H GGT Lactate Dehydrogenase NT-Pro-B Natriuret Pep 1837.0 H Urine RBC Urine WBC Urine Bacteria Hyaline Casts Meds: Medications Acetaminophen (Tylenol) 650 mg PO Q6HP PRN PRN Reason: PAIN/FEVER > 101 Last Admin: 12/21/18 09:32 Dose: 650 mg Documented by: Albuterol/Ipratropium (Duoneb) 3 ml NEB Q4HP PRN PRN Reason: Shortness Of Breath Last Admin: 12/22/18 02:24 Dose: 3 ml Documented by: Diphenhydramine HCl (Benadryl) 25 mg PO [facility] Stop: 12/22/18 21:01 Last Admin: 12/21/18 20:05 Dose: 25 mg Documented by: Docusate Sodium (Colace) 100 mg PO BID [facility] Last Admin: 12/21/18 20:06 Dose: 100 mg Documented by: Famotidine (Pepcid) 20 mg PO BID [facility] Last Admin: 12/21/18 20:05 Dose: 20 mg Documented by: Potassium Chloride 40 meq/ (Dextrose) 520 mls @ 130 mls/hr IV UD PRN PRN Reason: Potassium < 3 Magnesium Sulfate (Magnesium Sulfate) 2 gm in 50 mls @ 50 mls/hr IV UD PRN PRN Reason: Magnesium </= 1.6 Lactobacillus Rhamnosus (Culturelle) 1 cap PO DAILY [facility] Last Admin: 12/21/18 09:39 Dose: 1 cap Documented by: Lactulose (Cephulac) 10 gm PO DAILYP PRN PRN Reason: Constipation Latanoprost (Xalatan Ophth Drops) 1 gtt OU HS [facility] Last Admin: 12/21/18 20:06 Dose: 1 gtt Documented by: Metoprolol Tartrate (Lopressor) 50 mg PO BID [facility] Last Admin: 12/21/18 20:06 Dose: 50 mg Documented by: Metoprolol Tartrate (Lopressor) 5 mg IV Q2HP PRN PRN Reason: Tachyarrhythmias Last Admin: 12/22/18 07:00 Dose: 5 mg Documented by: Mupirocin (Bactroban Oint 2%) 1 dose NARES BID [facility] Last Admin: 12/21/18 20:06 Dose: 1 dose Documented by: Ondansetron HCl (Zofran) 4 mg IV Q4HP PRN PRN Reason: Nausea And Vomiting Crisaborole [Eucrisa ] 2% Topical Ointment 1 dose TOPICAL BID [facility] Last Admin: 12/21/18 20:06 Dose: Not Given Documented by: Mesalamine 0.375 Gm (Er Capsule) 1 dose PO DAILY [facility] Last Admin: 12/21/18 09:32 Dose: 1 dose Documented by: Polyethylene Glycol (Miralax) 17 gm PO DAILYP PRN PRN Reason: Constipation Potassium Chloride (Kdur) 40 meq PO UD PRN PRN Reason: Potssium is 3-3.5 Potassium Chloride (Kdur) 40 meq PO UD PRN PRN Reason: Potassium < 3 Potassium Chloride (Kdur) 20 meq PO QAMCC [facility] Last Admin: 12/21/18 09:33 Dose: 20 meq Documented by: Promethazine HCl (Phenergan) 0 mg PO Q6HP PRN PRN Reason: Nausea And Vomiting Senna (Senokot) 2 tab PO HSP PRN PRN Reason: Constipation Sodium Chloride (Saline Flush) 10 ml IV Q8 [facility] Last Admin: 12/22/18 07:00 Dose: 10 ml Documented by: Tiotropium Turner (Spiriva) 18 mcg INH DAILY [facility] Last Admin: 12/21/18 09:32 Dose: 18 mcg Documented by: Warfarin Sodium (Coumadin Per Pharmacy) 1 order PO [facility] [place] Medical - PN: A/P - Time Spent With Patient Total time spent is greater than 50% in coordination of care (as documented) at patient's floor/unit and/or counseling patient: - Narrative A/P Narrative: A: *AFib w/RVR: rate~100 *Volume Depletion: 2/2 diuretics. Improved *Hypokalemia: Secondary to diuretics, improved *Generalized weakness/deconditioning: Improving *h/o Diastolic(III) CHF: EF 55% on recent echo *PAH, at least Moderate: *MR, Severe: Not a surgical candidate per her consult in [place], given her age and comorbidities *COPD (not on home O2): *Leukocytosis: Reactive versus infectious. CXR/UA unrevealing -no bandemia, afebrile, PCT low *Memory loss: *Oral pharyngeal dysphasia: *Ulcerative colitis *GERD: *Goals of care: poor long-term prognosis given severity of cardiac impairment and other comorbidities P: -Continue Lopressor twice daily, (increase) -Replete electrolytes -Discussed case with Dr. Vázquez, no immediate recommendations other than AV jayden blockers and optimize fluid balance -poor prognosis -diuretics held today -pt/ot/ST -Hospice eval -ppx: warfarin per pharm DNR Medical - PN: Qual - VTE Deep Vein Thrombosis/Pulmonary Embolism Present on Admission: No
[2018-12-22] MEDS: MESALAMINE 0.375 GM PO SCH (08:40)
[2018-12-22] MEDS: FAMOTIDINE 20 MG TABLET PO SCH ×2 (08:40→20:37)
[2018-12-22] MEDS: DOCUSATE SODIUM 100 MG CAPSULE PO SCH ×2 (08:40→20:37)
[2018-12-22] MEDS: METOPROLOL TARTRATE 50 MG TABLET PO SCH ×3 (08:40→20:37)
[2018-12-22] MEDS: MUPIROCIN OINT 2% 22GM NARES SCH ×2 (08:40→20:37)
[2018-12-22] MEDS: POTASSIUM CHLORIDE 20 MEQ TABLET PO SCH (08:40)
[2018-12-22] MEDS: CRISABOROLE TOPICAL SCH ×2 (08:41→20:38)
[2018-12-22] MEDS: TIOTROPIUM BROMIDE 18 MCG INHALANT INH SCH (08:47)
[2018-12-22] MEDS: LACTOBACILLUS 1 CAPSULE PO SCH (08:52)
[2018-12-22] MEDS ORDERED: METOPROLOL TARTRATE 25 MG TABLET PO ONE (08:56)
[2018-12-22] MEDS: diphenhydrAMINE 25 MG CAPSULE PO SCH (20:37)
[2018-12-22] MEDS: LATANOPROST OPHTH DROPS 2.5ML BOTTLE OU SCH (20:37)
[2018-12-23] MEDS: IPRATROPIUM/ALBUTEROL 3 ML AMPUL.NEB NEB PRN ×2 (03:45→09:39)
[2018-12-23] MEDS: METOPROLOL TARTRATE 5 MG/5 ML VIAL IV PRN ×3 (05:21→11:58)
[2018-12-23] MEDS: 0.9 % SODIUM CHLORIDE 10 ML SYRINGE IV SCH ×6 (05:21→16:03)
[2018-12-23] MEDS: POTASSIUM CHLORIDE 20 MEQ TABLET PO SCH (07:51)
[2018-12-23] MEDS: FAMOTIDINE 20 MG TABLET PO SCH (08:28)
[2018-12-23] MEDS: LACTOBACILLUS 1 CAPSULE PO SCH (08:28)
[2018-12-23] MEDS: METOPROLOL TARTRATE 50 MG TABLET PO SCH (08:28)
[2018-12-23] MEDS: MUPIROCIN OINT 2% 22GM NARES SCH (08:29)
[2018-12-23] MEDS: DOCUSATE SODIUM 100 MG CAPSULE PO SCH (08:30)
[2018-12-23] MEDS: TIOTROPIUM BROMIDE 18 MCG INHALANT INH SCH (08:30)
[2018-12-23] MEDS: MESALAMINE 0.375 GM PO SCH (08:30)
[2018-12-23] MEDS: CRISABOROLE TOPICAL SCH (08:32)
[2018-12-23] MEDS: ACETAMINOPHEN 325 MG TABLET PO PRN (08:32)
[2018-12-23] MEDS: CALCIUM CARBONATE 500 MG TAB.CHEW CHEWED PRN ×2 (08:59→10:07)
[2018-12-23] MEDS ORDERED: PHENobarb/HYOSCY/ATROPINE/SCOP 1 DOSE BOTTLE PO ONE (10:33)
--- NOTE | 2018-12-23 10:53 | XRay Report ---
CLINICAL INFORMATION: chest pain COMPARISON: 12/20/2018 FINDINGS: Moderate cardiomegaly is unchanged. Mediastinum is unremarkable. The pulmonary vessels are mildly distended and there is minimal interstitial edema. Minor atelectasis in left base. Small bilateral pleural effusions. IMPRESSION: Mild CHF - slight worsening Interpreted and Authenticated by: Ramsey Dao 12/23/18
[2018-12-23 11:54] LABS: Creatine Kinase MB 3.9 ng/ml (0-2.9)
--- NOTE | 2018-12-23 12:39 | XRay Report ---
CLINICAL INFORMATION: nausea/vomiting COMPARISON: None. FINDINGS: The stool gas pattern is unremarkable. There is no free air, soft tissue mass, organomegaly or pathologic calcification 1 cm calcified granuloma, just superior to the right ilium, has been seen on multiple previous x-rays dating back to 2016. Moderate cardiomegaly incidentally noted - it is unchanged from recent chest x-ray IMPRESSION: Normal abdomen. Interpreted and Authenticated by: Ramsey Dao 12/23/18
[2018-12-23] MEDS ORDERED: PANTOPRAZOLE 40 MG VIAL IV SCH ×2 (12:49→17:00)
[2018-12-23] MEDS ORDERED: CALCIUM CARBONATE 500 MG TAB.CHEW CHEWED PRN (13:11)
[2018-12-23] MEDS ORDERED: ONDANSETRON 4 MG/2 ML VIAL IV PRN (13:11)
[2018-12-23] MEDS ORDERED: POTASSIUM CHLORIDE 40 MEQ in DEXTROSE 5% IN WATER 500 ML IV PRN (13:11)
[2018-12-23] MEDS ORDERED: MAGNESIUM SULFATE 2 GM/50 ML BAG IV PRN (13:11)
[2018-12-23] MEDS ORDERED: METOPROLOL TARTRATE 5 MG/5 ML VIAL IV PRN (13:11)
[2018-12-23] MEDS ORDERED: LACTULOSE 20 GM/30 ML ORAL.SOL PO PRN (13:11)
[2018-12-23] MEDS ORDERED: IPRATROPIUM/ALBUTEROL 3 ML AMPUL.NEB NEB PRN (13:11)
[2018-12-23] MEDS ORDERED: ACETAMINOPHEN 325 MG TABLET PO PRN (13:11)
[2018-12-23] MEDS ORDERED: PROMETHAZINE 25 MG TABLET PO PRN (13:11)
[2018-12-23] MEDS ORDERED: POLYETHYLENE GLYCOL 3350 17 GM PACKET PO PRN (13:11)
[2018-12-23] MEDS ORDERED: WARFARIN 1 MG TABLET PO ONE ×2 (14:00)
[2018-12-23] MEDS ORDERED: LORazepam 2 MG/ML VIAL IV ONE (15:43)
[2018-12-23] MEDS ORDERED: LORazepam 2 MG/ML VIAL ONE (16:21)
[2018-12-23] MEDS ORDERED: LORazepam 2 MG/ML VIAL IV PRN (16:34)
[2018-12-23] MEDS ORDERED: LACTOPEROXI/GLUC OXID/POT THIO 1 EACH GEL..EA. TOPICAL PRN (16:34)
--- NOTE | 2018-12-23 19:24 | Death Note ---
Discharge Sum: Prov - Provider Patient information: Note initiated : 12/23/18 at 7:21 pm Service Date, if different from initiated Date: [] Patient: Anne Jackson a 83 y/o F admitted on 12/20/18 for Weakness, SOB, Fatigue. Chief Complaint: [] Primary care physician: Yonatan Bolden MD Consults: 12/20/18 Consult to Physician [CONS] Stat Comment: Consulting Provider: Abdulaziz Laboy Reason For Exam: Physician to Consult Discharge Sum: Diag - PCOD Cause of : Heart failure Discharge Sum: Summary - Date and Time Date of admission: 12/20/18 15:24 Date of : 12/23/18 Time of : 17:59 - Summary Details: Ms. Jackson is a 83 year old F Who presents the ED with 3-4 days of increased weakness and lethargy, decreased appetite. Her daughters found her so weak this morning sitting in her chair that she could not get up and ambulate without assistance from them in a walker. She typically is able to ambulate by herself without assist device. She did start back on her metolazone about a week ago. Her urine has been really dark per the family. She denies any fevers or chills no new cough she has her chronic cough. Does not feel particularly short of breath but her daughters felt that she looked labored past 24 hours. Daughter say her heart rate typically runs in the 90s at home and her blood pressure typically runs low 100s this yesterday was 90/70. In the ED she was evaluated. To be dehydrated, no edema chest x-ray was okay. She had a leukocytosis but was afebrile her heart rate was 140s A. fib RVR when she came in she was given a dose of Lopressor which brought her back down to low 100 lactic acid and pro-calcitonin were okay. Been gentle IV fluids and potassium ED physician discussed the case with her primary care provider Dr. Bolden. I discussed her case with her catalytic converter operator, Dr. Vázquez. I spent time with her and her daughters discussing her medical conditions specifically her heart which includes at least moderate pulmonary artery hypertension, severe mitral regurgitation which she is not a candidate for surgery because of her other comorbidities (evaluated in [place] in the past for this), and her severe diastolic dysfunction -overall which makes it extremely difficult for her heart to provide any adequate cardiac output and she is always in a tenuous state with her fluid balance. 12/21 Poor sleep last night states she is tired but otherwise has no complaints. Denies cough, denies shortness of breath at rest. Heart rate 108 when I was in there. She is sitting up eating breakfast. Family visited with hospice worker. Patient will likely discharge with home health and to start further hospice discussions. 12/22 Feeling better today. Slept well. No new complaints sitting up eating breakfast. Heart rate still fluctuating around 100 increases with activity. Occasionally in the 90s. 12/23 Heart rate 90s to low 100s on increased dose of Lopressor. Blood pressure in the systolic 90s while sleeping low 100s while awake which is what she typically runs at home. Appears comfortable and doing well no acute concerns or issues overnight. patient was restless throughtout the day, family decided to opt for comfort measures while in the hospital. They signed the comfort care form. pts was started on ativan and morphine for comfort. patient passed awat at 1759 Cause of -Congestive Heart failure -Due to mitral regurgitation Contributing factors, Pulmonary Hypertension, ATrial fibrillation - Additional Data Confirmation of as documented by pronouncing clinician: no pulse, no respirations, no heart sounds, pupils fixed and dilated Family: at bedside Attending physician: Abdulaziz Laboy
[2018-12-23] MEDS ORDERED: CRISABOROLE TOPICAL SCH (21:00)
[2018-12-23] MEDS ORDERED: MUPIROCIN OINT 2% 22GM NARES SCH (21:00)
[2018-12-23] MEDS ORDERED: METOPROLOL TARTRATE 50 MG TABLET PO SCH (21:00)
[2018-12-23] MEDS ORDERED: DOCUSATE SODIUM 100 MG CAPSULE PO SCH (21:00)
[2018-12-23] MEDS ORDERED: LATANOPROST OPHTH DROPS 2.5ML BOTTLE OU SCH (21:00)
[2018-12-23] MEDS ORDERED: SENNOSIDES 1 TABLET PO PRN (21:00)
[2018-12-24] MEDS ORDERED: POTASSIUM CHLORIDE 20 MEQ TABLET PO SCH (08:00)
[2018-12-24] MEDS ORDERED: TIOTROPIUM BROMIDE 18 MCG INHALANT INH SCH (09:00)
[2018-12-24] MEDS ORDERED: LACTOBACILLUS 1 CAPSULE PO SCH (09:00)
[2018-12-24] MEDS ORDERED: MESALAMINE 0.375 GM PO SCH (09:00)
== END 2018-12-23 20:15 | disposition expired | DRG 309 ==
LOC: ED 10:02 → ICU 15:24 → MEDSUR 12-23 17:42
PROVIDERS: ADMIT Internal Medicine; ATTEND Internal Medicine